=== PATIENT | male | born 1990 | race Caucasian/White ===

== ENCOUNTER 2020-01-17 14:15 | Emergency (ER) | payer SELFPAY ==
[2020-01-17] VITALS (18 sets, daily range): BP systolic 131–162; BP diastolic 94–120; PULSE 102–131; RESP 12–25; TEMP 36.4; O2SAT 93–99
--- NOTE | 2020-01-17 14:28 | ECG_ITS ---
Measurements Intervals [place] Rate: 110 P: 25 NV: 131 QRS: 99 QRSD: 113 T: 40 QT: 320 QTc: 433 Interpretive Statements SINUS TACHYCARDIA RIGHT AXIS DEVIATION INTRAVENTRICULAR CONDUCTION DELAY DELAYED PRECORDIAL R/S TRANSITION ST ELEVATION IN DIFFUSE LEADS- CONSIDER PERICARDITIS OR EARLY REPOLARIZATION ABNORMAL ECG Electronically Signed On 01-17-2020 15:05:35 PULP ROLLER by Elvis Naidu D.O.
[2020-01-17 14:48] LABS: Basophils Percent Auto 0.3 % (0.2-1.2); Eosinophils Absolute Auto 0.1 K/mm3 (0-0.3); Eosinophils Percent Auto 1.7 % (0-4.4); Hematocrit 45.8 % (42.0-52.0); Hemoglobin 15.9 g/dL (14.0-18.0); Immature Granulocyte Absolute 0.03 K/mm3 (0.00-0.031); Immature Granulocyte Percent A 0.4 % (0-0.5); Immature Platelet Fraction Pct 8.8 % (0.9-11.2); Lymphocytes Absolute Auto 0.94 K/mm3 (0.9-3.2); Lymphocytes Percent Auto 13.7 % (18.3-44.2); Mean Corpuscular HGB Conc 34.7 g/dl (32-36); Mean Platelet Volume 10.8 fl (7.4-10.4); Monocytes Absolute Auto 0.7 K/mm3 (0.1-0.6); Monocytes Percent Auto 10.1 % (2.6-8.5); Neutrophils Absolute Auto 5.1 K/mm3 (1.3-6.7); Neutrophils Percent Auto 73.8 % (45.5-73.1); Platelet Count Result 139 k/mm3 (150-375); Red Blood Count 4.82 M/mm3 (4.6-6.20); Red Cell Distribution Width 14.5 % (11.5-14.5); White Blood Count 6.9 K/mm3 (4.5-10.0)
[2020-01-17 14:58] LABS: Alanine Aminotransferase 101 U/L (4-50); Albumin Level 4.9 g/dL (3.5-5.1); Alkaline Phosphatase 88 U/L (38-126); Anion Gap 17 mmol/L (8-16); Aspartate Amino Transferase 129 U/L (17-59); Blood Urea Nitrogen 8 mg/dL (9-20); Calcium 9.7 mg/dL (8.4-10.2); Carbon Dioxide 28 mmol/L (22-30); Chloride 88 mmol/L (98-107); Estimated CRCL calculation 113 ml/min; Estimated Glomerular Filt Rate > 60; Glucose 171 mg/dL (75-110); Potassium 3.2 mmol/L (3.4-5.0); Sodium 133 mmol/L (137-145)
[2020-01-17 14:59] LABS: Ethanol < 10 mg/dL (<10)
--- NOTE | 2020-01-17 16:16 | ED.GENADULT ---
HPI - General Adult General Chief complaint: Alcohol Stated complaint: fast heart rate Time Seen by Provider: 01/17/20 16:02 Source: patient Mode of arrival: ambulatory Limitations: no limitations History of Present Illness HPI narrative: Patient was sent in via EMS from the doctor's office today. He was here to be seen to get blood pressure medicine and was found to be tremorous due to alcohol withdrawal. Patient states that his last drink was on Monday, his drink of choice was vodka approximately 1/5 a day. He had several life events over the last 4 months that prompted his decision to get clean. These include his girlfriend leaving him, the loss of his job and the loss of his home due to bankruptcy. He states that he is cold turkey before and has never had a seizure. He feels that his tremors are worse when he is speaking to me or the another physician. Onset (ago): day(s) Treatments prior to arrival: none Related Data Allergies Allergy/AdvReac Type Severity Reaction Status Date / Time No Known Allergies Allergy Mild Verified 01/17/20 14:29 Review of Systems Review of Systems: All systems reviewed & are unremarkable except as noted in HPI and below Psychiatric: Psychiatric: Reports depression Comments: no suicidal/homicidal ideations [facility] Family History Family History Father Hypertension Family history of coronary artery disease Mother Family history of diabetes mellitus in first degree relative Sibling Family history of diabetes mellitus in first degree relative Social History Social History Smoking packs per day: 0.5 Smoking cigarettes per day: 10.0 Years smoked: 10 Smoking pack-years: 5.00 Smoking status: Former smoker Tobacco type: cigarettes Smoking end date: 10/05/19 Alcohol intake: current Drinks per week: 35 Substance use: never Substance use type: does not use Gender identity (if verbalized by the patient): Male Exam Const: General: no acute distress and alert Orientation/consciousness: patient oriented x3 HENMT: Head: normal to inspection Eyes: Conjunctivae: conjunctivae normal Pupils: Equal, round and reactive pupils present EOM: EOMs intact bilaterally Resp: Effort & Inspection: normal respiratory effort Auscultation: clear to auscultation bilaterally Cardio: Rate: regular rate and tachycardic Rhythm: regular rhythm GI: GI Palp: Yes Soft to palpation Skin: General skin exam: ecchymosis (right flank from fall) Neuro: General: patient oriented x3 and no focal motor deficits Cranial nerves: Yes Nystagmus not present Extrem: General: normal to inspection Psych: Appearance: grossly normal Affect: normal affect Attitude: cooperative Thought content: Yes Normal thought content present Course Course Emergency Course: Discussed treatment plan with patient, will give him a decreasing dose of Librium to run through the weekend. We will refill his blood pressure medications for a week. He is instructed to follow-up with his physician on Monday or Monday. The patient inquired about Antabuse, his brother had taken it when he was going through alcohol rehab and feels that it would help him as well. As We are talking his tremors are much better. Vital Signs Vital signs: Vital Signs Temperature 36.4 C 01/17/20 14:24 Pulse Rate 120 H 01/17/20 14:24 Respiratory Rate 24 H 01/17/20 14:24 Blood Pressure 159/106 H 01/17/20 14:24 Pulse Oximetry 98 01/17/20 14:24 Temperature 36.4 C 01/17/20 14:24 Pulse Rate 118 H 01/17/20 16:08 Respiratory Rate 12 01/17/20 16:08 Blood Pressure 159/106 H 01/17/20 14:24 Pulse Oximetry 97 01/17/20 16:08 Medical Decision Making Vital Signs Vital Signs: Vital Signs Temperature 36.4 C 01/17/20 14:24 Pulse Rate 120 H 01/17/20 14:24 Respiratory Rate 24 H 01/17/20 14:24 Blood Press
[2020-01-17] MEDS: SODIUM CHLORIDE 0.9% IV 1,000 ML 999 ML IV CONT (16:47)
[2020-01-17] MEDS: chlordiazePOXIDE (*CRX) 25 MG CAPSULE PO (17:12)
[2020-01-17] MEDS: METOPROLOL TARTRATE 25 MG TABLET PO (18:05)
--- NOTE | 2020-01-17 19:19 | PC.NURSE ---
REPORT TO FRANSICO AVERY AT THIS TIME, HE HAS ASSUMED PT CARE.
== END 2020-01-17 20:00 | disposition home or self-care (01) ==
PROVIDERS: Emergency Provider Emergency Medicine; PCP Family Medicine
DX: F10.239 Alcohol dependence with withdrawal, unspecified (principal); I10 Essential (primary) hypertension; Z87.891 Personal history of nicotine dependence
CPT/HCPCS: 36415; 80053; 80307; 85025; 85055; 93005; 96360; 99283; A9270; J7030

== ENCOUNTER 2020-01-18 23:01 | Inpatient (IN) | payer MEDICAID, SELFPAY ==
--- NOTE | ~2020-01-18 | CT_ITS ---
EXAMINATION: CT brain wo con INDICATION: Transient alteration of awareness COMPARISON: None TECHNIQUE: Standard unenhanced head CT. The dose-length product (DLP) was 605.33 mGy-cm. The mA was a djusted according to patient size. Iterative reconstruction technique was employed. FINDINGS: There is no intracranial hemorrhage, acute infarction, or abnormal mass lesion. The ventric les are normal. There is no abnormal mass effect or midline shift. The isbell-white matter differentiat ion is normal. The basal cisterns are patent. The orbits are normal. The paranasal sinuses, mastoids and calvarium are normal. IMPRESSION: 1. No acute intracranial abnormality. Reviewed, dictated and finalized at location A. DIE PRESS FEEDER
--- NOTE | ~2020-01-18 | XR_ITS ---
EXAMINATION: XR chest 1V portable INDICATION: Seizure and hypoxia TECHNIQUE: Portable AP chest at 2359 hours COMPARISON: None available FINDINGS: The lungs are free of acute opacities. There is no pleural effusion or pneumothorax. The ca rdiomediastinal silhouette is normal. IMPRESSION: 1. No acute cardiopulmonary abnormality. Reviewed, dictated and finalized at location A. TAMPER
[2020-01-18 23:09] VITALS: BP 143/98; PULSE 90; RESP 20; TEMP 37.4; O2SAT 90
--- NOTE | 2020-01-18 23:21 | ECG_ITS ---
Measurements Intervals [place] Rate: 140 P: -11 NC: 134 QRS: -47 QRSD: 98 T: 45 QT: 293 QTc: 447 Interpretive Statements SINUS OR ECTOPIC ATRIAL TACHYCARDIA INCOMPLETE RIGHT BUNDLE BRANCH BLOCK LEFT ANTERIOR FASCICULAR BLOCK BASELINE ARTIFACT- I, II, III, AVR, AVL, AVF ABNORMAL ECG Electronically Signed On 01-19-2020 8:59:40 [employer]NAGER OF [employer] by Elvis Naidu D.O.
--- NOTE | 2020-01-18 23:25 | ED.SEIZURE ---
HPI - Seizure General Chief Complaint: Seizure Stated Complaint: Seizures/ETOH Time Seen by Provider: 01/18/20 23:12 Source: patient Mode of arrival: EMS History of Present Illness HPI Narrative: This patient is a 29 year old male with history of alcohol abuse who presents via EMS for evaluation of alcohol withdrawal. Patient stopped drinking on Monday, and he was evaluated yesterday for alcohol withdrawal. He was discharge with librium . He has returned today after suffering a seizure. His mother reports that he is hallucinating and he is not acting right. He denies history of seizures in the past. complaint: seizure Related Data Home Medications Medication Instructions Recorded Confirmed chlordiazepoxide HCl 25 mg PO Q6H PRN 01/19/20 01/19/20 Allergies Allergy/AdvReac Type Severity Reaction Status Date / Time No Known Allergies Allergy Mild Verified 01/17/20 14:29 Review of Systems Review of Systems: All systems reviewed & are unremarkable except as noted in HPI and below Constitutional: Constitutional: Denies chills and Denies fever(s) Cardiovascular: Cardiovascular: Denies chest pain Respiratory: Respiratory: Denies cough and Denies dyspnea Gastrointestinal: Gastrointestinal: Denies abdominal pain, Denies nausea and Reports vomiting Neurologic: Denies headache(s) and Denies focal weakness PMFSH Past Medical History Medical History Alcohol abuse Family History Family History Father Hypertension Family history of coronary artery disease Mother Family history of diabetes mellitus in first degree relative Sibling Family history of diabetes mellitus in first degree relative Social History Social History Smoking packs per day: 0.5 Smoking cigarettes per day: 10.0 Years smoked: 4 Smoking pack-years: 2.00 Smoking status: Current every day smoker Tobacco type: cigarettes Smoking end date: 10/05/19 Alcohol intake: current Drinks per week: 35 Substance use: never Substance use type: does not use Gender identity (if verbalized by the patient): Male Exam Const: General: alert Other: patient appears disheveled HENMT: Face and sinus: face symmetric Mouth: Yes other (bloody tongue) Eyes: Pupils: Equal, round and reactive pupils present EOM: EOMs intact bilaterally Chest: Chest palpation & inspection: normal inspection of the chest Resp: Effort & Inspection: normal respiratory effort and no retractions Auscultation: clear to auscultation bilaterally Cardio: Rate: tachycardic Rhythm: regular rhythm Heart sounds: no murmurs GI: GI Palp: Yes Soft to palpation, No Tenderness to palpation present (GI), No Guarding due to palpation present (GI) and No Rigid due to palpation Auscultation: normal bowel sounds Neuro: General: patient oriented x3 and moves all extremities Motor exam (neuro): Tremors during motor activity present Psych: Appearance: disheveled Thought content: Yes Hallucination(s) present Course Course Emergency Course: Patient presented in DT. He was hallucinating , tremululous. He was given multiple doses of ativan with improvement in HR , BP and tremors. He continues to be restless and tremulous. Admitted to ICU Consultations Consultation #1: Dr. Blancas accepts to icu Date: 01/19/20 Time: 01:21 Consultation #2: Dr. Mcdowell accepts patient Date: 01/19/20 Time: 01:20 Vital Signs Vital signs: Vital Signs Temperature 99.4 F 01/18/20 23:09 Pulse Rate 90 01/18/20 23:09 Respiratory Rate 20 01/18/20 23:09 Blood Pressure 143/98 H 01/18/20 23:09 Pulse Oximetry 90 01/18/20 23:09 Temperature 98.8 F 01/20/20 06:33 Pulse Rate 106 H 01/20/20 06:33 Respiratory Rate 18 01/20/20 06:33 Blood Pressure 148/92 H 01/20/20 06:33 Pulse Oximetry 99 01/20/20 06:33 MDM - Seizure Lab Data Attestation: Camilo collado
[2020-01-18] MEDS: LORazepam INJ (*CRX) 2 MG/ML VIAL 4 MG IV PUSH (23:36)
[2020-01-18] MEDS: SODIUM CHLORIDE 0.9% IV 1,000 ML 999 ML IV CONT (23:36)
[2020-01-18] MEDS: THIAMINE HCL 200 MG/2 ML VIAL (23:38)
[2020-01-19] VITALS (22 sets, daily range): BP systolic 79–147; BP diastolic 48–86; PULSE 77–128; RESP 17–25; TEMP 36.4–36.9; O2SAT 93–100; BMI 31.8
[2020-01-19 00:02] LABS: Basophils Absolute Auto 0.1 K/mm3 (0.0-0.1); Basophils Percent Auto 0.8 % (0.2-1.2); Eosinophils Absolute Auto 0.2 K/mm3 (0-0.3); Eosinophils Percent Auto 2.9 % (0-4.4); Hematocrit 40.9 % (42.0-52.0); Hemoglobin 13.7 g/dL (14.0-18.0); Immature Granulocyte Absolute 0.33 K/mm3 (0.00-0.031); Immature Granulocyte Percent A 4.5 % (0-0.5); Immature Platelet Fraction Pct 7.6 % (0.9-11.2); Lymphocytes Absolute Auto 1.28 K/mm3 (0.9-3.2); Lymphocytes Percent Auto 17.5 % (18.3-44.2); Mean Corpuscular HGB Conc 33.5 g/dl (32-36); Mean Corpuscular Hemoglobin 33.2 pg (26-34); Monocytes Percent Auto 13.2 % (2.6-8.5); Neutrophils Absolute Auto 4.5 K/mm3 (1.3-6.7); Neutrophils Percent Auto 61.1 % (45.5-73.1); Platelet Count Result 123 k/mm3 (150-375); Red Blood Count 4.13 M/mm3 (4.6-6.20); Red Cell Distribution Width 14.7 % (11.5-14.5); White Blood Count 7.3 K/mm3 (4.5-10.0)
[2020-01-19] MEDS: LORazepam INJ (*CRX) 2 MG/ML VIAL 4 MG IV PUSH ×2 (00:03→01:16)
[2020-01-19 00:10] LABS: INR 0.9; Prothrombin Time 12.9 Seconds (11.1-14.7)
[2020-01-19 00:12] LABS: Ammonia 155 umol/L (9-30); Ethanol < 10 mg/dL (<10)
[2020-01-19 00:36] LABS: Alanine Aminotransferase 83 U/L (4-50); Albumin Level 4.3 g/dL (3.5-5.1); Alkaline Phosphatase 86 U/L (38-126); Anion Gap 30 mmol/L (8-16); Aspartate Amino Transferase 106 U/L (17-59); Bilirubin,Total 0.6 mg/dL (0.2-1.3); Blood Urea Nitrogen 25 mg/dL (9-20); Calcium 10.1 mg/dL (8.4-10.2); Carbon Dioxide 12 mmol/L (22-30); Chloride 92 mmol/L (98-107); Creatine Kinase 263 U/L (55-170); Estimated CRCL calculation 72 ml/min; Estimated Glomerular Filt Rate 59; Glucose 296 mg/dL (75-110); Magnesium 2.6 mg/dL (1.6-2.3); Potassium 2.8 mmol/L (3.4-5.0); Sodium 134 mmol/L (137-145)
[2020-01-19 00:38] LABS: Lactic Acid Reflex 14.5 mmol/L (0.7-2.1)
[2020-01-19 01:10] LABS: Alveolar/Arterial O2 Gradient 19.8 mmHg; Base Excess ABG -1.1 mEq/l (+/-2.0); Carboxyhemoglobin 0.7 % THb (0-2.0); Device ROOM AIR; Fractional Inspired Oxygen 21 %; HCO3 ABG 21.2 mEq/l (22.0-26.0); Methemoglobin ABG 0.4 %THb (0-1.5); Modified Allen's Test Pass; Oxygen Content ABG 18.5 %vol (16.0-22.0); Oxygen Saturation ABG 97.8 % (95.0-100.0); Oxyhemoglobin 95.5 % THb (90.0-100.0); PCO2 ABG 28.8 mmHg (35.0-45.0); PO2 ABG 95.4 mmHg (80.0-100.0); PO2 FiO2 Ratio Arterial Blood 4.54 %; Reduced Hemoglobin 3.4 %THb (0-5.0); Site Drawn RIGHT RADIAL; Total Hemoglobin 13.7 g/dL (12.0-18.0); pH ABG 7.484 (7.350-7.450)
[2020-01-19] MEDS: dexmedeTOMIDine 400 MCG/100 ML 400 MCG/100 ML BAG IV CONT (02:02)
--- NOTE | 2020-01-19 02:25 | PM.IMHP ---
H&P: HPI History of Present Illness Date/Time: 01/19/20 02:25 Chief complaint: Seizures/ETOH Narrative: This patient is a 29 year old male with history of alcohol abuse who presented to the hospital after suffering a withdrawal seizure. Apparently the patient has not had any alcohol for a few days. While in the ER the patient was hallucinating and exhibited withdrawal symptoms and was treated with multiple doses of IV ativan. On my encounter with the patient is medicated and sleeping. He does not respond to painful stimuli at this time. The patient's mother has already gone home. Routine labs obtained in the ER demonstrated hypokalemia, an elevated lactic acid of 14.5 and a metabolic acidosis w/ elevated anion gap of 30. Of note, the patient's ammonia and CK levels are also elevated. Review of Systems Review of Systems: ROS unobtainable: Yes unobtainable due to medical condition and unobtainable due to mental status PMFSH Past Medical History Medical History Alcohol abuse Family History Family History Father Hypertension Family history of coronary artery disease Mother Family history of diabetes mellitus in first degree relative Sibling Family history of diabetes mellitus in first degree relative Social History Social History Smoking packs per day: 0.5 Smoking cigarettes per day: 10.0 Years smoked: 10 Smoking pack-years: 5.00 Smoking status: Former smoker Tobacco type: cigarettes Smoking end date: 10/05/19 Alcohol intake: current Drinks per week: 35 Substance use: never Substance use type: does not use Gender identity (if verbalized by the patient): Male Comments Past Medical/surgical/family/social history not obtainable due to the patient's medical condition. Meds Home Medications and Allergies Home Medications Medication Instructions Recorded Confirmed Type metoprolol tartrate 25 mg tablet 25 mg PO BID #60 tablet 06/27/19 Rx chlordiazepoxide HCl 25 mg PO Q8H PRN #7 cap 01/17/20 Rx disulfiram [Antabuse] 250 mg PO DAILY #7 tablet 01/17/20 Rx metoprolol tartrate 25 mg PO DAILY #7 tablet 01/17/20 Rx Allergies Allergy/AdvReac Type Severity Reaction Status Date / Time No Known Allergies Allergy Mild Verified 01/17/20 14:29 Vital Signs Vital Signs - 24 hr 01/18/20 23:09 01/19/20 00:06 Temperature 37.4 C Pulse Rate 90 128 H Respiratory Rate 20 24 H Blood Pressure 143/98 H 147/71 H Pulse Oximetry 90 100 Exam Const: General: ill appearing, intoxicated appearing and patient obtunded Nutritional Appearance: obese Orientation/consciousness: patient obtunded and Other orientation findings (comatose+ ) HENMT: Head: normal to inspection General nose exam: Normal external nose present Face and sinus: normal facial exam Mouth: Yes Normal oral and palatal mucosa present and Yes oropharynx normal Eyes: Pupils: Equal, round and reactive pupils present EOM: EOMs intact bilaterally Neck: Neck: supple and no JVD Thyroid: thyroid normal Lymphatic: lymphadenopathy not noted Resp: Effort & Inspection: normal respiratory effort Auscultation: clear to auscultation bilaterally Cardio: Rate: regular rate Rhythm: regular rhythm Heart sounds: no murmurs GI: Inspection: normal to inspection Auscultation: normal bowel sounds Skin: General skin exam: ecchymosis (Right flank++ ) Neuro: General: patient obtunded Cranial nerves: Yes Equal, round and reactive pupils present Extrem: General: edema and other (Bruising and excoriations on both knees) H&P: Results Labs Labs: Short CBC 01/18/20 Range/Units 23:50 WBC 7.3 (4.5-10.0) K/mm3 Hgb 13.7 L (14.0-18.0) g/dL Hct 40.9 L (42.0-52.0) % Plt Count 123 L (150-375) k/mm3 [facility] 01/18/20 23:49 Sodium 134 L Potassium 2.8 L* Chloride 92 L Carbon Dioxide 12 L BUN 25 H D
[2020-01-19 02:33] LABS: Beta-Hydroxybutyrate/Acetoacetate 1.24 mmol/L (0.02-0.27)
[2020-01-19 02:57] LABS: Reflex Lactic Acid Yes or No Add Lactic
[2020-01-19 03:41] LABS: Lactic Acid 0.8 mmol/L (0.7-2.1)
[2020-01-19 04:08] LABS: Add Urine Microscopic? YES; Appearance Urine Clear (Clear); Bilirubin Urine Negative (Negative); Blood Urine Negative (Negative); Color Urine Yellow (Yellow); Glucose Urine UA 2+ mg/dL (Negative); Ketones Urine Negative (Negative); Leukocyte Esterase Ur Negative LEU/UL (Negative); Mucus Urine Rare /lpf; Nitrate Urine Negative (Negative); Protein Urine 1+ mg/dL (Negative); Specific Grav Ur 1.014 (1.001-1.035); Urobilinogen Urine Negative mg/dL (<2.0); WBC Urine 0-3 /hpf
[2020-01-19 04:27] LABS: Amphetamine Screen Urine Negative (Negative); Barbiturate Screen Urine Negative (Negative); Benzodiazepines Screen Urine Positive (Negative); Cannabinoid Screen Urine Negative (Negative); Cocaine Screen Urine Negative (Negative); Methadone Screen Urine Negative (Negative); Opiate Screen Urine Negative (Negative); Phencyclidine Screen Urine Negative (Negative)
--- NOTE | 2020-01-19 06:13 | ADMIMU ---
This patient, Danny Reyna, was admitted to ICU statusat 0525, and placed in Intensive Care Unit-12. Patient oriented to hospital policies and general routines including ID bracelet, bed and alarms, visiting hours, pain management, procedures, bathroom and other care routines, personal items, smoking policy, room service/diet, and visiting hours. Information on how to activate the Rapid Response Team has been discussed. Patient/Family are encouraged to report perceived risks to care and to ask questions if they do not understand what they are told or what they should do.
--- NOTE | 2020-01-19 06:14 | PC.NURSE ---
Pt unable to provide history and admission information. Call place to parents who are listed at his main contact and next of kin; waiting for return call.
[2020-01-19 06:49] LABS: Glucose Point of Care 128 (65-105)
--- NOTE | 2020-01-19 08:15 | PC.NURSE ---
Second attempt to reach Danny's next of kin for admit information; message left with call back number on voicemail.
--- NOTE | 2020-01-19 11:52 | WPDCNINT ---
Assessment and Plan Assessment and plan (1) Elevated TSH: Code(s): R79.89 - Other specified abnormal findings of blood chemistry Status: Acute Assessment and Plan: TSH was elevated but free T4 is still pending. TSH is minimally elevated though. He does not have any symptoms suggestive of any thyroid issues. (2) Withdrawal seizures: Qualifiers: Complication of substance-induced condition: with unspecified complication Qualified Code(s): F19.239 - Other psychoactive substance dependence with withdrawal, unspecified; R56.9 - Unspecified convulsions Code(s): F19.239 - Other psychoactive substance dependence with withdrawal, unspecified; R56.9 - Unspecified convulsions Status: Acute Assessment and Plan: He denied have any prior history of alcohol withdrawal related seizures. Denied have any history of seizure disorder at his baseline. Denied have any recent head trauma. Head CT was negative for any intracranial pathology. Antiepileptics are not indicated. (3) Acute encephalopathy: Code(s): G93.40 - Encephalopathy, unspecified Status: Acute Assessment and Plan: Seems to have improved. He is alert oriented x3 now. Likely related to postictal status. (4) Metabolic acidosis with increased anion gap and accumulation of organic acids: Code(s): E87.2 - Acidosis Status: Acute Assessment and Plan: Significant lactic acidosis and associated high anion gap metabolic acidosis. He was hydrated with IV fluid. Both acidosis and lactic acidosis has resolved now. (5) Alcohol withdrawal: Qualifiers: Complication of substance-induced condition: uncomplicated Qualified Code(s): F10.230 - Alcohol dependence with withdrawal, uncomplicated Code(s): F10.239 - Alcohol dependence with withdrawal, unspecified Status: Acute Assessment and Plan: He is currently on IV Precedex drip. Wean Precedex if tolerated. IV Ativan on p.r.n. basis for increased anxiety and agitation. (6) Alcohol abuse: Code(s): F10.10 - Alcohol abuse, uncomplicated Status: Acute Assessment and Plan: Currently being hydrated with banana bag. Folate and thiamine will be repleted. (7) Acute renal failure: Qualifiers: Acute renal failure type: unspecified Qualified Code(s): N17.9 - Acute kidney failure, unspecified Code(s): N17.9 - Acute kidney failure, unspecified Status: Acute Assessment and Plan: He had a creatinine of 1.4 yesterday which has normalized now with IV hydration. (8) Transaminitis: Code(s): R74.01 - Elevation of levels of liver transaminase levels Status: Acute Assessment and Plan: Likely related to alcohol abuse. Continue to monitor. Additional Plan He was evaluated the morning and was doing well on Precedex drip. He is requiring few doses of Ativan as well. He is very tremulous. Later around 10:00 a.m. he expresses wish to leave the hospital. I went to his bedside and had a dated discussion with him explaining different complication he may have if he leave the hospital against medical advice which includes but not limited to repeat seizures, fall, intracranial hemorrhage, body injury and other complications. He is awake and alert x4. He understands the risk involved in leaving the hospital against medical advice. He verbalized those risks and accepted it. He has called family member/ friend to come and pick him up. He is going to sign AMA form and leave the hospital later today. I en encourage him to see his primary care physician tomorrow. DVT prophylaxis with subcu heparin GI prophylaxis not indicated He is currently NPO but will be started on diet later today if he is stable and wants to stay in the hospital. Critical care time spent more than 35 minutes Event Staff Member Consult Note Consult date: 01/19/20
[2020-01-19 12:57] LABS: Free T4 Free Thyroxine Reflex 1.11 ng/dL (0.78-2.19)
[2020-01-19 13:42] LABS: Glucose Point of Care 123 (65-105)
[2020-01-19 14:22] LABS: Total Triiodothyronine (T3) 2.03 NG/ML (0.97-1.69)
[2020-01-19] MEDS: chlordiazePOXIDE (*CRX) 25 MG CAPSULE PO ×2 (14:26→17:23)
[2020-01-19] MEDS: THIAMINE HCL 200 MG/2 ML VIAL 100 MG IV PUSH (14:26)
--- NOTE | 2020-01-19 16:18 | PM.IMPN ---
Progress Note: A&P Assessment and Plan (1) Acute encephalopathy: Code(s): G93.40 - Encephalopathy, unspecified Status: Acute Assessment and Plan: appears to be secondary to acute withdrawal seizure versus hepatic encephalopathy and alcohol withdrawal. admit to ICU, telemetry, NPO, aspiration precaution, continue treatment for acute alcohol withdrawal. Continue lactulose for hepatic encephalopathy. Booth Cleaner has been consulted. 01/19/20 16:18 Patient is a 29-year-old male with history of alcohol abuse patient had not been drinking for few days and was found to have seizure and brought emergency department bed he was hallucinating, patient was given multiple doses of Ativan and was brought to ICU where he was seen by general distillery worker and place the patient on Precedex, currently patient is feeling better patient is obvious upper lower extremity tremor, patient hypokalemia hypo magnesium, being supplement, also upon arrival patient had a metabolic acidosis and lactic acidosis most likely secondary to seizures, patient was treated with elevated and hydrated and now resolved, patient wanted to leave AMA general distillery worker had a long discussion with the patient and the consequences of leaving AMA without being treated, patient has decided stay in the hospital will continue to monitor patient, be placed on CIWA protocol and being treated with Librium, patient is started on thiamine and folic acid, will continue to monitor the patient patient will benefit going into alcohol withdrawal rehab upon discharge. (2) Withdrawal seizures: Qualifiers: Complication of substance-induced condition: with unspecified complication Qualified Code(s): F19.239 - Other psychoactive substance dependence with withdrawal, unspecified; R56.9 - Unspecified convulsions Code(s): F19.239 - Other psychoactive substance dependence with withdrawal, unspecified; R56.9 - Unspecified convulsions Status: Acute Assessment and Plan: Continue benzodiazepines for any acute seizures. Seizure precautions. Aspiration precautions. (3) Alcohol withdrawal: Qualifiers: Complication of substance-induced condition: uncomplicated Qualified Code(s): F10.230 - Alcohol dependence with withdrawal, uncomplicated Code(s): F10.239 - Alcohol dependence with withdrawal, unspecified Status: Acute Assessment and Plan: CIWA-AR protocol. Thiamine IV daily, Ativan IV prn. Transition to oral Librium when possible. We will consider Precedex IV drip for acute withdrawal symptoms. (4) Hyperammonemia: Code(s): E72.20 - Disorder of urea cycle metabolism, unspecified Status: Acute Assessment and Plan: likely secondary to chronic alcohol abuse. Continue lactulose. (5) Metabolic acidosis with increased anion gap and accumulation of organic acids: Code(s): E87.2 - Acidosis Status: Acute Assessment and Plan: May be secondary to acute renal failure, acute alcoholic ketoacidosis, or DKA. Check serum beta hydroxybutyrate. monitor acid-base status closely. We will administer IV fluids with dextrose. (6) Hypokalemia: Code(s): E87.6 - Hypokalemia Status: Acute Assessment and Plan: may be secondary to acute renal failure. We will replace potassium. Monitor serum potassium. (7) Normocytic anemia: Code(s): D64.9 - Anemia, unspecified Status: Acute Assessment and Plan: May be secondary to alcohol abuse. No signs of acute blood loss at this time. Monitor H&H, transfuse p.r.n. (8) Thrombocytopenia: Code(s): D69.6 - Thrombocytopenia, unspecified Status: Chronic Assessment and Plan: Likely secondary to ongoing alcohol abuse. Monitor serum platelets. (9) Acute dehydration: Code(s): E86.0 - Dehydration Status: Acute Assessment and Plan: continue IV hydration. Monitor urine output and vital signs closely. (10) Acu
[2020-01-19 17:07] LABS: Glucose Point of Care 114 (65-105)
[2020-01-20] VITALS (11 sets, daily range): BP systolic 140–148; BP diastolic 90–98; PULSE 95–123; RESP 16–18; TEMP 36.6–37.1; O2SAT 96–99
[2020-01-20] MEDS: chlordiazePOXIDE (*CRX) 25 MG CAPSULE PO ×3 (00:08→11:49)
[2020-01-20] MEDS: LORazepam INJ (*CRX) 2 MG/ML VIAL 1 MG IV PUSH (00:08)
--- NOTE | 2020-01-20 01:06 | PC.NURSE ---
This patient, Danny Reyna, was received from [ICU ] on 01/20/20 at 0106. Patient oriented to unit policies and routines.
[2020-01-20 06:05] LABS: Basophils Percent Auto 0.4 % (0.2-1.2); Eosinophils Absolute Auto 0.1 K/mm3 (0-0.3); Eosinophils Percent Auto 2.4 % (0-4.4); Hematocrit 36.8 % (42.0-52.0); Hemoglobin 12.3 g/dL (14.0-18.0); Immature Granulocyte Absolute 0.03 K/mm3 (0.00-0.031); Immature Granulocyte Percent A 0.7 % (0-0.5); Immature Platelet Fraction Pct 4.8 % (0.9-11.2); Lymphocytes Absolute Auto 0.82 K/mm3 (0.9-3.2); Lymphocytes Percent Auto 17.9 % (18.3-44.2); Mean Corpuscular HGB Conc 33.4 g/dl (32-36); Mean Corpuscular Hemoglobin 32.5 pg (26-34); Mean Corpuscular Volume 97.1 fl (80-100); Mean Platelet Volume 10.8 fl (7.4-10.4); Monocytes Percent Auto 20.9 % (2.6-8.5); Neutrophils Absolute Auto 2.7 K/mm3 (1.3-6.7); Neutrophils Percent Auto 57.7 % (45.5-73.1); Platelet Count Result 105 k/mm3 (150-375); Red Blood Count 3.79 M/mm3 (4.6-6.20); Red Cell Distribution Width 15.1 % (11.5-14.5); White Blood Count 4.6 K/mm3 (4.5-10.0)
[2020-01-20 06:21] LABS: Alanine Aminotransferase 91 U/L (4-50); Alkaline Phosphatase 66 U/L (38-126); Anion Gap 12 mmol/L (8-16); Aspartate Amino Transferase 85 U/L (17-59); Bilirubin,Total 0.6 mg/dL (0.2-1.3); Blood Urea Nitrogen 7 mg/dL (9-20); Calcium 8.7 mg/dL (8.4-10.2); Carbon Dioxide 25 mmol/L (22-30); Chloride 103 mmol/L (98-107); Estimated CRCL calculation 170 ml/min; Estimated Glomerular Filt Rate > 60; Glucose 105 mg/dL (75-110); Magnesium 1.8 mg/dL (1.6-2.3); Potassium 2.9 mmol/L (3.4-5.0); Sodium 140 mmol/L (137-145)
[2020-01-20] MEDS: POTASSIUM CHLORIDE 20 MEQ TABLET 40 MEQ PO (08:21)
[2020-01-20] MEDS: THIAMINE HCL 200 MG/2 ML VIAL 100 MG IV PUSH (08:21)
[2020-01-20 14:33] LABS: Potassium 3.7 mmol/L (3.4-5.0)
[2020-01-20] MEDS: POTASSIUM CHLORIDE 20 MEQ PACKET (FOR LIQUID) 40 MEQ PO (14:44)
[2020-01-20 14:45] LABS: Anion Gap 6 mmol/L (8-16); Blood Urea Nitrogen 8 mg/dL (9-20); Calcium 8.9 mg/dL (8.4-10.2); Carbon Dioxide 28 mmol/L (22-30); Chloride 103 mmol/L (98-107); Estimated CRCL calculation 150 ml/min; Estimated Glomerular Filt Rate > 60; Glucose 117 mg/dL (75-110); Potassium 3.7 mmol/L (3.4-5.0); Sodium 137 mmol/L (137-145)
--- NOTE | 2020-01-20 15:26 | PM.DS ---
DS: Admitting Diagnosis Admitting Diagnosis Admitting Diagnosis: Seizures/ETOH DS: Discharge Diagnosis Discharge Diagnosis (1) Acute encephalopathy: Code(s): G93.40 - Encephalopathy, unspecified Status: Acute Assessment and Plan: appears to be secondary to acute withdrawal seizure versus hepatic encephalopathy and alcohol withdrawal. admit to ICU, telemetry, NPO, aspiration precaution, continue treatment for acute alcohol withdrawal. Continue lactulose for hepatic encephalopathy. Guide Tour has been consulted. 01/19/20 16:18 Patient is a 29-year-old male with history of alcohol abuse patient had not been drinking for few days and was found to have seizure and brought emergency department bed he was hallucinating, patient was given multiple doses of Ativan and was brought to ICU where he was seen by elevator service mechanic and place the patient on Precedex, currently patient is feeling better patient is obvious upper lower extremity tremor, patient hypokalemia hypo magnesium, being supplement, also upon arrival patient had a metabolic acidosis and lactic acidosis most likely secondary to seizures, patient was treated with elevated and hydrated and now resolved, patient wanted to leave AMA elevator service mechanic had a long discussion with the patient and the consequences of leaving AMA without being treated, patient has decided stay in the hospital will continue to monitor patient, be placed on CIWA protocol and being treated with Librium, patient is started on thiamine and folic acid, will continue to monitor the patient patient will benefit going into alcohol withdrawal rehab upon discharge. (2) Withdrawal seizures: Qualifiers: Complication of substance-induced condition: with unspecified complication Qualified Code(s): F19.239 - Other psychoactive substance dependence with withdrawal, unspecified; R56.9 - Unspecified convulsions Code(s): F19.239 - Other psychoactive substance dependence with withdrawal, unspecified; R56.9 - Unspecified convulsions Status: Acute Assessment and Plan: Continue benzodiazepines for any acute seizures. Seizure precautions. Aspiration precautions. (3) Alcohol withdrawal: Code(s): F10.239 - Alcohol dependence with withdrawal, unspecified Status: Acute Assessment and Plan: CIWA-AR protocol. Thiamine IV daily, Ativan IV prn. Transition to oral Librium when possible. We will consider Precedex IV drip for acute withdrawal symptoms. (4) Hyperammonemia: Code(s): E72.20 - Disorder of urea cycle metabolism, unspecified Status: Acute Assessment and Plan: likely secondary to chronic alcohol abuse. Continue lactulose. (5) Metabolic acidosis with increased anion gap and accumulation of organic acids: Code(s): E87.2 - Acidosis Status: Acute Assessment and Plan: May be secondary to acute renal failure, acute alcoholic ketoacidosis, or DKA. Check serum beta hydroxybutyrate. monitor acid-base status closely. We will administer IV fluids with dextrose. (6) Hypokalemia: Code(s): E87.6 - Hypokalemia Status: Acute Assessment and Plan: may be secondary to acute renal failure. We will replace potassium. Monitor serum potassium. (7) Normocytic anemia: Code(s): D64.9 - Anemia, unspecified Status: Acute Assessment and Plan: May be secondary to alcohol abuse. No signs of acute blood loss at this time. Monitor H&H, transfuse p.r.n. (8) Thrombocytopenia: Code(s): D69.6 - Thrombocytopenia, unspecified Status: Chronic Assessment and Plan: Likely secondary to ongoing alcohol abuse. Monitor serum platelets. (9) Acute dehydration: Code(s): E86.0 - Dehydration Status: Acute Assessment and Plan: continue IV hydration. Monitor urine output and vital signs closely. (10) Acute renal failure: Qualifiers: Acute renal failure type: uns
== END 2020-01-20 16:17 | disposition home or self-care (01) | DRG 775 ==
LOC: ANHED 23:57 → ANHICU 01-19 05:27 → ANH2MED 01-20 07:12 → ANHICU 01-21 16:14
PROVIDERS: Internal Medicine Critical Care Medicine; Admitting Provider Family Medicine; Emergency Provider General Practice; PCP Family Medicine; Visit Provider Family Medicine
DX: F10.139 Alcohol abuse with withdrawal, unspecified (principal); E86.0 Dehydration; E87.6 Hypokalemia; G93.40 Encephalopathy, unspecified; E87.2 Acidosis; D69.6 Thrombocytopenia, unspecified; N17.9 Acute kidney failure, unspecified; R56.9 Unspecified convulsions
CPT/HCPCS: 36415; 36600; 70450; 71045; 80048; 80053; 80307; 81001; 82010; 82140; 82375; 82550; 82805; 82948; 83050; 83605; 83735; 84100; 84132; 84439; 84443; 84480; 85025; 85055; 85610; 85730; 93005; 96365; 96366; 96368; 96375; 96376; 99285; A9270; J2060; J3411; J3475; J3480; J7030

== ENCOUNTER 2020-04-20 12:52 | Inpatient (IN) | payer BC, SELFPAY ==
[2020-04-20] VITALS (16 sets, daily range): BP systolic 122–149; BP diastolic 68–109; PULSE 110–130; RESP 21–29; TEMP 36.7–37.2; O2SAT 94–97; BMI 34.5
--- NOTE | ~2020-04-20 | XR_ITS ---
EXAMINATION: XR shoulder LT min 2V INDICATION: Left shoulder pain TECHNIQUE: Four views of the left shoulder are obtained on five radiographs. COMPARISON: 06/12/2016 FINDINGS: Normal alignment. No fracture. Glenohumeral and acromioclavicular joint spaces are normal. Soft tissues are unremarkable. IMPRESSION: 1. No acute osseous abnormality. Reviewed, dictated and finalized at location A. FIELD CASER
--- NOTE | ~2020-04-20 | XR_ITS ---
EXAMINATION: XR chest 1V INDICATION: Transient alteration of awareness TECHNIQUE: Frontal view of the chest is obtained. COMPARISON: 01/18/2020 FINDINGS: The lungs are free of acute opacities. There is no pleural effusion or pneumothorax. The ca rdiomediastinal silhouette is normal. IMPRESSION: 1. No acute cardiopulmonary abnormality. Reviewed, dictated and finalized at location A. VERY MANAGER
--- NOTE | 2020-04-20 12:59 | ECG_ITS ---
Measurements Intervals [place] Rate: 118 P: 5 HI: 149 QRS: 100 QRSD: 110 T: 1 QT: 310 QTc: 436 Interpretive Statements SINUS TACHYCARDIA RIGHT AXIS DEVIATION INCOMPLETE RIGHT BUNDLE BRANCH BLOCK DELAYED PRECORDIAL R/S TRANSITION CONSIDER INFERIOR INFARCT, AGE INDETERMINATE BASELINE ARTIFACT- I, II, III, AVL, AVF, V1 ABNORMAL ECG Electronically Signed On 04-24-2020 11:54:37 CFA by Elvis Naidu D.O.
[2020-04-20] MEDS: diazePAM INJ (*CRX) 10 MG/2 ML SYRINGE 5 MG IV PUSH ×3 (13:13→14:39)
[2020-04-20] MEDS: SODIUM CHLORIDE 0.9% IV 1,000 ML 999 ML IV CONT ×2 (13:14→14:39)
[2020-04-20 13:30] LABS: Basophils Percent Auto 0.7 % (0.2-1.2); Eosinophils Absolute Auto 0.1 K/mm3 (0-0.3); Hematocrit 43.6 % (42.0-52.0); Hemoglobin 14.6 g/dL (14.0-18.0); Immature Granulocyte Absolute 0.12 K/mm3 (0.00-0.031); Immature Platelet Fraction Pct 9.2 % (0.9-11.2); Lymphocytes Absolute Auto 0.63 K/mm3 (0.9-3.2); Lymphocytes Percent Auto 10.3 % (18.3-44.2); Mean Corpuscular HGB Conc 33.5 g/dl (32-36); Mean Corpuscular Hemoglobin 31.9 pg (26-34); Mean Corpuscular Volume 95.2 fl (80-100); Mean Platelet Volume 10.6 fl (7.4-10.4); Monocytes Absolute Auto 0.5 K/mm3 (0.1-0.6); Monocytes Percent Auto 7.5 % (2.6-8.5); Neutrophils Absolute Auto 4.8 K/mm3 (1.3-6.7); Neutrophils Percent Auto 78.5 % (45.5-73.1); Platelet Count Result 118 k/mm3 (150-375); Red Blood Count 4.58 M/mm3 (4.6-6.20); Red Cell Distribution Width 13.5 % (11.5-14.5); White Blood Count 6.1 K/mm3 (4.5-10.0)
[2020-04-20 13:42] LABS: Albumin Level 4.4 g/dL (3.5-5.1); Alkaline Phosphatase 83 U/L (38-126); Anion Gap 14 mmol/L (8-16); Aspartate Amino Transferase 297 U/L (17-59); Bilirubin,Total 0.6 mg/dL (0.2-1.3); Blood Urea Nitrogen 14 mg/dL (9-20); Carbon Dioxide 26 mmol/L (22-30); Chloride 91 mmol/L (98-107); Estimated CRCL calculation 95 ml/min; Estimated Glomerular Filt Rate > 60; Glucose 210 mg/dL (75-110); Lipase 369 U/L (23-300); Sodium 131 mmol/L (137-145)
[2020-04-20 14:05] LABS: Alanine Aminotransferase 146 U/L (4-50)
--- NOTE | 2020-04-20 14:55 | ED.SEIZURE ---
HPI - Seizure General Chief Complaint: Seizure Stated Complaint: Seizure Time Seen by Provider: 04/20/20 12:58 History of Present Illness HPI Narrative: Patient is a 29-year-old male who presents ER status post having a seizure. Patient was at work when he fell down to the ground. He had witnessed seizure by coworkers. He bit his tongue. Patient has history of alcohol withdrawal seizures and quit drinking 2 days ago due to having a bad hangover. Reports he been feeling off all day prior to this event. He is not on antiepileptic medication. Patient also reports he believes he dislocated his left shoulder as he felt it pop back in place when he woke up and moved his arm. Seizure History: Yes (alcohol abuse) Related Data Allergies Allergy/AdvReac Type Severity Reaction Status Date / Time No Known Allergies Allergy Mild Verified 02/05/20 13:16 Review of Systems Review of Systems: All systems reviewed & are unremarkable except as noted in HPI and below Constitutional: Constitutional: Denies chills, Denies fever(s) and Denies weakness ENT: Comments: Tongue pain Cardiovascular: Cardiovascular: Denies chest pain and Denies radiating jaw, neck or arm pain Respiratory: Respiratory: Denies cough and Denies dyspnea Gastrointestinal: Gastrointestinal: Denies abdominal pain, Denies nausea and Denies vomiting Musculoskeletal: Musculoskeletal: Reports arthralgias (Left shoulder), Denies joint swelling and Denies muscle cramps Neurologic: Denies headache(s), Denies focal weakness and Denies numbness Comments: Seizure PMFSH Past Medical History Medical History (Updated 04/20/20 @ 15:35 by Damon Garcia MD) Alcohol abuse NISA (generalized anxiety disorder) Withdrawal seizures Surgical History Surgical History (Updated 04/20/20 @ 15:31 by Damon Garcia MD) No pertinent past surgical history Family History Family History Father Hypertension Family history of coronary artery disease Mother Family history of diabetes mellitus in first degree relative Sibling Family history of diabetes mellitus in first degree relative Social History Social History Smoking packs per day: 0.5 Smoking cigarettes per day: 10.0 Years smoked: 4 Smoking pack-years: 2.00 Smoking status: Former smoker Tobacco type: cigarettes Smoking end date: 10/05/19 Alcohol intake: former Drinks per week: 35 Substance use: never Substance use type: does not use Gender identity (if verbalized by the patient): Male Exam Narrative: Exam Narrative: GENERAL: ill-appearing, well-nourished, and in no acute distress. HEAD: Normocephalic, atraumatic. ENT: Mucous membranes moist. Laceration right tongue due to bite injury. CHEST: Clear to auscultation. No respiratory distress. HEART: Tachycardic regular. Normal peripheral pulses. ABDOMEN: Soft, nontender, nondistended. EXTREMITIES: Normal range of motion. No edema. SKIN: Warm, dry, no rash. NEURO: Alert and oriented x3. Tremulous. Course Course Emergency Course: Patient will be placed in ICU and admitted to hospitalist service for alcohol withdrawal seizure. Patient was significant tremors and tachycardia despite repeated dosing of Valium. Vital Signs Vital signs: Vital Signs Temperature 98.0 F 04/20/20 12:51 Pulse Rate 122 H 04/20/20 12:51 Respiratory Rate 29 H 04/20/20 12:51 Blood Pressure 149/109 H 04/20/20 12:51 Pulse Oximetry 97 04/20/20 12:51 Temperature 98.0 F 04/20/20 12:51 Pulse Rate 111 H 04/20/20 15:30 Respiratory Rate 23 H 04/20/20 15:30 Blood Pressure 130/77 04/20/20 15:30 Pulse Oximetry 97 04/20/20 15:30 MDM - Seizure Lab Data Result diagrams: 04/20/20 13:22 04/20/20 13:22 Labs: Lab Results 04/20/20 04/20/20 Range/Units 13:22 13:22 WBC 6.1 (4.5-10.0) K/mm3 RBC 4
--- NOTE | 2020-04-20 18:08 | PM.IMHP ---
H&P: HPI History of Present Illness Date/Time: 04/20/20 18:08 Chief Complaint: Alcohol withdrawal seizure Narrative: Danny Reyna is a 29 year old male has a history of alcoholism. Patient's last admission was January 182019 and he was discharged on 01/20/2020. It was attempted to control the patient's withdrawal symptoms with oral medication at that time and he did wind up on a Precedex drip at that time. The patient was sent home on Librium but no longer has the Librium. The patient tells me that he has been drinking about a half a pt of whiskey on the days after he gets off of work otherwise on the weekend he will drink as much as he wants to. The patient is having hand tremors but no loose Nations at this time. He is having some abdominal pain and is nauseated and is having diarrhea. On Monday and he did not drink today. The patient stated that he is been busy at work. He was brought to the emergency room today because he was witnessed to have a seizure. He has a history of having alcohol withdrawals in the past. The patient stated that he quit drinking 2 days ago because he was having a bad hangover. The patient has a red ariane to his left upper thigh from landing on the ground when he had a seizure. The patient felt like he dislocated his left shoulder but then felt a Pop back into place when he woke up moved his arm. Potassium was was 3.0 and sodium 131 chloride 91. Glucose 210. AST 297, ALT 146 and lipase 369. Was started on IV fluids, Valium and morphine. Patient is being admitted to inpatient ICU on the date of service 04/20/2020 Review of Systems Review of Systems: All systems reviewed & are unremarkable except as noted in HPI and below Constitutional: Constitutional: Reports as per HPI and Reports no additional constitutional complaints Eyes: Eyes: Reports as per HPI and Reports no additional eye complaints ENT: Reports system reviewed and no additional complaints, except as documented and Reports Normal hearing present Cardiovascular: Cardiovascular: Reports no additional cardiovascular complaints Respiratory: Respiratory: Reports no additional respiratory complaints and Reports no additional respiratory complaints Gastrointestinal: Gastrointestinal: Reports as per HPI and Reports no additional gastrointestinal complaints Musculoskeletal: Musculoskeletal: Reports no additional musculoskeletal complaints Integumentary/Breasts: Skin/Breast: Reports system reviewed and no additional complaints, except as docu and Reports as per HPI Neurologic: Reports system reviewed and no additional complaints, except as documented, Reports as per HPI and Reports Normal hearing present Psychiatric: Psychiatric: Reports no additional psychiatric complaints and Reports as per HPI Endocrine: Endocrine: Reports no additional endocrine complaints Hematologic/Lymphatic: Hematologic/Lymphatic: Reports no additional hematologic/lymphatic complaints Allergic/Immunologic: Allergic/Immunologic: Reports no additional allergic/immunologic complaints PMFSH Past Medical History Medical History Alcohol abuse NISA (generalized anxiety disorder) Withdrawal seizures Surgical History Surgical History No pertinent past surgical history Family History Family History Father Hypertension Family history of coronary artery disease Mother Family history of diabetes mellitus in first degree relative Sibling Family history of diabetes mellitus in first degree relative Social History Social History (Updated 04/20/20 @ 18:28 by Sherron Knight NP) Social History: The patient stated that he lives home alone. He has 1 son. And his mother is a durable power erisa attorney for healthcare. The patient desires to be a full code. 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 The patient stated
[2020-04-20] MEDS: SODIUM CHLORIDE 0.9% IV 1,000 ML 125 ML IV CONT (19:02)
[2020-04-20] MEDS: GABAPENTIN 100 MG CAPSULE PO (19:02)
[2020-04-20] MEDS: chlordiazePOXIDE (*CRX) 25 MG CAPSULE PO (19:03)
[2020-04-20 19:09] LABS: Ammonia < 9 umol/L (9-30); Magnesium 1.8 mg/dL (1.6-2.3)
--- NOTE | 2020-04-20 19:16 | ADMGEN ---
This patient, Danny Reyna, was admitted to Intensive Care Unit-6. Patient/family oriented to hospital policies and general routines including ID bracelet, bed and alarms, visiting hours, pain management, procedures, bathroom and other care routines, personal items, smoking policy, room service/diet, and visiting hours. Information on how to activate the Rapid Response Team has been discussed. Patient/Family are encouraged to report perceived risks to care and to ask questions if they do not understand what they are told or what they should do.
[2020-04-20] MEDS: LORazepam INJ (*CRX) 2 MG/ML VIAL 1 MG IV PUSH ×2 (19:50→22:47)
[2020-04-20] MEDS: POTASSIUM CHLORIDE 20 MEQ PACKET (FOR LIQUID) 40 MEQ PO (20:03)
[2020-04-21] VITALS (22 sets, daily range): BP systolic 110–157; BP diastolic 68–102; PULSE 11–983; RESP 16–29; TEMP 36.2–37.1; O2SAT 90–100
[2020-04-21] MEDS: dexmedeTOMIDine 400 MCG/100 ML 400 MCG/100 ML BAG IV CONT (00:02)
[2020-04-21] MEDS: SODIUM CHLORIDE 0.9% IV 1,000 ML 125 ML IV CONT (03:20)
[2020-04-21] MEDS: chlordiazePOXIDE (*CRX) 25 MG CAPSULE PO (03:34)
[2020-04-21 03:46] LABS: Basophils Percent Auto 0.4 % (0.2-1.2); Eosinophils Absolute Auto 0.1 K/mm3 (0-0.3); Eosinophils Percent Auto 1.7 % (0-4.4); Hematocrit 38.8 % (42.0-52.0); Hemoglobin 12.7 g/dL (14.0-18.0); Immature Granulocyte Absolute 0.02 K/mm3 (0.00-0.031); Immature Granulocyte Percent A 0.4 % (0-0.5); Immature Platelet Fraction Pct 5.9 % (0.9-11.2); Lymphocytes Percent Auto 17.3 % (18.3-44.2); Mean Corpuscular HGB Conc 32.7 g/dl (32-36); Mean Corpuscular Volume 97.7 fl (80-100); Mean Platelet Volume 10.1 fl (7.4-10.4); Monocytes Absolute Auto 0.8 K/mm3 (0.1-0.6); Neutrophils Absolute Auto 2.9 K/mm3 (1.3-6.7); Neutrophils Percent Auto 62.2 % (45.5-73.1); Platelet Count Result 112 k/mm3 (150-375); Red Blood Count 3.97 M/mm3 (4.6-6.20); Red Cell Distribution Width 13.8 % (11.5-14.5); White Blood Count 4.6 K/mm3 (4.5-10.0)
[2020-04-21 03:49] LABS: Hemoglobin A1C 5.6 % (<5.7)
[2020-04-21 03:56] LABS: Alanine Aminotransferase 125 U/L (4-50); Albumin Level 3.7 g/dL (3.5-5.1); Alkaline Phosphatase 62 U/L (38-126); Anion Gap 5 mmol/L (8-16); Aspartate Amino Transferase 134 U/L (17-59); Bilirubin,Total 0.7 mg/dL (0.2-1.3); Blood Urea Nitrogen 10 mg/dL (9-20); CRP 1.8 mg/dL (<1.0); Calcium 8.2 mg/dL (8.4-10.2); Carbon Dioxide 31 mmol/L (22-30); Chloride 101 mmol/L (98-107); Estimated CRCL calculation 144 ml/min; Estimated Glomerular Filt Rate > 60; Glucose 123 mg/dL (75-110); Lipase 239 U/L (23-300); Potassium 3.3 mmol/L (3.4-5.0); Sodium 137 mmol/L (137-145)
[2020-04-21] MEDS: chlordiazePOXIDE (*CRX) 25 MG CAPSULE 50 MG PO ×3 (08:02→20:32)
[2020-04-21] MEDS: GABAPENTIN 100 MG CAPSULE PO ×3 (08:02→18:18)
[2020-04-21] MEDS: HYDROcodone/acetaminophen (*CRX) 5-325 MG TABLET 1 TAB PO ×4 (08:02→22:17)
[2020-04-21] MEDS: POTASSIUM CHLORIDE 20 MEQ TABLET 40 MEQ PO (08:03)
--- NOTE | 2020-04-21 08:14 | WPDCNINT ---
Assessment and Plan Assessment and plan (1) Withdrawal seizures: Qualifiers: Complication of substance-induced condition: with unspecified complication Qualified Code(s): F19.239 - Other psychoactive substance dependence with withdrawal, unspecified; R56.9 - Unspecified convulsions Code(s): F19.239 - Other psychoactive substance dependence with withdrawal, unspecified; R56.9 - Unspecified convulsions Status: Acute Assessment and Plan: Patient presented the ED seizures, related to withdrawal seizures as he had stop drinking 2 days prior to admission as he had a bad hangover -patient did have a family and his left shoulder, x-ray of the left shoulder did not show any acute osseous abnormality, continue p.r.n. pain meds -patient currently on Librium and Precedex infusion -start patient on thiamine, folic acid and multivitamin -will continue check CIWA score -continue p.r.n. Ativan for seizures -no seizure since admission and overnight (2) NISA (generalized anxiety disorder): Code(s): F41.1 - Generalized anxiety disorder Status: Acute Assessment and Plan: Patient has history of general anxiety disorder -currently on Precedex -patient does not take any medications at home (3) Alcohol abuse: Code(s): F10.10 - Alcohol abuse, uncomplicated Status: Acute Assessment and Plan: History of alcohol abuse, states he drinks a 5th of whiskey daily and binges on the weekend -tried talking to him to quit, he says he is trying (4) Essential hypertension: Code(s): I10 - Essential (primary) hypertension Status: Acute Assessment and Plan: History of essential hypertension, metoprolol at home, currently blood pressures are stable, continue to monitor from a (5) Transaminitis: Code(s): R74.01 - Elevation of levels of liver transaminase levels Status: Acute Assessment and Plan: Elevated LFTs likely related to alcohol abuse, alcohol liver disease, hypovolemia/dehydration -patient with adequately hydrated -remains on maintenance IV fluids -LFTs trending down -continue to monitor Additional Plan Discussed with patient at length and updated with his condition and plan of care. Code status: Full code Critical care time spent: 41 minutes Due to a high probability of clinically significant, life threatening deterioration, the patient required my highest level of preparedness to intervene emergently and I personally spent this critical care time directly and personally managing the patient. This critical care time included obtaining a history; examining the patient; pulse oximetry; ordering and review of studies; arranging urgent treatment with development of a management plan; evaluation of patient's response to treatment; frequent reassessment; and discussions with other providers. It was exclusive of separately billable procedures and treating other patients and teaching time. Please see Assessment and Plan section and the rest of the note for further information on patient assessment and treatment Car Tester Consult Note Consult date: 04/21/20 Time Seen: 07:04 Reason for consult: Seizures, alcohol withdrawal, fall HPI: Danny Reyna is a 29 year old male with past medical history of abuse, general anxiety disorder withdrawal seizures presented to ED on 04/20/2020 complains of seizures. Patient also fell and hit his left shoulder. Patient had a witnessed seizure by coworkers, he also better started. Patient has a history of alcohol withdrawal seizures and quit drinking 2 days ago due to having a bad hangover. Reported that he was feeling off all day prior to this event. He has started any antiseizure medications daily and weekends he does binge drinking. In the ER patient was tremulous. He also complained of mild abdominal pain, nausea and diarrhea. Lipase levels were slightly elevated, patient also had elevation in his LFTs. Transferred to the
[2020-04-21] MEDS: THERAPEUTIC MULTIVITAMINS/MINERALS TAB (*BKC) 1 TABLET PO (09:01)
[2020-04-21] MEDS: THIAMINE HCL 100 MG TABLET PO (09:01)
[2020-04-21] MEDS: FOLIC ACID 1 MG TABLET PO (09:01)
--- NOTE | 2020-04-21 15:03 | PM.IMPN ---
Progress Note: A&P Assessment and Plan (1) Withdrawal seizures: Qualifiers: Complication of substance-induced condition: with unspecified complication Qualified Code(s): F19.239 - Other psychoactive substance dependence with withdrawal, unspecified; R56.9 - Unspecified convulsions Code(s): F19.239 - Other psychoactive substance dependence with withdrawal, unspecified; R56.9 - Unspecified convulsions Status: Acute Assessment and Plan: 04/21/20 15:03 The patient last drink this past Monday and did not feel well on Monday so he did drink on Monday or today Monday. Today the patient was witnessed to have a seizure which was due to alcohol withdrawal. He has had this in the past the last 1 was here in January of last year. I put the patient on Librium high dosage and Ativan. If this does not work then we will need to go with a Precedex drip. He had been on a Precedex drip his last admission. I added gabapentin as well. 04/21 patient was transferred to ICU as he needed Precedex to control and prevent any seizure, patient is now off the Precedex, patient was seen by borematic machine operator increased Librium to 50 mg every 6 hours, currently patient is ambulating in the room, patient's last drink was 5 days ago he is out of risk for DT and does not show any sign or symptoms. Patient will be transferred out of ICU on med tele Will continue to monitor the patient, if remains clinically stable, no seizure no sings or symptoms of DT may discharge the patient home tomorrow (2) NISA (generalized anxiety disorder): Code(s): F41.1 - Generalized anxiety disorder Status: Acute Assessment and Plan: I am waiting to see what his home medications are it looks like he had been on Lexapro. (3) Transaminitis: Code(s): R74.01 - Elevation of levels of liver transaminase levels Status: Acute Assessment and Plan: Most likely due to his alcohol intake. (4) Hypokalemia: Code(s): E87.6 - Hypokalemia Status: Acute Assessment and Plan: Replace as necessary. (5) Alcohol abuse: Code(s): F10.10 - Alcohol abuse, uncomplicated Status: Acute Assessment and Plan: Continue with CIWA scores. Continue with Ativan and Librium. I added gabapentin as well. Check his ammonia level as well. (6) Essential hypertension: Code(s): I10 - Essential (primary) hypertension Status: Acute Assessment and Plan: I am awaiting his home medication list and will resume metoprolol if he is still on it. Subjective Date/time seen: 04/21/20 15:03 The patient last drink this past Monday and did not feel well on Monday so he did drink on Monday or today Monday. Today the patient was witnessed to have a seizure which was due to alcohol withdrawal. He has had this in the past the last 1 was here in January of last year. I put the patient on Librium high dosage and Ativan. If this does not work then we will need to go with a Precedex drip. He had been on a Precedex drip his last admission. I added gabapentin as well. 04/21 patient was transferred to ICU as he needed Precedex to control and prevent any seizure, patient is now off the Precedex, patient was seen by borematic machine operator increased Librium to 50 mg every 6 hours, currently patient is ambulating in the room, patient's last drink was 5 days ago he is out of risk for DT and does not show any sign of symptoms. Patient will be transferred out of ICU on med tele Will continue to monitor the patient, if remains clinically stable, no seizure no sings or symptoms of DT may discharge the patient home tomorrow Review of Systems Review of Systems: All systems reviewed & are unremarkable except as noted in HPI and below Exam Narrative: Exam Narrative: Patient is comfortable, NAD HEENT: eyes are clear and none icteric LUNGS:CTA HEART: RR S1S2 ABD: BS+, Soft and nontender Lower extremities: no edema SKIN: nonjaundiced Neuro: grossl
[2020-04-21] MEDS: METOPROLOL TARTRATE 25 MG TABLET PO (16:14)
[2020-04-21] MEDS: LORazepam INJ (*CRX) 2 MG/ML VIAL 1 MG IV PUSH (20:33)
--- NOTE | 2020-04-21 22:45 | ADMGEN ---
This patient, Danny Reyna, was admitted to [facility] Surg Room 312-01. Patient/family oriented to hospital policies and general routines including ID bracelet, bed and alarms, visiting hours, pain management, procedures, bathroom and other care routines, personal items, smoking policy, room service/diet, and visiting hours. Information on how to activate the Rapid Response Team has been discussed. Patient/Family are encouraged to report perceived risks to care and to ask questions if they do not understand what they are told or what they should do.
--- NOTE | 2020-04-21 22:58 | PC.NURSE ---
transfered to 312 in wheel chair verb no complaints
[2020-04-21] MEDS: IBUPROFEN 600 MG TABLET PO (23:06)
[2020-04-22] VITALS (7 sets, daily range): BP systolic 130–155; BP diastolic 89–90; PULSE 81–125; RESP 16; TEMP 36.8–37.1; O2SAT 99–100
[2020-04-22] MEDS: LORazepam INJ (*CRX) 2 MG/ML VIAL 1 MG IV PUSH ×2 (00:13→04:55)
[2020-04-22] MEDS: chlordiazePOXIDE (*CRX) 25 MG CAPSULE 50 MG PO ×2 (03:03→09:05)
[2020-04-22] MEDS: THERAPEUTIC MULTIVITAMINS/MINERALS TAB (*BKC) 1 TABLET PO (09:04)
[2020-04-22] MEDS: GABAPENTIN 100 MG CAPSULE PO ×2 (09:05→12:59)
[2020-04-22] MEDS: THIAMINE HCL 100 MG TABLET PO (09:05)
[2020-04-22] MEDS: FOLIC ACID 1 MG TABLET PO (09:05)
[2020-04-22] MEDS: METOPROLOL TARTRATE 25 MG TABLET PO (09:05)
[2020-04-22] MEDS: POTASSIUM CHLORIDE 20 MEQ TABLET 40 MEQ PO (09:06)
--- NOTE | 2020-04-22 14:16 | PM.DS ---
DS: Admitting Diagnosis Admitting Diagnosis Admitting Diagnosis: Chief Complaint: Alcohol withdrawal seizure DS: Discharge Diagnosis Discharge Diagnosis (1) Withdrawal seizures: Qualifiers: Complication of substance-induced condition: with unspecified complication Qualified Code(s): F19.239 - Other psychoactive substance dependence with withdrawal, unspecified; R56.9 - Unspecified convulsions Code(s): F19.239 - Other psychoactive substance dependence with withdrawal, unspecified; R56.9 - Unspecified convulsions Status: Acute Assessment and Plan: 04/21/20 15:03 The patient last drink this past Monday and did not feel well on Monday so he did drink on Monday or today Monday. Today the patient was witnessed to have a seizure which was due to alcohol withdrawal. He has had this in the past the last 1 was here in January of last year. I put the patient on Librium high dosage and Ativan. If this does not work then we will need to go with a Precedex drip. He had been on a Precedex drip his last admission. I added gabapentin as well. 04/21 patient was transferred to ICU as he needed Precedex to control and prevent any seizure, patient is now off the Precedex, patient was seen by training systems officer increased Librium to 50 mg every 6 hours, currently patient is ambulating in the room, patient's last drink was 5 days ago he is out of risk for DT and does not show any sign or symptoms. Patient will be transferred out of ICU on med tele Will continue to monitor the patient, if remains clinically stable, no seizure no sings or symptoms of DT may discharge the patient home tomorrow (2) NISA (generalized anxiety disorder): Code(s): F41.1 - Generalized anxiety disorder Status: Acute Assessment and Plan: I am waiting to see what his home medications are it looks like he had been on Lexapro. (3) Transaminitis: Code(s): R74.01 - Elevation of levels of liver transaminase levels Status: Acute Assessment and Plan: Most likely due to his alcohol intake. (4) Hypokalemia: Code(s): E87.6 - Hypokalemia Status: Acute Assessment and Plan: Replace as necessary. (5) Alcohol abuse: Code(s): F10.10 - Alcohol abuse, uncomplicated Status: Acute Assessment and Plan: Continue with CIWA scores. Continue with Ativan and Librium. I added gabapentin as well. Check his ammonia level as well. (6) Essential hypertension: Code(s): I10 - Essential (primary) hypertension Status: Acute Assessment and Plan: I am awaiting his home medication list and will resume metoprolol if he is still on it. DS: Summary Hospital Course Reason for hospitalization: Chief Complaint: Alcohol withdrawal seizure Narrative: Danny Reyna is a 29 year old male has a history of alcoholism. Patient's last admission was January 182019 and he was discharged on 01/20/2020. It was attempted to control the patient's withdrawal symptoms with oral medication at that time and he did wind up on a Precedex drip at that time. The patient was sent home on Librium but no longer has the Librium. The patient tells me that he has been drinking about a half a pt of whiskey on the days after he gets off of work otherwise on the weekend he will drink as much as he wants to. The patient is having hand tremors but no loose Nations at this time. He is having some abdominal pain and is nauseated and is having diarrhea. On Monday and he did not drink today. The patient stated that he is been busy at work. He was brought to the emergency room today because he was witnessed to have a seizure. He has a history of having alcohol withdrawals in the past. The patient stated that he quit drinking 2 days ago because he was having a bad hangover. The patient has a red ariane to his left upper thigh from landing on the ground when he had a seizure. The patient felt like he dislocated his left shoulder but
== END 2020-04-22 15:30 | disposition home or self-care (01) | DRG 775 ==
LOC: ANHED 15:35 → ANHICU 04-21 11:58 → ANH3MEDSUR 04-22 01:16 → ANHICU 04-24 08:29
PROVIDERS: Nurse Practitioner; Admitting Provider Family Medicine; Emergency Provider Emergency Medicine; PCP Family Medicine; Visit Provider Family Medicine
DX: F10.139 Alcohol abuse with withdrawal, unspecified (principal); G40.89 Other seizures; F41.1 Generalized anxiety disorder; R74.01 Elevation of levels of liver transaminase levels; E87.6 Hypokalemia; I10 Essential (primary) hypertension; E86.0 Dehydration; Z87.891 Personal history of nicotine dependence
CPT/HCPCS: 36415; 71045; 73030; 80053; 82140; 83036; 83690; 83735; 84443; 85025; 85055; 86140; 93005; 96361; 96374; 96376; 99285; A9270; J2060; J3360; J7030

== ENCOUNTER 2020-06-03 12:04 | Emergency (ER) | payer BC, SELFPAY ==
[2020-06-03] VITALS (10 sets, daily range): BP systolic 113–162; BP diastolic 75–102; PULSE 100–114; RESP 18–25; O2SAT 95–99
--- NOTE | ~2020-06-03 | CT_ITS ---
EXAMINATION: CT abdomen pelvis w con EXAM DATE: 06/03/2020 13:15 INDICATION: Abdominal pain with elevated lipase. TECHNIQUE: Spiral CT of the abdomen and pelvis was performed following intravenous injection of 100 m L Omnipaque 350. Axial, coronal and sagittal images were reviewed. The dose-length product (DLP) fo r this examination was 771.72 mGy-cm. The exposure was tailored according to patient size (auto mA e xposure control), and iterative reconstruction (ASIR) was used as additional dose reduction technique . There is no prior study for comparison. FINDINGS: There is hepatomegaly and severe hepatic steatosis without suspicious focal lesion identifi ed. Spleen, adrenal glands, pancreas are unremarkable. Gallbladder is unremarkable. No biliary obst ruction. Portal and splenic veins are patent. Kidneys enhance symmetrically. There is no hydroneph rosis. The prostate is unremarkable. The bladder is unremarkable. There is no retroperitoneal or pelvic lymphadenopathy. Small bilateral inguinal fat-containing hernias. There are no findings to suggest appendicitis. The stomach and small bowel are unremarkable. There is expected amount of colonic stool. No free intraperitoneal gas. The heart is normal in size. T here are no pericardial or pleural effusions. The lung bases are unremarkable. There are no osteobl astic or osteolytic lesions identified. IMPRESSION: 1. Hepatomegaly, hepatic steatosis. 2. Small inguinal hernias. Reviewed, dictated and finalized at location A.
[2020-06-03 12:31] LABS: Basophils Percent Auto 0.4 % (0.2-1.2); Eosinophils Percent Auto 0.8 % (0-4.4); Hematocrit 43.3 % (42.0-52.0); Hemoglobin 15.1 g/dL (14.0-18.0); Immature Granulocyte Absolute 0.05 K/mm3 (0.00-0.031); Immature Granulocyte Percent A 1.1 % (0-0.5); Immature Platelet Fraction Pct 9.4 % (0.9-11.2); Lymphocytes Absolute Auto 0.77 K/mm3 (0.9-3.2); Lymphocytes Percent Auto 16.2 % (18.3-44.2); Mean Corpuscular HGB Conc 34.9 g/dl (32-36); Mean Corpuscular Hemoglobin 31.5 pg (26-34); Mean Corpuscular Volume 90.2 fl (80-100); Mean Platelet Volume 11.2 fl (7.4-10.4); Monocytes Absolute Auto 0.5 K/mm3 (0.1-0.6); Monocytes Percent Auto 9.9 % (2.6-8.5); Neutrophils Absolute Auto 3.4 K/mm3 (1.3-6.7); Neutrophils Percent Auto 71.6 % (45.5-73.1); Platelet Count Result 78 k/mm3 (150-375); Red Cell Distribution Width 14.5 % (11.5-14.5); White Blood Count 4.7 K/mm3 (4.5-10.0)
[2020-06-03] MEDS: chlordiazePOXIDE (*CRX) 25 MG CAPSULE PO (12:43)
[2020-06-03] MEDS: ONDANSETRON INJ 4 MG/2 ML VIAL IV PUSH (12:43)
[2020-06-03] MEDS: SODIUM CHLORIDE 0.9% IV 1,000 ML 999 ML IV CONT ×2 (12:43→14:34)
[2020-06-03 12:45] LABS: Alanine Aminotransferase 165 U/L (4-50); Albumin Level 4.5 g/dL (3.5-5.1); Alkaline Phosphatase 114 U/L (38-126); Anion Gap 12 mmol/L (8-16); Aspartate Amino Transferase 302 U/L (17-59); Bilirubin,Total 0.6 mg/dL (0.2-1.3); Blood Urea Nitrogen 4 mg/dL (9-20); Calcium 8.4 mg/dL (8.4-10.2); Carbon Dioxide 36 mmol/L (22-30); Chloride 83 mmol/L (98-107); Estimated CRCL calculation 167 ml/min; Estimated Glomerular Filt Rate > 60; Glucose 157 mg/dL (75-110); Lipase 642 U/L (23-300); Potassium 2.8 mmol/L (3.4-5.0); Sodium 131 mmol/L (137-145)
[2020-06-03 14:10] LABS: Ethanol 58 mg/dL (<10)
[2020-06-03 14:18] LABS: Add Urine Microscopic? YES; Appearance Urine Clear (Clear); Bilirubin Urine Negative (Negative); Blood Urine Negative (Negative); Color Urine Yellow (Yellow); Glucose Urine UA Negative (Negative); Ketones Urine 1+ mg/dL (Negative); Leukocyte Esterase Ur Negative LEU/UL (Negative); Mucus Urine Rare /lpf; Nitrate Urine Negative (Negative); Protein Urine 2+ mg/dL (Negative); RBC Urine 0-2 /hpf (0-2); Squamous Epithelial Cell Urine Rare /hpf (Few); WBC Urine 0-3 /hpf
[2020-06-03 14:23] LABS: Specific Grav Ur > 1.060 (1.001-1.035)
[2020-06-03] MEDS: POTASSIUM CHLORIDE 20 MEQ PACKET (FOR LIQUID) 40 MEQ PO (14:27)
--- NOTE | 2020-06-03 14:27 | PC.NURSE ---
Pt given meds po. States is feeling somewhat better at present.
[2020-06-03 14:33] LABS: Amphetamine Screen Urine Negative (Negative); Barbiturate Screen Urine Negative (Negative); Benzodiazepines Screen Urine Positive (Negative); Cannabinoid Screen Urine Negative (Negative); Cocaine Screen Urine Negative (Negative); Methadone Screen Urine Negative (Negative); Opiate Screen Urine Negative (Negative); Phencyclidine Screen Urine Negative (Negative)
[2020-06-03] MEDS: PHENobarbitaL sodium (*CRX) 130 MG/ML VIAL 65 MG IV PUSH (16:40)
--- NOTE | 2020-06-03 16:47 | ED.GENADULT ---
HPI - General Adult General Chief complaint: Alcohol Stated complaint: detox Time Seen by Provider: 06/03/20 12:09 Source: patient Mode of arrival: ambulatory Limitations: no limitations History of Present Illness HPI narrative: Patient presents with chief complaint of alcohol withdrawals. Patient states that he had 1/5 of vodka in 24 hours ago. Patient was seen by his primary care on 06-01-20 and given Librium that was supposed to get him through alcohol withdrawals at home to go to rehab on by his primary care Dr. Sosa. Patient states that he did not go to rehab as planned because it was his birthday and he instead decided to drink. Patient reports patient's abdominal cramping and diarrhea. Patient also reports shakiness. Patient states that he has been told that he could show up to rehab this evening and check himself in. Patient denies any loss of consciousness or seizure-like activity. Patient denies any injuries or other concerns. Related Data Allergies Allergy/AdvReac Type Severity Reaction Status Date / Time No Known Allergies Allergy Mild Verified 06/03/20 14:28 Review of Systems Review of Systems: Narrative: CONSTITUTIONAL: Reports sweats denies fever, chills EYES: Denies visual changes, redness, or discharge. ENT: Denies rhinorrhea, congestion, sore throat, or otalgia. CARDIOVASCULAR: Denies chest pain, palpitations, or edema. RESPIRATORY: Denies cough or dyspnea. GASTROINTESTINAL: Reports abdominal pain and diarrhea denies vomiting GENITOURINARY: Denies dysuria or hematuria. SKIN: Denies rash or itching. MUSCULOSKELETAL: Denies back pain, joint pain, or myalgia. NEUROLOGIC: Denies headache, numbness, dizziness, or weakness. PSYCHIATRIC: Denies anxiety or depression. [facility] Past Medical History Medical History (Updated 06/03/20 @ 16:55 by Chucky Arguello PA-C) Alcohol abuse Essential hypertension NISA (generalized anxiety disorder) Withdrawal seizures Surgical History Surgical History No pertinent past surgical history Family History Family History Father Hypertension Family history of coronary artery disease Mother Family history of diabetes mellitus in first degree relative Sibling Family history of diabetes mellitus in first degree relative Social History Social History (Updated 06/01/20 @ 15:09 by Dannielle Arriaza) Social History: The patient stated that he lives home alone. He has 1 son. And his mother is a durable power assistant county attorney for healthcare. The patient desires to be a full code. 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 The patient stated he drinks about a half a pt a which do a day after work and he drinks heavily on the weekend. The patient drink last time on this past Monday. He would not drink Monday or today which is Monday. The patient states that he tried CBD but that does not work for him since he has anxiety. He is not able to use marijuana or any drugs due to his work. Patient quit smoking last year. Smoking packs per day: 0.5 Smoking cigarettes per day: 10.0 Years smoked: 4 Smoking pack-years: 2.00 Smoking status: Former smoker Tobacco type: cigarettes Smoking end date: 10/05/19 Alcohol intake: current Drinks per week: 20 Substance use: never Substance use type: does not use Gender identity (if verbalized by the patient): Male Spiritual care concerns: No Exam Narrative: Exam Narrative: GENERAL: Ill-appearing, sweaty, well-nourished. HEAD: Normocephalic, atraumatic. EYES: PERRLA and EOMI. ENT: Nares clear, no rhinorrhea or epistaxis. Mucous membranes moist. Oropharynx without tonsillar hypertrophy exudate or other lesions. Bilateral TMs pearly isbell nonbulging NECK: Supple. No adenopathy or masses. CHEST: Clear to auscultation. No respiratory distress. No wheezes rales or rhonchi HEART: Tachycardic rate and rhythm. No
--- NOTE | 2020-06-03 16:48 | PC.NURSE ---
Order of lorazepam cancelled by MD. Dose not administered.
[2020-06-03] MEDS: LORazepam INJ (*CRX) 2 MG/ML VIAL 1 MG IV PUSH (17:33)
--- NOTE | 2020-06-03 18:10 | PC.NURSE ---
Pt kept after Ativan admin per PA request. PA approval to send pt home with ride at 1809. Pt to be discharged and wheeled out to transportation.
== END 2020-06-03 18:20 | disposition home or self-care (01) ==
PROVIDERS: Physician Assistant; Emergency Provider Emergency Medicine; PCP Family Medicine
DX: F10.230 Alcohol dependence with withdrawal, uncomplicated (principal); I10 Essential (primary) hypertension; F41.9 Anxiety disorder, unspecified
CPT/HCPCS: 36415; 74177; 80053; 80307; 81001; 83690; 85025; 85055; 96361; 96374; 96375; 99284; A9270; J2060; J2405; J2560; J7030; Q9967

== ENCOUNTER 2020-10-05 14:33 | Emergency (ER) | payer BC, SELFPAY ==
[2020-10-05] VITALS (27 sets, daily range): BP systolic 99–122; BP diastolic 58–80; PULSE 75–124; RESP 15–24; TEMP 36.2; O2SAT 90–95
--- NOTE | 2020-10-05 14:45 | ECG_ITS ---
Measurements Intervals [place] Rate: 95 P: 20 ME: 148 QRS: 94 QRSD: 106 T: 19 QT: 343 QTc: 431 Interpretive Statements SINUS RHYTHM WITH SINUS ARRHYTHMIA RIGHT AXIS DEVIATION MINIMAL Q WAVES- INFERIOR LEADS BASELINE ARTIFACT- I, II, AVR BORDERLINE ECG Electronically Signed On 10-05-2020 16:07:34 CDT by Elvis Naidu D.O.
[2020-10-05 14:58] LABS: Basophils Absolute Auto 0.1 K/mm3 (0.0-0.1); Basophils Percent Auto 0.5 % (0.2-1.2); Eosinophils Absolute Auto 0.3 K/mm3 (0-0.3); Eosinophils Percent Auto 3.3 % (0-4.4); Hematocrit 45.9 % (42.0-52.0); Hemoglobin 15.3 g/dL (14.0-18.0); Immature Granulocyte Absolute 0.17 K/mm3 (0.00-0.031); Immature Granulocyte Percent A 1.6 % (0-0.5); Lymphocytes Absolute Auto 3.76 K/mm3 (0.9-3.2); Lymphocytes Percent Auto 36.1 % (18.3-44.2); Mean Corpuscular HGB Conc 33.3 g/dl (32-36); Mean Corpuscular Volume 93.1 fl (80-100); Mean Platelet Volume 9.3 fl (7.4-10.4); Monocytes Absolute Auto 0.9 K/mm3 (0.1-0.6); Neutrophils Absolute Auto 5.2 K/mm3 (1.3-6.7); Neutrophils Percent Auto 49.5 % (45.5-73.1); Platelet Count Result 375 k/mm3 (150-375); Red Blood Count 4.93 M/mm3 (4.6-6.20); White Blood Count 10.4 K/mm3 (4.5-10.0)
[2020-10-05 15:09] LABS: Alanine Aminotransferase 34 U/L (4-50); Albumin Level 4.4 g/dL (3.5-5.1); Alkaline Phosphatase 90 U/L (38-126); Anion Gap 14 mmol/L (8-16); Aspartate Amino Transferase 33 U/L (17-59); Bilirubin,Total 0.1 mg/dL (0.2-1.3); Blood Urea Nitrogen 7 mg/dL (9-20); Calcium 9.1 mg/dL (8.4-10.2); Carbon Dioxide 24 mmol/L (22-30); Chloride 107 mmol/L (98-107); Estimated Glomerular Filt Rate > 60; Glucose 113 mg/dL (65-110); Sodium 145 mmol/L (137-145)
[2020-10-05 15:12] LABS: Acetaminophen < 10 ug/mL (10-30); Salicylate < 1.0 mg/dL (2-20)
[2020-10-05 15:14] LABS: Add Urine Microscopic? NO; Appearance Urine Clear (Clear); Bilirubin Urine Negative (Negative); Blood Urine Negative (Negative); Color Urine Colorless (Yellow); Glucose Urine UA Negative (Negative); Ketones Urine Negative (Negative); Leukocyte Esterase Ur Negative LEU/UL (Negative); Nitrate Urine Negative (Negative); Protein Urine Negative (Negative); Urobilinogen Urine Negative mg/dL (<2.0)
[2020-10-05 15:22] LABS: Ethanol 487 mg/dL (<10)
[2020-10-05 15:41] LABS: Amphetamine Screen Urine Negative (Negative); Barbiturate Screen Urine Negative (Negative); Benzodiazepines Screen Urine Negative (Negative); Cannabinoid Screen Urine Negative (Negative); Cocaine Screen Urine Negative (Negative); Methadone Screen Urine Negative (Negative); Opiate Screen Urine Negative (Negative); Phencyclidine Screen Urine Negative (Negative)
[2020-10-05 15:51] LABS: Specific Grav Ur 1.003 (1.001-1.035)
--- NOTE | 2020-10-05 16:50 | PC.NURSE ---
SPOKE WITH PT'S MOTHER YOEL CALI WHO REPORTS THAT PT WAS INPATIENT AT [facility]. RELEASED September. HE HAD A CAPTAIN FENG HANDLE IN THE HOUSE AND SHE TOLD HIM TO DUMP IT OUT BUT NOT SURE IF HE DID. SHE BELIEVES THAT HE DIDN'T TAKE ANY EXTRA OF HIS MEDICATIONS THAT WAS LEFT FROM HIS REHAB ADMISSION. STATES SHE WILL COME UP TO HOSPITAL TO SPEAK WITH DR NICHO EASTMAN.
--- NOTE | 2020-10-05 17:46 | ED.GENADULT ---
HPI - General Adult General Chief complaint: Alcohol <Damon Garcia MD - Last Filed: 10/05/20 21:08> Stated complaint: trazadone od <Damon Garcia MD - Last Filed: 10/05/20 21:08> Time Seen by Provider: 10/05/20 14:38 <Damon Garcia MD - Last Filed: 10/05/20 21:08> History of Present Illness HPI narrative: Patient is a 30-year-old male who presents ER with concerns for possible overdose. Patient just got out of a month long stay and alcohol rehab. He was at home and his daughter called for help because he was not acting right. Initially concerned that patient may have overdosed on trazodone but appears he is only taking 2 tablets of the medication that was prescribed to him since his discharge on 09/29. Patient is awake alert and oriented to self and place and year but cannot give any additional information and due to what appears to be intoxication. <Damon Garcia MD - Last Filed: 10/05/20 21:08> Related Data Home medications: Home Medications Medication Instructions Recorded Confirmed metoprolol succinate PO 10/05/20 metoprolol tartrate 10/05/20 sertraline mg 10/05/20 trazodone 10/05/20 <Damon Garcia MD - Last Filed: 10/05/20 21:08> Allergies/adverse reactions: Allergies Allergy/AdvReac Type Severity Reaction Status Date / Time No Known Allergies Allergy Mild Verified 10/05/20 16:01 <Damon Garcia MD - Last Filed: 10/05/20 21:08> Review of Systems Review of Systems: ROS unobtainable: Yes unobtainable due to mental status <Damon Garcia MD - Last Filed: 10/05/20 21:08> [facility] Past Medical History Medical History: Medical History (Updated 10/05/20 @ 22:12 by Dylan Johnson MD) Alcohol abuse Essential hypertension NISA (generalized anxiety disorder) Withdrawal seizures <Damon Garcia MD - Last Filed: 10/05/20 21:08> Surgical History Surgical History: Surgical History No pertinent past surgical history <Damon Garcia MD - Last Filed: 10/05/20 21:08> Family History Family History: Family History Father Hypertension Family history of coronary artery disease Mother Family history of diabetes mellitus in first degree relative Sibling Family history of diabetes mellitus in first degree relative <Damon Garcia MD - Last Filed: 10/05/20 21:08> Social History Social History: Social History (Updated 06/08/20 @ 11:38 by Dannielle Arriaza) Social History: The patient stated that he lives home alone. He has 1 son. And his mother is a durable power title attorney for healthcare. The patient desires to be a full code. 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 The patient stated he drinks about a half a pt a which do a day after work and he drinks heavily on the weekend. The patient drink last time on this past Monday. He would not drink Monday or today which is Monday. The patient states that he tried CBD but that does not work for him since he has anxiety. He is not able to use marijuana or any drugs due to his work. Patient quit smoking last year. Smoking packs per day: 0.5 Smoking cigarettes per day: 10.0 Years smoked: 4 Smoking pack-years: 2.00 Smoking status: Former smoker Tobacco type: cigarettes Smoking end date: 10/05/19 Alcohol intake: former Drinks per week: 20 Alcohol use details: Stopped about 4-5 days ago Substance use: never Substance use type: does not use Gender identity (if verbalized by the patient): Male Spiritual care concerns: No <Damon Garcia MD - Last Filed: 10/05/20 21:08> Exam Narrative: GENERAL: Nontoxic-appearing, obese, and in no acute distress. HEAD: Normocephalic, atraumatic. EYES: PERRL and EOMI. ENT: Mucous membranes moist. CHEST: Clear to auscultation. No respiratory distress. HEART: Regular rate and
--- NOTE | 2020-10-05 19:15 | PC.NURSE ---
YOEL [phone] MOTHER STATES SHE WILL PICK HER SON UP WHEN HE IS ABLE TO BE DISCHARGED HOME.
--- NOTE | 2020-10-05 20:15 | PC.NURSE ---
Pt requested this RN call his mother Isabella Reyna at [phone] for ride home. NO ANSWER. will reattempt later.
--- NOTE | 2020-10-05 20:39 | PC.NURSE ---
pt became agitated and demanded to walk to restroom instead of using urinal in room. pt able to get out of bed unassisted and ambulate to restroom, while cursing at staff. ambulated to restroom c steady, even, unassisted gait. at this time, all belongings in room secured by this RN in belongings bag. pt does NOT have cell phone with him. wallet, shirt, jeans, and shoes in locked belongings cabinet.
[2020-10-05 21:33] LABS: Ethanol 347 mg/dL (<10)
--- NOTE | 2020-10-05 22:04 | PC.NURSE ---
Pt's mother agrees to pick pt up. ED MD Johnson notified.
--- NOTE | 2020-10-05 22:21 | PC.NURSE ---
Pt's mother here and agrees to pick up driver pt and be responsible for him. pt and mother verbalize understanding of d/c instructions.
== END 2020-10-05 22:25 | disposition home or self-care (01) ==
PROVIDERS: Emergency Provider Emergency Medicine; PCP Family Medicine
DX: F10.229 Alcohol dependence with intoxication, unspecified (principal); Y90.8 Blood alcohol level of 240 mg/100 ml or more; R94.31 Abnormal electrocardiogram [ECG] [EKG]
CPT/HCPCS: 36415; 51701; 80053; 80307; 81003; 84443; 85025; 93005; 99283

== ENCOUNTER 2021-02-16 19:31 | Emergency (ER) | payer BC, SELFPAY ==
--- NOTE | ~2021-02-16 | XR_ITS ---
EXAMINATION: XR chest 2V 02/16/2021 21:29 INDICATION: Cough and shortness of breath. Covid symptoms. PROCEDURE: 2 view chest COMPARISON: 04/20/2020 FINDINGS: The lungs are clear. The cardiomediastinal silhouette is within normal limits. There are no pleural effusions. There is no pneumothorax suspected. IMPRESSION: 1: NO ACUTE CARDIOPULMONARY DISEASE. Reviewed, dictated and finalized at location A. ENGINE MECHANIC
[2021-02-16 19:33] VITALS: BP 135/95; PULSE 110; RESP 18; TEMP 36.6; O2SAT 97
[2021-02-16] MEDS: ACETAMINOPHEN 500 MG TABLET 1000 MG PO (21:30)
--- NOTE | 2021-02-16 21:46 | ED.URI ---
HPI - URI/Sore Throat General Chief Complaint: Upper Respiratory Infection Stated Complaint: sick for 4 days I think I have covid Time Seen by Provider: 02/16/21 20:58 Source: patient and family History of Present Illness HPI Narrative: Patient presents with cough, congestion, chills for the past 4 days. Her symptoms are not getting better is not attempted any therapies at home to help with his symptoms. He has not had any known sick contacts he is not vaccinated against Covid. Denies any sore throat, chest pain, nausea, vomiting, diarrhea Related Data Home Medications Medication Instructions Recorded Confirmed naltrexone 50 mg tablet 50 mg PO DAILY 10/08/20 Allergies Allergy/AdvReac Type Severity Reaction Status Date / Time No Known Allergies Allergy Mild Verified 02/16/21 20:44 Review of Systems Review of Systems: CONSTITUTIONAL: Denies fever, chills, or sweats. EYES: Denies visual changes, redness, or discharge. ENT: Reports nasal congestion CARDIOVASCULAR: Denies chest pain, palpitations, or edema. RESPIRATORY: Reports cough and shortness of breath GASTROINTESTINAL: Denies abdominal pain, nausea, vomiting, or diarrhea. GENITOURINARY: Denies dysuria or hematuria. SKIN: Denies rash or itching. MUSCULOSKELETAL: Denies back pain, joint pain, or myalgia. NEUROLOGIC: Denies headache, numbness, dizziness, or weakness. PSYCHIATRIC: Denies anxiety or depression. All systems reviewed & are unremarkable except as noted in HPI and below PMFSH Past Medical History Medical History Alcohol abuse Essential hypertension NISA (generalized anxiety disorder) Withdrawal seizures Surgical History Surgical History No pertinent past surgical history Family History Family History Father Hypertension Family history of coronary artery disease Mother Family history of diabetes mellitus in first degree relative Sibling Family history of diabetes mellitus in first degree relative Social History Social History Social History: The patient stated that he lives home alone. He has 1 son. And his mother is a durable power attorney at law for healthcare. The patient desires to be a full code. 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 The patient stated he drinks about a half a pt a which do a day after work and he drinks heavily on the weekend. The patient drink last time on this past Monday. He would not drink Monday or today which is Monday. The patient states that he tried CBD but that does not work for him since he has anxiety. He is not able to use marijuana or any drugs due to his work. Patient quit smoking last year. Smoking packs per day: 0.5 Smoking cigarettes per day: 10.0 Years smoked: 4 Smoking pack-years: 2.00 Smoking status: Current every day smoker Tobacco type: cigarettes Smoking end date: 10/05/19 Alcohol intake: former Drinks per week: 20 Alcohol use details: Stopped about 4-5 days ago Substance use: never Substance use type: does not use Gender identity (if verbalized by the patient): Male Sexual Orientation (if Verbalized by the Patient): Straight or Heterosexual Spiritual care concerns: No Exam Narrative: GENERAL: Well-appearing, well-nourished, and in no acute distress. HEAD: Normocephalic, atraumatic. EYES: PERRLA and EOMI. ENT: Nares clear, no rhinorrhea or epistaxis. Mucous membranes moist. NECK: Supple. No masses. No JVD CHEST: Clear to auscultation. No respiratory distress. No wheezes rales or rhonchi HEART: Regular rate and rhythm. No murmur heard. Normal peripheral pulses. ABDOMEN: Soft, nontender, nondistended, normal active bowel sounds. EXTREMITIES: Normal range of motion. No edema. SKIN: Warm, dry, no rash. NEURO: No focal deficits. Alert and orie
[2021-02-16 21:55] VITALS: BP 150/99; PULSE 105; RESP 18; TEMP 36.8; O2SAT 97
[2021-02-17 14:30] LABS: SARS-CoV-2 RNA PCR Negative
== END 2021-02-16 22:43 | disposition home or self-care (01) ==
PROVIDERS: Emergency Provider Emergency Medicine; PCP Family Medicine
DX: J06.9 Acute upper respiratory infection, unspecified (principal); Z20.822 Contact with and (suspected) exposure to COVID-19; I10 Essential (primary) hypertension; Z87.891 Personal history of nicotine dependence
CPT/HCPCS: 71046; 87804; 99283; A9270; C9803; U0003; U0005

== ENCOUNTER 2021-03-28 12:14 | Inpatient (IN) | payer SELFPAY ==
[2021-03-28] VITALS (14 sets, daily range): BP systolic 129–150; BP diastolic 70–107; PULSE 78–129; RESP 14–20; TEMP 36.7; O2SAT 92–99
--- NOTE | ~2021-03-28 | CT_ITS ---
EXAMINATION: CTA chest PE abdomen pel DATE: 03/28/2021 15:53 INDICATION: Cough, leukocytosis, fever TECHNIQUE: Computed tomography angiography (CTA) of the chest was performed with 100 mL Omnipaque-350 intravenous contrast timed to evaluate the pulmonary arteries. Subsequent postcontrast images of the abdomen and pelvis are obtained. Coronal maximum intensity projection 3D-reconstructions were create d by the technologist. The dose-length product (DLP) was 838.65 mGy-cm. Automated exposure control an d iterative reconstruction technique were employed. COMPARISON: 06/03/2020 FINDINGS: CTA CHEST: The pulmonary arteries are well-opacified. No pulmonary embolism is identified. Evaluation is slightly limited by respiratory motion artifact. There is mild dependent atelectasis. No pleural effusion or pneumothorax is identified. No pathologically enlarged thoracic lymph nodes are identifie d. The heart size is normal. ABDOMEN/PELVIS CT: The liver is diffusely low in attenuation when compared with the spleen, consisten t with hepatic steatosis. The spleen, pancreas, gallbladder, and adrenal glands are normal. The kidne ys are unremarkable. No pathologically enlarged abdominal or pelvic lymph nodes are identified. The a ppendix is normal. There is no free intraperitoneal gas or evidence of bowel obstruction. IMPRESSION: 1. No pulmonary embolus or acute cardiopulmonary abnormality identified. 2. Diffuse hepatic steatosis. Reviewed, dictated and finalized at location F. TRONIC EQUIPMENT REPAIRER
--- NOTE | ~2021-03-28 | XR_ITS ---
XR chest 1V portable DATE: 03/28/2021 14:15 INDICATION: Cough, fever TECHNIQUE: Portable AP views on 03/28/2021 at 1402 hours COMPARISON: 02/16/2021 2 view chest FINDINGS: Normal heart size. No hilar or mediastinal enlargement. No pulmonary infiltrate or consolid ation, pleural effusion or pulmonary vascular congestion or pneumothorax. IMPRESSION: No active cardiopulmonary disease Reviewed, dictated and finalized at location A. NG MACHINE OPERATOR SEMIAUTOMATIC
--- NOTE | ~2021-03-28 | CT_ITS ---
EXAMINATION: CT brain wo con DATE: 03/28/2021 14:25 INDICATION: Head injury. Seizure. TECHNIQUE: Computed tomography (CT) of the head was performed without intravenous contrast. The mA wa s adjusted according to patient size. Iterative reconstruction technique was employed. Exam dose: 60 5.33 mGy-cm total exam DLP. COMPARISON: 01/19/2020 CT brain FINDINGS: No intracranial mass lesion or hemorrhage or cerebrovascular accident, midline shift or mas s effect is detected. Normal ventricular size. There is nonspecific diminished attenuation cerebral white matter; consider correlation with MR exami nation as clinically appropriate. No fracture or bone destruction of the cranial vault. No subdural or epidural hematoma is detected. There is mild focal soft tissue swelling in the ethmoid air cells bilaterally. The remainder of the i ncluded paranasal sinuses and the mastoid air cells are normally developed and aerated. IMPRESSION: Nonspecific diminished attenuation cerebral white matter; consider correlation with MR e xamination as clinically appropriate No acute intracranial finding or skull fracture Reviewed, dictated and finalized at Location A. Reviewed, dictated and finalized at location A. GOODS CLERK IMPRESSION: Nonspecific diminished attenuation cerebral white matter; consider correlation with MR examination as clinically appropriate No acute intracranial finding or skull fracture
--- NOTE | ~2021-03-28 | CT_ITS ---
EXAMINATION: CT facial & cervical spine wo DATE: 03/28/2021 14:26 INDICATION: Fall. Facial and neck trauma TECHNIQUE: Computed tomography (CT) of the facial bones and maxillofacial region an cervical spine wa s performed without intravenous contrast. Automated exposure control and iterative reconstruction balbina hnique were employed. Exam dose: 443.37 mGy-cm total exam DLP. COMPARISON: None. FINDINGS: The nasal bones and anterior maxillary spine are intact. The frontozygomatic sutures, orbit al rims and pierce, zygomatic arches and remainder the facial bones are intact, without fracture. There is a mucous retention cyst or polyp along the anterior roof and minimal mucoperiosteal thickeni ng of the right maxillary sinus and minimal soft tissue thickening in the ethmoid air cells. No fracture or dislocation of the mandible. There is dental remington and periapical abscess involving the posterior-most left mandibular molar. Normal alignment of the cervical spine. C1 and C2 are normally aligned and the odontoid process is in tact. No fracture or dislocation or locked facet or prevertebral soft tissue swelling. Cervical inter spaces are preserved. IMPRESSION: No facial fracture is detected Posterior-most left mandibular molar dental remington and periapical abscess Negative cervical spine Reviewed, dictated and finalized at Location A. Reviewed, dictated and finalized at location A. TS TRAINER
--- NOTE | 2021-03-28 13:49 | ECG_ITS ---
Measurements Intervals [place] Rate: 106 P: 37 DE: 180 QRS: 104 QRSD: 110 T: 26 QT: 323 QTc: 429 Interpretive Statements SINUS TACHYCARDIA RIGHT AXIS DEVIATION MINIMAL Q WAVES- INFERIOR LEADS BORDERLINE ECG Electronically Signed On 03-28-2021 20:19:19 POLL WATCHER by Elvis Naidu D.O.
--- NOTE | 2021-03-28 13:53 | ED.GENADULT ---
HPI - General Adult General Chief complaint: Alcohol Stated complaint: etoh abuse Time Seen by Provider: 03/28/21 12:26 Source: patient Mode of arrival: ambulatory Limitations: no limitations History of Present Illness HPI narrative: Patient presents for evaluation of facial pain. He indicates that yesterday he blacked out , and fell hitting his face against the ground. Patient states that his girlfriend was there at that time and indicated that he had a seizure. He has had seizures in the past with alcohol withdrawal. I was initially informed that patient was released from rehab yesterday, although he tells me he was released 3 weeks ago. He states he has started drinking almost immediately after leaving rehab. He states his last drink was this morning. He has been drinking approximately 1 pint of vodka per day. He uses marijuana daily with last use today. He has a history of drug use but states that he has not used in over a year. Patient indicates that he has a right frontal headache following his fall yesterday. He rates his pain as 8 out of 10 in severity and states that his head is throbbing. He has associated dizziness. He is also concerned about respiratory symptoms that he has experienced for the last week. Symptoms include sore throat, rhinorrhea, nonproductive cough, shortness of breath, fevers, chills, nausea, vomiting. He states he tested positive for COVID about a month ago. He has not received COVID vaccination. Related Data Home Medications Medication Instructions Recorded Confirmed naltrexone 50 mg tablet 50 mg PO DAILY 10/08/20 Allergies Allergy/AdvReac Type Severity Reaction Status Date / Time No Known Allergies Allergy Mild Verified 02/16/21 20:44 Review of Systems Review of Systems: CONSTITUTIONAL: Reports fever and chills. EYES: Denies visual changes, redness, or discharge. ENT: Reports rhinorrhea and sore throat. CARDIOVASCULAR: Reports right-sided chest pain. Denies palpitations, or edema. RESPIRATORY: Reports cough and shortness GASTROINTESTINAL: Reports nausea, vomiting, diarrhea GENITOURINARY: Denies dysuria or hematuria. SKIN: Denies rash or itching. MUSCULOSKELETAL: Denies back pain, joint pain, or myalgia. NEUROLOGIC: Reports dizziness and headache. Reports blacking out yesterday denies weakness PSYCHIATRIC: Reports anxiety PMFSH Past Medical History Medical History Alcohol abuse Essential hypertension NISA (generalized anxiety disorder) Withdrawal seizures Surgical History Surgical History No pertinent past surgical history Family History Family History Father Hypertension Family history of coronary artery disease Mother Family history of diabetes mellitus in first degree relative Sibling Family history of diabetes mellitus in first degree relative Social History Social History Social History: The patient stated that he lives home alone. He has 1 son. And his mother is a durable power state's attorney for healthcare. The patient desires to be a full code. 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 The patient stated he drinks about a half a pt a which do a day after work and he drinks heavily on the weekend. The patient drink last time on this past Monday. He would not drink Monday or today which is Monday. The patient states that he tried CBD but that does not work for him since he has anxiety. He is not able to use marijuana or any drugs due to his work. Patient quit smoking last year. Smoking packs per day: 0.5 Smoking cigarettes per day: 10.0 Years smoked: 4 Smoking pack-years: 2.00 Smoking status: Current every day smoker Tobacco type: cigarettes Smoking end date: 10/05/19 Alcohol intake: former Drinks per week:
[2021-03-28] MEDS: LORazepam INJ (*CRX) 2 MG/ML VIAL 1 MG IV PUSH (14:13)
--- NOTE | 2021-03-28 14:17 | PC.NURSE ---
patient wander about in room, becomes hostile with attempts to redirect. Will not leave leave monitering devices on. continues to request various medications and attempts to manipulate in an attempt to get meds
[2021-03-28 14:21] LABS: Basophils Percent Auto 0.4 % (0.2-1.2); Eosinophils Percent Auto 0.7 % (0-4.4); Hemoglobin 15.5 g/dL (14.0-18.0); Immature Granulocyte Absolute 0.04 K/mm3 (0.00-0.031); Immature Granulocyte Percent A 1.4 % (0-0.5); Immature Platelet Fraction Pct 6.6 % (0.9-11.2); Lymphocytes Absolute Auto 0.98 K/mm3 (0.9-3.2); Lymphocytes Percent Auto 34.4 % (18.3-44.2); Mean Corpuscular HGB Conc 35.2 g/dl (32-36); Mean Corpuscular Hemoglobin 33.3 pg (26-34); Mean Corpuscular Volume 94.4 fl (80-100); Mean Platelet Volume 10.2 fl (7.4-10.4); Monocytes Absolute Auto 0.7 K/mm3 (0.1-0.6); Monocytes Percent Auto 23.2 % (2.6-8.5); Neutrophils Absolute Auto 1.1 K/mm3 (1.3-6.7); Neutrophils Percent Auto 39.9 % (45.5-73.1); Platelet Count Result 47 k/mm3 (150-375); Red Blood Count 4.66 M/mm3 (4.6-6.20); Red Cell Distribution Width 14.4 % (11.5-14.5); White Blood Count 2.9 K/mm3 (4.5-10.0)
[2021-03-28 14:29] LABS: Alanine Aminotransferase 111 U/L (4-50); Albumin Level 4.1 g/dL (3.5-5.1); Alkaline Phosphatase 171 U/L (38-126); Anion Gap 15 mmol/L (8-16); Aspartate Amino Transferase 412 U/L (17-59); Bilirubin,Total 0.5 mg/dL (0.2-1.3); Blood Urea Nitrogen 4 mg/dL (9-20); Calcium 7.8 mg/dL (8.4-10.2); Carbon Dioxide 33 mmol/L (22-30); Chloride 88 mmol/L (98-107); Estimated CRCL calculation 153 ml/min; Estimated Glomerular Filt Rate > 60; Glucose 138 mg/dL (65-110); Magnesium 1.7 mg/dL (1.6-2.3); Potassium 3.2 mmol/L (3.4-5.0); Sodium 136 mmol/L (137-145)
[2021-03-28 14:41] LABS: Troponin I < 0.012 ng/mL (0.000-0.034)
[2021-03-28] MEDS: POTASSIUM CHLORIDE 20 MEQ PACKET (FOR LIQUID) 40 MEQ PO (14:55)
[2021-03-28] MEDS: THIAMINE HCL INJ 100 MG, FOLIC ACID INJ 1 MG, MULTIVITAMINS-12 INJ VIAL 1 5 ML, MULTIVI... IV CONT (14:55)
[2021-03-28] MEDS: ONDANSETRON INJ 4 MG/2 ML VIAL IV PUSH ×3 (14:55→21:49)
[2021-03-28] MEDS: ACETAMINOPHEN/BUTALBITAL/CAFFEINE 325-50-40 MG TABLET (FIORICET) 2 TAB PO (14:55)
[2021-03-28 14:57] LABS: SARS-CoV-2 RNA PCR Negative
[2021-03-28 15:01] LABS: Lactic Acid Reflex 3.2 mmol/L (0.7-2.1)
[2021-03-28 15:09] LABS: INR 0.9; Prothrombin Time 11.8 Seconds (11.1-14.7)
[2021-03-28 15:10] LABS: Partial Thromboplastin Time 25.5 SECONDS (22.3-36.8)
[2021-03-28 15:12] LABS: D Dimer 1.56 ug/mL (<0.48)
[2021-03-28 16:36] LABS: Add Urine Microscopic? NO; Appearance Urine Clear (Clear); Bilirubin Urine Negative (Negative); Blood Urine Negative (Negative); Color Urine Straw (Yellow); Glucose Urine UA Negative (Negative); Ketones Urine Negative (Negative); Leukocyte Esterase Ur Negative LEU/UL (Negative); Nitrate Urine Negative (Negative); Protein Urine Negative (Negative); Specific Grav Ur 1.021 (1.001-1.035); Urobilinogen Urine Negative mg/dL (<2.0)
[2021-03-28 16:51] LABS: Amphetamine Screen Urine Negative (Negative); Barbiturate Screen Urine Positive (Negative); Benzodiazepines Screen Urine Negative (Negative); Cannabinoid Screen Urine Negative (Negative); Cocaine Screen Urine Negative (Negative); Methadone Screen Urine Negative (Negative); Opiate Screen Urine Negative (Negative); Phencyclidine Screen Urine Negative (Negative)
[2021-03-28 17:05] LABS: Troponin I < 0.012 ng/mL (0.000-0.034)
[2021-03-28] MEDS: LORazepam INJ (*CRX) 2 MG/ML VIAL IV PUSH (17:41)
[2021-03-28 17:42] LABS: Reflex Lactic Acid Yes or No Add Lactic
[2021-03-28 18:08] LABS: Lactic Acid Reflex 2.6 mmol/L (0.7-2.1)
[2021-03-28 18:09] LABS: Ethanol 445 mg/dL (<10)
--- NOTE | 2021-03-28 19:00 | PM.IMHP ---
H&P: HPI History of Present Illness Date/Time: 03/28/21 19:00 Chief Complaint: Fall and witnessed seizure. Narrative: This is a 30-year-old male with longstanding history of alcoholism and hypertension who presented to the emergency department today for evaluation after he had a fall and witnessed seizure yesterday. He was in inpatient rehab for his alcoholism for 30 days late last year and he has been home for a bit over a month. He was sober for only short period of time and began drinking heavily again 2 weeks ago. He admits to drinking 1/2 to 1 pt of vodka per day, sometimes more, but a couple of days ago he tried to stop drinking again. It is my understanding that last evening he had a fall associated with seizure activities witnessed by his girlfriend. Aside from a bloody nose and abrasion on his right cheek he sustained no injuries in the fall. He did not seek treatment last night but decided come in today for evaluation as he has also been having respiratory symptoms including sinus congestion, sore throat, nonproductive cough, nausea, abdominal bloating and right upper quadrant discomfort, subjective fever, and chills. He had COVID approximately 1 month ago and was negative for the same today. At this time he complains of body aches ?all over? and of anxiety and he is requesting some pain medication and Ativan. Review of Systems Review of Systems: Twelve systems were reviewed. No chest pain or pleuritic pain. No significant shortness of breath. He denies diarrhea and had a normal bowel movement yesterday. No blood in the stool. No significant belching or indigestion. Denies hallucinations and tremors. No sweats at this time. Except as documented, all other systems were reviewed and are negative. [facility] Past Medical History Medical History (Updated 03/29/21 @ 00:17 by Daphne Sevilla PA-C) Alcohol withdrawal seizure Alcoholism Essential hypertension Generalized anxiety disorder Surgical History Surgical History No pertinent past surgical history Family History Family History Father Hypertension Family history of coronary artery disease Mother Family history of diabetes mellitus in first degree relative Sibling Family history of diabetes mellitus in first degree relative Social History Social History (Updated 03/29/21 @ 00:09 by Daphne Sevilla PA-C) Social History: The patient lives in his own home. He has 1 son. 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 He smoked about half a pack of cigarettes a day for few years and quit in 2019. He estimates that he started drinking alcohol at the age of 11 and he drinks at least a half a pt of vodka a day. Occasional marijuana use. He designates his mother Andie as his surrogate decision maker and he wishes to be a full code. Meds Home Medications and Allergies Home Medications Medication Instructions Recorded Confirmed Type naltrexone 50 mg tablet 50 mg PO DAILY 10/08/20 History sertraline 100 mg tablet 100 mg PO DAILY #90 tablet 10/08/20 10/08/20 Rx trazodone 50 mg tablet 50 mg PO DAILY #90 tablet 10/08/20 10/08/20 Rx gabapentin 300 mg capsule 300 mg PO TID #90 cap 12/21/20 12/21/20 Rx metoprolol tartrate 25 mg tablet 50 mg PO BID #180 tablet 12/21/20 12/21/20 Rx topiramate 50 mg tablet 50 mg PO QHS #90 tablet 12/21/20 12/21/20 Rx Allergies Allergy/AdvReac Type Severity Reaction Status Date / Time No Known Allergies Allergy Mild Verified 02/16/21 20:44 Vital Signs Vital Signs - 24 hr 03/28/21 12:18 03/28/21 12:41 03/28/21 15:11 Temperature 98.1 F Pulse Rate 129 H 100 99 Respiratory Rate 14 20 18 Blood Pressure 141/97 H 140/70 142/78 H Pulse Oximetry 95 98 99 03/28/21 18:03 03/28/21 20:21 Temperature Pulse Rate 78 80 Respiratory Rate 18 18 Blood Pressure 138/76 136/79 Pulse Oximetry 98 99 Exam Narrati
[2021-03-28] MEDS: SODIUM CHLORIDE 0.9% IV 1,000 ML 125 ML IV CONT (21:48)
[2021-03-28] MEDS: diphenhydrAMINE HCl INJ 50 MG/ML VIAL 25 MG IV PUSH (21:49)
[2021-03-28] MEDS: MORPHINE SULFATE (*CRX) 2 MG/ML INJ IV PUSH (21:50)
[2021-03-29] VITALS (50 sets, daily range): BP systolic 124–179; BP diastolic 81–137; PULSE 90–137; RESP 13–31; TEMP 36.6–37.1; O2SAT 97–99; BMI 31.1
[2021-03-29 01:53] LABS: Anion Gap 14 mmol/L (8-16); Blood Urea Nitrogen 3 mg/dL (9-20); Calcium 7.5 mg/dL (8.4-10.2); Carbon Dioxide 28 mmol/L (22-30); Chloride 89 mmol/L (98-107); Estimated CRCL calculation 180 ml/min; Estimated Glomerular Filt Rate > 60; Glucose 115 mg/dL (65-110); Magnesium 1.2 mg/dL (1.6-2.3); Potassium 3.1 mmol/L (3.4-5.0); Sodium 131 mmol/L (137-145)
[2021-03-29] MEDS: chlordiazePOXIDE (*CRX) 5 MG CAPSULE 50 MG PO (01:57)
[2021-03-29 03:28] LABS: HAV RESULT Negative (Negative); Hepatitis B Core IgM Result Negative (Negative); Hepatitis B Surface Antigen Negative (Negative); Hepatitis C Virus Antibody Negative (Negative)
[2021-03-29 03:34] LABS: Ethanol 31 mg/dL (<10)
[2021-03-29] MEDS: chlordiazePOXIDE (*CRX) 25 MG CAPSULE 50 MG PO ×4 (05:53→23:23)
--- NOTE | 2021-03-29 05:53 | PC.NURSE ---
This RN notified by enrollment consultant that pt needed to use restroom. Pt appeared to be unsteady on feet, visible tremors and pt standing at end of the bed with monitoring equipment removed. stated he needed to have a bm. Per RN, pt able to ambulate to restroom unassisted. IV paused and pt to restroom, where he almost fell x 2. Non-skid socks provided, pt back to bed and reconnected to monitoring equipment. RN and ED MD notified.
[2021-03-29 06:17] LABS: Basophils Percent Auto 0.4 % (0.2-1.2); Eosinophils Percent Auto 0.7 % (0-4.4); Hematocrit 37.2 % (42.0-52.0); Hemoglobin 13.2 g/dL (14.0-18.0); Immature Granulocyte Absolute 0.02 K/mm3 (0.00-0.031); Immature Granulocyte Percent A 0.7 % (0-0.5); Immature Platelet Fraction Pct 6.8 % (0.9-11.2); Lymphocytes Absolute Auto 0.42 K/mm3 (0.9-3.2); Lymphocytes Percent Auto 15.3 % (18.3-44.2); Mean Corpuscular HGB Conc 35.5 g/dl (32-36); Mean Corpuscular Hemoglobin 33.4 pg (26-34); Mean Corpuscular Volume 94.2 fl (80-100); Mean Platelet Volume 9.8 fl (7.4-10.4); Monocytes Absolute Auto 0.3 K/mm3 (0.1-0.6); Monocytes Percent Auto 9.5 % (2.6-8.5); Neutrophils Percent Auto 73.4 % (45.5-73.1); Nucleated Red Blood Cells Perc 0.7 % (0.0-0.2); Platelet Count Result 26 k/mm3 (150-375); Red Blood Count 3.95 M/mm3 (4.6-6.20); Red Cell Distribution Width 13.9 % (11.5-14.5); White Blood Count 2.8 K/mm3 (4.5-10.0)
--- NOTE | 2021-03-29 08:15 | PC.NURSE ---
ordered pt breakfast tray.
[2021-03-29] MEDS: SODIUM CHLORIDE 0.9% IV 1,000 ML 85 ML IV CONT (08:17)
[2021-03-29 08:25] LABS: Alanine Aminotransferase 124 U/L (4-50); Albumin Level 3.5 g/dL (3.5-5.1); Alkaline Phosphatase 148 U/L (38-126); Anion Gap 10 mmol/L (8-16); Aspartate Amino Transferase 746 U/L (17-59); Bilirubin,Total 1.1 mg/dL (0.2-1.3); Calcium 7.5 mg/dL (8.4-10.2); Carbon Dioxide 31 mmol/L (22-30); Chloride 88 mmol/L (98-107); Estimated CRCL calculation 180 ml/min; Estimated Glomerular Filt Rate > 60; Glucose 105 mg/dL (65-110); Potassium 2.6 mmol/L (3.4-5.0); Sodium 129 mmol/L (137-145)
[2021-03-29 08:45] LABS: Blood Urea Nitrogen < 2 mg/dL (9-20)
--- NOTE | 2021-03-29 08:52 | PC.NURSE ---
JUDD Stapleton at [phone]; called Alberto at [phone]- she will send a text.
[2021-03-29] MEDS: POTASSIUM CHLORIDE INJ 40 MEQ in SODIUM CHLORIDE 0.9% IV 500 ML 130 MEQ IVPB (09:18)
[2021-03-29] MEDS: MAGNESIUM SULFATE 3GM/D5W100ML 3 GM/100 ML BAG IVPB (09:18)
[2021-03-29] MEDS: THIAMINE HCL 100 MG TABLET PO (09:19)
[2021-03-29] MEDS: AMOXICILLIN/CLAVULANATE K 875-125 MG TAB 1 TABLET PO ×2 (09:19→23:24)
[2021-03-29] MEDS: POTASSIUM CHLORIDE 20 MEQ PACKET (FOR LIQUID) 40 MEQ PO (09:29)
[2021-03-29] MEDS: FOLIC ACID 1 MG TABLET PO (10:13)
--- NOTE | 2021-03-29 15:40 | PC.NURSE ---
called for nurse to nurse report. nurse will call back.
--- NOTE | 2021-03-29 16:25 | ADMGEN ---
This patient, Danny Reyna, was admitted to Medical Room 250-01. Patient/family oriented to hospital policies and general routines including ID bracelet, bed and alarms, visiting hours, pain management, procedures, bathroom and other care routines, personal items, smoking policy, room service/diet, and visiting hours. Information on how to activate the Rapid Response Team has been discussed. Patient/Family are encouraged to report perceived risks to care and to ask questions if they do not understand what they are told or what they should do.
--- NOTE | 2021-03-29 18:01 | PM.IMPN ---
Progress Note: A&P Assessment and Plan (1) Alcohol withdrawal seizure: Code(s): F10.239 - Alcohol dependence with withdrawal, unspecified; R56.9 - Unspecified convulsions Status: Acute Assessment and Plan: 03/29/2021 interval history, patient still appears to be tremulus, patient placed on CIWA protocol and Librium 50 mg q.6, folic acid and thiamine, is feeling better compared to when he arrived, his potassium and magnesium are low most likely secondary to alcohol abuse will monitor and supplement, once clinically stable will have a PT OT evaluate the patient. (2) Alcoholic hepatitis: Code(s): K70.10 - Alcoholic hepatitis without ascites Status: Acute (3) Alcohol intoxication: Code(s): F10.929 - Alcohol use, unspecified with intoxication, unspecified Status: Acute (4) Periapical abscess: Code(s): K04.7 - Periapical abscess without sinus Status: Acute (5) Hypokalemia: Code(s): E87.6 - Hypokalemia Status: Acute (6) Alcoholism: Code(s): F10.20 - Alcohol dependence, uncomplicated Status: Acute (7) Generalized anxiety disorder: Code(s): F41.1 - Generalized anxiety disorder Status: Acute (8) Thrombocytopenia: Code(s): D69.6 - Thrombocytopenia, unspecified Status: Acute Additional Plan Patient has been binge drinking for 2 weeks and tried to quit drinking 2 days ago. He had a witnessed seizure yesterday, most certainly due to alcohol withdrawal. He then began to drink and presents today intoxicated with an alcohol level of over 400. He complains of generalized malaise and abdominal discomfort and was found to have elevated LFTs most consistent with alcoholic hepatitis though will check a hepatitis panel for completeness sake. CT of the abdomen did show hepatic steatosis. He has been started on folic acid and thiamine and he will be hydrated. Potassium will be replaced and monitored. Check magnesium levels as well. Thrombocytopenia is likely a consequence of his chronic alcoholism. Initiate CIWA protocol as he may very well start to have withdrawal symptoms by tomorrow despite having such a high alcohol level. Will initiate fall precautions and seizure precautions as well. Blood pressures were reviewed and they are stable. I will start him on Augmentin for periapical abscess of a mandibular molar noted on CT; this may explain the sinus congestion, subjective fever, and chills that he has been experiencing recently. Subjective Date/time seen: 03/29/21 18:01 Chief Complaint: Fall and witnessed seizure. HPI-Narrative: This is a 30-year-old male with longstanding history of alcoholism and hypertension who presented to the emergency department today for evaluation after he had a fall and witnessed seizure yesterday. He was in inpatient rehab for his alcoholism for 30 days late last year and he has been home for a bit over a month. He was sober for only short period of time and began drinking heavily again 2 weeks ago. He admits to drinking 1/2 to 1 pt of vodka per day, sometimes more, but a couple of days ago he tried to stop drinking again. It is my understanding that last evening he had a fall associated with seizure activities witnessed by his girlfriend. Aside from a bloody nose and abrasion on his right cheek he sustained no injuries in the fall. He did not seek treatment last night but decided come in today for evaluation as he has also been having respiratory symptoms including sinus congestion, sore throat, nonproductive cough, nausea, abdominal bloating and right upper quadrant discomfort, subjective fever, and chills. He had COVID approximately 1 month ago and was negative for the same today. At this time he complains of body aches ?all over? and of anxiety and he is requesting some pain medication and Ativan. 03/29/2021 interval history, patient still appears to be tremulus, patient placed on CIWA protocol and Librium 50 mg q.6, folic acid an
[2021-03-29 18:30] LABS: Anion Gap 5 mmol/L (8-16); Calcium 8.2 mg/dL (8.4-10.2); Carbon Dioxide 30 mmol/L (22-30); Chloride 96 mmol/L (98-107); Estimated CRCL calculation 153 ml/min; Estimated Glomerular Filt Rate > 60; Glucose 107 mg/dL (65-110); Magnesium 1.8 mg/dL (1.6-2.3); Potassium 3.2 mmol/L (3.4-5.0); Sodium 131 mmol/L (137-145)
[2021-03-29 18:59] LABS: Blood Urea Nitrogen < 2 mg/dL (9-20)
[2021-03-29] MEDS: METOPROLOL TARTRATE 25 MG TABLET PO (20:27)
[2021-03-29] MEDS: MIRTAZAPINE 15 MG TABLET PO (20:27)
[2021-03-29] MEDS: GABAPENTIN 300 MG CAPSULE 600 MG PO (23:24)
[2021-03-30] VITALS (15 sets, daily range): BP systolic 130–167; BP diastolic 90–108; PULSE 88–114; RESP 16–20; TEMP 36.6–37; O2SAT 96–98
[2021-03-30] MEDS: SODIUM CHLORIDE 0.9% IV 1,000 ML 85 ML IV CONT (01:33)
[2021-03-30 05:50] LABS: Hematocrit 40.2 % (42.0-52.0); Hemoglobin 13.7 g/dL (14.0-18.0); Mean Corpuscular HGB Conc 34.1 g/dl (32-36); Mean Corpuscular Hemoglobin 34.2 pg (26-34); Mean Corpuscular Volume 100.2 fl (80-100); Mean Platelet Volume 11.9 fl (7.4-10.4); Platelet Count Result 28 k/mm3 (150-375); Red Blood Count 4.01 M/mm3 (4.6-6.20); Red Cell Distribution Width 14.3 % (11.5-14.5); White Blood Count 2.2 K/mm3 (4.5-10.0)
[2021-03-30 05:54] LABS: Alanine Aminotransferase 118 U/L (4-50); Albumin Level 3.6 g/dL (3.5-5.1); Alkaline Phosphatase 154 U/L (38-126); Anion Gap 5 mmol/L (8-16); Aspartate Amino Transferase 450 U/L (17-59); Bilirubin,Total 0.9 mg/dL (0.2-1.3); Calcium 8.2 mg/dL (8.4-10.2); Carbon Dioxide 30 mmol/L (22-30); Chloride 98 mmol/L (98-107); Estimated CRCL calculation 155 ml/min; Estimated Glomerular Filt Rate > 60; Glucose 118 mg/dL (65-110); Magnesium 1.8 mg/dL (1.6-2.3); Potassium 2.9 mmol/L (3.4-5.0); Sodium 133 mmol/L (137-145)
[2021-03-30 05:55] LABS: Blood Urea Nitrogen < 2 mg/dL (9-20)
[2021-03-30] MEDS: chlordiazePOXIDE (*CRX) 25 MG CAPSULE 50 MG PO ×3 (05:55→17:00)
[2021-03-30] MEDS: AMOXICILLIN/CLAVULANATE K 875-125 MG TAB 1 TABLET PO ×2 (08:13→20:22)
[2021-03-30] MEDS: GABAPENTIN 300 MG CAPSULE 600 MG PO ×3 (08:13→16:57)
[2021-03-30] MEDS: THIAMINE HCL 100 MG TABLET PO (08:13)
[2021-03-30] MEDS: FOLIC ACID 1 MG TABLET PO (08:14)
[2021-03-30] MEDS: METOPROLOL TARTRATE 25 MG TABLET PO ×2 (08:14→20:22)
[2021-03-30] MEDS: SERTRALINE HCL 50 MG TABLET 150 MG PO (08:14)
--- NOTE | 2021-03-30 10:17 | PM.IMPN ---
Progress Note: A&P Assessment and Plan (1) Alcohol withdrawal seizure: Code(s): F10.239 - Alcohol dependence with withdrawal, unspecified; R56.9 - Unspecified convulsions Status: Acute Assessment and Plan: Still have tremors patient placed on CIWA protocol and Librium 50 mg q.6, folic acid and thiamine Replace electrolytes (2) Alcoholic hepatitis: Code(s): K70.10 - Alcoholic hepatitis without ascites Status: Acute Assessment and Plan: Monitor CMP avoid alcohol (3) Alcohol intoxication: Code(s): F10.929 - Alcohol use, unspecified with intoxication, unspecified Status: Acute Assessment and Plan: CIWA protocol (4) Periapical abscess: Code(s): K04.7 - Periapical abscess without sinus Status: Acute Assessment and Plan: Continue Augmentin (5) Hypokalemia: Code(s): E87.6 - Hypokalemia Status: Acute Assessment and Plan: Replace potassium and magnesium added 1 dose of Aldactone (6) Alcoholism: Code(s): F10.20 - Alcohol dependence, uncomplicated Status: Acute Assessment and Plan: Counseling (7) Generalized anxiety disorder: Code(s): F41.1 - Generalized anxiety disorder Status: Acute Assessment and Plan: Continue home medication (8) Thrombocytopenia: Code(s): D69.6 - Thrombocytopenia, unspecified Status: Acute Assessment and Plan: Monitor Additional Plan . Subjective Date/time seen: 03/30/21 10:17 Interval history: a 30-year-old male with longstanding history of alcoholism and hypertension who presented to the emergency department today for evaluation after he had a fall and witnessed seizure patient was found to have alcohol intoxication alcoholic hepatitis and hypokalemia admitted for further evaluation and treatment Patient seen and examined Patient feels weak Patient denies fever headache chest pain shortness of breath I am seeing the patient for alcohol intoxication Exam Narrative: Patient is comfortable, NAD HEENT: eyes are clear and none icteric bruising right maxillary LUNGS: normal respiratory effort ABD: distended Lower extremities: no edema SKIN: nonjaundiced Neuro: grossly intact. Objective Data Vital Signs Vital Signs: Vital Signs - 24 hr 03/29/21 11:48 03/29/21 15:32 03/29/21 18:00 Temperature 98.2 F Pulse Rate 104 H 98 Respiratory Rate 20 18 Blood Pressure 150/99 H 147/93 H Pulse Oximetry 98 99 98 03/29/21 18:34 03/29/21 19:23 03/29/21 20:00 Temperature 97.9 F Pulse Rate 106 H 106 H 113 H Respiratory Rate 17 Blood Pressure 130/84 Pulse Oximetry 98 03/29/21 20:27 03/29/21 23:22 03/30/21 00:00 Temperature 98.8 F Pulse Rate 106 H 97 91 Respiratory Rate 16 Blood Pressure 144/95 H Pulse Oximetry 99 03/30/21 03:16 03/30/21 03:22 03/30/21 04:00 Temperature 98.6 F Pulse Rate 114 H 94 Respiratory Rate 20 Blood Pressure 167/90 H 167/90 H Pulse Oximetry 96 03/30/21 08:14 Temperature Pulse Rate 94 Respiratory Rate Blood Pressure Pulse Oximetry Intake/Output Intake/Output: Intake & Output 03/27/21 03/28/21 03/29/21 03/30/21 23:59 23:59 23:59 23:59 Intake Total 1013.2 3020 1101 Balance 1013.2 3020 1101 Meds/Results Medications: Active Medications Generic Name Dose Route Start Last Admin Trade Name Freq PRN Reason Stop Dose Admin Amoxicillin/Clavulanate Potassium 1 tablet 03/29/21 09:00 03/30/21 08:13 Amoxicillin/Clavulanate K 875-125 Mg Tab PO 1 tablet Q12HR CARLITA Administration Chlordiazepoxide HCl 50 mg 03/29/21 06:00 03/30/21 05:55 Chlordiazepoxide (*Crx) 25 Mg Capsule PO 50 mg Q6HR CARLITA Administration Folic Acid 1 mg 03/29/21 09:00 03/30/21 08:14 Folic Acid 1 Mg Tablet PO 1 mg DAILY CARLITA Administration Gabapentin 600 mg 03/30/21 09:00 03/30/21 08:13 Gabapentin 300 Mg Capsule PO 600 mg TID CARLITA Administration
[2021-03-30] MEDS: SPIRONOLACTONE 25 MG TABLET PO (10:43)
[2021-03-30] MEDS: MAGNESIUM SULF 2 GM/WATER 50ML 2 GM/50 ML BAG IVPB (10:43)
[2021-03-30] MEDS: POTASSIUM CHLORIDE 20 MEQ TABLET 40 MEQ PO ×2 (12:49→16:57)
[2021-03-30] MEDS: LORazepam INJ (*CRX) 2 MG/ML VIAL 1 MG IV PUSH ×2 (16:57→23:00)
--- NOTE | 2021-03-30 17:57 | PC.NURSE ---
Patient moved to room 245 to be closer to the nurses station for patient safety.
[2021-03-30] MEDS: MIRTAZAPINE 15 MG TABLET PO (20:22)
[2021-03-30] MEDS: traZODone HCL 50 MG TABLET 100 MG PO (22:36)
[2021-03-31] VITALS (15 sets, daily range): BP systolic 124–162; BP diastolic 78–122; PULSE 82–145; RESP 16–20; TEMP 36.4–37.2; O2SAT 90–99
[2021-03-31] MEDS: chlordiazePOXIDE (*CRX) 25 MG CAPSULE 50 MG PO ×5 (00:38→23:33)
[2021-03-31] MEDS: LORazepam INJ (*CRX) 2 MG/ML VIAL 1 MG IV PUSH ×2 (02:46→03:44)
[2021-03-31 05:57] LABS: Hematocrit 46.6 % (42.0-52.0); Hemoglobin 15.3 g/dL (14.0-18.0); Immature Platelet Fraction Pct 12.6 % (0.9-11.2); Mean Corpuscular HGB Conc 32.8 g/dl (32-36); Mean Corpuscular Hemoglobin 33.5 pg (26-34); Mean Platelet Volume 11.2 fl (7.4-10.4); Platelet Count Result 52 k/mm3 (150-375); Red Blood Count 4.57 M/mm3 (4.6-6.20); Red Cell Distribution Width 14.9 % (11.5-14.5)
[2021-03-31 06:26] LABS: Alanine Aminotransferase 108 U/L (4-50); Albumin Level 4.2 g/dL (3.5-5.1); Alkaline Phosphatase 136 U/L (38-126); Anion Gap 10 mmol/L (8-16); Aspartate Amino Transferase 202 U/L (17-59); Blood Urea Nitrogen 3 mg/dL (9-20); Calcium 8.9 mg/dL (8.4-10.2); Carbon Dioxide 25 mmol/L (22-30); Chloride 101 mmol/L (98-107); Estimated CRCL calculation 181 ml/min; Estimated Glomerular Filt Rate > 60; Glucose 108 mg/dL (65-110); Magnesium 1.9 mg/dL (1.6-2.3); Potassium 4.1 mmol/L (3.4-5.0); Sodium 136 mmol/L (137-145)
[2021-03-31] MEDS: LORazepam INJ (*CRX) 2 MG/ML VIAL IV PUSH ×6 (06:57→18:51)
[2021-03-31] MEDS: FOLIC ACID 1 MG TABLET PO (08:09)
[2021-03-31] MEDS: AMOXICILLIN/CLAVULANATE K 875-125 MG TAB 1 TABLET PO ×2 (08:09→23:05)
[2021-03-31] MEDS: SERTRALINE HCL 50 MG TABLET 150 MG PO (08:10)
[2021-03-31] MEDS: METOPROLOL TARTRATE 25 MG TABLET PO ×2 (08:10→23:05)
[2021-03-31] MEDS: THIAMINE HCL 100 MG TABLET PO (08:10)
[2021-03-31] MEDS: GABAPENTIN 300 MG CAPSULE 600 MG PO ×3 (08:10→17:46)
--- NOTE | 2021-03-31 08:20 | PM.IMPN ---
Progress Note: A&P Assessment and Plan (1) Alcohol withdrawal seizure: Code(s): F10.239 - Alcohol dependence with withdrawal, unspecified; R56.9 - Unspecified convulsions Status: Acute Assessment and Plan: Still have tremors patient placed on CIWA protocol and Librium 50 mg q.6, folic acid and thiamine Replace electrolytes Ativan dose was adjusted (2) Alcoholic hepatitis: Code(s): K70.10 - Alcoholic hepatitis without ascites Status: Acute Assessment and Plan: Monitor CMP avoid alcohol improved (3) Alcohol intoxication: Code(s): F10.929 - Alcohol use, unspecified with intoxication, unspecified Status: Acute Assessment and Plan: CIWA protocol discussed with the nurse (4) Periapical abscess: Code(s): K04.7 - Periapical abscess without sinus Status: Acute Assessment and Plan: Continue Augmentin (5) Hypokalemia: Code(s): E87.6 - Hypokalemia Status: Acute Assessment and Plan: Replaced (6) Alcoholism: Code(s): F10.20 - Alcohol dependence, uncomplicated Status: Acute Assessment and Plan: Counseling (7) Generalized anxiety disorder: Code(s): F41.1 - Generalized anxiety disorder Status: Acute Assessment and Plan: Continue home medication (8) Thrombocytopenia: Code(s): D69.6 - Thrombocytopenia, unspecified Status: Acute Assessment and Plan: Monitor Subjective Date/time seen: 03/31/21 08:20 Interval history: a 30-year-old male with longstanding history of alcoholism and hypertension who presented to the emergency department today for evaluation after he had a fall and witnessed seizure patient was found to have alcohol intoxication alcoholic hepatitis and hypokalemia admitted for further evaluation and treatment Patient still have tachycardia still have and anxiety and tremors Ativan dose was adjusted discussed with the nurse Patient feels weak Patient denies fever headache chest pain shortness of breath I am seeing the patient for alcohol intoxication Exam Narrative: Patient is comfortable, NAD HEENT: eyes are clear and none icteric bruising right maxillary LUNGS: normal respiratory effort ABD: distended Lower extremities: no edema SKIN: nonjaundiced Neuro: grossly intact. Objective Data Vital Signs Vital Signs: Vital Signs - 24 hr 03/30/21 10:36 03/30/21 12:00 03/30/21 14:50 Temperature 98.3 F 97.9 F Pulse Rate 105 H 105 H 94 Respiratory Rate 18 18 Blood Pressure 130/97 H 154/108 H Pulse Oximetry 98 97 03/30/21 16:00 03/30/21 17:55 03/30/21 20:00 Temperature 98.0 F Pulse Rate 96 94 89 Respiratory Rate 18 18 Blood Pressure 146/98 H 146/98 H Pulse Oximetry 97 97 03/30/21 20:22 03/30/21 21:42 03/30/21 22:59 Temperature 97.9 F Pulse Rate 88 97 Respiratory Rate 16 Blood Pressure 144/103 H 144/103 H Pulse Oximetry 96 03/31/21 00:00 03/31/21 02:00 03/31/21 02:45 Temperature 97.6 F Pulse Rate 87 Respiratory Rate 20 Blood Pressure 144/103 H 148/104 H 144/103 H Pulse Oximetry 97 03/31/21 03:34 03/31/21 04:00 03/31/21 04:36 Temperature 97.6 F Pulse Rate 82 85 Respiratory Rate 16 Blood Pressure 144/103 H 144/103 H 162/114 H Pulse Oximetry 99 03/31/21 08:10 Temperature Pulse Rate 130 H Respiratory Rate Blood Pressure Pulse Oximetry Intake/Output Intake/Output: Intake & Output 03/28/21 03/29/21 03/30/21 03/31/21 23:59 23:59 23:59 23:59 Intake Total 1013.2 3020 3322 Balance 1013.2 3020 3322 Meds/Results Medications: Active Medications Generic Name Dose Route Start Last Admin Trade Name Freq PRN Reason Stop Dose Admin Amoxicillin/Clavulanate Potassium 1 tablet 03/29/21 09:00 03/31/21 08:09 Amoxicillin/Clavulanate K 875-125 Mg Tab PO 1 tablet Q12HR CARLITA Administration Chlordiazepoxide HCl 50 mg 03/29/21 06:00 03/31/21 06:03 Chlordiazepoxide (*Crx)
[2021-03-31] MEDS: SODIUM CHLORIDE 0.9% IV 1,000 ML 999 ML IV CONT (09:55)
--- NOTE | 2021-03-31 13:10 | PC.NURSE ---
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 I spoke to Dr. Kelley regarding telemetry order and he states since patient is refusing, we can take him off.
--- NOTE | 2021-03-31 20:40 | PC.NURSE ---
This patient, Danny Reyna, was received from [[id number]] on 03/31/21 at 2040. Patient/family oriented to unit policies and routines
[2021-03-31] MEDS: MIRTAZAPINE 15 MG TABLET PO (23:06)
[2021-03-31] MEDS: dexmedeTOMIDine 400 MCG/100 ML 400 MCG/100 ML BAG IV CONT (23:07)
[2021-04-01] VITALS (19 sets, daily range): BP systolic 116–162; BP diastolic 80–119; PULSE 76–100; RESP 12–20; TEMP 36.4–37.2; O2SAT 92–99
[2021-04-01] MEDS: LORazepam INJ (*CRX) 2 MG/ML VIAL IV PUSH ×4 (01:26→13:37)
[2021-04-01 05:36] LABS: Hemoglobin 14.1 g/dL (14.0-18.0); Immature Platelet Fraction Pct 6.9 % (0.9-11.2); Mean Corpuscular HGB Conc 32.8 g/dl (32-36); Mean Corpuscular Hemoglobin 32.9 pg (26-34); Mean Corpuscular Volume 100.5 fl (80-100); Mean Platelet Volume 10.4 fl (7.4-10.4); Platelet Count Result 93 k/mm3 (150-375); Red Blood Count 4.28 M/mm3 (4.6-6.20); Red Cell Distribution Width 15.5 % (11.5-14.5); White Blood Count 3.5 K/mm3 (4.5-10.0)
[2021-04-01 05:48] LABS: Alanine Aminotransferase 81 U/L (4-50); Albumin Level 3.8 g/dL (3.5-5.1); Alkaline Phosphatase 120 U/L (38-126); Anion Gap 8 mmol/L (8-16); Aspartate Amino Transferase 105 U/L (17-59); Bilirubin,Total 0.6 mg/dL (0.2-1.3); Blood Urea Nitrogen 7 mg/dL (9-20); Calcium 9.1 mg/dL (8.4-10.2); Carbon Dioxide 25 mmol/L (22-30); Chloride 104 mmol/L (98-107); Estimated CRCL calculation 154 ml/min; Estimated Glomerular Filt Rate > 60; Glucose 120 mg/dL (65-110); Magnesium 1.7 mg/dL (1.6-2.3); Potassium 3.8 mmol/L (3.4-5.0); Sodium 137 mmol/L (137-145)
[2021-04-01] MEDS: chlordiazePOXIDE (*CRX) 25 MG CAPSULE 50 MG PO ×2 (07:03→12:14)
[2021-04-01] MEDS: THIAMINE HCL 100 MG TABLET PO (08:33)
[2021-04-01] MEDS: GABAPENTIN 300 MG CAPSULE 600 MG PO ×2 (08:33→12:14)
[2021-04-01] MEDS: AMOXICILLIN/CLAVULANATE K 875-125 MG TAB 1 TABLET PO (08:34)
[2021-04-01] MEDS: SERTRALINE HCL 50 MG TABLET 150 MG PO (08:34)
[2021-04-01] MEDS: FOLIC ACID 1 MG TABLET PO (08:34)
[2021-04-01] MEDS: METOPROLOL TARTRATE 25 MG TABLET PO (08:35)
--- NOTE | 2021-04-01 10:38 | PM.IMPN ---
Progress Note: A&P Assessment and Plan (1) Alcohol withdrawal seizure: Code(s): F10.239 - Alcohol dependence with withdrawal, unspecified; R56.9 - Unspecified convulsions Status: Acute Assessment and Plan: patient placed on CIWA protocol and Librium 50 mg q.6, folic acid and thiamine Replace electrolytes Ativan dose was adjusted Required Precedex drip Pediatrician Managing Partner aware (2) Alcoholic hepatitis: Code(s): K70.10 - Alcoholic hepatitis without ascites Status: Acute Assessment and Plan: Monitor CMP avoid alcohol improved (3) Alcohol intoxication: Code(s): F10.929 - Alcohol use, unspecified with intoxication, unspecified Status: Acute Assessment and Plan: CIWA protocol discussed with the nurse (4) Periapical abscess: Code(s): K04.7 - Periapical abscess without sinus Status: Acute Assessment and Plan: Continue Augmentin (5) Hypokalemia: Code(s): E87.6 - Hypokalemia Status: Acute Assessment and Plan: Replaced (6) Alcoholism: Code(s): F10.20 - Alcohol dependence, uncomplicated Status: Acute Assessment and Plan: Counseling (7) Generalized anxiety disorder: Code(s): F41.1 - Generalized anxiety disorder Status: Acute Assessment and Plan: Continue home medication (8) Thrombocytopenia: Code(s): D69.6 - Thrombocytopenia, unspecified Status: Acute Assessment and Plan: Monitor Subjective Date/time seen: 04/01/21 10:38 Interval history: a 30-year-old male with longstanding history of alcoholism and hypertension who presented to the emergency department today for evaluation after he had a fall and witnessed seizure patient was found to have alcohol intoxication alcoholic hepatitis and hypokalemia admitted for further evaluation and treatment Patient has episode of delirium tremens yesterday required increased dose of Ativan also required Precedex drip Unfortunately bed is not available in ICU patient is currently in IMU Sleepy but responds to verbal stimuli I am seeing the patient for alcohol intoxication Exam Narrative: Patient is comfortable, NAD HEENT: eyes are clear and none icteric bruising right maxillary LUNGS: normal respiratory effort ABD: distended Lower extremities: no edema SKIN: nonjaundiced Neuro: grossly intact. Objective Data Vital Signs Vital Signs: Vital Signs - 24 hr 03/31/21 14:29 03/31/21 17:57 03/31/21 21:00 Temperature 98.3 F 98.9 F 98.1 F Pulse Rate 104 H 145 H 115 H Pulse Rate [Left Radial] 104 H Respiratory Rate 16 18 20 Blood Pressure 124/78 149/122 H 143/97 H Pulse Oximetry 97 96 90 03/31/21 23:05 03/31/21 23:07 03/31/21 23:58 Temperature 98.1 F Pulse Rate 103 H 103 H 100 Pulse Rate [Left Radial] Respiratory Rate 20 20 Blood Pressure 136/99 H Pulse Oximetry 92 04/01/21 00:00 04/01/21 00:10 04/01/21 04:00 Temperature 97.6 F Pulse Rate 97 94 86 Pulse Rate [Left Radial] 94 83 Respiratory Rate 20 20 Blood Pressure 116/80 Pulse Oximetry 99 04/01/21 08:35 04/01/21 10:00 Temperature 98.3 F Pulse Rate 85 83 Pulse Rate [Left Radial] Respiratory Rate 18 Blood Pressure 133/95 H Pulse Oximetry 95 Intake/Output Intake/Output: Intake & Output 03/29/21 03/30/21 03/31/21 04/01/21 23:59 23:59 23:59 23:59 Intake Total 3020 3322 2050 460 Output Total 0 Balance 3020 3322 2050 460 Meds/Results Medications: Active Medications Generic Name Dose Route Start Last Admin Trade Name Parish PRN Reason Stop Dose Admin Amoxicillin/Clavulanate Potassium 1 tablet 03/29/21 09:00 04/01/21 08:34 Amoxicillin/Clavulanate K 875-125 Mg Tab PO 1 tablet Q12HR CARLITA Administration Chlordiazepoxide HCl 50 mg 03/29/21 06:00 04/01/21 07:03 Chlordiazepoxide (*Crx) 25 Mg Capsule PO 50 mg Q6HR CARLITA Administration Folic Acid 1 mg 03/29/21 09:00 04/01/21 08:34 Folic Acid 1 Mg
--- NOTE | 2021-04-01 14:42 | WPDCNINT ---
Assessment and Plan Assessment and plan (1) Alcohol withdrawal: Qualifiers: Complication of substance-induced condition: uncomplicated Qualified Code(s): F10.230 - Alcohol dependence with withdrawal, uncomplicated Code(s): F10.239 - Alcohol dependence with withdrawal, unspecified Status: Acute Assessment and Plan: Patient transferred to the ICU for alcohol withdrawal, tremors, not staying in bed -patient on folic acid, thiamine and p.r.n. Ativan -continue CINH protocol -. Will start Precedex infusion (2) Alcohol withdrawal seizure: Code(s): F10.239 - Alcohol dependence with withdrawal, unspecified; R56.9 - Unspecified convulsions Status: Acute Assessment and Plan: Patient had witnessed seizures at home after he quit drinking for 2 days according the girlfriend. -more seizures witnessed in the hospital -continue p.r.n. added and now on Precedex infusion (3) Thrombocytopenia: Code(s): D69.6 - Thrombocytopenia, unspecified Status: Acute Assessment and Plan: Likely related to alcohol abuse -thrombocytopenia improving -continue to monitor (4) Periapical abscess: Code(s): K04.7 - Periapical abscess without sinus Status: Acute Assessment and Plan: CT scan of facial and cervical spine showed no facial fractures, posterior most left mandibular molar dental remington and periapical abscess -patient is on Augmentin (03/29/2021) (5) Alcoholic hepatitis: Code(s): K70.10 - Alcoholic hepatitis without ascites Status: Acute Assessment and Plan: Elevated LFTs which are trending down -likely related to hepatic steatosis and no alcohol hepatitis (6) Generalized anxiety disorder: Code(s): F41.1 - Generalized anxiety disorder Status: Acute Assessment and Plan: history of general anxiety disorder, currently on p.r.n. Ativan and Precedex infusion -patient is also on Remeron and Zoloft (7) Essential hypertension: Code(s): I10 - Essential (primary) hypertension Status: Acute Assessment and Plan: Continue metoprolol, with holding parameters Additional Plan Stress ulcer prophylaxis: Protonix DVT prophylaxis: SCDs Nutrition: Patient tolerating oral diet Code status: Full code Critical care time spent: 43 minutes This dictation may have been done utilizing a voice recognition system. Attempts have been made to correct errors. However, there may be uncorrected grammatical, spelling, and recognition errors present. Due to a high probability of clinically significant, life threatening deterioration, the patient required my highest level of preparedness to intervene emergently and I personally spent this critical care time directly and personally managing the patient. This critical care time included obtaining a history; examining the patient; pulse oximetry; ordering and review of studies; arranging urgent treatment with development of a management plan; evaluation of patient's response to treatment; frequent reassessment; and discussions with other providers. It was exclusive of separately billable procedures and treating other patients and teaching time. Please see Assessment and Plan section and the rest of the note for further information on patient assessment and treatment Medical Microbiologist Consult Note Consult date: 04/01/21 Time Seen: 14:45 Reason for consult: Alcohol withdrawal, seizures, fall HPI: Danny Reyna is a 30 year old male with past medical history of alcohol withdrawal, alcoholism, essential hypertension general anxiety disorder, presented to the ED on 03/28/2019 after he had a fall and witnessed seizure. He was in inpatient rehab for alcoholism about 30 days last day a. He has been sober for short period of time and began drinking heavily again 2 weeks prior to admission. He admitted to drinking to half a pt or 1 pt of vodka or whatever he gets to drink. He tried to stop drinking a couple of
[2021-04-01] MEDS: LACTATED RINGERS 1,000 ML 75 ML IV CONT (15:01)
--- NOTE | 2021-04-01 15:42 | PC.NURSE ---
This patient, Danny Reyna, was transferred to [ICU 12 ] on 04/01/21 at 1429. Personal belongings sent with patient. Report given to [ ]. Appropriate documentation sent with patient.
[2021-04-01] MEDS: dexmedeTOMIDine 400 MCG/100 ML 400 MCG/100 ML BAG 27.66 MCG IV CONT (18:00)
[2021-04-01 19:26] LABS: Ammonia 31 umol/L (9-30)
[2021-04-01] MEDS: hydrALAZINE HCL 20 MG/ML VIAL 10 MG IV PUSH (19:31)
[2021-04-01] MEDS: dexmedeTOMIDine 400 MCG/100 ML 400 MCG/100 ML BAG 21.28 MCG IV CONT (22:34)
[2021-04-01 23:54] LABS: Glucose Point of Care 147 mg/dl (65-105)
[2021-04-02] VITALS (23 sets, daily range): BP systolic 106–124; BP diastolic 70–89; PULSE 80–104; RESP 16–29; TEMP 36.4–37.1; O2SAT 92–99
[2021-04-02] MEDS: dexmedeTOMIDine 400 MCG/100 ML 400 MCG/100 ML BAG 19.15 MCG IV CONT (03:06)
[2021-04-02] MEDS: LACTATED RINGERS 1,000 ML 75 ML IV CONT (04:30)
[2021-04-02 04:47] LABS: Basophils Absolute Auto 0.1 K/mm3 (0.0-0.1); Eosinophils Absolute Auto 0.1 K/mm3 (0-0.3); Eosinophils Percent Auto 2.9 % (0-4.4); Hematocrit 44.6 % (42.0-52.0); Hemoglobin 14.9 g/dL (14.0-18.0); Immature Granulocyte Absolute 0.08 K/mm3 (0.00-0.031); Immature Granulocyte Percent A 1.7 % (0-0.5); Lymphocytes Absolute Auto 0.95 K/mm3 (0.9-3.2); Lymphocytes Percent Auto 19.7 % (18.3-44.2); Mean Corpuscular HGB Conc 33.4 g/dl (32-36); Mean Corpuscular Hemoglobin 33.9 pg (26-34); Mean Corpuscular Volume 101.6 fl (80-100); Mean Platelet Volume 9.7 fl (7.4-10.4); Monocytes Absolute Auto 0.6 K/mm3 (0.1-0.6); Monocytes Percent Auto 12.6 % (2.6-8.5); Neutrophils Percent Auto 62.1 % (45.5-73.1); Platelet Count Result 97 k/mm3 (150-375); Red Blood Count 4.39 M/mm3 (4.6-6.20); Red Cell Distribution Width 15.2 % (11.5-14.5); White Blood Count 4.8 K/mm3 (4.5-10.0)
[2021-04-02 04:56] LABS: INR 0.9; Prothrombin Time 12.1 Seconds (11.1-14.7)
[2021-04-02 04:57] LABS: Ammonia 23 umol/L (9-30); Partial Thromboplastin Time 22.9 SECONDS (22.3-36.8)
[2021-04-02 05:03] LABS: Alanine Aminotransferase 88 U/L (4-50); Albumin Level 3.8 g/dL (3.5-5.1); Alkaline Phosphatase 109 U/L (38-126); Anion Gap 10 mmol/L (8-16); Aspartate Amino Transferase 104 U/L (17-59); Bilirubin,Total 0.7 mg/dL (0.2-1.3); Blood Urea Nitrogen 6 mg/dL (9-20); Calcium 9.5 mg/dL (8.4-10.2); Carbon Dioxide 26 mmol/L (22-30); Chloride 103 mmol/L (98-107); Estimated CRCL calculation 157 ml/min; Estimated Glomerular Filt Rate > 60; Glucose 139 mg/dL (65-110); Lipase 813 U/L (23-300); Magnesium 1.5 mg/dL (1.6-2.3); Phosphorus 3.8 mg/dL (2.5-4.5); Potassium 3.3 mmol/L (3.4-5.0); Sodium 139 mmol/L (137-145)
[2021-04-02] MEDS: dexmedeTOMIDine 400 MCG/100 ML 400 MCG/100 ML BAG 17.02 MCG IV CONT (08:44)
[2021-04-02] MEDS: PANTOPRAZOLE SODIUM IV 40 MG VIAL IV PUSH (09:15)
[2021-04-02] MEDS: GABAPENTIN 300 MG CAPSULE 600 MG PO ×3 (09:15→17:14)
[2021-04-02] MEDS: AMOXICILLIN/CLAVULANATE K 875-125 MG TAB 1 TABLET PO ×2 (09:16→20:02)
[2021-04-02] MEDS: FOLIC ACID 1 MG TABLET PO (09:16)
[2021-04-02] MEDS: SERTRALINE HCL 50 MG TABLET 150 MG PO (09:16)
[2021-04-02] MEDS: METOPROLOL TARTRATE 25 MG TABLET PO ×2 (09:16→20:02)
[2021-04-02] MEDS: THIAMINE HCL 100 MG TABLET PO (09:17)
[2021-04-02] MEDS: POTASSIUM CHLORIDE 20 MEQ PACKET (FOR LIQUID) 40 MEQ PO (09:20)
[2021-04-02] MEDS: MAGNESIUM SULF 2 GM/WATER 50ML 2 GM/50 ML BAG IVPB (09:20)
[2021-04-02] MEDS: chlordiazePOXIDE (*CRX) 25 MG CAPSULE 50 MG PO ×3 (12:25→23:23)
--- NOTE | 2021-04-02 12:30 | PCFNICU ---
ICU Rounding Note: Pt current nutrition is Regular with Ensure compact BID Last recorded weight is 88.8 kg-stable Bowel Motility:+BM reported 03/31 Labs Reviewed:Lipase 813, Cr 0.6,Glu 139,K 3.3 Meds Noted:Thiamine, Zinc, Protonix, Librium, Folic Acid, LR, Augmentin, Neurontin, Zoloft Skin: WNL Additional Notes: Patient remains on regular diet. Oral intake 0-100% of most meals. Diet supplements of ensure compact BID providing an additional 220 kcals and 9 gms protein. Agree with diet orders. Following in ICU rounds.
--- NOTE | 2021-04-02 14:04 | WPDINTPN ---
Progress Note: A&P Assessment and Plan (1) Alcohol withdrawal: Qualifiers: Complication of substance-induced condition: uncomplicated Qualified Code(s): F10.230 - Alcohol dependence with withdrawal, uncomplicated Code(s): F10.239 - Alcohol dependence with withdrawal, unspecified Status: Acute Assessment and Plan: Patient transferred to the ICU for alcohol withdrawal, tremors, not staying in bed -patient on folic acid, thiamine and p.r.n. Ativan -continue CIWA protocol - Will continue to wean Precedex infusion (2) Alcohol withdrawal seizure: Code(s): F10.239 - Alcohol dependence with withdrawal, unspecified; R56.9 - Unspecified convulsions Status: Acute Assessment and Plan: Patient had witnessed seizures at home after he quit drinking for 2 days according the girlfriend. -more seizures witnessed in the hospital -continue p.r.n. added and now on Precedex infusion (3) Thrombocytopenia: Code(s): D69.6 - Thrombocytopenia, unspecified Status: Acute Assessment and Plan: Likely related to alcohol abuse -thrombocytopenia improving -continue to monitor (4) Periapical abscess: Code(s): K04.7 - Periapical abscess without sinus Status: Acute Assessment and Plan: CT scan of facial and cervical spine showed no facial fractures, posterior most left mandibular molar dental remington and periapical abscess -patient is on Augmentin (03/29/2021) (5) Alcoholic hepatitis: Code(s): K70.10 - Alcoholic hepatitis without ascites Status: Acute Assessment and Plan: Elevated LFTs which are trending down -likely related to hepatic steatosis and no alcohol hepatitis (6) Generalized anxiety disorder: Code(s): F41.1 - Generalized anxiety disorder Status: Acute Assessment and Plan: history of general anxiety disorder, currently on p.r.n. Ativan and Precedex infusion -patient is also on Remeron and Zoloft (7) Essential hypertension: Code(s): I10 - Essential (primary) hypertension Status: Acute Assessment and Plan: Continue metoprolol, with holding parameters Additional Plan Stress ulcer prophylaxis: Protonix DVT prophylaxis: SCDs Nutrition: Patient tolerating oral diet Code status: Full code Critical care time spent: 1 minutes This dictation may have been done utilizing a voice recognition system. Attempts have been made to correct errors. However, there may be uncorrected grammatical, spelling, and recognition errors present. Due to a high probability of clinically significant, life threatening deterioration, the patient required my highest level of preparedness to intervene emergently and I personally spent this critical care time directly and personally managing the patient. This critical care time included obtaining a history; examining the patient; pulse oximetry; ordering and review of studies; arranging urgent treatment with development of a management plan; evaluation of patient's response to treatment; frequent reassessment; and discussions with other providers. It was exclusive of separately billable procedures and treating other patients and teaching time. Please see Assessment and Plan section and the rest of the note for further information on patient assessment and treatment Subjective Date/time seen: 04/02/21 14:04 Interval history: Reason for consult: Alcohol withdrawal, seizures, fall 04/02/2021: Patient remains on Precedex infusion 0.8 mcg/kg/hr. Patient is very somnolent, wakes up with calling out his name, barely able to follow simple commands and answer questions. Have asked the bedside RN to start weaning the Precedex. Urine output has been adequate as patient has a Holloway catheter. Afebrile, hemodynamically stable Review of Systems Review of Systems: All systems reviewed & are unremarkable except as noted in HPI and below Exam Narrative: General: Patient is awake, alert in no dis
[2021-04-02] MEDS: LACTATED RINGERS 1,000 ML 125 ML IV CONT (14:57)
[2021-04-02] MEDS: LORazepam INJ (*CRX) 2 MG/ML VIAL IV PUSH ×4 (16:13→23:24)
[2021-04-02] MEDS: traZODone HCL 50 MG TABLET 100 MG PO (20:03)
[2021-04-02] MEDS: MIRTAZAPINE 15 MG TABLET PO (20:03)
--- NOTE | 2021-04-02 22:07 | PC.NURSE ---
This patient, Danny Reyna, was received from ICU-12 to room 204-01 on 04/02/21 at 1954. Patient/family oriented to unit policies and routines
[2021-04-03] VITALS (16 sets, daily range): BP systolic 109–132; BP diastolic 62–78; PULSE 70–104; RESP 15–20; TEMP 35.8–37.1; O2SAT 94–99
[2021-04-03] MEDS: LORazepam INJ (*CRX) 2 MG/ML VIAL IV PUSH ×7 (01:28→19:41)
[2021-04-03 05:04] LABS: Hematocrit 39.3 % (42.0-52.0); Hemoglobin 12.6 g/dL (14.0-18.0); Immature Platelet Fraction Pct 4.9 % (0.9-11.2); Mean Corpuscular HGB Conc 32.1 g/dl (32-36); Mean Corpuscular Hemoglobin 33.4 pg (26-34); Mean Corpuscular Volume 104.2 fl (80-100); Mean Platelet Volume 9.9 fl (7.4-10.4); Platelet Count Result 135 k/mm3 (150-375); Red Blood Count 3.77 M/mm3 (4.6-6.20); Red Cell Distribution Width 15.1 % (11.5-14.5); White Blood Count 4.3 K/mm3 (4.5-10.0)
[2021-04-03 05:13] LABS: Alanine Aminotransferase 58 U/L (4-50); Albumin Level 3.4 g/dL (3.5-5.1); Alkaline Phosphatase 95 U/L (38-126); Anion Gap 4 mmol/L (8-16); Aspartate Amino Transferase 51 U/L (17-59); Bilirubin,Total 0.5 mg/dL (0.2-1.3); Blood Urea Nitrogen 6 mg/dL (9-20); Calcium 8.8 mg/dL (8.4-10.2); Carbon Dioxide 24 mmol/L (22-30); Chloride 106 mmol/L (98-107); Estimated CRCL calculation 157 ml/min; Estimated Glomerular Filt Rate > 60; Glucose 124 mg/dL (65-110); Magnesium 1.9 mg/dL (1.6-2.3); Potassium 3.3 mmol/L (3.4-5.0); Sodium 134 mmol/L (137-145)
[2021-04-03] MEDS: chlordiazePOXIDE (*CRX) 25 MG CAPSULE 50 MG PO ×4 (05:59→23:14)
[2021-04-03] MEDS: AMOXICILLIN/CLAVULANATE K 875-125 MG TAB 1 TABLET PO ×2 (08:10→19:43)
[2021-04-03] MEDS: POTASSIUM CHLORIDE 20 MEQ TABLET 40 MEQ PO ×2 (08:10→11:58)
[2021-04-03] MEDS: METOPROLOL TARTRATE 25 MG TABLET PO ×2 (08:11→19:43)
[2021-04-03] MEDS: FOLIC ACID 1 MG TABLET PO (08:11)
[2021-04-03] MEDS: GABAPENTIN 300 MG CAPSULE 600 MG PO ×3 (08:11→17:18)
[2021-04-03] MEDS: PANTOPRAZOLE SODIUM IV 40 MG VIAL IV PUSH (08:12)
[2021-04-03] MEDS: THIAMINE HCL 100 MG TABLET PO (08:12)
[2021-04-03] MEDS: SERTRALINE HCL 50 MG TABLET 150 MG PO (08:12)
--- NOTE | 2021-04-03 10:47 | PM.IMPN ---
Progress Note: A&P Assessment and Plan (1) Alcohol withdrawal: Qualifiers: Complication of substance-induced condition: uncomplicated Qualified Code(s): F10.230 - Alcohol dependence with withdrawal, uncomplicated Code(s): F10.239 - Alcohol dependence with withdrawal, unspecified Status: Acute Assessment and Plan: Continue Librium and CIWA protocol Transfer to medical floor April 03 April 03 discussed outpatient rehab and patient said he will consider it (2) Alcohol withdrawal seizure: Qualifiers: Complication of substance-induced condition: uncomplicated Qualified Code(s): F10.230 - Alcohol dependence with withdrawal, uncomplicated; R56.9 - Unspecified convulsions Code(s): F10.239 - Alcohol dependence with withdrawal, unspecified; R56.9 - Unspecified convulsions Status: Acute Assessment and Plan: Resolved (3) Thrombocytopenia: Code(s): D69.6 - Thrombocytopenia, unspecified Status: Acute Assessment and Plan: Likely due to alcohol abuse (4) Periapical abscess: Code(s): K04.7 - Periapical abscess without sinus Status: Acute Assessment and Plan: CT scan of facial and cervical spine showed no facial fractures, posterior most left mandibular molar dental remington and periapical abscess Continue Augmentin (03/29/2021) (5) Alcoholic hepatitis: Qualifiers: Ascites presence: without ascites Qualified Code(s): K70.10 - Alcoholic hepatitis without ascites Code(s): K70.10 - Alcoholic hepatitis without ascites Status: Acute Assessment and Plan: Elevated LFTs which are trending down (6) Generalized anxiety disorder: Code(s): F41.1 - Generalized anxiety disorder Status: Acute Assessment and Plan: Continue Librium with p.r.n. lorazepam as well as sertraline and mirtazapine (7) Essential hypertension: Code(s): I10 - Essential (primary) hypertension Status: Acute Assessment and Plan: Continue metoprolol Blood pressure reviewed 04/03 with adequate control Subjective Date/time seen: 04/03/21 10:47 Interval history: 04/03 visit. A little shaky but fully oriented and up and about walking in room and into home weight. No GI or complaints. No chest pain or shortness of breath. No dizziness. States he does feel a little unsteady. Appetite good. No seizures since transfer out of intensive care. Review of Systems Review of Systems: All systems reviewed & are unremarkable except as noted in HPI and below Exam Narrative: HEENT: PERRL, sclerae nonicteric, pharyngeal mucosa pink and intact NECK: No JVD CHEST: Clear to auscultation. Normal effort. HEART: NL S1/S2, regular, no murmur ABDOMEN: BS+, soft, nontender, no mass, no bruits EXTREMITIES: No cyanosis, edema, or clubbing NEUROLOGIC: CN intact and symmetric to inspection. Mild tremor of outstretched hands. MUSCULOSKELETAL: Tone and strength symmetric. PSYCH: Alert. Oriented to person, place, and time. Objective Data Vital Signs Vital Signs: Vital Signs - 24 hr 04/02/21 11:53 04/02/21 12:00 04/02/21 13:49 Temperature Pulse Rate 84 82 Pulse Rate [Left Radial] 84 Respiratory Rate 18 Blood Pressure 124/79 Pulse Oximetry 92 04/02/21 14:00 04/02/21 16:00 04/02/21 17:56 Temperature 98.4 F Pulse Rate 83 104 H 99 Pulse Rate [Left Radial] 84 Respiratory Rate 16 18 Blood Pressure 106/77 119/86 Pulse Oximetry 94 96 04/02/21 19:56 04/02/21 20:00 04/02/21 20:02 Temperature 97.6 F Pulse Rate 104 H 103 H Pulse Rate [Left Radial] 103 H Respiratory Rate 20 Blood Pressure 122/85 Pulse Oximetry 96 99 04/02/21 22:00 04/02/21 23:14 04/02/21 23:38 Temperature 98.5 F Pulse Rate 101 H 97 Pulse Rate [Left Radial] 97 Respiratory Rate 20 Blood Pressure 109/70 109/70 Pulse Oximetry 94 04/02/21 23:41 04/03/21 00:00 04/03/21 01:53 Temperature Pulse
--- NOTE | 2021-04-03 13:44 | PC.NURSE ---
This patient, Danny Reyna, was transferred to [ [facility] [place]] on 04/03/21 at 1325. Personal belongings sent with patient. Report given to [Essei ]. Appropriate documentation sent with patient.
--- NOTE | 2021-04-03 16:14 | PC.NURSE ---
This patient, Danny Reyna, was received from [ IMU] on 04/03/21 at 1615. Patient/family oriented to unit policies and routines Patient up in chair with mild anxiety. Patient has no complaints at this time. Will continue to monitor.
[2021-04-03] MEDS: traZODone HCL 50 MG TABLET 100 MG PO (19:42)
[2021-04-03] MEDS: MIRTAZAPINE 15 MG TABLET PO (19:43)
--- NOTE | 2021-04-03 20:38 | PC.NURSE ---
PT up and walking around room despite being asked to stay in bed he insists he just got up and is not oriented to time.
[2021-04-04] VITALS (9 sets, daily range): BP systolic 117–141; BP diastolic 77–94; PULSE 69–93; RESP 16–18; TEMP 36.3–37; O2SAT 95–99
[2021-04-04] MEDS: chlordiazePOXIDE (*CRX) 25 MG CAPSULE 50 MG PO (04:43)
[2021-04-04] MEDS: LORazepam INJ (*CRX) 2 MG/ML VIAL IV PUSH ×5 (04:43→20:45)
[2021-04-04 06:04] LABS: Hematocrit 39.5 % (42.0-52.0); Hemoglobin 12.6 g/dL (14.0-18.0); Mean Corpuscular HGB Conc 31.9 g/dl (32-36); Mean Corpuscular Hemoglobin 33.7 pg (26-34); Mean Corpuscular Volume 105.6 fl (80-100); Platelet Count Result 169 k/mm3 (150-375); Red Blood Count 3.74 M/mm3 (4.6-6.20); Red Cell Distribution Width 15.4 % (11.5-14.5); White Blood Count 3.5 K/mm3 (4.5-10.0)
[2021-04-04 06:17] LABS: Alanine Aminotransferase 58 U/L (4-50); Albumin Level 3.6 g/dL (3.5-5.1); Alkaline Phosphatase 78 U/L (38-126); Anion Gap 5 mmol/L (8-16); Aspartate Amino Transferase 47 U/L (17-59); Bilirubin,Total 0.5 mg/dL (0.2-1.3); Blood Urea Nitrogen 7 mg/dL (9-20); Calcium 8.8 mg/dL (8.4-10.2); Carbon Dioxide 27 mmol/L (22-30); Chloride 107 mmol/L (98-107); Estimated CRCL calculation 136 ml/min; Estimated Glomerular Filt Rate > 60; Glucose 112 mg/dL (65-110); Potassium 3.7 mmol/L (3.4-5.0); Sodium 139 mmol/L (137-145)
[2021-04-04 06:32] LABS: Magnesium 1.9 mg/dL (1.6-2.3)
--- NOTE | 2021-04-04 09:57 | PM.IMPN ---
Progress Note: A&P Assessment and Plan (1) Alcohol withdrawal: Qualifiers: Complication of substance-induced condition: uncomplicated Qualified Code(s): F10.230 - Alcohol dependence with withdrawal, uncomplicated Code(s): F10.239 - Alcohol dependence with withdrawal, unspecified Status: Acute Assessment and Plan: Continue Librium and CIWA protocol Transfer to medical floor April 03 April 03 discussed outpatient rehab and patient agreed to consider April 04 taper chlordiazepoxide from 50 mg to 25 mg every 6 hours (2) Alcohol withdrawal seizure: Qualifiers: Complication of substance-induced condition: uncomplicated Qualified Code(s): F10.230 - Alcohol dependence with withdrawal, uncomplicated; R56.9 - Unspecified convulsions Code(s): F10.239 - Alcohol dependence with withdrawal, unspecified; R56.9 - Unspecified convulsions Status: Acute Assessment and Plan: Resolved (3) Thrombocytopenia: Code(s): D69.6 - Thrombocytopenia, unspecified Status: Acute Assessment and Plan: Likely due to alcohol abuse Resolved (4) Periapical abscess: Code(s): K04.7 - Periapical abscess without sinus Status: Acute Assessment and Plan: CT scan of facial and cervical spine showed no facial fractures, posterior most left mandibular molar dental remington and periapical abscess Continue Augmentin (03/29/2021) (5) Alcoholic hepatitis: Qualifiers: Ascites presence: without ascites Qualified Code(s): K70.10 - Alcoholic hepatitis without ascites Code(s): K70.10 - Alcoholic hepatitis without ascites Status: Acute Assessment and Plan: Hepatitis panel negative Elevated LFTs which are trending down (6) Generalized anxiety disorder: Code(s): F41.1 - Generalized anxiety disorder Status: Acute Assessment and Plan: Continue Librium with p.r.n. lorazepam as well as sertraline and mirtazapine (7) Essential hypertension: Code(s): I10 - Essential (primary) hypertension Status: Acute Assessment and Plan: Continue metoprolol Blood pressure reviewed 04/04 with adequate control Subjective Date/time seen: 04/04/21 09:57 Interval history: 04/04 visit. Tolerated diet. Slept well. Still very drowsy this morning on Librium 50 mg every 6 hours. No shakes. No seizures per since transfer out of ICU. Review of Systems Review of Systems: All systems reviewed & are unremarkable except as noted in HPI and below Exam Narrative: HEENT: PERRL, sclerae nonicteric, pharyngeal mucosa pink and intact NECK: No JVD CHEST: Clear to auscultation. Normal effort. HEART: NL S1/S2, regular, no murmur ABDOMEN: BS+, soft, nontender, no mass, no bruits EXTREMITIES: No cyanosis, edema, or clubbing NEUROLOGIC: CN intact and symmetric to inspection. MUSCULOSKELETAL: Tone and strength symmetric. PSYCH: Alert. Oriented to person, place, and time. Objective Data Vital Signs Vital Signs: Vital Signs - 24 hr 04/03/21 10:00 04/03/21 12:00 04/03/21 14:00 Temperature 98.0 F Pulse Rate 85 89 Pulse Rate [Left Radial] 70 Respiratory Rate 15 Blood Pressure 128/78 Pulse Oximetry 96 04/03/21 19:27 04/03/21 19:43 04/03/21 19:51 Temperature 98.8 F Pulse Rate 99 80 Pulse Rate [Left Radial] 88 Respiratory Rate 17 Blood Pressure 132/62 Pulse Oximetry 99 04/03/21 23:39 04/04/21 00:00 04/04/21 00:28 Temperature 96.4 F L Pulse Rate 83 Pulse Rate [Left Radial] 83 Respiratory Rate 18 Blood Pressure 128/78 Pulse Oximetry 94 95 04/04/21 03:08 Temperature 97.8 F Pulse Rate 69 Pulse Rate [Left Radial] Respiratory Rate 16 Blood Pressure 124/83 Pulse Oximetry 98 Intake/Output Intake/Output: Intake & Output 04/01/21 04/02/21 04/03/21 04/04/21 23:59 23:59 23:59 23:59 Intake Total 1450 3187 2045 100 Output Total 0 1895 240 Balance 1450 1292 1805 100
[2021-04-04] MEDS: GABAPENTIN 300 MG CAPSULE 600 MG PO ×3 (10:22→17:17)
[2021-04-04] MEDS: FOLIC ACID 1 MG TABLET PO (10:23)
[2021-04-04] MEDS: AMOXICILLIN/CLAVULANATE K 875-125 MG TAB 1 TABLET PO ×2 (10:23→20:43)
[2021-04-04] MEDS: THIAMINE HCL 100 MG TABLET PO (10:23)
[2021-04-04] MEDS: SERTRALINE HCL 50 MG TABLET 150 MG PO (10:24)
[2021-04-04] MEDS: METOPROLOL TARTRATE 25 MG TABLET PO ×2 (10:24→20:43)
[2021-04-04] MEDS: PANTOPRAZOLE 40 MG TABLET PO (10:24)
[2021-04-04] MEDS: chlordiazePOXIDE (*CRX) 25 MG CAPSULE PO ×2 (12:11→17:17)
[2021-04-04] MEDS: NAPROXEN 250 MG TABLET PO (15:53)
[2021-04-04] MEDS: traZODone HCL 50 MG TABLET 100 MG PO (20:42)
[2021-04-04] MEDS: MIRTAZAPINE 15 MG TABLET PO (20:43)
[2021-04-05] VITALS: PULSE 80
[2021-04-05 03:10] VITALS: BP 116/62; PULSE 65; RESP 17; TEMP 36.2; O2SAT 94
[2021-04-05] MEDS: LORazepam INJ (*CRX) 2 MG/ML VIAL IV PUSH (05:24)
[2021-04-05] MEDS: chlordiazePOXIDE (*CRX) 25 MG CAPSULE PO ×2 (05:25→11:52)
[2021-04-05 06:52] LABS: Hematocrit 38.9 % (42.0-52.0); Hemoglobin 12.6 g/dL (14.0-18.0); Mean Corpuscular HGB Conc 32.4 g/dl (32-36); Mean Corpuscular Hemoglobin 33.9 pg (26-34); Mean Corpuscular Volume 104.6 fl (80-100); Mean Platelet Volume 10.1 fl (7.4-10.4); Platelet Count Result 207 k/mm3 (150-375); Red Blood Count 3.72 M/mm3 (4.6-6.20); Red Cell Distribution Width 15.3 % (11.5-14.5); White Blood Count 3.9 K/mm3 (4.5-10.0)
[2021-04-05 07:00] LABS: Alanine Aminotransferase 62 U/L (4-50); Albumin Level 3.4 g/dL (3.5-5.1); Alkaline Phosphatase 87 U/L (38-126); Anion Gap 6 mmol/L (8-16); Aspartate Amino Transferase 50 U/L (17-59); Bilirubin,Total 0.4 mg/dL (0.2-1.3); Blood Urea Nitrogen 9 mg/dL (9-20); Calcium 8.5 mg/dL (8.4-10.2); Carbon Dioxide 25 mmol/L (22-30); Chloride 105 mmol/L (98-107); Estimated CRCL calculation 136 ml/min; Estimated Glomerular Filt Rate > 60; Glucose 119 mg/dL (65-110); Magnesium 1.8 mg/dL (1.6-2.3); Potassium 3.4 mmol/L (3.4-5.0); Sodium 136 mmol/L (137-145)
[2021-04-05 08:00] VITALS: PULSE 65
[2021-04-05] MEDS: SERTRALINE HCL 50 MG TABLET 150 MG PO (08:00)
[2021-04-05] MEDS: GABAPENTIN 300 MG CAPSULE 600 MG PO (08:00)
[2021-04-05] MEDS: FOLIC ACID 1 MG TABLET PO (08:00)
[2021-04-05] MEDS: METOPROLOL TARTRATE 25 MG TABLET PO (08:00)
[2021-04-05] MEDS: PANTOPRAZOLE 40 MG TABLET PO (08:00)
[2021-04-05] MEDS: THIAMINE HCL 100 MG TABLET PO (08:00)
[2021-04-05] MEDS: AMOXICILLIN/CLAVULANATE K 875-125 MG TAB 1 TABLET PO (08:00)
--- NOTE | 2021-04-05 08:47 | PM.DS ---
DS: Admitting Diagnosis Discharge Date 04/05/21 Admitting Diagnosis (1) Alcohol withdrawal seizure: Code(s): F10.239 - Alcohol dependence with withdrawal, unspecified; R56.9 - Unspecified convulsions Status: Acute (2) Alcoholic hepatitis: Code(s): K70.10 - Alcoholic hepatitis without ascites Status: Acute (3) Alcohol intoxication: Code(s): F10.929 - Alcohol use, unspecified with intoxication, unspecified Status: Acute (4) Periapical abscess: Code(s): K04.7 - Periapical abscess without sinus Status: Acute (5) Hypokalemia: Code(s): E87.6 - Hypokalemia Status: Acute (6) Alcoholism: Code(s): F10.20 - Alcohol dependence, uncomplicated Status: Acute (7) Generalized anxiety disorder: Code(s): F41.1 - Generalized anxiety disorder Status: Acute (8) Thrombocytopenia: Code(s): D69.6 - Thrombocytopenia, unspecified Status: Acute DS: Discharge Diagnosis Discharge Diagnosis (1) Alcohol withdrawal: Qualifiers: Complication of substance-induced condition: uncomplicated Qualified Code(s): F10.230 - Alcohol dependence with withdrawal, uncomplicated Code(s): F10.239 - Alcohol dependence with withdrawal, unspecified Status: Acute Assessment and Plan: Continue Librium and CIWA protocol Transfer to medical floor April 03 April 03 discussed outpatient rehab and patient agreed to consider April 04 taper chlordiazepoxide from 50 mg to 25 mg every 6 hours (2) Alcohol withdrawal seizure: Qualifiers: Complication of substance-induced condition: uncomplicated Qualified Code(s): F10.230 - Alcohol dependence with withdrawal, uncomplicated; R56.9 - Unspecified convulsions Code(s): F10.239 - Alcohol dependence with withdrawal, unspecified; R56.9 - Unspecified convulsions Status: Acute Assessment and Plan: Resolved (3) Thrombocytopenia: Code(s): D69.6 - Thrombocytopenia, unspecified Status: Acute Assessment and Plan: Likely due to alcohol abuse Resolved (4) Periapical abscess: Code(s): K04.7 - Periapical abscess without sinus Status: Acute Assessment and Plan: CT scan of facial and cervical spine showed no facial fractures, posterior most left mandibular molar dental remington and periapical abscess Continue Augmentin (03/29/2021) (5) Alcoholic hepatitis: Qualifiers: Ascites presence: without ascites Qualified Code(s): K70.10 - Alcoholic hepatitis without ascites Code(s): K70.10 - Alcoholic hepatitis without ascites Status: Acute Assessment and Plan: Hepatitis panel negative Elevated LFTs which are trending down (6) Generalized anxiety disorder: Code(s): F41.1 - Generalized anxiety disorder Status: Acute Assessment and Plan: Continue Librium with p.r.n. lorazepam as well as sertraline and mirtazapine (7) Essential hypertension: Code(s): I10 - Essential (primary) hypertension Status: Acute Assessment and Plan: Continue metoprolol Blood pressure reviewed 04/04 with adequate control (8) Hypokalemia: Code(s): E87.6 - Hypokalemia Status: Acute (9) Alcoholism: Code(s): F10.20 - Alcohol dependence, uncomplicated Status: Acute (10) Acute alcoholic hepatitis: Code(s): K70.10 - Alcoholic hepatitis without ascites Status: Acute (11) Thrombocytopenia: Code(s): D69.6 - Thrombocytopenia, unspecified Status: Chronic (12) Myelosuppression: Code(s): D75.89 - Other specified diseases of blood and blood-forming organs Status: Acute (13) Nutritional deficiency: Code(s): E63.9 - Nutritional deficiency, unspecified Status: Acute DS: Summary Hospital Course Reason for hospitalization: Fall and witnessed seizure. Hospital Course: 30yo with known alcoholism presents to the emergency room with fall sec
--- NOTE | 2021-04-05 10:49 | PCOTNOTE ---
Pt up in room, completely dressed and awaiting discharge. Per nursing, OT evaluation not needed.
[2021-04-05] MEDS: POTASSIUM CHLORIDE 20 MEQ PACKET (FOR LIQUID) 40 MEQ PO (11:52)
== END 2021-04-05 14:41 | disposition home or self-care (01) | DRG 897 ==
LOC: ANHED 18:49 → ANH3MEDSUR 21:34 → ANH2MED 03-29 15:04 → ANHICU 04-06 09:35 → ANHIMU 04-06 09:35
PROVIDERS: Family Medicine; Internal Medicine; Physician Assistant; Admitting Provider Internal Medicine; Emergency Provider Nurse Practitioner; PCP Family Medicine; Visit Provider Hospitalist
DX: F10.230 Alcohol dependence with withdrawal, uncomplicated (principal); R56.9 Unspecified convulsions; F10.220 Alcohol dependence with intoxication, uncomplicated; K70.10 Alcoholic hepatitis without ascites; Y90.8 Blood alcohol level of 240 mg/100 ml or more; D69.6 Thrombocytopenia, unspecified; Z20.822 Contact with and (suspected) exposure to COVID-19; K04.7 Periapical abscess without sinus; E87.6 Hypokalemia; F41.1 Generalized anxiety disorder; I10 Essential (primary) hypertension; D75.89 Other specified diseases of blood and blood-forming organs; E63.9 Nutritional deficiency, unspecified; Z87.891 Personal history of nicotine dependence; Z79.899 Other long term (current) drug therapy
CPT/HCPCS: 36415; 70450; 70486; 71045; 71275; 72125; 74177; 80048; 80053; 80074; 80307; 81003; 82140; 82948; 83605; 83690; 83735; 84100; 84484; 85025; 85027; 85055; 85380; 85610; 85730; 87081; 87086; 87804; 87880; 93005; 96361; 96365; 96366; 96367; 96368; 96375; 96376; 97161; 99285; A9270; C9113; C9803; G0378; J0360; J1200; J2060; J2270; J2405; J3411; J3475; J3480; J7030; J7040; J7120; Q9967; U0003; U0005

== ENCOUNTER 2021-05-13 21:14 | Inpatient (IN) | payer BC, SELFPAY ==
--- NOTE | ~2021-05-13 | CT_ITS ---
EXAMINATION: CT abdomen pelvis w con DATE: 05/13/2021 23:28 INDICATION: Abdominal pain TECHNIQUE: Computed tomography (CT) of the abdomen and pelvis was performed with 100 mL Omnipaque-350 intravenous contrast. Automated exposure control and iterative reconstruction technique were employe d. The dose-length product was 685.07 mGy-cm. COMPARISON: 03/28/2021 FINDINGS: Lung bases are clear. Heart size is normal. No pericardial or pleural effusion. Prominent wall thicke gabriel of the distal esophagus suspicious for esophagitis. Diffuse hepatic steatosis. Gallbladder, sple en, pancreas, bilateral adrenal glands and kidneys are normal. Bowels including the appendix are norm al. Bladder is normal. Small bilateral fat-containing inguinal hernias. No free intraperitoneal gas o r fluid. No pathologically enlarged abdominal or pelvic lymphadenopathy. Prominent Schmorl's node harley ng the superior endplate of T12. IMPRESSION: 1. Prominent wall thickening of the distal esophagus suspicious for esophagitis. 2. Diffuse hepatic steatosis. Reviewed, dictated and finalized at location A. RENTAL AGENCY MANAGER IMPRESSION: 1. Prominent wall thickening of the distal esophagus suspicious for esophagitis . 2. Diffuse hepatic steatosis.
[2021-05-13 21:19] VITALS: BP 158/100; PULSE 130; RESP 14; TEMP 36.6; O2SAT 98
--- NOTE | 2021-05-13 21:42 | ED.ALCOHOL ---
HPI - Alcohol General Chief Complaint: Alcohol Stated Complaint: alcohol withdrawals Time Seen by Provider: 05/13/21 21:31 Source: patient Mode of arrival: ambulatory Limitations: no limitations History of Present Illness HPI narrative: 30 year old male presents today with complaints of being in alcohol withdrawl. Patient states he is an alcoholic and has been for a long time. He has a history of seizures from alcohol withdraw. Patient drank 1/5 of whiskey today last drink at 5pm. Per patient his dad brought him here today. [facility] for Alcohol Withdrawal from [employer] on 05/13/2021 All calculations should be rechecked by clinician prior to use RESULT SUMMARY: 15 points Patients with scores >9 may require medication for withdrawal. INPUTS: Nausea/vomiting ?> 1 = Mild nausea and no vomiting Tremor ?> 3 = (More severe symptoms) Paroxysmal sweats ?> 0 = No sweat visible Anxiety ?> 3 = (More severe symptoms) Agitation ?> 1 = Somewhat more activity than normal activty Tactile disturbances ?> 0 = None Auditory disturbances ?> 0 = Not present Visual disturbances ?> 2 = Mild sensitivity Headache/fullness in head ?> 5 = Severe Orientation/clouding of sensorium ?> 0 = Oriented, can do serial additions Related Data Home Medications Medication Instructions Recorded Confirmed metoprolol tartrate 25 mg PO BID 03/29/21 03/29/21 mirtazapine 15 mg PO HS 03/29/21 03/29/21 sertraline 100 mg PO DAILY 03/29/21 03/29/21 trazodone 100 mg PO PRN PRN 03/29/21 03/29/21 Allergies Allergy/AdvReac Type Severity Reaction Status Date / Time No Known Allergies Allergy Mild Verified 05/13/21 22:58 Review of Systems Review of Systems: CONSTITUTIONAL: Anxious. Denies fever, chills, or sweats. EYES: Denies visual changes, redness, or discharge. ENT: Denies rhinorrhea, congestion, sore throat, or otalgia. CARDIOVASCULAR: Denies chest pain, palpitations, or edema. RESPIRATORY: Denies cough or dyspnea. GASTROINTESTINAL: Nausea and vomiting. Denies abdominal pain or diarrhea. GENITOURINARY: Denies dysuria or hematuria. SKIN: Denies rash or itching. MUSCULOSKELETAL: Denies back pain, joint pain, or myalgia. NEUROLOGIC: Headache. Denies numbness, dizziness, or weakness. PSYCHIATRIC: Anxious. denies depression. [facility] Past Medical History Medical History (Updated 05/14/21 @ 02:55 by Maryse Black APRN) Alcohol withdrawal seizure Alcoholism Essential hypertension Generalized anxiety disorder Surgical History Surgical History No pertinent past surgical history Family History Family History Father Hypertension Family history of coronary artery disease Mother Family history of diabetes mellitus in first degree relative Sibling Family history of diabetes mellitus in first degree relative Social History Social History Social History: The patient lives in his own home. He has 1 son. 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 He smoked about half a pack of cigarettes a day for few years and quit in 2019. He estimates that he started drinking alcohol at the age of 11 and he drinks at least a half a pt of vodka a day. Occasional marijuana use. He designates his mother Andie as his surrogate decision maker and he wishes to be a full code. Smoking status: Never smoker Alcohol intake: current Drinks per week: 5 Substance use: never Substance use type: does not use Other substance usage details: 5th of liquor a day Spiritual care concerns: No Exam Narrative: GENERAL: Well-appearing, well-nourished, and in no acute distress. HEAD: Normocephalic, atraumatic. EYES: PERRLA and EOMI. ENT: Nares clear, no rhinorrhea or epistaxis. Mucous membranes moist. Oropharynx without tonsillar hypertrophy exudate or other lesions. Bilateral TMs pearly
[2021-05-13] MEDS: LACTATED RINGERS 1,000 ML 999 ML IV CONT (21:57)
[2021-05-13] MEDS: ONDANSETRON INJ 4 MG/2 ML VIAL IV PUSH (21:57)
[2021-05-13] MEDS: LORazepam INJ (*CRX) 2 MG/ML VIAL 1 MG IV PUSH (22:01)
--- NOTE | 2021-05-13 22:03 | ECG_ITS ---
Measurements Intervals [place] Rate: 108 P: 24 HI: 144 QRS: 113 QRSD: 97 T: 44 QT: 304 QTc: 408 Interpretive Statements SINUS TACHYCARDIA POSSIBLE RIGHT VENTRICULAR HYPERTROPHY [SOME/ALL OF: PROMINENT R IN V1, LATE TRANSITION, RAD, STEFANO, SSS] COMPARED TO ECG 03/28/2021 14:37:52 NO SIGNIFICANT CHANGES Electronically Signed On 05-14-2021 7:13:08 LITHOGRAPH PRINTER by Ric Espitia M.D.
[2021-05-13 22:10] LABS: Basophils Percent Auto 0.2 % (0.2-1.2); Hematocrit 47.1 % (42.0-52.0); Hemoglobin 16.9 g/dL (14.0-18.0); Immature Granulocyte Absolute 0.05 K/mm3 (0.00-0.031); Immature Granulocyte Percent A 0.4 % (0-0.5); Lymphocytes Absolute Auto 1.84 K/mm3 (0.9-3.2); Lymphocytes Percent Auto 13.8 % (18.3-44.2); Mean Corpuscular HGB Conc 35.9 g/dl (32-36); Mean Corpuscular Hemoglobin 35.3 pg (26-34); Mean Corpuscular Volume 98.3 fl (80-100); Mean Platelet Volume 8.7 fl (7.4-10.4); Monocytes Absolute Auto 0.6 K/mm3 (0.1-0.6); Monocytes Percent Auto 4.4 % (2.6-8.5); Neutrophils Absolute Auto 10.8 K/mm3 (1.3-6.7); Neutrophils Percent Auto 81.2 % (45.5-73.1); Platelet Count Result 386 k/mm3 (150-375); Red Blood Count 4.79 M/mm3 (4.6-6.20); Red Cell Distribution Width 15.1 % (11.5-14.5); White Blood Count 13.3 K/mm3 (4.5-10.0)
[2021-05-13 22:20] LABS: Alanine Aminotransferase 338 U/L (4-50); Albumin Level 4.5 g/dL (3.5-5.1); Alkaline Phosphatase 178 U/L (38-126); Anion Gap 19 mmol/L (8-16); Aspartate Amino Transferase 604 U/L (17-59); Bilirubin,Total 1.2 mg/dL (0.2-1.3); Blood Urea Nitrogen 13 mg/dL (9-20); Calcium 7.4 mg/dL (8.4-10.2); Carbon Dioxide 19 mmol/L (22-30); Chloride 92 mmol/L (98-107); Estimated CRCL calculation 141 ml/min; Estimated Glomerular Filt Rate > 60; Glucose 135 mg/dL (65-110); Sodium 130 mmol/L (137-145)
[2021-05-13 22:24] LABS: Add Urine Microscopic? YES; Appearance Urine Cloudy (Clear); Bilirubin Urine Negative (Negative); Blood Urine 1+ (Negative); Color Urine Amber (Yellow); Glucose Urine UA Negative (Negative); Ketones Urine Trace mg/dL (Negative); Leukocyte Esterase Ur Negative LEU/UL (Negative); Mucus Urine Few /lpf; Nitrate Urine Negative (Negative); Protein Urine 3+ mg/dL (Negative); RBC Urine 0-2 /hpf (0-2); Specific Grav Ur 1.029 (1.001-1.035); Squamous Epithelial Cell Urine Rare /hpf (Few); Urobilinogen Urine Negative mg/dL (<2.0); WBC Urine 0-3 /hpf
[2021-05-13 22:36] LABS: Amphetamine Screen Urine Negative (Negative); Barbiturate Screen Urine Negative (Negative); Benzodiazepines Screen Urine Positive (Negative); Cannabinoid Screen Urine Negative (Negative); Cocaine Screen Urine Negative (Negative); Methadone Screen Urine Negative (Negative); Opiate Screen Urine Negative (Negative); Phencyclidine Screen Urine Negative (Negative)
[2021-05-13 22:40] LABS: Ethanol 400 mg/dL (<10)
[2021-05-13 22:45] LABS: Lipase 263 U/L (23-300); Magnesium 1.6 mg/dL (1.6-2.3)
[2021-05-13 22:46] LABS: INR 1.1; Prothrombin Time 13.3 Seconds (11.1-14.7)
[2021-05-13 22:59] VITALS: BP 117/93; PULSE 108; RESP 14; O2SAT 100
[2021-05-13] MEDS: PROCHLORPERAZINE EDISYLATE 10 MG/2 ML VIAL IV PUSH (22:59)
[2021-05-13 23:22] LABS: Occult Blood Gastric Fluid Negative; pH Gastric Fluid 3 (1-8)
[2021-05-13 23:23] LABS: Gastric Negative Control Negative; Gastric Positive Control Positive
[2021-05-13] MEDS: SODIUM CHLORIDE 0.9% IV 1,000 ML 999 ML IV CONT (23:28)
[2021-05-13] MEDS: THIAMINE HCL INJ 100 MG, FOLIC ACID INJ 1 MG, MULTIVITAMINS-12 INJ VIAL 1 5 ML, MULTIVI... IV CONT (23:28)
[2021-05-14] VITALS (13 sets, daily range): BP systolic 132–150; BP diastolic 68–102; PULSE 89–120; RESP 18–22; TEMP 36.4–37; O2SAT 98–100; BMI 35.2
[2021-05-14] MEDS: SODIUM CHLORIDE 0.9% IV 1,000 ML 999 ML IV CONT ×2 (00:53)
[2021-05-14] MEDS: FAMOTIDINE 20 MG/2 ML VIAL IV PUSH (00:53)
[2021-05-14] MEDS: METOPROLOL TARTRATE INJ 5 MG/5 ML VIAL IV PUSH (04:54)
[2021-05-14 06:16] LABS: Hematocrit 35.2 % (42.0-52.0); Hemoglobin 12.7 g/dL (14.0-18.0); Mean Corpuscular HGB Conc 36.1 g/dl (32-36); Mean Platelet Volume 8.6 fl (7.4-10.4); Platelet Count Result 231 k/mm3 (150-375); Red Blood Count 3.63 M/mm3 (4.6-6.20); Red Cell Distribution Width 14.9 % (11.5-14.5); White Blood Count 11.6 K/mm3 (4.5-10.0)
[2021-05-14 06:25] LABS: Lactic Acid Reflex 2.9 mmol/L (0.7-2.1)
[2021-05-14 06:27] LABS: Alanine Aminotransferase 225 U/L (4-50); Albumin Level 3.3 g/dL (3.5-5.1); Alkaline Phosphatase 108 U/L (38-126); Anion Gap 10 mmol/L (8-16); Aspartate Amino Transferase 300 U/L (17-59); Bilirubin,Total 1.6 mg/dL (0.2-1.3); Blood Urea Nitrogen 6 mg/dL (9-20); Calcium 6.4 mg/dL (8.4-10.2); Carbon Dioxide 25 mmol/L (22-30); Chloride 95 mmol/L (98-107); Estimated CRCL calculation 165 ml/min; Estimated Glomerular Filt Rate > 60; Glucose 116 mg/dL (65-110); Magnesium 1.2 mg/dL (1.6-2.3); Phosphorus 2.6 mg/dL (2.5-4.5); Potassium 3.7 mmol/L (3.4-5.0); Sodium 130 mmol/L (137-145)
[2021-05-14 09:02] LABS: Reflex Lactic Acid Yes or No Add Lactic
[2021-05-14] MEDS: THIAMINE HCL 200 MG/2 ML VIAL 100 MG IV PUSH (09:12)
[2021-05-14] MEDS: LORazepam INJ (*CRX) 2 MG/ML VIAL IV PUSH ×2 (09:13→19:57)
[2021-05-14] MEDS: PANTOPRAZOLE SODIUM IV 40 MG VIAL IV PUSH ×2 (09:13→20:00)
[2021-05-14] MEDS: METOPROLOL TARTRATE 25 MG TABLET PO ×2 (09:14→20:00)
[2021-05-14 09:19] LABS: Lactic Acid Reflex 2.8 mmol/L (0.7-2.1)
[2021-05-14] MEDS: chlordiazePOXIDE (*CRX) 25 MG CAPSULE 50 MG PO ×2 (11:14→17:03)
[2021-05-14] MEDS: ONDANSETRON INJ 4 MG/2 ML VIAL IV PUSH (13:13)
[2021-05-14] MEDS: LORazepam INJ (*CRX) 2 MG/ML VIAL 1 MG IV PUSH (13:13)
--- NOTE | 2021-05-14 15:42 | PM.IMHP ---
H&P: HPI History of Present Illness Date/Time: 05/14/21 15:42 Chief Complaint: Alcohol withdrawal Narrative: 30 year old male presents to the ER yesterday with complaint of symptoms of alcohol withdrawal. He is an alcoholic and has been for a long time. History of for alcohol withdrawal seizure in the past. He was recently admitted for the same and was released in March. He continued during after that. Last drink was yesterday in the evening when he drank 1/5 of whiskey. He was brought in by his dad. He continued to feel shaky and restless. He also had nausea and vomiting which has improved now. No fever chills no bowel or urinary symptoms. He was admitted for further evaluation and management. Review of Systems Review of Systems: - CONSTITUTIONAL: Denies weight loss, fever and chills. - HEENT: Denies changes in vision and hearing - RESPIRATORY: Denies SOB and cough. - CV: Denies palpitations and CP. - GI: Denies abdominal pain, reports nausea, vomiting and denies diarrhea. - : Denies dysuria and urinary frequency. - MSK: Denies myalgia and joint pain. - SKIN: Denies rash and pruritus. - NEUROLOGICAL: Denies headache and syncope. - PSYCHIATRIC: Denies recent changes in mood. Denies anxiety and depression. All systems reviewed & are unremarkable except as noted in HPI and below Endocrine: Endocrine: Reports fatigue PMFSH Past Medical History Medical History (Updated 05/14/21 @ 15:49 by Feliciano Richardson MD) Alcohol withdrawal seizure Alcoholism Essential hypertension Generalized anxiety disorder Surgical History Surgical History No pertinent past surgical history Family History Family History Father Hypertension Family history of coronary artery disease Mother Family history of diabetes mellitus in first degree relative Sibling Family history of diabetes mellitus in first degree relative Social History Social History Social History: The patient lives in his own home. He has 1 son. 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 He smoked about half a pack of cigarettes a day for few years and quit in 2019. He estimates that he started drinking alcohol at the age of 11 and he drinks at least a half a pt of vodka a day. Occasional marijuana use. He designates his mother Andie as his surrogate decision maker and he wishes to be a full code. Smoking status: Never smoker Second hand tobacco smoke exposure: No Alcohol intake: current Drinks per week: 5 Substance use: never Substance use type: does not use Other substance usage details: 5th of liquor a day Spiritual care concerns: No Meds Home Medications and Allergies Home Medications Medication Instructions Recorded Confirmed Type mirtazapine 15 mg PO HS 03/29/21 03/29/21 History sertraline 100 mg PO DAILY 03/29/21 05/14/21 History trazodone 100 mg PO PRN PRN 03/29/21 03/29/21 History amoxicillin-pot clavulanate 1 tablet PO Q12H #20 tablet 04/05/21 Rx chlordiazepoxide HCl See Rx Instructions .ROUTE 04/05/21 Rx .COMPLEX #30 cap folic acid 1 mg PO DAILY 30 Days #30 tablet 04/05/21 Rx gabapentin [Neurontin] 600 mg PO TID 30 Days #180 cap 04/05/21 05/14/21 Rx pantoprazole 40 mg PO QAM 30 Days #30 tablet 04/05/21 Rx sertraline [Zoloft] 150 mg PO QAM 30 Days #90 tablet 04/05/21 Rx thiamine HCl (vitamin B1) 100 mg PO QAM 30 Days #30 tablet 04/05/21 Rx metoprolol tartrate 25 mg tablet See Rx Instructions .ROUTE 05/14/21 Rx .COMPLEX #60 tablet Allergies Allergy/AdvReac Type Severity Reaction Status Date / Time No Known Allergies Allergy Mild Verified 05/13/21 22:58 Vital Signs Vital Signs - 24 hr 05/13/21 21:19 05/13/21 22:59 05/14/21 01:04 Temperature 97.9 F Pulse Rate 130 H 108 H 115 H Respiratory Rate 14 14 18
[2021-05-14] MEDS: MAGNESIUM SULF 2 GM/WATER 50ML 2 GM/50 ML BAG IVPB (16:00)
[2021-05-14] MEDS: SODIUM CHLORIDE 0.9% IV 1,000 ML 150 ML IV CONT (16:00)
[2021-05-15] VITALS (14 sets, daily range): BP systolic 126–140; BP diastolic 72–90; PULSE 73–121; RESP 14–20; TEMP 36.1–36.8; O2SAT 100
[2021-05-15] MEDS: SODIUM CHLORIDE 0.9% IV 1,000 ML 150 ML IV CONT ×2 (00:07→08:45)
[2021-05-15] MEDS: LORazepam INJ (*CRX) 2 MG/ML VIAL IV PUSH ×6 (00:08→23:16)
[2021-05-15] MEDS: chlordiazePOXIDE (*CRX) 25 MG CAPSULE 50 MG PO ×4 (00:31→17:50)
[2021-05-15 06:29] LABS: Basophils Percent Auto 0.2 % (0.2-1.2); Eosinophils Percent Auto 0.8 % (0-4.4); Hematocrit 32.4 % (42.0-52.0); Hemoglobin 11.4 g/dL (14.0-18.0); Immature Granulocyte Absolute 0.03 K/mm3 (0.00-0.031); Immature Granulocyte Percent A 0.6 % (0-0.5); Lymphocytes Absolute Auto 0.74 K/mm3 (0.9-3.2); Lymphocytes Percent Auto 15.1 % (18.3-44.2); Mean Corpuscular HGB Conc 35.2 g/dl (32-36); Mean Corpuscular Hemoglobin 35.5 pg (26-34); Mean Corpuscular Volume 100.9 fl (80-100); Mean Platelet Volume 9.3 fl (7.4-10.4); Monocytes Absolute Auto 0.6 K/mm3 (0.1-0.6); Monocytes Percent Auto 11.2 % (2.6-8.5); Neutrophils Absolute Auto 3.5 K/mm3 (1.3-6.7); Neutrophils Percent Auto 72.1 % (45.5-73.1); Platelet Count Result 130 k/mm3 (150-375); Red Blood Count 3.21 M/mm3 (4.6-6.20); Red Cell Distribution Width 15.7 % (11.5-14.5); White Blood Count 4.9 K/mm3 (4.5-10.0)
[2021-05-15 06:41] LABS: Alanine Aminotransferase 142 U/L (4-50); Albumin Level 3.3 g/dL (3.5-5.1); Alkaline Phosphatase 99 U/L (38-126); Anion Gap 0 mmol/L (8-16); Aspartate Amino Transferase 132 U/L (17-59); Bilirubin,Total 1.6 mg/dL (0.2-1.3); Blood Urea Nitrogen 6 mg/dL (9-20); Calcium 7.5 mg/dL (8.4-10.2); Carbon Dioxide 30 mmol/L (22-30); Chloride 100 mmol/L (98-107); Estimated CRCL calculation 144 ml/min; Estimated Glomerular Filt Rate > 60; Glucose 111 mg/dL (65-110); Magnesium 2.2 mg/dL (1.6-2.3); Potassium 3.5 mmol/L (3.4-5.0); Sodium 130 mmol/L (137-145)
[2021-05-15] MEDS: METOPROLOL TARTRATE 25 MG TABLET PO ×2 (08:55→20:20)
[2021-05-15] MEDS: PANTOPRAZOLE SODIUM IV 40 MG VIAL IV PUSH ×2 (09:05→20:20)
[2021-05-15] MEDS: ONDANSETRON INJ 4 MG/2 ML VIAL IV PUSH (09:05)
[2021-05-15] MEDS: THIAMINE HCL 200 MG/2 ML VIAL 100 MG IV PUSH (09:05)
--- NOTE | 2021-05-15 12:57 | PC.NURSE ---
Report received by FRANSICO Tuttle at 1247. All questions answered and plan of care reviewed. Patient to go to room 207.
--- NOTE | 2021-05-15 13:26 | PM.IMPN ---
Progress Note: A&P Assessment and Plan (1) AH (alcoholic hepatitis): Qualifiers: Ascites presence: without ascites Qualified Code(s): K70.10 - Alcoholic hepatitis without ascites Code(s): K70.10 - Alcoholic hepatitis without ascites Status: Acute (2) Tachycardia: Code(s): R00.0 - Tachycardia, unspecified Status: Acute (3) Esophagitis: Code(s): K20.90 - Esophagitis, unspecified without bleeding Status: Acute (4) Acute alcoholic intoxication: Qualifiers: Complication of substance-induced condition: with unspecified complication Qualified Code(s): F10.929 - Alcohol use, unspecified with intoxication, unspecified Code(s): F10.929 - Alcohol use, unspecified with intoxication, unspecified Status: Acute (5) Generalized anxiety disorder: Code(s): F41.1 - Generalized anxiety disorder Status: Acute (6) Alcoholism: Code(s): F10.20 - Alcohol dependence, uncomplicated Status: Acute (7) Alcohol withdrawal: Qualifiers: Complication of substance-induced condition: uncomplicated Qualified Code(s): F10.230 - Alcohol dependence with withdrawal, uncomplicated Code(s): F10.239 - Alcohol dependence with withdrawal, unspecified Status: Acute (8) Hypertension: Qualifiers: Hypertension type: essential hypertension Qualified Code(s): I10 - Essential (primary) hypertension Code(s): I10 - Essential (primary) hypertension Status: Acute (9) Hyponatremia: Code(s): E87.1 - Hypo-osmolality and hyponatremia Status: Acute Additional Plan # acute alcohol intoxication and withdrawal add CIWA protocol. Add Librium and lorazepam as needed. IV fluids antiemetics as ordered IV thiamine and folic acid increase Librium to every 6 hours. Moved to IMU and closely monitor his CIWA score. Is having intermittent hallucinations related to his alcohol withdrawal. # alcohol dependence with recurrent admission with alcohol withdrawal. Last admission required Precedex infusion and ICU transfer # history of alcohol withdrawal seizure # elevated liver enzymes improving today likely alcohol hepatitis. AST more than ALT suggestive of alcoholic liver disease. INR is normal albumin level 3.3 CT abdomen with diffuse hepatic steatosis # alcoholic hepatitis recent hepatitis panel was negative # esophagitis CT finding. Continue PPI # hypo natremia continue to monitor IV normal saline # generalized anxiety disorder home medications sertraline and mirtazapine # hypertension continue metoprolol # DVT prophylaxis Lovenox # code status full code Moved to IMU increased confusion and hallucination may need Precedex drip and moved to the ICU Subjective Date/time seen: 05/15/21 13:26 Interval history: Patient Reports he was hallucinations. He thought somebody into the room. He pulled his IV out and has bled some. Review of Systems Review of Systems: All systems reviewed & are unremarkable except as noted in HPI and below Exam Narrative: GENERAL: Ill nourished, and in no acute distress. Tremulous and confused looking HEAD: Normocephalic, atraumatic. EYES: PERRLA and EOMI. ENT: Nares clear, no rhinorrhea or epistaxis. Mucous membranes moist. NECK: Supple. No adenopathy or masses. No carotid bruits or JVD CHEST: Clear to auscultation. No respiratory distress. No wheezes rales or rhonchi HEART: Sinus tachycardia. No murmur heard. Normal peripheral pulses. ABDOMEN: Soft, nontender, nondistended, normal active bowel sounds. EXTREMITIES: Normal range of motion. No edema. SKIN: Warm, dry, no rash. NEURO: No focal deficits. Alert and conversant PSYCH: Appears anxious. and having some intermittent hallucinations Objective Data Vital Signs Vital Signs: Vital Signs - 24 hr 05/14/21 13:57 05/14/21 16:00 05/14/21 20:00 Temperature 97.5 F L Pulse Rate 94 105 H 120 H Respiratory Rate 18 Blood
--- NOTE | 2021-05-15 14:08 | PC.NURSE ---
Patient arrived to IMU department at 1300. Patient oriented to room, policies and procedures. Call light in place and critical long term care pharmacist at bedside sitting with patient. Patient in room 207.
[2021-05-15] MEDS: SODIUM CHLORIDE 0.9% IV 1,000 ML 80 ML IV CONT (15:31)
[2021-05-16] VITALS (14 sets, daily range): BP systolic 130–148; BP diastolic 82–93; PULSE 71–100; RESP 12–18; TEMP 36.1–36.5; O2SAT 99–100
[2021-05-16] MEDS: chlordiazePOXIDE (*CRX) 25 MG CAPSULE 50 MG PO ×5 (00:23→23:30)
--- NOTE | 2021-05-16 03:06 | PC.NURSE ---
Daylight Savings Time For Daylight Savings Time Ending in the Fall - Clocks are moved back. For Daylight Savings Time Beginning in the Spring - Clocks are moved ahead. For [facility], the time of change occurs at 0200 hrs. Time is taken from the banquet food server. This entry on the patient's chart recognizes the change in time reflected during documentation. Example: 2 entries for vital signs may be charted for 0200 hrs.
[2021-05-16] MEDS: LORazepam INJ (*CRX) 2 MG/ML VIAL IV PUSH ×5 (03:39→21:56)
[2021-05-16] MEDS: SODIUM CHLORIDE 0.9% IV 1,000 ML 80 ML IV CONT (04:22)
[2021-05-16 04:33] LABS: Basophils Percent Auto 0.2 % (0.2-1.2); Eosinophils Absolute Auto 0.1 K/mm3 (0-0.3); Eosinophils Percent Auto 2.9 % (0-4.4); Hematocrit 33.8 % (42.0-52.0); Hemoglobin 11.4 g/dL (14.0-18.0); Immature Granulocyte Absolute 0.02 K/mm3 (0.00-0.031); Immature Granulocyte Percent A 0.4 % (0-0.5); Lymphocytes Absolute Auto 1.13 K/mm3 (0.9-3.2); Lymphocytes Percent Auto 24.9 % (18.3-44.2); Mean Corpuscular HGB Conc 33.7 g/dl (32-36); Mean Corpuscular Hemoglobin 36.1 pg (26-34); Mean Platelet Volume 9.4 fl (7.4-10.4); Monocytes Absolute Auto 0.5 K/mm3 (0.1-0.6); Monocytes Percent Auto 11.9 % (2.6-8.5); Neutrophils Absolute Auto 2.7 K/mm3 (1.3-6.7); Neutrophils Percent Auto 59.7 % (45.5-73.1); Platelet Count Result 108 k/mm3 (150-375); Red Blood Count 3.16 M/mm3 (4.6-6.20); Red Cell Distribution Width 15.9 % (11.5-14.5); White Blood Count 4.5 K/mm3 (4.5-10.0)
[2021-05-16 04:48] LABS: Alanine Aminotransferase 114 U/L (4-50); Albumin Level 3.5 g/dL (3.5-5.1); Alkaline Phosphatase 98 U/L (38-126); Anion Gap 3 mmol/L (8-16); Aspartate Amino Transferase 80 U/L (17-59); Blood Urea Nitrogen 10 mg/dL (9-20); Calcium 7.9 mg/dL (8.4-10.2); Carbon Dioxide 27 mmol/L (22-30); Chloride 106 mmol/L (98-107); Estimated CRCL calculation 165 ml/min; Estimated Glomerular Filt Rate > 60; Glucose 101 mg/dL (65-110); Potassium 3.9 mmol/L (3.4-5.0); Sodium 136 mmol/L (137-145)
[2021-05-16] MEDS: PANTOPRAZOLE SODIUM IV 40 MG VIAL IV PUSH ×2 (08:44→20:34)
[2021-05-16] MEDS: THIAMINE HCL 200 MG/2 ML VIAL 100 MG IV PUSH (08:44)
[2021-05-16] MEDS: METOPROLOL TARTRATE 25 MG TABLET PO ×2 (08:45→20:34)
--- NOTE | 2021-05-16 11:40 | PM.IMPN ---
Progress Note: A&P Assessment and Plan (1) Alcohol withdrawal: Qualifiers: Complication of substance-induced condition: uncomplicated Qualified Code(s): F10.230 - Alcohol dependence with withdrawal, uncomplicated Code(s): F10.239 - Alcohol dependence with withdrawal, unspecified Status: Acute Assessment and Plan: Symptoms controlled on Librium 50 mg p.o. q.6 hours and p.r.n. Ativan Consider tapering Librium soon (2) AH (alcoholic hepatitis): Qualifiers: Ascites presence: without ascites Qualified Code(s): K70.10 - Alcoholic hepatitis without ascites Code(s): K70.10 - Alcoholic hepatitis without ascites Status: Acute Assessment and Plan: Continues to improve (3) Alcoholism: Code(s): F10.20 - Alcohol dependence, uncomplicated Status: Acute Assessment and Plan: Willing to participate in inpatient program however is creating barriers to his success (4) Hypertension: Qualifiers: Hypertension type: essential hypertension Qualified Code(s): I10 - Essential (primary) hypertension Code(s): I10 - Essential (primary) hypertension Status: Acute Assessment and Plan: Blood pressures reviewed and adequately controlled on May 16 (5) Hyponatremia: Code(s): E87.1 - Hypo-osmolality and hyponatremia Status: Acute Assessment and Plan: Improved with abstinence from alcohol and hydration Discontinue IV fluids Subjective Date/time seen: 05/16/21 11:40 Interval history: Admitted May 14 with alcohol withdrawal. Last drink was reportedly May 13. Personal history is positive for depression and anxiety in and insomnia. Brother has bipolar disorder and opioid use disorder. 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 Recent DUI caused him to lose his job, his income, his insurance, and is home. May 16 visit. Mildly tremulous. Anxious. Tolerating diet. Chest shortness of breath. Denies GI or issues. Denied abnormal bleeding. Review of Systems Review of Systems: All systems reviewed & are unremarkable except as noted in HPI and below Exam Narrative: HEENT:PERRL, sclerae nonicteric, pharyngeal mucosa pink and intact NECK: No JVD CHEST: Clear to auscultation. Normal effort. HEART: NL S1/S2, regular, no murmur ABDOMEN: BS+, soft, nontender, no mass, no bruits EXTREMITIES: No cyanosis, edema, or clubbing NEUROLOGIC: CN intact and symmetric to inspection, MILD TREMOR OF OUTSTRETCHED HANDS. MUSCULOSKELETAL: Tone and strength symmetric. PSYCH: Alert. Oriented to person, place, and time. Objective Data Vital Signs Vital Signs: Vital Signs - 24 hr 05/15/21 12:00 05/15/21 13:57 05/15/21 14:00 Temperature Pulse Rate 121 H 91 Pulse Rate [Monitor] 93 Respiratory Rate Blood Pressure Pulse Oximetry 05/15/21 16:00 05/15/21 18:00 05/15/21 20:00 Temperature 98.3 F 97.4 F L Pulse Rate 84 102 H 92 Pulse Rate [Monitor] 86 102 H Respiratory Rate 14 18 Blood Pressure 126/72 137/84 Pulse Oximetry 100 100 05/15/21 20:20 05/15/21 22:00 05/15/21 23:40 Temperature 97 F L Pulse Rate 104 H 100 73 Pulse Rate [Monitor] Respiratory Rate 18 Blood Pressure 138/86 Pulse Oximetry 100 05/16/21 00:00 05/16/21 03:00 05/16/21 04:00 Temperature 97.2 F L Pulse Rate 94 76 89 Pulse Rate [Monitor] Respiratory Rate 18 Blood Pressure 141/84 H Pulse Oximetry 100 05/16/21 06:00 05/16/21 08:00 05/16/21 08:45 Temperature 97.7 F Pulse Rate 72 71 84 Pulse Rate [Monitor] 82 Respiratory Rate 14 Blood Pressure 135/87 Pulse Oximetry 100 05/16/21 10:00 Temperature Pulse Rate 95 Pulse Rate [Monitor] Respiratory Rate Blood Pressure Pulse Oximetry Intake/Output Intake/Output: Intake & Output 05/13/21 05/14/21 05/15/21 05/17/21 23:59 23:59 23:59 00:59 Intake Total 1000 5650 3070 184
--- NOTE | 2021-05-16 15:27 | PC.NURSE ---
This patient, Danny Reyna, was transferred to [Jo] on 05/16/21 at 1505. Personal belongings sent with patient. Report given to [naseem ]. Appropriate documentation sent with patient.
[2021-05-17] VITALS (13 sets, daily range): BP systolic 125–134; BP diastolic 82–89; PULSE 64–116; RESP 15–20; TEMP 36.3–36.5; O2SAT 98–100
[2021-05-17] MEDS: LORazepam INJ (*CRX) 2 MG/ML VIAL IV PUSH ×3 (01:49→21:53)
[2021-05-17] MEDS: chlordiazePOXIDE (*CRX) 25 MG CAPSULE 50 MG PO ×3 (06:00→21:52)
[2021-05-17] MEDS: METOPROLOL TARTRATE 25 MG TABLET PO ×2 (07:51→21:53)
[2021-05-17] MEDS: PANTOPRAZOLE SODIUM IV 40 MG VIAL IV PUSH ×2 (07:52→21:53)
[2021-05-17] MEDS: THIAMINE HCL 200 MG/2 ML VIAL 100 MG IV PUSH (07:52)
--- NOTE | 2021-05-17 08:43 | PM.IMPN ---
Progress Note: A&P Assessment and Plan (1) AH (alcoholic hepatitis): Qualifiers: Ascites presence: without ascites Qualified Code(s): K70.10 - Alcoholic hepatitis without ascites Code(s): K70.10 - Alcoholic hepatitis without ascites Status: Acute (2) Esophagitis: Code(s): K20.90 - Esophagitis, unspecified without bleeding Status: Acute (3) Nutritional deficiency: Code(s): E63.9 - Nutritional deficiency, unspecified Status: Acute (4) Myelosuppression: Code(s): D75.89 - Other specified diseases of blood and blood-forming organs Status: Acute (5) Thrombocytopenia: Code(s): D69.6 - Thrombocytopenia, unspecified Status: Acute (6) Hyponatremia: Code(s): E87.1 - Hypo-osmolality and hyponatremia Status: Acute (7) Hypertension: Qualifiers: Hypertension type: essential hypertension Qualified Code(s): I10 - Essential (primary) hypertension Code(s): I10 - Essential (primary) hypertension Status: Acute (8) Alcoholism: Code(s): F10.20 - Alcohol dependence, uncomplicated Status: Acute Assessment and Plan: 05/15/21 # acute alcohol intoxication and withdrawal add CIWA protocol. Add Librium and lorazepam as needed. IV fluids antiemetics as ordered IV thiamine and folic acid increase Librium to every 6 hours. Moved to IMU and closely monitor his CIWA score. Is having intermittent hallucinations related to his alcohol withdrawal. # alcohol dependence with recurrent admission with alcohol withdrawal. Last admission required Precedex infusion and ICU transfer # history of alcohol withdrawal seizure # elevated liver enzymes improving today likely alcohol hepatitis. AST more than ALT suggestive of alcoholic liver disease. INR is normal albumin level 3.3 CT abdomen with diffuse hepatic steatosis # alcoholic hepatitis recent hepatitis panel was negative # esophagitis CT finding. Continue PPI # hypo natremia continue to monitor IV normal saline # generalized anxiety disorder home medications sertraline and mirtazapine # hypertension continue metoprolol # DVT prophylaxis Lovenox # code status full code 05/16/21 Symptoms controlled on Librium 50 mg p.o. q.6 hours and p.r.n. Ativan Consider tapering Librium soon Continues to improve Willing to participate in inpatient program however is creating barriers to his success Blood pressures reviewed and adequately controlled on May 16 Improved with abstinence from alcohol and hydration Discontinue IV fluids 05/17/21 librium 50mg PO Q8h and prn Ativan plan of care reviewed w RN cont home meds cont supportive care anticipate dc in a couple of days c/s CC to assist w EtOH rehab information Subjective Date/time seen: 05/17/21 08:43 pt up walking around the room today does not appear to have any signs of withdrawal. tells me he has called multiple EtOH rehabs and they are unavailable or to expensive. He has no insurance we discuss him applying for medicaid maybe they cover substance abuse treatment? 1-800- number provided to pt advised it can take months to get approved. Exam Narrative: HEENT: NCAT EOMI sclerae nonicteric NECK: No JVD CHEST: NAD distress no use of accessory muscles Normal effort. HEART: NL S1/S2, regular, no murmur ABDOMEN: BS+, soft, nontender, no mass, no bruits EXTREMITIES: No cyanosis, edema, or clubbing NEUROLOGIC: CN intact and symmetric to inspection, ambulating w steady gait MUSCULOSKELETAL: Tone and strength symmetric. PSYCH: Alert. Oriented to person, place, and time. Objective Data Vital Signs Vital Signs: Vital Signs - 24 hr 05/16/21 08:45 05/16/21 10:00 05/16/21 12:00 Temperature 97.3 F L Pulse Rate 84 95 90 Pulse Rate [Brachial] Pulse Rate [Monitor] 95 94 Respiratory Rate 12 Blood Pressure 148/93 H Pulse Oximetry 100 05/16/21 14:00 05/16/21 16:00 05/16/21 20:00 Temperature 96.9 F L Pulse Rate 8
--- NOTE | 2021-05-17 12:11 | PC.NURSE ---
Pt inquired about discharging to staff, no discharge orders, spoke with MD Alba, pt not scheduled for discharge today. Called back pt mother.
--- NOTE | 2021-05-17 16:52 | PC.NURSE ---
pt required sleeping pill, stated hasn't slept in x3 days. Reported to Md Alba NNO.
[2021-05-17] MEDS: NICOTINE (*PBKC) 21 MG PATCH 1 PATCH TRANSDERM (17:45)
--- NOTE | 2021-05-17 18:37 | PC.NURSE ---
Pt requiring home medication remeron and gabapentin be restarted, MD Alba informed. NNO.
[2021-05-17] MEDS: MIRTAZAPINE 15 MG TABLET PO (21:53)
[2021-05-18] VITALS (12 sets, daily range): BP systolic 122–145; BP diastolic 73–88; PULSE 70–102; RESP 20; TEMP 36.1–36.2; O2SAT 98–100
[2021-05-18] MEDS: LORazepam INJ (*CRX) 2 MG/ML VIAL IV PUSH ×4 (04:05→22:30)
[2021-05-18 06:27] LABS: Basophils Percent Auto 0.4 % (0.2-1.2); Eosinophils Absolute Auto 0.1 K/mm3 (0-0.3); Eosinophils Percent Auto 2.6 % (0-4.4); Hematocrit 36.2 % (42.0-52.0); Hemoglobin 12.5 g/dL (14.0-18.0); Immature Granulocyte Absolute 0.07 K/mm3 (0.00-0.031); Immature Granulocyte Percent A 1.4 % (0-0.5); Lymphocytes Absolute Auto 1.44 K/mm3 (0.9-3.2); Mean Corpuscular HGB Conc 34.5 g/dl (32-36); Mean Corpuscular Hemoglobin 36.8 pg (26-34); Mean Corpuscular Volume 106.5 fl (80-100); Mean Platelet Volume 10.2 fl (7.4-10.4); Monocytes Absolute Auto 0.6 K/mm3 (0.1-0.6); Monocytes Percent Auto 11.5 % (2.6-8.5); Neutrophils Absolute Auto 2.7 K/mm3 (1.3-6.7); Neutrophils Percent Auto 55.1 % (45.5-73.1); Platelet Count Result 118 k/mm3 (150-375); Red Cell Distribution Width 15.9 % (11.5-14.5)
[2021-05-18 06:38] LABS: Alanine Aminotransferase 80 U/L (4-50); Albumin Level 3.6 g/dL (3.5-5.1); Alkaline Phosphatase 104 U/L (38-126); Anion Gap 1 mmol/L (8-16); Aspartate Amino Transferase 40 U/L (17-59); Bilirubin,Total 0.4 mg/dL (0.2-1.3); Blood Urea Nitrogen 10 mg/dL (9-20); Calcium 8.3 mg/dL (8.4-10.2); Carbon Dioxide 30 mmol/L (22-30); Chloride 104 mmol/L (98-107); Estimated CRCL calculation 165 ml/min; Estimated Glomerular Filt Rate > 60; Glucose 100 mg/dL (65-110); Magnesium 1.9 mg/dL (1.6-2.3); Potassium 4.1 mmol/L (3.4-5.0); Sodium 135 mmol/L (137-145)
[2021-05-18 07:16] LABS: Platelet Estimate Decreased (Adequate)
[2021-05-18 07:17] LABS: Atypical Lymphocytes Present; Stomatocytes 1+ (NORMAL)
[2021-05-18] MEDS: PANTOPRAZOLE SODIUM IV 40 MG VIAL IV PUSH ×2 (08:18→22:04)
[2021-05-18] MEDS: THIAMINE HCL 200 MG/2 ML VIAL 100 MG IV PUSH (08:18)
[2021-05-18] MEDS: GABAPENTIN 300 MG CAPSULE 600 MG PO ×3 (08:18→16:26)
[2021-05-18] MEDS: METOPROLOL TARTRATE 25 MG TABLET PO (08:18)
[2021-05-18] MEDS: chlordiazePOXIDE (*CRX) 25 MG CAPSULE 50 MG PO (09:50)
[2021-05-18] MEDS: NICOTINE (*PBKC) 21 MG PATCH 1 PATCH TRANSDERM ×2 (10:50→22:00)
--- NOTE | 2021-05-18 15:03 | PM.IMPN ---
Progress Note: A&P Assessment and Plan (1) AH (alcoholic hepatitis): Qualifiers: Ascites presence: without ascites Qualified Code(s): K70.10 - Alcoholic hepatitis without ascites Code(s): K70.10 - Alcoholic hepatitis without ascites Status: Acute (2) Esophagitis: Code(s): K20.90 - Esophagitis, unspecified without bleeding Status: Acute (3) Nutritional deficiency: Code(s): E63.9 - Nutritional deficiency, unspecified Status: Acute (4) Myelosuppression: Code(s): D75.89 - Other specified diseases of blood and blood-forming organs Status: Acute (5) Thrombocytopenia: Code(s): D69.6 - Thrombocytopenia, unspecified Status: Acute (6) Hyponatremia: Code(s): E87.1 - Hypo-osmolality and hyponatremia Status: Acute (7) Hypertension: Qualifiers: Hypertension type: essential hypertension Qualified Code(s): I10 - Essential (primary) hypertension Code(s): I10 - Essential (primary) hypertension Status: Acute (8) Alcoholism: Code(s): F10.20 - Alcohol dependence, uncomplicated Status: Acute Assessment and Plan: 05/15/21 # acute alcohol intoxication and withdrawal add CIWA protocol. Add Librium and lorazepam as needed. IV fluids antiemetics as ordered IV thiamine and folic acid increase Librium to every 6 hours. Moved to IMU and closely monitor his CIWA score. Is having intermittent hallucinations related to his alcohol withdrawal. # alcohol dependence with recurrent admission with alcohol withdrawal. Last admission required Precedex infusion and ICU transfer # history of alcohol withdrawal seizure # elevated liver enzymes improving today likely alcohol hepatitis. AST more than ALT suggestive of alcoholic liver disease. INR is normal albumin level 3.3 CT abdomen with diffuse hepatic steatosis # alcoholic hepatitis recent hepatitis panel was negative # esophagitis CT finding. Continue PPI # hypo natremia continue to monitor IV normal saline # generalized anxiety disorder home medications sertraline and mirtazapine # hypertension continue metoprolol # DVT prophylaxis Lovenox # code status full code 05/16/21 Symptoms controlled on Librium 50 mg p.o. q.6 hours and p.r.n. Ativan Consider tapering Librium soon Continues to improve Willing to participate in inpatient program however is creating barriers to his success Blood pressures reviewed and adequately controlled on May 16 Improved with abstinence from alcohol and hydration Discontinue IV fluids 05/17/21 librium 50mg PO Q8h and prn Ativan plan of care reviewed w RN cont home meds cont supportive care anticipate dc in a couple of days c/s CC to assist w EtOH rehab information 05/18/2021 interval history: patient with alcohol history and history of binge drinking his last drink was May 13July presented to emergency depart on May 14, patient has been followed with CIWA protocol and on Librium, initially patient was started on Librium 50 mg every 6 hours and taper it down to 50 mg b.i.d., today patient states feeling much is not as tremulus will taper Librium 25 mg every 6 hours p.r.n. will follow CIWA protocol, if remains clinically stable not requiring much Librium may discharge the patient home tomorrow Additional Plan # acute alcohol intoxication and withdrawal add CIWA protocol. Add Librium and lorazepam as needed. IV fluids antiemetics as ordered IV thiamine and folic acid increase Librium to every 6 hours. Moved to IMU and closely monitor his CIWA score. Is having intermittent hallucinations related to his alcohol withdrawal. # alcohol dependence with recurrent admission with alcohol withdrawal. Last admission required Precedex infusion and ICU transfer # history of alcohol withdrawal seizure # elevated liver enzymes improving today likely alcohol hepatitis. AST more than ALT suggestive of alcoholic liver disease. INR is normal albumin level
[2021-05-18] MEDS: chlordiazePOXIDE (*CRX) 25 MG CAPSULE PO (15:28)
[2021-05-18] MEDS: MIRTAZAPINE 15 MG TABLET PO (22:03)
[2021-05-19 05:51] VITALS: BP 127/78; PULSE 84; RESP 18; TEMP 36; O2SAT 100
[2021-05-19 06:39] LABS: Hematocrit 37.9 % (42.0-52.0); Hemoglobin 12.5 g/dL (14.0-18.0); Mean Corpuscular Hemoglobin 36.5 pg (26-34); Mean Corpuscular Volume 110.8 fl (80-100); Mean Platelet Volume 10.2 fl (7.4-10.4); Platelet Count Result 123 k/mm3 (150-375); Red Blood Count 3.42 M/mm3 (4.6-6.20); Red Cell Distribution Width 15.9 % (11.5-14.5); White Blood Count 4.7 K/mm3 (4.5-10.0)
[2021-05-19 07:08] LABS: Anion Gap 8 mmol/L (8-16); Blood Urea Nitrogen 9 mg/dL (9-20); Calcium 7.9 mg/dL (8.4-10.2); Carbon Dioxide 28 mmol/L (22-30); Chloride 101 mmol/L (98-107); Estimated CRCL calculation 165 ml/min; Estimated Glomerular Filt Rate > 60; Glucose 118 mg/dL (65-110); Magnesium 1.9 mg/dL (1.6-2.3); Potassium 4.2 mmol/L (3.4-5.0); Sodium 137 mmol/L (137-145)
[2021-05-19 08:00] VITALS: BP 127/78; PULSE 70; PULSE 84; RESP 18; O2SAT 100
[2021-05-19] MEDS: PANTOPRAZOLE SODIUM IV 40 MG VIAL IV PUSH (08:25)
[2021-05-19] MEDS: THIAMINE HCL 200 MG/2 ML VIAL 100 MG IV PUSH (08:25)
[2021-05-19] MEDS: GABAPENTIN 300 MG CAPSULE 600 MG PO (08:26)
[2021-05-19] MEDS: METOPROLOL TARTRATE 25 MG TABLET PO (08:26)
--- NOTE | 2021-05-19 11:57 | PM.DS ---
DS: Admitting Diagnosis Discharge Date 05/19/2021 Admitting Diagnosis alcohol withdrawal DS: Discharge Diagnosis Discharge Diagnosis (1) AH (alcoholic hepatitis): Qualifiers: Ascites presence: without ascites Qualified Code(s): K70.10 - Alcoholic hepatitis without ascites Code(s): K70.10 - Alcoholic hepatitis without ascites Status: Acute (2) Esophagitis: Code(s): K20.90 - Esophagitis, unspecified without bleeding Status: Acute (3) Nutritional deficiency: Code(s): E63.9 - Nutritional deficiency, unspecified Status: Acute (4) Myelosuppression: Code(s): D75.89 - Other specified diseases of blood and blood-forming organs Status: Acute (5) Thrombocytopenia: Code(s): D69.6 - Thrombocytopenia, unspecified Status: Acute (6) Hyponatremia: Code(s): E87.1 - Hypo-osmolality and hyponatremia Status: Acute (7) Hypertension: Qualifiers: Hypertension type: essential hypertension Qualified Code(s): I10 - Essential (primary) hypertension Code(s): I10 - Essential (primary) hypertension Status: Acute (8) Alcoholism: Code(s): F10.20 - Alcohol dependence, uncomplicated Status: Acute Assessment and Plan: 05/15/21 # acute alcohol intoxication and withdrawal add CIWA protocol. Add Librium and lorazepam as needed. IV fluids antiemetics as ordered IV thiamine and folic acid increase Librium to every 6 hours. Moved to IMU and closely monitor his CIWA score. Is having intermittent hallucinations related to his alcohol withdrawal. # alcohol dependence with recurrent admission with alcohol withdrawal. Last admission required Precedex infusion and ICU transfer # history of alcohol withdrawal seizure # elevated liver enzymes improving today likely alcohol hepatitis. AST more than ALT suggestive of alcoholic liver disease. INR is normal albumin level 3.3 CT abdomen with diffuse hepatic steatosis # alcoholic hepatitis recent hepatitis panel was negative # esophagitis CT finding. Continue PPI # hypo natremia continue to monitor IV normal saline # generalized anxiety disorder home medications sertraline and mirtazapine # hypertension continue metoprolol # DVT prophylaxis Lovenox # code status full code 05/16/21 Symptoms controlled on Librium 50 mg p.o. q.6 hours and p.r.n. Ativan Consider tapering Librium soon Continues to improve Willing to participate in inpatient program however is creating barriers to his success Blood pressures reviewed and adequately controlled on May 16 Improved with abstinence from alcohol and hydration Discontinue IV fluids 05/17/21 librium 50mg PO Q8h and prn Ativan plan of care reviewed w RN cont home meds cont supportive care anticipate dc in a couple of days c/s CC to assist w EtOH rehab information 05/18/2021 interval history: patient with alcohol history and history of binge drinking his last drink was May 13July presented to emergency depart on May 14, patient has been followed with CIWA protocol and on Librium, initially patient was started on Librium 50 mg every 6 hours and taper it down to 50 mg b.i.d., today patient states feeling much is not as tremulus will taper Librium 25 mg every 6 hours p.r.n. will follow CIWA protocol, if remains clinically stable not requiring much Librium may discharge the patient home tomorrow DS: Summary Hospital Course Reason for hospitalization: Chief Complaint: Alcohol withdrawal Narrative: 30 year old male presents to the ER yesterday with complaint of symptoms of alcohol withdrawal. He is an alcoholic and has been for a long time. History of for alcohol withdrawal seizure in the past. He was recently admitted for the same and was released in March. He continued during after that. Last drink was yesterday in the evening when he drank 1/5 of whiskey. He was brought in by his dad. He continued to feel shaky and restless. He also
[2021-05-19 12:00] VITALS: BP 127/78; PULSE 70
== END 2021-05-19 13:25 | disposition home or self-care (01) | DRG 897 ==
LOC: ANHED 05-14 02:55 → ANH3MEDSUR 05-14 03:35 → ANHIMU 05-15 13:06 → ANH3MEDSUR 05-16 15:17
PROVIDERS: Emergency Medicine; Hospitalist; Internal Medicine; Admitting Provider Internal Medicine; Emergency Provider Nurse Practitioner Family; PCP Family Medicine; Visit Provider Family Medicine
DX: F10.239 Alcohol dependence with withdrawal, unspecified (principal); E87.1 Hypo-osmolality and hyponatremia; K70.10 Alcoholic hepatitis without ascites; R00.0 Tachycardia, unspecified; K20.90 Esophagitis, unspecified without bleeding; F41.1 Generalized anxiety disorder; F10.229 Alcohol dependence with intoxication, unspecified; I10 Essential (primary) hypertension; Z82.49 Family history of ischemic heart disease and other diseases of the circulatory system; Z83.3 Family history of diabetes mellitus; Z59.89 Other problems related to housing and economic circumstances; E63.9 Nutritional deficiency, unspecified; D69.6 Thrombocytopenia, unspecified; Z79.899 Other long term (current) drug therapy
CPT/HCPCS: 36415; 36569; 74177; 80048; 80053; 80307; 81001; 82271; 83605; 83690; 83735; 83986; 84100; 84443; 85025; 85027; 85610; 85730; 93005; 96361; 96365; 96366; 96367; 96374; 96375; 96376; 99285; A9270; C1751; C9113; G0378; G0379; J0780; J2060; J2405; J3411; J3475; J7030; J7120; J7121; Q9967

== ENCOUNTER 2021-08-18 12:34 | Inpatient (IN) | payer OTHER, BC, SELFPAY ==
[2021-08-18] VITALS (12 sets, daily range): BP systolic 123–156; BP diastolic 85–99; PULSE 104–153; RESP 18–34; TEMP 36.1–37.6; O2SAT 87–98; BMI 33.8
--- NOTE | ~2021-08-18 | CT_ITS ---
EXAMINATION: CT abdomen pelvis wo con DATE: 08/18/2021 13:44 INDICATION: Abnormal liver function tests. Nausea and vomiting. TECHNIQUE: Computed tomography (CT) of the abdomen and pelvis was performed without intravenous contr ast. Automated exposure control and iterative reconstruction technique were employed. The dose-length product was 1219.54 mGy-cm. COMPARISON: CT abdomen and pelvis 05/13/2021 FINDINGS: The visualized portions of the lung bases are clear without pneumonia or pleural effusion. The heart size is normal. No pericardial effusion. There is diffuse hepatic steatosis. The gallbladde r, spleen, pancreas, adrenal glands, and kidneys are normal. There is no urolithiasis. There is promi nent fat in the inguinal canals that may be hernias. There are no dilated loops of bowel. The appendi x is normal. There are no pathologically enlarged lymph nodes. There is no free intraperitoneal fluid . There is mild thoracolumbar spondylosis. IMPRESSION: 1. Diffuse hepatic steatosis. Reviewed, dictated and finalized at location B.
[2021-08-18] MEDS: LORazepam INJ (*CRX) 2 MG/ML VIAL IV PUSH ×3 (13:04→20:39)
[2021-08-18] MEDS: ONDANSETRON INJ 4 MG/2 ML VIAL IV PUSH (13:04)
--- NOTE | 2021-08-18 13:14 | ED.ALCOHOL ---
HPI - Alcohol General Chief Complaint: Alcohol Stated Complaint: Alcohol Withdraw Time Seen by Provider: 08/18/21 12:42 Source: patient History of Present Illness HPI narrative: Patient presents with concern for alcohol withdrawal. Patient reports he drinks a fifth of liquor every day today has only had 1 beer and now he feels very tremulous and diaphoretic. Patient reports he has had seizures previously from alcohol withdrawal and feels like he is can have a seizure again. He last went through detox approximately 2 months ago. Reports feeling nauseous but denies any abdominal pain or diarrhea. Related Data Home Medications Medication Instructions Recorded Confirmed mirtazapine 15 mg tablet 15 mg PO HS 03/29/21 05/15/21 Allergies Allergy/AdvReac Type Severity Reaction Status Date / Time No Known Allergies Allergy Mild Verified 05/13/21 22:58 Review of Systems Review of Systems: CONSTITUTIONAL: Denies fever, chills, or sweats. EYES: Denies visual changes, redness, or discharge. ENT: Denies rhinorrhea, congestion, sore throat, or otalgia. CARDIOVASCULAR: Denies chest pain, palpitations, or edema. RESPIRATORY: Denies cough or dyspnea. GASTROINTESTINAL: Denies abdominal pain, diarrhea. GENITOURINARY: Denies dysuria or hematuria. SKIN: Denies rash or itching. MUSCULOSKELETAL: Denies back pain, joint pain, or myalgia. NEUROLOGIC: Denies headache, numbness, dizziness, or weakness. All systems reviewed & are unremarkable except as noted in HPI and below PMFSH Past Medical History Medical History Alcohol withdrawal seizure Alcoholism Essential hypertension Generalized anxiety disorder Surgical History Surgical History No pertinent past surgical history Family History Family History Father Hypertension Family history of coronary artery disease Mother Family history of diabetes mellitus in first degree relative Sibling Family history of diabetes mellitus in first degree relative Social History Social History Social History: The patient lives in his own home. He has 1 son. 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 He smoked about half a pack of cigarettes a day for few years and quit in 2019. He estimates that he started drinking alcohol at the age of 11 and he drinks at least a half a pt of vodka a day. Occasional marijuana use. He designates his mother Andie as his surrogate decision maker and he wishes to be a full code. Smoking status: Never smoker Second hand tobacco smoke exposure: No Alcohol intake: current Drinks per week: 5 Substance use: never Substance use type: does not use Other substance usage details: 5th of liquor a day Spiritual care concerns: No Exam Narrative: GENERAL: Well-appearing, well-nourished HEAD: Normocephalic, atraumatic. EYES: PERRLA and EOMI. ENT: Nares clear, no rhinorrhea or epistaxis. Mucous membranes moist. NECK: Supple. No masses. No JVD CHEST: Clear to auscultation. No respiratory distress. No wheezes rales or rhonchi HEART: Regular rate and rhythm. No murmur heard. Normal peripheral pulses. ABDOMEN: Soft, nontender, nondistended, normal active bowel sounds. EXTREMITIES: Normal range of motion. No edema. SKIN: Warm, dry, no rash. Patient is diaphoretic NEURO: Patient is tremulous, no focal deficits. Alert and oriented x3. PSYCH: Normal mood and affect. Course Reevaluation(s) Reevaluation #1: Patient is feeling improved after the Ativan Far reviewed with patient. Given his initial diaphoresis and tremors patient would benefit from inpatient management of his withdrawal. Patient is comfortable with inpatient plan. Date: 08/18/21 Time: 14:22 Vital Signs Vital signs: Vital Signs Temperature 36.9 C 08/18/21 1
[2021-08-18 13:15] LABS: Basophils Percent Auto 0.2 % (0.2-1.2); Eosinophils Percent Auto 0.5 % (0-4.4); Hematocrit 41.3 % (42.0-52.0); Immature Granulocyte Absolute 0.02 K/mm3 (0.00-0.031); Immature Granulocyte Percent A 0.5 % (0-0.5); Immature Platelet Fraction Pct 10.2 % (0.9-11.2); Lymphocytes Absolute Auto 1.77 K/mm3 (0.9-3.2); Lymphocytes Percent Auto 41.8 % (18.3-44.2); Mean Corpuscular HGB Conc 36.3 g/dl (32-36); Mean Corpuscular Hemoglobin 35.1 pg (26-34); Mean Corpuscular Volume 96.7 fl (80-100); Mean Platelet Volume 11.8 fl (7.4-10.4); Monocytes Absolute Auto 0.4 K/mm3 (0.1-0.6); Monocytes Percent Auto 8.7 % (2.6-8.5); Neutrophils Percent Auto 48.3 % (45.5-73.1); Platelet Count Result 60 k/mm3 (150-375); Red Blood Count 4.27 M/mm3 (4.6-6.20); Red Cell Distribution Width 15.5 % (11.5-14.5); White Blood Count 4.2 K/mm3 (4.5-10.0)
[2021-08-18 13:31] LABS: Alanine Aminotransferase 155 U/L (6-50); Albumin Level 3.2 g/dL (3.5-5.1); Alkaline Phosphatase 372 U/L (38-126); Anion Gap 19 mmol/L (8-16); Aspartate Amino Transferase 451 U/L (17-59); Bilirubin,Total 4.6 mg/dL (0.2-1.3); Blood Urea Nitrogen 12 mg/dL (9-20); Carbon Dioxide 14 mmol/L (22-30); Chloride 96 mmol/L (98-107); Estimated CRCL calculation 137 ml/min; Estimated Glomerular Filt Rate > 60; Glucose 87 mg/dL (65-110); Lipase 955 U/L (23-300); Potassium 4.3 mmol/L (3.4-5.0); Sodium 129 mmol/L (137-145)
[2021-08-18 13:39] LABS: Beta-Hydroxybutyrate/Acetoacetate 0.23 mmol/L (0.02-0.27)
[2021-08-18 13:46] LABS: Band Neutrophils Percent 2 % (0-6); Lymphocytes Absolute Manual 2.52 K/mm3 (1.1-4.5); Metamyelocytes Percent 4 %; Monocytes Absolute Manual 0.08 K/mm3 (0.1-0.90); Monocytes Percent Manual 2 % (3-9); Neutrophils Absolute Manual 1.42 K/mm3 (1.3-6.7); Neutrophils Percent Manual 32 % (46-73); Total Cells Counted 100
[2021-08-18 13:48] LABS: Hyperchromasia 1+ (NORMAL); Platelet Estimate Adequate (Adequate)
[2021-08-18 13:49] LABS: Macrocytosis 1+ (NORMAL)
[2021-08-18] MEDS: THIAMINE HCL INJ 100 MG, FOLIC ACID INJ 1 MG, MULTIVITAMINS-12 INJ VIAL 1 5 ML, MULTIVI... 125 MG IV CONT (14:06)
[2021-08-18] MEDS: SODIUM CHLORIDE 0.9% IV 1,000 ML 999 ML IV CONT (14:27)
--- NOTE | 2021-08-18 14:32 | PC.NURSE ---
PT STILL UNABLE TO URINATE. DECLINES STRAIGHT CATH FOR SPECIMEN
--- NOTE | 2021-08-18 15:05 | PC.NURSE ---
pt unable to provide urine sample at this time.
--- NOTE | 2021-08-18 16:44 | ADMGEN ---
This patient, Danny Reyna, was admitted to IMU Room 203-01 08/18/21 at 1615. Patient/family oriented to hospital policies and general routines including ID bracelet, bed and alarms, visiting hours, pain management, procedures, bathroom and other care routines, personal items, smoking policy, room service/diet, and visiting hours. Information on how to activate the Rapid Response Team has been discussed. Patient/Family are encouraged to report perceived risks to care and to ask questions if they do not understand what they are told or what they should do.
[2021-08-18] MEDS: chlordiazePOXIDE (*CRX) 25 MG CAPSULE PO ×2 (16:49→23:07)
[2021-08-18 16:53] LABS: Partial Thromboplastin Time 27.7 SECONDS (22.3-36.8); Prothrombin Time 12.6 Seconds (11.1-14.7)
[2021-08-18 17:30] LABS: Appearance Urine Clear (Clear); Bilirubin Urine 1+ (Negative); Blood Urine Negative (Negative); Color Urine Amber (Yellow); Glucose Urine UA Negative (Negative); Ketones Urine 1+ mg/dL (Negative); Leukocyte Esterase Ur Negative LEU/UL (Negative); Mucus Urine Rare /lpf; Nitrate Urine Negative (Negative); Protein Urine 1+ mg/dL (Negative); RBC Urine 0-2 /hpf (0-2); WBC Urine 0-3 /hpf
[2021-08-18 17:33] LABS: Add Urine Microscopic? YES
--- NOTE | 2021-08-18 18:38 | PM.IMHP ---
H&P: HPI History of Present Illness Date/Time: Patient was placed observation status for expected length of stay less than 23 hours for management, will plan to re-evaluate tomorrow for improvement. 08/18/21 18:38 Chief Complaint: Alcohol withdrawal Narrative: Mr. Reyna is a 31-year-old gentleman who presented emergency room with complaints of alcohol withdrawal. Patient states that he typically drinks a 5th of whiskey daily and at times he does drink more than this. Patient states today he has only had 1 beer and he was feeling very shaky and diaphoretic and became very nauseous. Patient states he has gone through withdrawals multiple times and he does have a history of seizures with his withdrawals. Patient states that he did go through a detoxification program proximally 2 months ago. Patient states he has a significant family history of alcoholism. Patient denies any abdominal pain, constipation, or diarrhea. Patient denies any lightheadedness, dizziness, syncopal, or near syncopal episodes. Patient states over the last few days he has had ataxia and he has been hallucinating and for these reasons he decided to come the emergency room today. Patient states he has a history of alcohol abuse, hypertension, and anxiety disorder. Patient states he has been placed on Librium multiple times in the past to wean himself off of alcohol. Review of Systems Review of Systems: A 12 point review of systems was completed patient all pertinent positive and negative per HPI the remainder are unremarkable. [facility] Past Medical History Medical History Alcohol withdrawal seizure Alcoholism Essential hypertension Generalized anxiety disorder Surgical History Surgical History No pertinent past surgical history Family History Family History Father Hypertension Family history of coronary artery disease Mother Family history of diabetes mellitus in first degree relative Sibling Family history of diabetes mellitus in first degree relative Social History Social History Social History: The patient lives in his own home. He has 1 son. 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 He smoked about half a pack of cigarettes a day for few years and quit in 2019. He estimates that he started drinking alcohol at the age of 11 and he drinks at least a half a pt of vodka a day. Occasional marijuana use. He designates his mother Andie as his surrogate decision maker and he wishes to be a full code. Smoking packs per day: 0.5 Smoking cigarettes per day: 10.0 Years smoked: 15 Smoking pack-years: 7.50 Smoking status: Current every day smoker Tobacco type: cigarettes Second hand tobacco smoke exposure: No Alcohol intake: current Drinks per week: 50 Substance use: current Substance use type: marijuana Other substance usage details: 5th of liquor a day Spiritual care concerns: No Meds Home Medications and Allergies Home Medications Medication Instructions Recorded Confirmed Type mirtazapine 15 mg tablet 15 mg PO HS 03/29/21 05/15/21 History gabapentin 300 mg capsule 600 mg PO TID 30 days #180 caps 04/05/21 05/14/21 Rx (Neurontin) pantoprazole 40 mg tablet,delayed 40 mg PO QAM #30 tabs 05/19/21 Rx release (Protonix) Allergies Allergy/AdvReac Type Severity Reaction Status Date / Time No Known Allergies Allergy Mild Verified 05/13/21 22:58 Vital Signs Vital Signs - 24 hr 08/18/21 12:35 08/18/21 12:42 08/18/21 13:01 Temperature 36.9 C Pulse Rate 136 H 126 H 118 H Respiratory Rate 24 H 19 25 H Blood Pressure 156/99 H 156/99 H 155/99 H Pulse Oximetry 96 87 L 95 Oxygen Delivery Room Air 08/18/21 13:17 08/18/21 13:31 08/18/21 14:32 Temperature Pulse Rate 135 H 11
--- NOTE | 2021-08-18 18:48 | PCCCNOTE ---
Late entry: Referral received from ER at 1259; spoke with ED physician Dr. Goetz who states that it was auto-generated when he placed orders, he states that the patient will be admitted, CIWA score 29. Patient moved to floor before being seen, met with patient briefly in , introduced self and role. Ask patient about discharge planning and alcohol use/ withdrawal and if he is wanting seek treatment for alcohol use. He states that he plans to do outpatient with [facility] in [place], [place] he has worked with them before and knows how to contact. Advised that there would be major case detective following him throughout his admission for any dc needs.
[2021-08-18] MEDS: SODIUM CHLORIDE 0.9% IV 1,000 ML 125 ML IV CONT (18:49)
[2021-08-18] MEDS: MAGNESIUM SULF 4 GM/WATER100ML 4 GM/100 ML BAG IVPB (18:49)
[2021-08-18 20:34] LABS: Ammonia < 9 umol/L (9-30)
[2021-08-18 22:49] LABS: Fractional Inspired Oxygen 21 %; HCO3 ABG 24.4 mEq/l (22.0-26.0); Oxygen Content ABG 17.9 %vol (16.0-22.0); Oxygen Saturation ABG 95.5 % (95.0-100.0); Oxyhemoglobin 93.6 % THb (90.0-100.0); PCO2 ABG 31.4 mmHg (35.0-45.0); PO2 ABG 69.1 mmHg (80.0-100.0); PO2 FiO2 Ratio Arterial Blood 3.29 %; Total Hemoglobin 13.6 g/dL (12.0-18.0)
[2021-08-18 22:53] LABS: Device ROOM AIR; Modified Allen's Test Pass; Site Drawn RIGHT RADIAL; pH ABG 7.508 (7.350-7.450)
[2021-08-18] MEDS: LORazepam INJ (*CRX) 2 MG/ML VIAL 1 MG IV PUSH (23:07)
[2021-08-19] VITALS (15 sets, daily range): BP systolic 133–198; BP diastolic 93–101; PULSE 92–159; RESP 16–18; TEMP 36–37.3; O2SAT 95–98
[2021-08-19 00:34] LABS: Glucose Point of Care 110 mg/dl (65-105)
[2021-08-19] MEDS: THIAMINE HCL INJ 100 MG, FOLIC ACID INJ 1 MG, MULTIVITAMINS-12 INJ VIAL 1 5 ML, MULTIVI... 125 MG IV CONT (00:38)
[2021-08-19 00:45] LABS: Blood Urea Nitrogen 8 mg/dL (9-20); Chloride 98 mmol/L (98-107); Estimated CRCL calculation 140 ml/min; Estimated Glomerular Filt Rate > 60; Glucose 101 mg/dL (65-110); Potassium 3.6 mmol/L (3.4-5.0); Sodium 128 mmol/L (137-145)
[2021-08-19 00:50] LABS: Anion Gap 9 mmol/L (8-16); Carbon Dioxide 21 mmol/L (22-30)
[2021-08-19] MEDS: LORazepam INJ (*CRX) 2 MG/ML VIAL IV PUSH ×3 (04:42→22:11)
[2021-08-19] MEDS: chlordiazePOXIDE (*CRX) 25 MG CAPSULE PO ×3 (05:18→18:34)
[2021-08-19 06:04] LABS: Basophils Percent Auto 0.4 % (0.2-1.2); Eosinophils Percent Auto 0.8 % (0-4.4); Hematocrit 39.2 % (42.0-52.0); Hemoglobin 13.5 g/dL (14.0-18.0); Immature Granulocyte Absolute 0.02 K/mm3 (0.00-0.031); Immature Granulocyte Percent A 0.8 % (0-0.5); Immature Platelet Fraction Pct 12.6 % (0.9-11.2); Lymphocytes Absolute Auto 0.98 K/mm3 (0.9-3.2); Mean Corpuscular HGB Conc 34.4 g/dl (32-36); Mean Corpuscular Hemoglobin 34.6 pg (26-34); Mean Corpuscular Volume 100.5 fl (80-100); Mean Platelet Volume 11.4 fl (7.4-10.4); Monocytes Absolute Auto 0.2 K/mm3 (0.1-0.6); Monocytes Percent Auto 7.5 % (2.6-8.5); Neutrophils Absolute Auto 1.4 K/mm3 (1.3-6.7); Neutrophils Percent Auto 53.5 % (45.5-73.1); Nucleated Red Blood Cells Perc 0.8 % (0.0-0.2); Platelet Count Result 49 k/mm3 (150-375); Red Cell Distribution Width 14.6 % (11.5-14.5); White Blood Count 2.7 K/mm3 (4.5-10.0)
[2021-08-19 07:08] LABS: Alanine Aminotransferase 136 U/L (6-50); Alkaline Phosphatase 332 U/L (38-126); Anion Gap 4 mmol/L (8-16); Aspartate Amino Transferase 417 U/L (17-59); Bilirubin,Total 4.4 mg/dL (0.2-1.3); Blood Urea Nitrogen 6 mg/dL (9-20); Calcium 6.8 mg/dL (8.4-10.2); Carbon Dioxide 24 mmol/L (22-30); Chloride 99 mmol/L (98-107); Estimated CRCL calculation 117 ml/min; Estimated Glomerular Filt Rate > 60; Glucose 102 mg/dL (65-110); Lipase 1249 U/L (23-300); Magnesium 1.9 mg/dL (1.6-2.3); Potassium 3.3 mmol/L (3.4-5.0); Sodium 127 mmol/L (137-145)
[2021-08-19] MEDS: LORazepam INJ (*CRX) 2 MG/ML VIAL 1 MG IV PUSH ×3 (08:55→17:33)
--- NOTE | 2021-08-19 11:01 | PM.IMPN ---
Progress Note: A&P Assessment and Plan (1) Alcohol withdrawal: Qualifiers: Complication of substance-induced condition: with perceptual disturbance Qualified Code(s): F10.232 - Alcohol dependence with withdrawal with perceptual disturbance Code(s): F10.239 - Alcohol dependence with withdrawal, unspecified Status: Acute Assessment and Plan: He reports his last drink was 3 days ago. Patient is very tremulous. Placed on CIWA protocol with Ativan p.r.n.. Schedule Librium ordered as well. Continue to monitor for worsening symptoms. He did recently completed alcohol rehabilitation at [facility] (2) Elevated liver enzymes: Code(s): R74.8 - Abnormal levels of other serum enzymes Status: Acute Assessment and Plan: Patient's liver enzymes and bilirubin are elevated suggestive of acute alcoholic hepatitis. Continue to monitor LFTs. CT abdomen pelvis with hepatic steatosis. Discussed alcohol cessation. (3) Hyponatremia: Code(s): E87.1 - Hypo-osmolality and hyponatremia Status: Acute Assessment and Plan: Most likely secondary to alcohol intake. Will hydrate patient and continue monitor sodium levels. Continue IV fluids (4) Hypomagnesemia: Code(s): E83.42 - Hypomagnesemia Status: Acute Assessment and Plan: A magnesium rider has been ordered for patient will recheck magnesium levels in the a.m.. (5) Acute pancreatitis: Code(s): K85.90 - Acute pancreatitis without necrosis or infection, unspecified Status: Acute Assessment and Plan: Alcohol related. Continue IV fluids and monitor lipase Plan Replaced continue to monitor Subjective Date/time seen: 08/19/21 11:01 Interval history: HPI:Mr. Reyna is a 31-year-old gentleman who presented emergency room with complaints of alcohol withdrawal.? Patient states that he typically drinks a 5th of whiskey daily and at times he does drink more than this.? Patient states today he has only had 1 beer and he was feeling very shaky and diaphoretic and became very nauseous.? Patient states he has gone through withdrawals multiple times and he does have a history of seizures with his withdrawals.? Patient states that he did go through a detoxification program proximally 2 months ago.? Patient states he has a significant family history of alcoholism.? Patient denies any abdominal pain, constipation, or diarrhea.? Patient denies any lightheadedness, dizziness, syncopal, or near syncopal episodes.? Patient states over the last few days he has had ataxia and he has been hallucinating and for these reasons he decided to come the emergency room today. Patient states he has a history of alcohol abuse, hypertension, and anxiety disorder. Patient states he has been placed on Librium multiple times in the past to wean himself off of alcohol. 08/19/2021 feels less shaky today. Denies any abdominal pain nausea vomiting. No fever chills shortness of breath. Interested in going for alcohol rehab Review of Systems Review of Systems: All systems reviewed & are unremarkable except as noted in HPI and below (HPI) Exam Narrative: Constitutional: Patient is well-nourished in no acute distress. Patient is alert and oriented x3. Tremulous HEENT: Moist mucous membranes. No lymphadenopathy. Scleral icterus noted Neck: Supple nontender Lungs: Lung sounds are clear to auscultation bilaterally. No accessory muscle use. No rhonchi, rales, or wheezes noted. Cardiovascular: Apical pulse is regular rhythm and mildly tachycardic S1-S2 noted, no S3 or S4 noted. No gallops, murmurs, or rubs noted. Abdomen: Soft, round, and nontender. No palpable masses. Extremities: No edema. Nontender. Skin: No rashes or lesions. Warm and dry. Skin is intact. Neurological: No focal neurological deficits. Cranial nerves II-XII grossly intact. Psychiatric: Cooperative, appropriate mood, and affect Objective Data Vital Sig
[2021-08-19 12:10] LABS: Glucose Point of Care 147 mg/dl (65-105)
--- NOTE | 2021-08-19 12:25 | PCDIET ---
Dietitian was consult for an alcohol withdraw. Pt is eating 100% of meals, has good appetite, and reported no wt loss. No further nutritional intervention needed.
--- NOTE | 2021-08-19 13:01 | PCCCNOTE ---
On 08/19/21, the student, [Justina Olivier], provided care and completed [facility] documentation on this patient. I have reviewed the student's documentation and agree with the findings.
--- NOTE | 2021-08-19 13:19 | PCNSR ---
On 08/19/21, the student,Jeanette Pang, provided care and completed [facility] documentation on this patient. I have reviewed the student's documentation and agree with the findings.
[2021-08-19] MEDS: THIAMINE HCL INJ 100 MG, FOLIC ACID INJ 1 MG, MULTIVITAMINS-12 INJ VIAL 1 5 ML, MULTIVI... IV CONT (13:33)
[2021-08-19 16:53] LABS: Glucose Point of Care 156 mg/dl (65-105)
[2021-08-19 21:56] LABS: Glucose Point of Care 192 mg/dl (65-105)
[2021-08-19] MEDS: diazePAM INJ (*CRX) 10 MG/2 ML SYRINGE 5 MG IV PUSH (23:00)
--- NOTE | 2021-08-19 23:02 | PC.NURSE ---
patient is extremely agitated, angry, yelling, cursing. patient is hallucinating. visual, seeing people that aren't there. it is making him angrier. patient is stating that the ativan that was given for his withdrawl symptoms is making him hallucinate and blaming everything but himself for his withdrawl. patient is confused, diaphoretic, strong tremors. suspicious, he keeps his head straight and moves his eyes to watch anyone in the room. he avoids looking at me. he almost pulled out his iv, had unhooked from the j-denys and blood was getting everywhere. patient has been up and down multiple time. twin alvarez is aware and has given orders for his symptoms. kelsy barksdale charge nurse aware and helping with the agitated patient. patient seems to get increasing more agitated and valium was given to help calm patient down. the valium seems to be helping. patient moved closer to the desk and sitter at bedside. will continue to monitor. dr new has been updated on patients condition.
[2021-08-19] MEDS: chlordiazePOXIDE (*CRX) 25 MG CAPSULE 50 MG PO (23:41)
--- NOTE | 2021-08-19 23:46 | PC.NURSE ---
patient is still refusing iv fluids. patient is angry that his room was moved and that he has a sitter. he said he doesn't mind if the sitter was in one room for 10 min and another room for 10 min, and kept repeating 10 min here and 10 min there over and over getting more agitated while saying it.
[2021-08-20] VITALS (20 sets, daily range): BP systolic 114–181; BP diastolic 76–137; PULSE 62–132; RESP 12–24; TEMP 36.4–37.1; O2SAT 91–97
[2021-08-20] MEDS: THIAMINE HCL INJ 100 MG, FOLIC ACID INJ 1 MG, MULTIVITAMINS-12 INJ VIAL 1 5 ML, MULTIVI... IV CONT
[2021-08-20] MEDS: diazePAM INJ (*CRX) 10 MG/2 ML SYRINGE 5 MG IV PUSH (00:07)
--- NOTE | 2021-08-20 00:27 | PC.NURSE ---
patient is so agitated that he got dressed and tried to leave. it took a couple of us to talk him down. he was trying to go into other patients rooms. he is getting harder to orient. dr new and twin hoffmann pa aware and decided to put patient in the unit for possible gtt.
[2021-08-20] MEDS: dexmedeTOMIDine 400 MCG/100 ML 400 MCG/100 ML BAG 26.63 MCG IV CONT ×2 (00:40→03:02)
--- NOTE | 2021-08-20 00:52 | PC.NURSE ---
This patient, Danny Reyna, was received from [IMU ] on 08/20/21 at 0035. Patient/family oriented to unit policies and routines
[2021-08-20] MEDS: cloNIDine 0.1 MG/24 HR PATCH 1 PATCH TRANSDERM (02:09)
[2021-08-20 05:11] LABS: Basophils Percent Auto 0.4 % (0.2-1.2); Eosinophils Percent Auto 1.5 % (0-4.4); Hematocrit 42.3 % (42.0-52.0); Hemoglobin 13.2 g/dL (14.0-18.0); Immature Granulocyte Absolute 0.02 K/mm3 (0.00-0.031); Immature Granulocyte Percent A 0.7 % (0-0.5); Immature Platelet Fraction Pct 15.9 % (0.9-11.2); Lymphocytes Absolute Auto 0.83 K/mm3 (0.9-3.2); Mean Corpuscular HGB Conc 31.2 g/dl (32-36); Mean Corpuscular Hemoglobin 31.7 pg (26-34); Mean Corpuscular Volume 101.7 fl (80-100); Monocytes Absolute Auto 0.2 K/mm3 (0.1-0.6); Neutrophils Absolute Auto 1.6 K/mm3 (1.3-6.7); Neutrophils Percent Auto 60.4 % (45.5-73.1); Nucleated Red Blood Cells Perc 1.1 % (0.0-0.2); Platelet Count Result 49 k/mm3 (150-375); Red Blood Count 4.16 M/mm3 (4.6-6.20); Red Cell Distribution Width 14.4 % (11.5-14.5); White Blood Count 2.7 K/mm3 (4.5-10.0)
[2021-08-20 05:22] LABS: Prothrombin Time 12.3 Seconds (11.1-14.7)
[2021-08-20 05:27] LABS: Alanine Aminotransferase 185 U/L (6-50); Albumin Level 3.7 g/dL (3.5-5.1); Alkaline Phosphatase 347 U/L (38-126); Anion Gap 7 mmol/L (8-16); Aspartate Amino Transferase 459 U/L (17-59); Bilirubin,Total 4.3 mg/dL (0.2-1.3); Blood Urea Nitrogen 3 mg/dL (9-20); Calcium 8.1 mg/dL (8.4-10.2); Carbon Dioxide 26 mmol/L (22-30); Chloride 103 mmol/L (98-107); Estimated CRCL calculation 134 ml/min; Estimated Glomerular Filt Rate > 60; Glucose 212 mg/dL (65-110); Lipase 811 U/L (23-300); Magnesium 2.1 mg/dL (1.6-2.3); Potassium 3.7 mmol/L (3.4-5.0); Sodium 136 mmol/L (137-145)
[2021-08-20] MEDS: dexmedeTOMIDine 400 MCG/100 ML 400 MCG/100 ML BAG 21.3 MCG IV CONT ×2 (06:44→16:04)
[2021-08-20] MEDS: LACTATED RINGERS 1,000 ML 999 ML IV CONT (08:28)
[2021-08-20] MEDS: PANTOPRAZOLE SODIUM IV 40 MG VIAL IV PUSH (09:53)
[2021-08-20] MEDS: THIAMINE HCL 200 MG/2 ML VIAL 100 MG IV PUSH (09:53)
[2021-08-20] MEDS: FOLIC ACID 1 MG/0.2 ML INJ IV PUSH (09:53)
[2021-08-20] MEDS: LACTATED RINGERS 1,000 ML 100 ML IV CONT ×2 (09:55→20:07)
[2021-08-20] MEDS: dexmedeTOMIDine 400 MCG/100 ML 400 MCG/100 ML BAG 19.53 MCG IV CONT (11:20)
[2021-08-20] MEDS: chlordiazePOXIDE (*CRX) 25 MG CAPSULE 50 MG PO ×3 (11:21→23:20)
--- NOTE | 2021-08-20 11:23 | PCFNICU ---
ICU Rounding Note: Pt current nutrition is NPO. Nutrition recommendation: Advance as tolerated per MD orders. Last recorded weight is 92.3 kg Bowel Motility:No BM reported. Labs Reviewed:Hgb 13.2,Na 136, Cr 0.6,Glu 212, BUN 3, Lipase 811 Meds Noted: Thiamine, Folic Acid, Librium, Precedex,Ativan Skin: WNL Additional Notes: Patient currently NPO. Sleeping at this time. Patient had been on a regular diet, eating 100% of meals. Agree with diet orders. Following daily in ICU rounds.
--- NOTE | 2021-08-20 12:02 | WPDCNINT ---
Assessment and Plan Assessment and plan (1) Alcohol withdrawal: Qualifiers: Complication of substance-induced condition: with perceptual disturbance Qualified Code(s): F10.232 - Alcohol dependence with withdrawal with perceptual disturbance Code(s): F10.239 - Alcohol dependence with withdrawal, unspecified Status: Acute Assessment and Plan: Patient presented with alcohol withdrawal, tremors, diaphoresis. Patient has history of alcoholism and prior alcohol withdrawal seizures -he was on the medical floor/IMU and was found to have elevated CIWA scores, tremors and had increasing Ativan requirement so was transferred to the ICU for further management -patient currently on Precedex infusion -will give additional IV fluid bolus and continue maintenance IV fluids -keep NPO given his lipase and LFTs are elevated (2) Elevated liver enzymes: Code(s): R74.8 - Abnormal levels of other serum enzymes Status: Acute Assessment and Plan: CT scan of the abdomen and pelvis showed diffuse hepatic steatosis could likely explain the elevated liver enzymes -patient also has history of alcoholic hepatitis which could explain the elevation in his bilirubin and LFTs -continue to monitor (3) Acute pancreatitis: Code(s): K85.90 - Acute pancreatitis without necrosis or infection, unspecified Status: Acute Assessment and Plan: Elevated lipase on admission, trending down, continue maintenance IV fluids will give additional IV fluid bolus -continue to monitor lipase -patient does not have any abdominal pain or tenderness (4) Hypomagnesemia: Code(s): E83.42 - Hypomagnesemia Status: Acute Assessment and Plan: Resolved (5) Hyponatremia: Code(s): E87.1 - Hypo-osmolality and hyponatremia Status: Acute Assessment and Plan: Resolved (6) Thrombocytopenia: Code(s): D69.6 - Thrombocytopenia, unspecified Status: Acute Assessment and Plan: Likely due to alcoholism and bone marrow suppression (7) Leukopenia: Code(s): D72.819 - Decreased white blood cell count, unspecified Status: Acute Assessment and Plan: Could be related to bone marrow suppression, will continue to monitor if does not improve will have Hematology evaluate the patient Plan Continue Precedex infusion SCDs NPO except sips and ice chips PPI Additional Plan Code status: Full code Critical care time spent: 43 minute This dictation may have been done utilizing a voice recognition system. Attempts have been made to correct errors. However, there may be uncorrected grammatical, spelling, and recognition errors present. Due to a high probability of clinically significant, life threatening deterioration, the patient required my highest level of preparedness to intervene emergently and I personally spent this critical care time directly and personally managing the patient. This critical care time included obtaining a history; examining the patient; pulse oximetry; ordering and review of studies; arranging urgent treatment with development of a management plan; evaluation of patient's response to treatment; frequent reassessment; and discussions with other providers. It was exclusive of separately billable procedures and treating other patients and teaching time. Please see Assessment and Plan section and the rest of the note for further information on patient assessment and treatment Briquette Machine Operator Consult Note Consult date: 08/20/21 HPI: Danny Reyna is a 31 year old male with past medical history of alcohol withdrawal, alcohol abuse/alcoholism, essential hypertension, anxiety disorder presented the ED on 08/18/2021 with complains of tremors and diaphoresis and felt that he was going to have seizures from the alcohol withdrawal like he has had it before. He drinks a 5th of whiskey daily and sometimes drinks more than this. On the day of admission yet only 1 be a
[2021-08-20 13:09] LABS: Glucose Point of Care 148 mg/dl (65-105)
--- NOTE | 2021-08-20 16:31 | PM.IMPN ---
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 Patient is very tremulous. Placed on CIWA protocol with Ativan p.r.n.. Schedule Librium ordered as well. Continue to monitor for worsening symptoms. He did recently completed alcohol rehabilitation at [facility] Worsened symptoms 08/19/2021 and was started on Precedex. Carton Packaging Machine Operator following appreciate his help and recommendations (2) Elevated liver enzymes: Code(s): R74.8 - Abnormal levels of other serum enzymes Status: Acute Assessment and Plan: Patient's liver enzymes and bilirubin are elevated suggestive of acute alcoholic hepatitis. Continue to monitor LFTs. CT abdomen pelvis with hepatic steatosis. Discussed alcohol cessation. (3) Hyponatremia: Code(s): E87.1 - Hypo-osmolality and hyponatremia Status: Acute Assessment and Plan: Most likely secondary to alcohol intake. Will hydrate patient and continue monitor sodium levels. Continue IV fluids (4) Hypomagnesemia: Code(s): E83.42 - Hypomagnesemia Status: Acute Assessment and Plan: A magnesium rider has been ordered for patient recheck and monitor (5) Acute pancreatitis: Code(s): K85.90 - Acute pancreatitis without necrosis or infection, unspecified Status: Acute Assessment and Plan: Alcohol related. Continue IV fluids and monitor lipase Plan Replaced continue to monitor Subjective Date/time seen: 08/20/21 16:31 Interval history: HPI:Mr. Reyna is a 31-year-old gentleman who presented emergency room with complaints of alcohol withdrawal.? Patient states that he typically drinks a 5th of whiskey daily and at times he does drink more than this.? Patient states today he has only had 1 beer and he was feeling very shaky and diaphoretic and became very nauseous.? Patient states he has gone through withdrawals multiple times and he does have a history of seizures with his withdrawals.? Patient states that he did go through a detoxification program proximally 2 months ago.? Patient states he has a significant family history of alcoholism.? Patient denies any abdominal pain, constipation, or diarrhea.? Patient denies any lightheadedness, dizziness, syncopal, or near syncopal episodes.? Patient states over the last few days he has had ataxia and he has been hallucinating and for these reasons he decided to come the emergency room today. Patient states he has a history of alcohol abuse, hypertension, and anxiety disorder. Patient states he has been placed on Librium multiple times in the past to wean himself off of alcohol. 08/19/2021 feels less shaky today. Denies any abdominal pain nausea vomiting. No fever chills shortness of breath. Interested in going for alcohol rehab 08/20/2021 was transferred to the ICU last night for alcohol withdrawal. Been placed on Precedex. Has been calmer and sleeping. Per nursing staff wakes up intermittently Review of Systems Review of Systems: ROS unobtainable: Yes unobtainable due to mental status Exam Narrative: General: Well-built gentleman in no acute distress HEENT: Sclera is icteric, pupils are reactive and equal Neck: Supple, no lymphadenopathy Respiratory: Clear to auscultation bilaterally, no wheezing, adequate urine output Cardiac: S1-S2 normal lungs regular rate and rhythm Abdomen: Soft, nontender, nondistended, normoactive bowel sounds Extremities: No edema, palpable pedal pulses Neuro: Patient is on Precedex, somnolent, Skin: Intact, warm and dry Psych: Confused Objective Data Vital Signs Vital Signs: Vital Signs - 24 hr
[2021-08-20 19:06] LABS: Glucose Point of Care 157 mg/dl (65-105)
[2021-08-20] MEDS: dexmedeTOMIDine 400 MCG/100 ML 400 MCG/100 ML BAG 23.08 MCG IV CONT (20:05)
[2021-08-20] MEDS: hydrALAZINE HCL 20 MG/ML VIAL 10 MG IV PUSH (20:05)
[2021-08-20 23:25] LABS: Glucose Point of Care 151 mg/dl (65-105)
[2021-08-21] VITALS (24 sets, daily range): BP systolic 97–143; BP diastolic 70–97; PULSE 74–125; RESP 13–25; TEMP 36.6–36.9; O2SAT 92–98
[2021-08-21] MEDS: dexmedeTOMIDine 400 MCG/100 ML 400 MCG/100 ML BAG 23.08 MCG IV CONT ×2 (00:29→04:42)
[2021-08-21 03:56] LABS: Ionized Calcium 4.1 mg/dL (4.8-5.6)
[2021-08-21 04:29] LABS: Basophils Percent Auto 0.7 % (0.2-1.2); Eosinophils Absolute Auto 0.1 K/mm3 (0-0.3); Eosinophils Percent Auto 1.3 % (0-4.4); Hematocrit 45.6 % (42.0-52.0); Hemoglobin 14.2 g/dL (14.0-18.0); Immature Granulocyte Absolute 0.03 K/mm3 (0.00-0.031); Immature Granulocyte Percent A 0.5 % (0-0.5); Immature Platelet Fraction Pct 14.4 % (0.9-11.2); Lymphocytes Absolute Auto 1.02 K/mm3 (0.9-3.2); Lymphocytes Percent Auto 16.6 % (18.3-44.2); Mean Corpuscular HGB Conc 31.1 g/dl (32-36); Mean Corpuscular Volume 102.7 fl (80-100); Monocytes Absolute Auto 0.3 K/mm3 (0.1-0.6); Monocytes Percent Auto 4.9 % (2.6-8.5); Neutrophils Absolute Auto 4.7 K/mm3 (1.3-6.7); Nucleated Red Blood Cells Absolute Auto 0.1 K/mm3 (0.0-0.012); Nucleated Red Blood Cells Perc 0.8 % (0.0-0.2); Platelet Count Result 59 k/mm3 (150-375); Red Blood Count 4.44 M/mm3 (4.6-6.20); Red Cell Distribution Width 14.5 % (11.5-14.5); White Blood Count 6.1 K/mm3 (4.5-10.0)
[2021-08-21 04:37] LABS: Alanine Aminotransferase 212 U/L (6-50); Albumin Level 3.6 g/dL (3.5-5.1); Alkaline Phosphatase 280 U/L (38-126); Anion Gap 9 mmol/L (8-16); Aspartate Amino Transferase 302 U/L (17-59); Bilirubin,Total 4.9 mg/dL (0.2-1.3); Blood Urea Nitrogen 4 mg/dL (9-20); Calcium 8.6 mg/dL (8.4-10.2); Carbon Dioxide 23 mmol/L (22-30); Chloride 103 mmol/L (98-107); Estimated CRCL calculation 186 ml/min; Estimated Glomerular Filt Rate > 60; Glucose 140 mg/dL (65-110); Lipase 913 U/L (23-300); Magnesium 1.6 mg/dL (1.6-2.3); Phosphorus 3.7 mg/dL (2.5-4.5); Potassium 3.5 mmol/L (3.4-5.0); Sodium 135 mmol/L (137-145)
--- NOTE | 2021-08-21 05:12 | PCDIET ---
Addendum entered by Caty Ferris RN 08/21/21 05:17: Also, confirmed with patient that his usual weight is approximately 210lbs. Accurate weight was not obtainable earlier in this shift due to bed malfunction. Original Note: Admission weight was used for weight based dosing of precedex and was found by this RN to be 24kg less than current weight. Confirmed calculation with pharmacist to adjust dose to accurate rate on IV pump. Previous charting showed dose as 1.3 mcg/kg/hr. Actual dose is approximately 1.0 mcg/kg/hr and is reflected in updated charting and on IV pump.
[2021-08-21] MEDS: LACTATED RINGERS 1,000 ML 100 ML IV CONT ×2 (06:19→19:12)
[2021-08-21] MEDS: chlordiazePOXIDE (*CRX) 25 MG CAPSULE 50 MG PO ×3 (07:50→20:08)
[2021-08-21] MEDS: LORazepam INJ (*CRX) 2 MG/ML VIAL 1 MG IV PUSH ×4 (08:02→22:12)
--- NOTE | 2021-08-21 08:30 | WPDINTPN ---
Progress Note: A&P Assessment and Plan (1) Alcohol withdrawal: Qualifiers: Complication of substance-induced condition: with perceptual disturbance Qualified Code(s): F10.232 - Alcohol dependence with withdrawal with perceptual disturbance Code(s): F10.239 - Alcohol dependence with withdrawal, unspecified Status: Acute Assessment and Plan: Patient presented with alcohol withdrawal, tremors, diaphoresis. Patient has history of alcoholism and prior alcohol withdrawal seizures -he was on the medical floor/IMU and was found to have elevated CIWA scores, tremors and had increasing Ativan requirement so was transferred to the ICU for further management -patient currently on Precedex infusion, mentation is improved significantly, is alert, oriented x3 -continue maintenance IV fluids -LFTs trending down, lipase has increased, patient does not have any abdominal pain or tenderness -will start clear liquid diet (2) Elevated liver enzymes: Code(s): R74.8 - Abnormal levels of other serum enzymes Status: Acute Assessment and Plan: CT scan of the abdomen and pelvis showed diffuse hepatic steatosis could likely explain the elevated liver enzymes -patient also has history of alcoholic hepatitis which could explain the elevation in his bilirubin and LFTs -continue to monitor (3) Acute pancreatitis: Code(s): K85.90 - Acute pancreatitis without necrosis or infection, unspecified Status: Acute Assessment and Plan: Elevated lipase, continue maintenance IV fluids will give additional IV fluid bolus -continue to monitor lipase -patient does not have any abdominal pain or tenderness (4) Hypomagnesemia: Code(s): E83.42 - Hypomagnesemia Status: Acute Assessment and Plan: Will replace magnesium and potassium (5) Hyponatremia: Code(s): E87.1 - Hypo-osmolality and hyponatremia Status: Acute Assessment and Plan: Resolved (6) Thrombocytopenia: Code(s): D69.6 - Thrombocytopenia, unspecified Status: Acute Assessment and Plan: Likely due to alcoholism and bone marrow suppression -gradually improving (7) Leukopenia: Code(s): D72.819 - Decreased white blood cell count, unspecified Status: Acute Assessment and Plan: Could be related to bone marrow suppression, will continue to monitor if does not improve will have Hematology evaluate the patient. -patient also on mirtazapine which can cause neutropenia, agranulocytosis -WBC count has normalized Plan Wean Precedex infusion to off Continue CIWA scores P.r.n. Ativan Discontinue Holloway catheter Additional Plan DVT prophylaxis: SCDs. No chemoprophylaxis secondary to thrombocytopenia Stress ulcer prophylaxis: Protonix Nutrition: Will start clear liquid diet Code status: Full code Critical care time spent: 32 minute This dictation may have been done utilizing a voice recognition system. Attempts have been made to correct errors. However, there may be uncorrected grammatical, spelling, and recognition errors present. Due to a high probability of clinically significant, life threatening deterioration, the patient required my highest level of preparedness to intervene emergently and I personally spent this critical care time directly and personally managing the patient. This critical care time included obtaining a history; examining the patient; pulse oximetry; ordering and review of studies; arranging urgent treatment with development of a management plan; evaluation of patient's response to treatment; frequent reassessment; and discussions with other providers. It was exclusive of separately billable procedures and treating other patients and teaching time. Please see Assessment and Plan section and the rest of the note for further information on patient assessment and treatment Subjective Date/time seen: 08/21/21 08:30 Interval history: Reason for consult: Alcoh
--- NOTE | 2021-08-21 08:30 | PC.NURSE ---
Pt alert and oriented x4. CIWA score of 1. Verbal order from Dr. Arevalo to titrated precedex gtt from 0.8 to 0.4mcg/mg/min. Pt verbalized feeling anxious and requested Ativan. Verbal order from Dr. Arevalo to give 1mg IV Ativan now.
[2021-08-21] MEDS: MAGNESIUM SULF 2 GM/WATER 50ML 2 GM/50 ML BAG IVPB (09:17)
[2021-08-21] MEDS: PANTOPRAZOLE SODIUM IV 40 MG VIAL IV PUSH (09:22)
[2021-08-21] MEDS: THIAMINE HCL 200 MG/2 ML VIAL 100 MG IV PUSH (09:22)
[2021-08-21] MEDS: FOLIC ACID 1 MG/0.2 ML INJ IV PUSH (09:29)
[2021-08-21] MEDS: POTASSIUM CHLORIDE 20 MEQ TABLET 40 MEQ PO (09:29)
[2021-08-21] MEDS: OXYMETAZOLINE HCL 0.05% NAS 15 ML BTL (*BKC) 1 SPRAY NASAL (09:37)
--- NOTE | 2021-08-21 11:15 | PM.IMPN ---
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 Patient is very tremulous. Placed on CIWA protocol with Ativan p.r.n.. Schedule Librium ordered as well. Continue to monitor for worsening symptoms. He did recently completed alcohol rehabilitation at [facility] Worsened symptoms 08/19/2021 and was started on Precedex. Head Banquet Waiter/Waitress following appreciate his help and recommendations Off Precedex drip 08/21/2021 on Librium oral now continue to monitor in ICU (2) Elevated liver enzymes: Code(s): R74.8 - Abnormal levels of other serum enzymes Status: Acute Assessment and Plan: Patient's liver enzymes and bilirubin are elevated suggestive of acute alcoholic hepatitis. Continue to monitor LFTs. CT abdomen pelvis with hepatic steatosis. Discussed alcohol cessation. (3) Hyponatremia: Code(s): E87.1 - Hypo-osmolality and hyponatremia Status: Acute Assessment and Plan: Most likely secondary to alcohol intake. Will hydrate patient and continue monitor sodium levels. Continue IV fluids (4) Hypomagnesemia: Code(s): E83.42 - Hypomagnesemia Status: Acute Assessment and Plan: A magnesium rider has been ordered for patient recheck and monitor (5) Acute pancreatitis: Code(s): K85.90 - Acute pancreatitis without necrosis or infection, unspecified Status: Acute Assessment and Plan: Alcohol related. Continue IV fluids and monitor lipase Plan Replaced continue to monitor Subjective Date/time seen: 08/21/21 11:15 Interval history: HPI:Mr. Reyna is a 31-year-old gentleman who presented emergency room with complaints of alcohol withdrawal.? Patient states that he typically drinks a 5th of whiskey daily and at times he does drink more than this.? Patient states today he has only had 1 beer and he was feeling very shaky and diaphoretic and became very nauseous.? Patient states he has gone through withdrawals multiple times and he does have a history of seizures with his withdrawals.? Patient states that he did go through a detoxification program proximally 2 months ago.? Patient states he has a significant family history of alcoholism.? Patient denies any abdominal pain, constipation, or diarrhea.? Patient denies any lightheadedness, dizziness, syncopal, or near syncopal episodes.? Patient states over the last few days he has had ataxia and he has been hallucinating and for these reasons he decided to come the emergency room today. Patient states he has a history of alcohol abuse, hypertension, and anxiety disorder. Patient states he has been placed on Librium multiple times in the past to wean himself off of alcohol. 08/19/2021 feels less shaky today. Denies any abdominal pain nausea vomiting. No fever chills shortness of breath. Interested in going for alcohol rehab 08/20/2021 was transferred to the ICU last night for alcohol withdrawal. Been placed on Precedex. Has been calmer and sleeping. Per nursing staff wakes up intermittently 08/21/2021 off Precedex since this morning. Librium started. Vitals reviewed. Discussed with the nursing staff more awake and alert. Patient is worried about drinking and long-term affects. Discussed a.m. meetings in the from medication that we use for alcohol dependence Review of Systems Review of Systems: All systems reviewed & are unremarkable except as noted in HPI and below Exam Narrative: General: Well-built gentleman in no acute distress HEENT: Sclera is icteric, pupils are reactive and equal Neck: Supple, no lymphadenopathy Respiratory: Clear to auscultatio
[2021-08-21 14:50] LABS: Glucose Point of Care 130 mg/dl (65-105)
[2021-08-21 18:17] LABS: Glucose Point of Care 127 mg/dl (65-105)
[2021-08-22] VITALS (23 sets, daily range): BP systolic 114–155; BP diastolic 80–112; PULSE 99–150; RESP 16–24; TEMP 36.4–36.9; O2SAT 94–100
[2021-08-22] MEDS: chlordiazePOXIDE (*CRX) 25 MG CAPSULE 50 MG PO ×4 (01:14→20:23)
[2021-08-22 01:24] LABS: Glucose Point of Care 105 mg/dl (65-105)
[2021-08-22] MEDS: LORazepam INJ (*CRX) 2 MG/ML VIAL 1 MG IV PUSH ×2 (02:06→08:31)
[2021-08-22 04:25] LABS: Basophils Percent Auto 0.6 % (0.2-1.2); Eosinophils Percent Auto 0.4 % (0-4.4); Hematocrit 45.1 % (42.0-52.0); Hemoglobin 14.1 g/dL (14.0-18.0); Immature Granulocyte Absolute 0.09 K/mm3 (0.00-0.031); Immature Granulocyte Percent A 1.9 % (0-0.5); Immature Platelet Fraction Pct 9.7 % (0.9-11.2); Lymphocytes Absolute Auto 0.99 K/mm3 (0.9-3.2); Lymphocytes Percent Auto 20.5 % (18.3-44.2); Mean Corpuscular HGB Conc 31.3 g/dl (32-36); Mean Corpuscular Hemoglobin 31.8 pg (26-34); Mean Corpuscular Volume 101.6 fl (80-100); Mean Platelet Volume 11.1 fl (7.4-10.4); Monocytes Absolute Auto 0.5 K/mm3 (0.1-0.6); Monocytes Percent Auto 10.7 % (2.6-8.5); Neutrophils Absolute Auto 3.2 K/mm3 (1.3-6.7); Neutrophils Percent Auto 65.9 % (45.5-73.1); Nucleated Red Blood Cells Perc 0.8 % (0.0-0.2); Platelet Count Result 113 k/mm3 (150-375); Red Blood Count 4.44 M/mm3 (4.6-6.20); Red Cell Distribution Width 15.6 % (11.5-14.5); White Blood Count 4.8 K/mm3 (4.5-10.0)
[2021-08-22 04:38] LABS: INR 0.9; Prothrombin Time 11.9 Seconds (11.1-14.7)
[2021-08-22 05:03] LABS: Alanine Aminotransferase 234 U/L (6-50); Alkaline Phosphatase 256 U/L (38-126); Anion Gap 6 mmol/L (8-16); Aspartate Amino Transferase 253 U/L (17-59); Bilirubin,Total 3.2 mg/dL (0.2-1.3); Blood Urea Nitrogen 4 mg/dL (9-20); Calcium 8.6 mg/dL (8.4-10.2); Carbon Dioxide 24 mmol/L (22-30); Chloride 106 mmol/L (98-107); Estimated CRCL calculation 189 ml/min; Estimated Glomerular Filt Rate > 60; Glucose 114 mg/dL (65-110); Lipase 514 U/L (23-300); Magnesium 1.9 mg/dL (1.6-2.3); Potassium 3.8 mmol/L (3.4-5.0); Sodium 136 mmol/L (137-145)
[2021-08-22] MEDS: METOPROLOL TARTRATE 50 MG TAB PO ×3 (06:18→20:23)
[2021-08-22] MEDS: ALPRAZolam (*CRX) 0.5 MG TABLET PO ×3 (06:18→18:40)
[2021-08-22] MEDS: PANTOPRAZOLE SODIUM IV 40 MG VIAL IV PUSH (08:14)
[2021-08-22] MEDS: THIAMINE HCL 200 MG/2 ML VIAL 100 MG IV PUSH (08:14)
[2021-08-22] MEDS: FOLIC ACID 1 MG/0.2 ML INJ IV PUSH (08:21)
--- NOTE | 2021-08-22 09:58 | WPDINTPN ---
Progress Note: A&P Assessment and Plan (1) Alcohol withdrawal: Qualifiers: Complication of substance-induced condition: with perceptual disturbance Qualified Code(s): F10.232 - Alcohol dependence with withdrawal with perceptual disturbance Code(s): F10.239 - Alcohol dependence with withdrawal, unspecified Status: Acute Assessment and Plan: Patient presented with alcohol withdrawal, tremors, diaphoresis. Patient has history of alcoholism and prior alcohol withdrawal seizures -he was on the medical floor/IMU and was found to have elevated CIWA scores, tremors and had increasing Ativan requirement so was transferred to the ICU for further management -OFF Precedex infusion, -mentation is improved significantly, is alert, oriented x3 -patient frustrated this morning as he was to go home -continue maintenance IV fluids -LFTs and lipase trending down, -continue clear liquid diet -continue Librium, Xanax PO prn (2) Elevated liver enzymes: Code(s): R74.8 - Abnormal levels of other serum enzymes Status: Acute Assessment and Plan: CT scan of the abdomen and pelvis showed diffuse hepatic steatosis could likely explain the elevated liver enzymes -patient also has history of alcoholic hepatitis which could explain the elevation in his bilirubin and LFTs -bilirubin and LFTs improving -continue to monitor (3) Acute pancreatitis: Code(s): K85.90 - Acute pancreatitis without necrosis or infection, unspecified Status: Acute Assessment and Plan: Elevated lipase, continue maintenance IV fluids will give additional IV fluid bolus -continue to monitor lipase -patient does not have any abdominal pain or tenderness (4) Hypomagnesemia: Code(s): E83.42 - Hypomagnesemia Status: Acute Assessment and Plan: Magnesium and potassium within normal limits (5) Hyponatremia: Code(s): E87.1 - Hypo-osmolality and hyponatremia Status: Acute Assessment and Plan: Resolved (6) Thrombocytopenia: Code(s): D69.6 - Thrombocytopenia, unspecified Status: Acute Assessment and Plan: Likely due to alcoholism and bone marrow suppression -much improved (7) Leukopenia: Code(s): D72.819 - Decreased white blood cell count, unspecified Status: Acute Assessment and Plan: Could be related to bone marrow suppression, will continue to monitor if does not improve will have Hematology evaluate the patient. -patient also on mirtazapine which can cause neutropenia, agranulocytosis -WBC count has normalized Plan Will add Xanax PO prn Continue CIWA scores P.r.n. Ativan Additional Plan DVT prophylaxis: SCDs. No chemoprophylaxis secondary to thrombocytopenia Stress ulcer prophylaxis: Protonix Nutrition: Continue clear liquid diet Transferred to medical floor with telemetry Code status: Full code Critical care time spent: 31 minute This dictation may have been done utilizing a voice recognition system. Attempts have been made to correct errors. However, there may be uncorrected grammatical, spelling, and recognition errors present. Due to a high probability of clinically significant, life threatening deterioration, the patient required my highest level of preparedness to intervene emergently and I personally spent this critical care time directly and personally managing the patient. This critical care time included obtaining a history; examining the patient; pulse oximetry; ordering and review of studies; arranging urgent treatment with development of a management plan; evaluation of patient's response to treatment; frequent reassessment; and discussions with other providers. It was exclusive of separately billable procedures and treating other patients and teaching time. Please see Assessment and Plan section and the rest of the note for further information on patient assessment and treatment Subjective Date/time seen: 08/22/21 09:58
--- NOTE | 2021-08-22 11:59 | PC.NURSE ---
Report given to FRANSICO Landa. All questions answered. Pt transferred to room 330 via wheelchair, accompanied by RN.
--- NOTE | 2021-08-22 12:08 | PC.NURSE ---
This patient, Danny Reyna, was received from [icu/9 ] on 08/22/21 at 1200. Patient/family oriented to unit policies and routines
--- NOTE | 2021-08-22 13:37 | PM.IMPN ---
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 Patient is very tremulous. Placed on CIWA protocol with Ativan p.r.n.. Schedule Librium ordered as well. Continue to monitor for worsening symptoms. He did recently completed alcohol rehabilitation at [place] Worsened symptoms 08/19/2021 and was started on Precedex. Building Construction Inspector following appreciate his help and recommendations Off Precedex drip 08/21/2021 on Librium oral Continues to improve move out of the ICU today (2) Elevated liver enzymes: Code(s): R74.8 - Abnormal levels of other serum enzymes Status: Acute Assessment and Plan: Patient's liver enzymes and bilirubin are elevated suggestive of acute alcoholic hepatitis. Continue to monitor LFTs. CT abdomen pelvis with hepatic steatosis. Discussed alcohol cessation. (3) Hyponatremia: Code(s): E87.1 - Hypo-osmolality and hyponatremia Status: Acute Assessment and Plan: Most likely secondary to alcohol intake. Will hydrate patient and continue monitor sodium levels. (4) Hypomagnesemia: Code(s): E83.42 - Hypomagnesemia Status: Acute Assessment and Plan: Replaced and recheck and monitor (5) Acute pancreatitis: Code(s): K85.90 - Acute pancreatitis without necrosis or infection, unspecified Status: Acute Assessment and Plan: Alcohol related. Continue IV fluids and monitor lipase which has been trending down (6) Leukopenia: Code(s): D72.819 - Decreased white blood cell count, unspecified Status: Acute (7) Thrombocytopenia: Code(s): D69.6 - Thrombocytopenia, unspecified Status: Acute Assessment and Plan: Now improving (8) AH (alcoholic hepatitis): Qualifiers: Ascites presence: without ascites Qualified Code(s): K70.10 - Alcoholic hepatitis without ascites Code(s): K70.10 - Alcoholic hepatitis without ascites Status: Acute Plan Replaced continue to monitor Subjective Date/time seen: 08/22/21 13:37 Interval history: HPI:Mr. Reyna is a 31-year-old gentleman who presented emergency room with complaints of alcohol withdrawal.? Patient states that he typically drinks a 5th of whiskey daily and at times he does drink more than this.? Patient states today he has only had 1 beer and he was feeling very shaky and diaphoretic and became very nauseous.? Patient states he has gone through withdrawals multiple times and he does have a history of seizures with his withdrawals.? Patient states that he did go through a detoxification program proximally 2 months ago.? Patient states he has a significant family history of alcoholism.? Patient denies any abdominal pain, constipation, or diarrhea.? Patient denies any lightheadedness, dizziness, syncopal, or near syncopal episodes.? Patient states over the last few days he has had ataxia and he has been hallucinating and for these reasons he decided to come the emergency room today. Patient states he has a history of alcohol abuse, hypertension, and anxiety disorder. Patient states he has been placed on Librium multiple times in the past to wean himself off of alcohol. 08/19/2021 feels less shaky today. Denies any abdominal pain nausea vomiting. No fever chills shortness of breath. Interested in going for alcohol rehab 08/20/2021 was transferred to the ICU last night for alcohol withdrawal. Been placed on Precedex. Has been calmer and sleeping. Per nursing staff wakes up intermittently 08/21/2021 off Precedex since this morning. Librium started. Vitals reviewed. Discussed with the nursing s
[2021-08-23] VITALS: PULSE 81
[2021-08-23] MEDS: ALPRAZolam (*CRX) 0.5 MG TABLET PO ×2 (00:16→06:02)
[2021-08-23] MEDS: chlordiazePOXIDE (*CRX) 25 MG CAPSULE 50 MG PO ×2 (02:01→08:16)
[2021-08-23 04:00] VITALS: PULSE 82
[2021-08-23 06:23] VITALS: BP 130/81; PULSE 95; RESP 16; TEMP 36.4; O2SAT 100
[2021-08-23 07:57] VITALS: BP 126/77; PULSE 107; RESP 18; TEMP 36.7; O2SAT 100
[2021-08-23 08:00] VITALS: PULSE 107
[2021-08-23 08:15] VITALS: PULSE 104
[2021-08-23] MEDS: METOPROLOL TARTRATE 50 MG TAB PO (08:15)
[2021-08-23] MEDS: PANTOPRAZOLE SODIUM IV 40 MG VIAL IV PUSH (08:16)
[2021-08-23] MEDS: THIAMINE HCL 200 MG/2 ML VIAL 100 MG IV PUSH (08:16)
[2021-08-23 09:07] LABS: Basophils Absolute Auto 0.1 K/mm3 (0.0-0.1); Basophils Percent Auto 1.1 % (0.2-1.2); Eosinophils Absolute Auto 0.1 K/mm3 (0-0.3); Eosinophils Percent Auto 1.1 % (0-4.4); Hematocrit 43.2 % (42.0-52.0); Hemoglobin 13.2 g/dL (14.0-18.0); Immature Granulocyte Absolute 0.31 K/mm3 (0.00-0.031); Lymphocytes Absolute Auto 1.66 K/mm3 (0.9-3.2); Mean Corpuscular HGB Conc 30.6 g/dl (32-36); Mean Corpuscular Hemoglobin 31.6 pg (26-34); Mean Corpuscular Volume 103.3 fl (80-100); Mean Platelet Volume 10.6 fl (7.4-10.4); Monocytes Percent Auto 15.5 % (2.6-8.5); Neutrophils Absolute Auto 3.1 K/mm3 (1.3-6.7); Neutrophils Percent Auto 50.3 % (45.5-73.1); Platelet Count Result 153 k/mm3 (150-375); Red Blood Count 4.18 M/mm3 (4.6-6.20); Red Cell Distribution Width 16.2 % (11.5-14.5); White Blood Count 6.1 K/mm3 (4.5-10.0)
[2021-08-23 09:15] LABS: Alanine Aminotransferase 238 U/L (6-50); Albumin Level 4.4 g/dL (3.5-5.1); Alkaline Phosphatase 220 U/L (38-126); Anion Gap 9 mmol/L (8-16); Aspartate Amino Transferase 199 U/L (17-59); Bilirubin,Total 2.5 mg/dL (0.2-1.3); Blood Urea Nitrogen 4 mg/dL (9-20); Calcium 8.4 mg/dL (8.4-10.2); Carbon Dioxide 22 mmol/L (22-30); Chloride 101 mmol/L (98-107); Estimated CRCL calculation 161 ml/min; Estimated Glomerular Filt Rate > 60; Glucose 134 mg/dL (65-110); Potassium 3.3 mmol/L (3.4-5.0); Sodium 132 mmol/L (137-145)
[2021-08-23] MEDS: FOLIC ACID 1 MG/0.2 ML INJ IV PUSH (09:23)
[2021-08-23] MEDS: POTASSIUM CHLORIDE 20 MEQ TABLET 40 MEQ PO (10:06)
--- NOTE | 2021-08-23 11:27 | PM.DS ---
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 Patient is very tremulous on admission. he was Placed on CIWA protocol with Ativan p.r.n.. Schedule Librium ordered as well. Continue to monitor for worsening symptoms. He did recently completed alcohol rehabilitation at [place] Worsened symptoms 08/19/2021 and was started on Precedex and was moved to the ICU. Post Doc Fellowship following appreciate his help and recommendations Off Precedex drip 08/21/2021 on Librium oral Continues to improve. He was moved out of the ICU Will continue Librium taper as an outpatient and follow-up with his PCP for treatment of his anxiety disorder (2) Elevated liver enzymes: Code(s): R74.8 - Abnormal levels of other serum enzymes Status: Acute Assessment and Plan: Patient's liver enzymes and bilirubin are elevated suggestive of acute alcoholic hepatitis. Continue to monitor LFTs. CT abdomen pelvis with hepatic steatosis. Discussed alcohol cessation. He is looking into going for outpatient alcohol rehabilitation at [facility] (3) Hyponatremia: Code(s): E87.1 - Hypo-osmolality and hyponatremia Status: Acute Assessment and Plan: Most likely secondary to alcohol intake. patient was hydrated and his sodium level was monitored with improvement (4) Hypomagnesemia: Code(s): E83.42 - Hypomagnesemia Status: Acute Assessment and Plan: Replaced and recheck and monitor (5) Acute pancreatitis: Code(s): K85.90 - Acute pancreatitis without necrosis or infection, unspecified Status: Acute Assessment and Plan: Alcohol related. Continue IV fluids and monitor lipase which has been trending down Clinically improved with no pain in abdomen and tolerating diet (6) Leukopenia: Code(s): D72.819 - Decreased white blood cell count, unspecified Status: Acute Assessment and Plan: this is also likely due to acute alcohol toxicity Recovered during the hospital stay (7) Thrombocytopenia: Code(s): D69.6 - Thrombocytopenia, unspecified Status: Acute Assessment and Plan: his platelet counts were down to 40,000 but did improve back to normal by the time of discharge (8) AH (alcoholic hepatitis): Qualifiers: Ascites presence: without ascites Qualified Code(s): K70.10 - Alcoholic hepatitis without ascites Code(s): K70.10 - Alcoholic hepatitis without ascites Status: Acute Assessment and Plan: counseled on alcohol cessation Plan Replaced continue to monitor DS: Summary Hospital Course Hospital Course: see above Time Spent with Patient Time attestation: Total time spent providing and/or coordinating discharge services: 50 minutes Exam Narrative: General: Well-built gentleman in no acute distress HEENT: Sclera is icteric, pupils are reactive and equal Neck: Supple, no lymphadenopathy Respiratory: Clear to auscultation bilaterally, no wheezing, adequate urine output Cardiac: S1-S2 normal lungs mildly tachycardic sinus rhythm on telemetry Abdomen: Soft, nontender, nondistended, normoactive bowel sounds Extremities: No edema, palpable pedal pulses Neuro: Patient is awake and alert oriented x3 Skin no rash no lesions Psych: less tremulous good insight DS: Data Data Completed and Pending Labs on day of discharge: Labs from last 24 hours 08/23/21 08/23/21 08:48 08:48 WBC 6.1 RBC 4.18 L Hgb 13.2 L Hct 43.2 MCV 10
== END 2021-08-23 12:22 | disposition home or self-care (01) | DRG 896 ==
LOC: ANHED 14:26 → ANHIMU 15:01 → ANHICU 08-20 00:31 → ANH3MEDSUR 08-22 12:02
PROVIDERS: Internal Medicine; Nurse Practitioner Adult Health; Admitting Provider Student in an Organized Health Care Education/Training Program; Emergency Provider Emergency Medicine; PCP Family Medicine; Visit Provider Internal Medicine
DX: F10.239 Alcohol dependence with withdrawal, unspecified (principal); K85.20 Alcohol induced acute pancreatitis without necrosis or infection; E87.1 Hypo-osmolality and hyponatremia; K70.10 Alcoholic hepatitis without ascites; G25.2 Other specified forms of tremor; R61 Generalized hyperhidrosis; E83.42 Hypomagnesemia; R74.8 Abnormal levels of other serum enzymes; D69.59 Other secondary thrombocytopenia; D72.818 Other decreased white blood cell count; F41.1 Generalized anxiety disorder; I10 Essential (primary) hypertension; Z87.891 Personal history of nicotine dependence
CPT/HCPCS: 36415; 36600; 74176; 80048; 80053; 81001; 82010; 82140; 82330; 82805; 82948; 83690; 83735; 84100; 85025; 85055; 85610; 85730; 96361; 96365; 96366; 96368; 96374; 96375; 96376; 99285; A9270; C9113; G0378; J0360; J2060; J2405; J3360; J3411; J3475; J7030; J7120; J7121

== ENCOUNTER 2021-08-26 11:11 | Outpatient (CLI) | payer OTHER, BC, SELFPAY ==
[2021-08-26 11:48] LABS: Hematocrit 37.8 % (42.0-52.0); Hemoglobin 12.2 g/dL (14.0-18.0); Mean Corpuscular HGB Conc 32.3 g/dl (32-36); Mean Corpuscular Hemoglobin 32.8 pg (26-34); Mean Corpuscular Volume 101.6 fl (80-100); Mean Platelet Volume 10.3 fl (7.4-10.4); Platelet Count Result 305 k/mm3 (150-375); Red Blood Count 3.72 M/mm3 (4.6-6.20); Red Cell Distribution Width 17.4 % (11.5-14.5); White Blood Count 7.4 K/mm3 (4.5-10.0)
[2021-08-26 12:04] LABS: Alanine Aminotransferase 272 U/L (6-50); Alkaline Phosphatase 151 U/L (38-126); Anion Gap 6 mmol/L (8-16); Aspartate Amino Transferase 143 U/L (17-59); Bilirubin,Total 1.5 mg/dL (0.2-1.3); Blood Urea Nitrogen 9 mg/dL (9-20); Calcium 8.8 mg/dL (8.4-10.2); Carbon Dioxide 30 mmol/L (22-30); Chloride 103 mmol/L (98-107); Estimated Glomerular Filt Rate > 60; Glucose 99 mg/dL (65-110); Potassium 3.8 mmol/L (3.4-5.0); Sodium 139 mmol/L (137-145)
[2021-08-26 12:30] LABS: Band Neutrophils Percent 1 % (0-6); Basophils Absolute Manual 0.29 K/mm3 (0.0-0.1); Basophils Percent Manual 4 % (0-1); Eosinophils Absolute Manual 0.07 K/mm3 (0.02-0.5); Eosinophils Percent Manual 1 % (0-4); Lymphocytes Absolute Manual 1.99 K/mm3 (1.1-4.5); Metamyelocytes Percent 4 %; Monocytes Absolute Manual 0.88 K/mm3 (0.1-0.90); Monocytes Percent Manual 12 % (3-9); Myelocytes Percent 1 %; Neutrophils Absolute Manual 3.77 K/mm3 (1.3-6.7); Neutrophils Percent Manual 50 % (46-73); Nucleated Red Blood Cells 2 %; Platelet Estimate Adequate (Adequate); Total Cells Counted 100
[2021-08-26 12:31] LABS: Atypical Lymphocytes Present
[2021-08-26 12:35] LABS: Anisocytosis 1+ (NORMAL)
== END 2021-08-26 11:12 | disposition home or self-care (01) ==
PROVIDERS: Internal Medicine; PCP Emergency Medicine; Visit Provider Emergency Medicine
DX: D72.819 Decreased white blood cell count, unspecified (principal); D69.6 Thrombocytopenia, unspecified; R74.8 Abnormal levels of other serum enzymes
CPT/HCPCS: 36415; 80053; 85025

== ENCOUNTER 2021-09-02 12:04 | Outpatient (CLI) | payer BC, SELFPAY ==
--- NOTE | ~2021-09-02 | XR_ITS ---
XR chest 2V DATE: 09/02/2021 12:38 INDICATION: Tobacco use TECHNIQUE: PA and lateral views COMPARISON: 03/28/2019 CT pulmonary scan 03/28/2021 portable AP chest FINDINGS: Heart size appears within normal range. No hilar or mediastinal enlargement. No pleural eff usion or pulmonary vascular congestion or pneumothorax. No pulmonary infiltrate or consolidation. Mild dextro scoliosis of the thoracolumbar spine. IMPRESSION: No active cardiopulmonary disease Reviewed, dictated and finalized at location B.
--- NOTE | ~2021-09-02 | US_ITS ---
US abdomen complete EXAMINATION: US Abdomen Complete INDICATION: Alcohol associated seizures. PROCEDURE: Realtime High Resolution abdomen ultrasound. COMPARISON: No prior studies for comparison FINDINGS: Mild gallbladder wall thickening measuring 3 mm. No gallstones identified. Common bile daina t measures 3 mm. Liver echotexture is increased, consistent with fatty infiltration.. Pancreas within normal limits. Pancreatic tail is obscured by bowel gas. Spleen is unremarkeable. Renal echotexture is within norm al limits bilaterally without hydronephrosis, contour deforming mass or renal stone. Right kidney france sures 11.3 cm. Left kidney measures 11.8 cm. Visualized aspects of the aorta and IVC are within normal limits. Portal vein is patent. No sonograph ic Marte's sign indicated by the technologist. IMPRESSION: 1: Mild gallbladder wall thickening. This could indicate interstitial edema, chronic liver disease or chronic cholecystitis. 2: Hepatic steatosis. Reviewed, dictated and finalized at location A. IMPRESSION: 1: Mild gallbladder wall thickening. This could indicate interstitial edema, ch ronic liver disease or chronic cholecystitis. 2: Hepatic steatosis.
== END 2021-09-02 12:05 | disposition home or self-care (01) ==
PROVIDERS: PCP Emergency Medicine; Visit Provider Emergency Medicine
DX: F17.290 Nicotine dependence, other tobacco product, uncomplicated (principal); F10.188 Alcohol abuse with other alcohol-induced disorder; G40.89 Other seizures; K76.0 Fatty (change of) liver, not elsewhere classified
CPT/HCPCS: 71046; 76700

== ENCOUNTER 2021-09-28 23:34 | Inpatient (IN) | payer OTHER, BC, SELFPAY ==
--- NOTE | ~2021-09-28 | XR_ITS ---
EXAMINATION: XR chest 1V portable DATE: 09/30/2021 05:29 INDICATION: Aspiration pneumonia TECHNIQUE: frontal view of the chest was obtained. COMPARISON: Chest radiograph dated 09/29/2021 FINDINGS: The lungs are now clear with no focal airspace opacities, pulmonary edema, pleural effusion or pneumo thorax. The cardiomediastinal silhouette is normal. Visualized bones and soft tissues are unremarkabl e. IMPRESSION: 1. No acute cardiopulmonary disease. Reviewed, dictated and finalized at location A.
--- NOTE | ~2021-09-28 | XR_ITS ---
EXAMINATION: XR chest 1V portable DATE: 09/29/2021 00:51 INDICATION: Vomiting. Alcoholism. TECHNIQUE: frontal view of the chest was obtained. COMPARISON: Chest radiograph dated 09/02/2021 FINDINGS: Subtle patchy airspace opacities throughout the right mid to lower lung zone. Left lung remains clear . No pleural effusion or pneumothorax. The cardiomediastinal silhouette is normal. Visualized bones a nd soft tissues are unremarkable. IMPRESSION: 1. New subtle airspace opacity in the right mid to lower lung zone concerning for aspiration or pneum onia. Reviewed, dictated and finalized at location A. IMPRESSION: 1. New subtle airspace opacity in the right mid to lower lung zone concerning f or aspiration or pneumonia.
[2021-09-28 23:40] VITALS: BP 157/95; PULSE 130; RESP 24; O2SAT 90
[2021-09-28 23:45] VITALS: PULSE 130; RESP 20; O2SAT 87
[2021-09-28 23:46] VITALS: BP 157/95; PULSE 131; RESP 20; O2SAT 90
[2021-09-28 23:47] VITALS: PULSE 129; RESP 19; O2SAT 86
[2021-09-29] VITALS (26 sets, daily range): BP systolic 114–144; BP diastolic 69–92; PULSE 72–141; RESP 13–33; TEMP 36.6–37.8; O2SAT 89–100; BMI 33.7
--- NOTE | 2021-09-29 00:06 | ED.ALCOHOL ---
HPI - Alcohol General Chief Complaint: Alcohol <Tamia Lal PA-C - Last Filed: 09/29/21 01:45> Stated Complaint: ETOH <Tamia Lal PA-C - Last Filed: 09/29/21 01:45> Time Seen by Provider: 09/28/21 23:47 <Tamia Lal PA-C - Last Filed: 09/29/21 01:45> Source: patient <Tamia Lal PA-C - Last Filed: 09/29/21 01:45> Mode of arrival: EMS <Tamia Lal PA-C - Last Filed: 09/29/21 01:45> Limitations: intoxication <Tamia Lal PA-C - Last Filed: 09/29/21 01:45> History of Present Illness HPI narrative: This is a 31 year old male that presents to the ER via EMS for evaluation of alcohol intoxication. Patient has history of alcoholism. Drank 4 pints of whiskey today. Patient reports nausea, vomiting and chest discomfort. Reportedly patient had episode of coffee ground emesis at home. Has history of aspiration pneumonia. Denies fever, cough, shortness of breath or abdominal pain. <Tamia Lal PA-C - Last Filed: 09/29/21 01:45> Related Data Allergies/Adverse Reactions: Allergies Allergy/AdvReac Type Severity Reaction Status Date / Time No Known Allergies Allergy Verified 09/29/21 01:09 <Tamia Lal PA-C - Last Filed: 09/29/21 01:45> Review of Systems Review of Systems: CONSTITUTIONAL: Denies fever CARDIOVASCULAR: Reports chest pain RESPIRATORY: Denies cough or dyspnea. GASTROINTESTINAL: Reports nausea and vomiting. Denies abdominal pain <Tamia Lal PA-C - Last Filed: 09/29/21 01:45> All systems reviewed & are unremarkable except as noted in HPI and below <Tamia Lal PA-C - Last Filed: 09/29/21 01:45> [facility] Past Medical History Medical History: Medical History (Updated 09/29/21 @ 01:39 by Tamia Lal PA-C) History of alcohol abuse <Tamia Lal PA-C - Last Filed: 09/29/21 01:45> Social History Social History: Social History (Updated 09/29/21 @ 00:28 by Tamia Lal PA-C) Alcohol intake: current <Tamia Lal PA-C - Last Filed: 09/29/21 01:45> Exam Narrative: GENERAL: Ill-appearing, well-nourished, and in no acute distress. HEAD: Normocephalic, atraumatic. EYES: PERRLA and EOMI. ENT: Mucous membranes dry. Oropharynx without tonsillar hypertrophy exudate or other lesions. CHEST: Clear to auscultation. No respiratory distress. No wheezes rales or rhonchi HEART: Tachycardic, normal rhythm. No murmur heard. Normal peripheral pulses. ABDOMEN: Soft, nontender, nondistended, normal active bowel sounds. EXTREMITIES: Normal range of motion. No edema. SKIN: Warm, dry, no rash. NEURO: No focal deficits. Alert and oriented x3. PSYCH: Normal mood and affect <Tamia Lal PA-C - Last Filed: 09/29/21 01:45> Course GENETICS PHYSICIAN/PA Physician Supervision For this patient encounter, I reviewed the GENETICS PHYSICIAN or PA documentation, treatment plan, and medical decision making; and I had [id number] time with this patient. This patient is an alcoholic. He presents to ER intoxicated with nausea, vomiting and an episode of coffee ground emesis. He is sitting in bed in no acute distress. He denies nasuea, vomiting or abdominal pain. I discussed he will be admitted and he has pneumonia. <Eliz Jorgensen MD - Last Filed: 09/29/21 02:37> Consultations Consultation #1: Spoke with hospitalist about patient and work-up who accepts admission. <Tamia Lal PA-C - Last Filed: 09/29/21 01:45> Date: 09/29/21 <Tamia Lal PA-C - Last Filed: 09/29/21 01:45> Consultation #2: Spoke with Dr. Arevalo who will consult. Patient will need close monitoring for signs of withdrawal <Tamia Lal PA-C - Last Filed: 09/29/21 01:45> Date: 09/29/21 <Tamia Lal PA-C - Last Filed: 09/29/21 01:45> Vital Signs Vital signs: Vital Signs Pulse Rate 130 H 09/28/21 23:40 Respiratory Rate 24 H 09/28/21 23:40 Blood Pressure 157/95 H 09/28/21 23:40 Pulse Oximetry 90 09/28/21 23:40
--- NOTE | 2021-09-29 00:07 | ECG_ITS ---
Measurements Intervals [place] Rate: 134 P: 31 CT: 143 QRS: 130 QRSD: 96 T: 46 QT: 281 QTc: 420 Interpretive Statements SINUS TACHYCARDIA RIGHT AXIS DEVIATION POOR R WAVE PROGRESSION, ANTERIOR LEADS ABNORMAL ECG Electronically Signed On 09-29-2021 6:47:05 CDT by Elvis Naidu D.O.
[2021-09-29] MEDS: ONDANSETRON INJ 4 MG/2 ML VIAL IV PUSH ×4 (00:22→21:50)
[2021-09-29] MEDS: PANTOPRAZOLE SODIUM IV 40 MG VIAL IV PUSH ×3 (00:23→16:04)
[2021-09-29] MEDS: SODIUM CHLORIDE 0.9% IV 1,000 ML 999 ML IV CONT ×4 (00:29→08:29)
[2021-09-29 00:32] LABS: Alveolar/Arterial O2 Gradient 134.2 mmHg; Base Excess ABG -3.8 mEq/l (+/-2.0); Fractional Inspired Oxygen 36 %; HCO3 ABG 20.5 mEq/l (22.0-26.0); Methemoglobin ABG 0.4 %THb (0-1.5); Oxygen Saturation ABG 95.9 % (95.0-100.0); Oxyhemoglobin 92.1 % THb (90.0-100.0); PCO2 ABG 35.6 mmHg (35.0-45.0); PO2 ABG 81.2 mmHg (80.0-100.0); PO2 FiO2 Ratio Arterial Blood 2.26 %; Reduced Hemoglobin 6.5 %THb (0-5.0); pH ABG 7.379 (7.350-7.450)
[2021-09-29 00:34] LABS: Basophils Absolute Auto 0.1 K/mm3 (0.0-0.1); Basophils Percent Auto 0.3 % (0.2-1.2); Hematocrit 48.6 % (42.0-52.0); Hemoglobin 16.2 g/dL (14.0-18.0); Immature Granulocyte Percent A 0.5 % (0-0.5); Lymphocytes Absolute Auto 1.63 K/mm3 (0.9-3.2); Lymphocytes Percent Auto 7.5 % (18.3-44.2); Mean Corpuscular HGB Conc 33.3 g/dl (32-36); Mean Corpuscular Volume 101.9 fl (80-100); Monocytes Absolute Auto 1.3 K/mm3 (0.1-0.6); Monocytes Percent Auto 5.8 % (2.6-8.5); Neutrophils Absolute Auto 18.6 K/mm3 (1.3-6.7); Neutrophils Percent Auto 85.9 % (45.5-73.1); Platelet Count Result 375 k/mm3 (150-375); Red Blood Count 4.77 M/mm3 (4.6-6.20); Red Cell Distribution Width 13.1 % (11.5-14.5); White Blood Count 21.7 K/mm3 (4.5-10.0)
[2021-09-29 00:41] LABS: Alanine Aminotransferase 43 U/L (6-50); Albumin Level 4.7 g/dL (3.5-5.1); Alkaline Phosphatase 110 U/L (38-126); Anion Gap 25 mmol/L (8-16); Aspartate Amino Transferase 45 U/L (17-59); Bilirubin,Total 0.5 mg/dL (0.2-1.3); Blood Urea Nitrogen 10 mg/dL (9-20); Calcium 8.2 mg/dL (8.4-10.2); Carbon Dioxide 23 mmol/L (22-30); Chloride 94 mmol/L (98-107); Estimated CRCL calculation 125 ml/min; Estimated Glomerular Filt Rate > 60; Glucose 149 mg/dL (65-110); Lipase 110 U/L (23-300); Potassium 3.9 mmol/L (3.4-5.0); Sodium 142 mmol/L (137-145)
[2021-09-29 00:53] LABS: Prothrombin Time 13.1 Seconds (11.1-14.7)
[2021-09-29 00:54] LABS: Device NASAL CANNULA; Modified Allen's Test Unable to perform; Site Drawn RIGHT RADIAL
[2021-09-29 00:56] LABS: Troponin I < 0.012 ng/mL (0.000-0.034)
[2021-09-29 00:57] LABS: Ethanol 531 mg/dL (<10)
[2021-09-29 01:06] LABS: Appearance Urine Clear (Clear); Bilirubin Urine Negative (Negative); Blood Urine 2+ (Negative); Color Urine Yellow (Yellow); Glucose Urine UA Negative (Negative); Ketones Urine 1+ mg/dL (Negative); Leukocyte Esterase Ur Negative LEU/UL (Negative); Nitrate Urine Negative (Negative); Protein Urine 3+ mg/dL (Negative); Specific Grav Ur >= 1.030 (1.001-1.035); Urobilinogen Urine 0.2 mg/dL (<2.0); pH Urine 5.5 (5.0-9.0)
[2021-09-29] MEDS: PIPERACILLIN/TAZOBACTAM SOD 4.5 GM in SODIUM CHLORIDE 0.9% IV 100 ML 200 ML IVPB ×4 (01:13→21:26)
[2021-09-29 01:16] LABS: Bacteria Urine Trace /hpf; Hyaline Casts Urine 20-29 /lpf; Mucus Urine Rare /lpf; RBC Urine 0-2 /hpf (0-2); Squamous Epithelial Cell Urine Rare /hpf (Few); WBC Urine 0-3 /hpf
[2021-09-29 01:18] LABS: Add Urine Microscopic? YES
[2021-09-29 01:23] LABS: Barbiturate Screen Urine Negative (Negative); Benzodiazepines Screen Urine Negative (Negative)
[2021-09-29 01:24] LABS: Amphetamine Screen Urine Negative (Negative); Cannabinoid Screen Urine Positive (Negative); Methadone Screen Urine Negative (Negative); Opiate Screen Urine Negative (Negative); Phencyclidine Screen Urine Negative (Negative)
[2021-09-29 01:47] LABS: SARS-CoV-2 RNA PCR Negative
[2021-09-29 03:06] LABS: Cocaine Screen Urine Negative (Negative)
[2021-09-29 03:29] LABS: Reflex Lactic Acid Yes or No Add Lactic
--- NOTE | 2021-09-29 04:35 | ADMGEN ---
This patient, Danny Reyna, was admitted to Intensive Care Unit-9. Patient/family oriented to hospital policies and general routines including ID bracelet, bed and alarms, visiting hours, pain management, procedures, bathroom and other care routines, personal items, smoking policy, room service/diet, and visiting hours. Information on how to activate the Rapid Response Team has been discussed. Patient/Family are encouraged to report perceived risks to care and to ask questions if they do not understand what they are told or what they should do.
[2021-09-29 04:39] LABS: Hematocrit 42.2 % (42.0-52.0); Hemoglobin 14.4 g/dL (14.0-18.0); Mean Corpuscular HGB Conc 34.1 g/dl (32-36); Mean Corpuscular Hemoglobin 34.8 pg (26-34); Mean Corpuscular Volume 101.9 fl (80-100); Platelet Count Result 236 k/mm3 (150-375); Red Blood Count 4.14 M/mm3 (4.6-6.20); Red Cell Distribution Width 12.9 % (11.5-14.5); White Blood Count 17.7 K/mm3 (4.5-10.0)
[2021-09-29 04:49] LABS: Anion Gap 19 mmol/L (8-16); Blood Urea Nitrogen 9 mg/dL (9-20); Carbon Dioxide 19 mmol/L (22-30); Chloride 101 mmol/L (98-107); Estimated CRCL calculation 182 ml/min; Estimated Glomerular Filt Rate > 60; Glucose 128 mg/dL (65-110); Lactic Acid 4.8 mmol/L (0.7-2.0); Magnesium 1.3 mg/dL (1.6-2.3); Phosphorus 3.4 mg/dL (2.5-4.5); Potassium 4.1 mmol/L (3.4-5.0); Sodium 139 mmol/L (137-145)
[2021-09-29] MEDS: LORazepam INJ (*CRX) 2 MG/ML VIAL 1 MG IV PUSH (05:00)
[2021-09-29] MEDS: chlordiazePOXIDE (*CRX) 25 MG CAPSULE 50 MG PO ×3 (05:41→17:26)
--- NOTE | 2021-09-29 08:13 | PM.IMHP ---
H&P: HPI History of Present Illness Date/Time: 09/29/21 08:13 Chief Complaint: Alcohol intoxication Narrative: 31M with a past medical history of alcohol dependence, hypertension, general anxiety disorder who was brought to the emergency department by his mother intoxicated. Patient reports he had gone about a month without drinking any alcohol. He recently had some friends and his girlfriend broke up with him, so he drank again. After drinking he stopped, but developed nausea and vomiting for two days, so he drank about a pint of whiskey yesterday. Denies having had bloody or coffee ground emesis. He says the nausea and vomiting always stop after he drinks. He is unsure of what transpired after he became intoxicated but believes his mother brought him to the emergency department. Patient denies fever, chills, cough, rhinorrhea, chest pain, shortness of breath, abdominal pain, diarrhea, melena, hematochezia, dysuria, stranguria, hesitancy. In the emergency department, lactiic acid 7.8, leukocytosis 22, CXR with RML opacity. Zosyn given. 3L NS given. Review of Systems Constitutional: Constitutional: Denies chills ENT: Denies nasal congestion and Denies nasal discharge Cardiovascular: Cardiovascular: Denies chest pain Respiratory: Respiratory: Denies dyspnea Gastrointestinal: Gastrointestinal: Denies abdominal pain, Denies melena, Denies hematochezia, Reports nausea, Reports vomiting and Denies hematemesis Genitourinary: Genitourinary: Denies dysuria, Denies urinary frequency, Denies urinary hesitancy and Denies urinary urgency Musculoskeletal: Musculoskeletal: Denies myalgias Neurologic: Denies confusion Psychiatric: Psychiatric: Reports anxiety and Denies confusion Hematologic/Lymphatic: Hematologic/Lymphatic: Denies easy bleeding and Denies easy bruising PMFSH Past Medical History Medical History Alcohol withdrawal seizure Alcoholism Essential hypertension Generalized anxiety disorder History of alcohol abuse Leukocytosis Surgical History Surgical History No pertinent past surgical history Family History Family History Father Hypertension Family history of coronary artery disease Alcohol abuse Mother Family history of diabetes mellitus in first degree relative Alcohol abuse Sibling Family history of diabetes mellitus in first degree relative Alcohol abuse Other Heart disease Social History Social History (Updated 09/29/21 @ 22:09 by Lashawn Liz MD) Social History: The patient lives in his own home. He has 1 son. 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 He smoked about half a pack of cigarettes a day for few years and quit in 2019. He estimates that he started drinking alcohol at the age of 11 and he drinks at least a half a pt of vodka a day. Occasional marijuana use. He designates his mother Andie as his surrogate decision maker and he wishes to be a full code. 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
[2021-09-29] MEDS: MAGNESIUM SULF 2 GM/WATER 50ML 2 GM/50 ML BAG IVPB (08:29)
[2021-09-29] MEDS: LORazepam INJ (*CRX) 2 MG/ML VIAL IV PUSH ×4 (08:44→21:50)
--- NOTE | 2021-09-29 09:13 | WPDCNINT ---
Assessment and Plan Assessment and plan (1) Alcoholic intoxication: Qualifiers: Complication of substance-induced condition: with unspecified complication Qualified Code(s): F10.929 - Alcohol use, unspecified with intoxication, unspecified Code(s): F10.929 - Alcohol use, unspecified with intoxication, unspecified Status: Acute Assessment and Plan: Patient presented with presented with alcohol intoxication with alcohol level of 531 -will continue CIWA protocol -p.r.n. Ativan -will watch closely for alcohol withdrawal -give additional IV fluid bolus a tachycardia -folic acid and thiamine -continue Librium (2) Aspiration pneumonia: Qualifiers: Aspiration pneumonia type: unspecified Laterality: right Lung location: middle lobe of lung Qualified Code(s): J69.0 - Pneumonitis due to inhalation of food and vomit Code(s): J69.0 - Pneumonitis due to inhalation of food and vomit Status: Acute Assessment and Plan: Aspiration pneumonia seen on chest x-ray likely related to nausea and vomiting -supplementary oxygen -patient on Zosyn (09/29), will continue (3) Coffee ground emesis: Code(s): K92.0 - Hematemesis Status: Acute Assessment and Plan: Patient had episode of coffee-ground emesis at home -likely related to alcoholism -could be related to variceal bleeding or peptic ulcer disease -consulted GI (4) Essential hypertension: Code(s): I10 - Essential (primary) hypertension Status: Acute Assessment and Plan: Restart metoprolol (5) Generalized anxiety disorder: Code(s): F41.1 - Generalized anxiety disorder Status: Acute Assessment and Plan: Continue Ativan p.r.n. -restarted it is a PE, paroxetine, trazodone Plan GI consult Continue p.r.n. Ativan Restart home antianxiety medication Clear liquid diet Watch for alcohol withdrawal Additional Plan Discussed with patient updated with his condition and plan of care Code status: Full code Critical care time spent: 43 minutes This dictation may have been done utilizing a voice recognition system. Attempts have been made to correct errors. However, there may be uncorrected grammatical, spelling, and recognition errors present. Due to a high probability of clinically significant, life threatening deterioration, the patient required my highest level of preparedness to intervene emergently and I personally spent this critical care time directly and personally managing the patient. This critical care time included obtaining a history; examining the patient; pulse oximetry; ordering and review of studies; arranging urgent treatment with development of a management plan; evaluation of patient's response to treatment; frequent reassessment; and discussions with other providers. It was exclusive of separately billable procedures and treating other patients and teaching time. Please see Assessment and Plan section and the rest of the note for further information on patient assessment and treatment Salesperson [employer] Consult Note Consult date: 09/29/21 Reason for consult: Alcohol intoxication, tachycardia, nausea, vomiting with coffee-ground emesis at home, alcohol abuse HPI: Danny Reyna is a 31 year old male with past medical history of alcohol abuse, alcohol withdrawal, depression, anxiety presented the ED early this morning on 09/29/2021via EMS for evaluation of nausea, vomiting coffee-ground emesis, chest discomfort alcohol intoxication. Patient was found to be tachycardic, and tremulous. WBC count was 21.7, hemoglobin of 16.2, MCV of 101.9, platelets of 375. INR 1.0. Initial lactic was 7.0 and repeat lactic is 4.8 after 2 L of IV fluids patient had an anion gap of 25, creatinine 0.9, magnesium of 0.3. UA had positive ketones, 3+ protein and 2+ blood with hyaline casts. Urine drug screen was positive for cannabinoids, alcohol level was 531. SARS-CoV-2 PCR was negative. Chest x-ra
[2021-09-29] MEDS: dexmedeTOMIDine 400 MCG/100 ML 400 MCG/100 ML BAG IV CONT (10:44)
[2021-09-29] MEDS: PROCHLORPERAZINE EDISYLATE 10 MG/2 ML VIAL IV PUSH (10:44)
[2021-09-29] MEDS: METOPROLOL TARTRATE 50 MG TAB PO ×2 (10:48→22:14)
[2021-09-29] MEDS: PARoxetine 10 MG TABLET PO (10:48)
[2021-09-29] MEDS: SODIUM CHLORIDE 0.9% IV 1,000 ML 100 ML IV CONT ×2 (10:56→18:01)
[2021-09-29] MEDS: dexmedeTOMIDine 400 MCG/100 ML 400 MCG/100 ML BAG 14.24 MCG IV CONT (16:00)
--- NOTE | 2021-09-29 17:11 | WPDGICN ---
Assessment and Plan Assessment and plan (1) Coffee ground emesis: Code(s): K92.0 - Hematemesis Status: Acute Assessment and Plan: hemodynamically stable on iv protonix probably esophagitis/gastritis from etoh abuse will do egd tomorrow, more recommendations after scope (2) Alcohol withdrawal: Qualifiers: Complication of substance-induced condition: uncomplicated Qualified Code(s): F10.230 - Alcohol dependence with withdrawal, uncomplicated Code(s): F10.239 - Alcohol dependence with withdrawal, unspecified Status: Acute Assessment and Plan: [facility] protocol admitted to icu banana bag (3) Aspiration pneumonia: Qualifiers: Aspiration pneumonia type: unspecified Laterality: right Lung location: middle lobe of lung Qualified Code(s): J69.0 - Pneumonitis due to inhalation of food and vomit Code(s): J69.0 - Pneumonitis due to inhalation of food and vomit Status: Acute Assessment and Plan: on antibiotic (4) Leukocytosis: Code(s): D72.829 - Elevated white blood cell count, unspecified Status: Acute (5) Metabolic acidosis with increased anion gap and accumulation of organic acids: Code(s): E87.2 - Acidosis Status: Acute GI Consult Note Consult date/time: 09/29/21 17:11 Reason for consult: coffee ground emesis, alcoholic HPI: Danny Reyna is a 31 year old male with past medical history of alcohol abuse, alcohol withdrawal, depression on meds who was admitted after he came to the ED with new onset of nausea, vomiting coffee-ground emesis, chest discomfort and alcohol intoxication.?He was abstinent for only a month then started drinking heavily again 4 days prior to admission. He was tachycardic, tremulous.? WBC count was 21.7, hemoglobin of 16.2, platelets of 375.? INR 1.0.? Initial lactic was 7.0 and repeat lactic is 4.8 after hydration and medical treatment, creatinine 0.9, magnesium of 0.3.?Urine drug screen was positive for cannabinoids, alcohol level was 531.? SARS-CoV-2 PCR was negative.? Chest x-ray reviewed and showed new subtle airspace opacity in the right mid to lower lung zone concerning for aspiration or pneumonia.?Admitted to ICU, on Ativan, banana bag, protonix.? Also started on Zosyn. He is comfortable now. Review of Systems Constitutional: Constitutional: Denies chills Eyes: Eyes: Reports no additional eye complaints ENT: Reports Normal hearing present Cardiovascular: Cardiovascular: Reports chest pain Respiratory: Respiratory: Reports cough Gastrointestinal: Gastrointestinal: Reports nausea and Reports vomiting Musculoskeletal: Musculoskeletal: Denies back pain Integumentary/Breasts: Skin/Breast: Denies rash Neurologic: Denies confusion Psychiatric: Psychiatric: Reports anxiety [facility] Past Medical History Medical History (Updated 09/29/21 @ 17:15 by Abisai Okeefe MD) Alcohol withdrawal seizure Alcoholism Essential hypertension Generalized anxiety disorder History of alcohol abuse Leukocytosis Surgical History Surgical History (Updated 09/29/21 @ 08:19 by Colt Keane) No pertinent past surgical history Family History Family History (System 09/29/21 @ 08:19 by Colt Keane) Father Hypertension Family history of coronary artery disease Mother Family history of diabetes mellitus in first degree relative Sibling Family history of diabetes mellitus in first degree relative Social History Social History (System 09/29/21 @ 08:19 by Colt Keane) Social History: The patient lives in his own home. He has 1 son. 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 He smoked about half a pack of cigarettes a day for few years and quit in 2019. He estimates that he started drinking alcohol at the age of 11 and he drinks at least a half a pt of vodka a day. Occasional marijuana use. He designates his mother Andie as his surrogate decision maker and he wishes to be a
[2021-09-29] MEDS: traZODone HCL 50 MG TABLET 100 MG PO (22:13)
[2021-09-29] MEDS: MIRTAZAPINE 15 MG TABLET PO (22:14)
[2021-09-29] MEDS: dexmedeTOMIDine 400 MCG/100 ML 400 MCG/100 ML BAG 18.98 MCG IV CONT (22:15)
[2021-09-30] VITALS (24 sets, daily range): BP systolic 121–171; BP diastolic 82–128; PULSE 42–110; RESP 15–25; TEMP 36.3–37.4; O2SAT 92–100
[2021-09-30] MEDS: PIPERACILLIN/TAZOBACTAM SOD 4.5 GM in SODIUM CHLORIDE 0.9% IV 100 ML 200 ML IVPB ×4 (02:46→20:28)
[2021-09-30] MEDS: dexmedeTOMIDine 400 MCG/100 ML 400 MCG/100 ML BAG 18.98 MCG IV CONT ×2 (03:22→08:42)
[2021-09-30 04:46] LABS: Basophils Percent Auto 0.3 % (0.2-1.2); Eosinophils Absolute Auto 0.2 K/mm3 (0-0.3); Hematocrit 38.3 % (42.0-52.0); Hemoglobin 12.7 g/dL (14.0-18.0); Immature Granulocyte Absolute 0.01 K/mm3 (0.00-0.031); Immature Granulocyte Percent A 0.2 % (0-0.5); Lymphocytes Absolute Auto 1.38 K/mm3 (0.9-3.2); Lymphocytes Percent Auto 22.8 % (18.3-44.2); Mean Corpuscular HGB Conc 33.2 g/dl (32-36); Mean Corpuscular Hemoglobin 33.8 pg (26-34); Mean Corpuscular Volume 101.9 fl (80-100); Mean Platelet Volume 9.6 fl (7.4-10.4); Monocytes Absolute Auto 0.4 K/mm3 (0.1-0.6); Neutrophils Percent Auto 65.7 % (45.5-73.1); Platelet Count Result 170 k/mm3 (150-375); Red Blood Count 3.76 M/mm3 (4.6-6.20); Red Cell Distribution Width 12.1 % (11.5-14.5)
[2021-09-30 04:58] LABS: Alanine Aminotransferase 30 U/L (6-50); Albumin Level 3.7 g/dL (3.5-5.1); Alkaline Phosphatase 80 U/L (38-126); Anion Gap 6 mmol/L (8-16); Aspartate Amino Transferase 36 U/L (17-59); Blood Urea Nitrogen 5 mg/dL (9-20); Calcium 7.9 mg/dL (8.4-10.2); Carbon Dioxide 31 mmol/L (22-30); Chloride 100 mmol/L (98-107); Estimated CRCL calculation 139 ml/min; Estimated Glomerular Filt Rate > 60; Glucose 115 mg/dL (65-110); Lipase 164 U/L (23-300); Magnesium 2.2 mg/dL (1.6-2.3); Phosphorus 2.9 mg/dL (2.5-4.5); Potassium 3.8 mmol/L (3.4-5.0); Sodium 137 mmol/L (137-145)
[2021-09-30] MEDS: SODIUM CHLORIDE 0.9% IV 1,000 ML 100 ML IV CONT ×2 (05:05→17:21)
[2021-09-30] MEDS: chlordiazePOXIDE (*CRX) 25 MG CAPSULE 50 MG PO ×4 (05:20→23:29)
--- NOTE | 2021-09-30 07:51 | PM.IMPN ---
Progress Note: A&P Assessment and Plan (1) Alcoholic intoxication: Qualifiers: Complication of substance-induced condition: with unspecified complication Qualified Code(s): F10.929 - Alcohol use, unspecified with intoxication, unspecified Code(s): F10.929 - Alcohol use, unspecified with intoxication, unspecified Status: Acute Assessment and Plan: CIWA 4-27 in the last 24 hours. 8 mg of lorazepam given. Confused today. -Continue CIWA -Chlordiazepoxide scheduled -PRN lorazepam (2) Aspiration pneumonia: Qualifiers: Aspiration pneumonia type: unspecified Laterality: right Lung location: middle lobe of lung Qualified Code(s): J69.0 - Pneumonitis due to inhalation of food and vomit Code(s): J69.0 - Pneumonitis due to inhalation of food and vomit Status: Acute Assessment and Plan: Continue Zosyn #2 (3) Coffee ground emesis: Code(s): K92.0 - Hematemesis Status: Acute Assessment and Plan: H/H stable. Planned for EGD today. -Continue PPI BID -Appreciate recommendations from Gastroenterology (4) Metabolic acidosis with increased anion gap and accumulation of organic acids: Code(s): E87.2 - Acidosis Status: Acute Assessment and Plan: Resolved. (5) Essential hypertension: Code(s): I10 - Essential (primary) hypertension Status: Acute Assessment and Plan: Bradycardia this morning. Patient may not be taking the metoprolol as prescribed at home. May benefit from decrease in dose. (6) Generalized anxiety disorder: Code(s): F41.1 - Generalized anxiety disorder Status: Acute Assessment and Plan: Continue mirtazapine, paroxetine, trazodone. (7) Macrocytosis: Code(s): D75.89 - Other specified diseases of blood and blood-forming organs Status: Acute Assessment and Plan: Stable. Subjective Date/time seen: 09/30/21 07:51 Patient says his core temperature is usually 120-130. Denies palpitations, visual hallucinations, tactile hallucinations and auditory hallucinations. Says he takes his metoprolol at home when he has it. When asked what that means patient does not elaborate as he is confused. Review of Systems Psychiatric: Comments: Denies hallucinations. Exam Narrative: GENERAL: NAD, cooperative HEENT: Normocephalic, atraumatic, anicteric, nares clear, oropharynx moist and clear, dentition normal NECK:Supple CV: Normal S1, S2, bradycardic, regular rhythm, No MRG RESP: CTAB, Normal work of breathing. EXTREMITIES: Warm and well perfused, no clubbing, cyanosis, or edema. SKIN: warm, dry and intact. NEURO:Confused. CN 2-12 grossly intact. Objective Data Vital Signs Vital Signs: Vital Signs - 24 hr 09/29/21 08:00 09/29/21 08:00 09/29/21 08:00 Temperature 97.9 F Pulse Rate 112 H 109 H 109 H Pulse Rate [Monitor] Respiratory Rate 19 19 Blood Pressure 131/76 Pulse Oximetry 98 98 Oxygen Delivery Nasal Cannula Oxygen Flow Rate 2 09/29/21 10:00 09/29/21 10:00 09/29/21 10:44 Temperature Pulse Rate 120 H 120 H 121 H Pulse Rate [Monitor] Respiratory Rate 17 17 Blood Pressure 121/82 Pulse Oximetry 96 Oxygen Delivery Oxygen Flow Rate 09/29/21 10:48 09/29/21 12:02 09/29/21 12:00 Temperature Pulse Rate 119 H 100 Pulse Rate [Monitor] Respiratory Rate 23 H Blood Pressure Pulse Oximetry 94 100 Oxygen Delivery Room Air Room Air Oxygen Flow Rate 09/29/21 12:00 09/29/21 12:00 09/29/21 14:00 Temperature 98.9 F Pulse Rate 100 88 113 H Pulse Rate [Monitor] Respiratory Rate 23 H Blood Pressure 114/69 Pulse Oximetry 100 Oxygen Delivery Oxygen Flow Rate 09/29/21 14:00 09/29/21 16:00 09/29/21 16:00 Temperature Pulse Rate 113 H 94 Pulse Rate [Monitor] 108 H Respiratory Rate 18 21 H Blood Pressure 123/87 126/83 Pulse Ox
[2021-09-30] MEDS: PANTOPRAZOLE SODIUM IV 40 MG VIAL IV PUSH ×2 (08:24→17:21)
[2021-09-30] MEDS: PARoxetine 10 MG TABLET PO (08:24)
[2021-09-30] MEDS: THIAMINE HCL 200 MG/2 ML VIAL 100 MG IV PUSH (08:24)
[2021-09-30] MEDS: FOLIC ACID 1 MG/0.2 ML INJ IV PUSH (08:27)
[2021-09-30] MEDS: MINERAL OIL/WHITE PETROLATUM OINTMENT 1 APPLIC EACH EYE (08:27)
--- NOTE | 2021-09-30 11:22 | WPDANESEPPF ---
Anes - Initial Pre Proc Eval Procedure: Operation Date: 09/30/21 13:15 Proposed Procedures p Esophagogastroduodenoscopy - Abisai Okeefe MD Date/Time: 09/30/21 11:22 Surgeon: iVnicio Nair MD Pre Op Diagnosis: Alcohol abuse,aspiration pneumonia,sepsis Patient Data Age: 31 Gender: M Height: 1.68 m Weight: 98.3 kg Last Vital Signs Temp 36.4 C 09/30/21 08:00 Pulse 65 09/30/21 08:42 Resp 16 09/30/21 08:42 BP 171/128 H 09/30/21 08:00 Pulse Ox 96 09/30/21 08:00 O2 Del Method Room Air 09/30/21 04:00 O2 Flow Rate 2 09/29/21 08:00 Allergies Allergy/AdvReac Type Severity Reaction Status Date / Time No Known Allergies Allergy Verified 09/29/21 08:19 Home Medications Medication Instructions Recorded Confirmed Type mirtazapine 15 mg tablet 15 mg PO HS 03/29/21 08/19/21 History gabapentin 300 mg capsule 600 mg PO TID 30 days #180 caps 04/05/21 08/19/21 Rx (Neurontin) pantoprazole 40 mg tablet,delayed 40 mg PO QAM #30 tabs 05/19/21 08/19/21 Rx release (Protonix) chlordiazepoxide HCl 25 mg capsule See Rx Instructions .Route 08/23/21 Rx .COMPLEX PRN alcohol withdrawal #24 caps metoprolol tartrate 50 mg tablet 50 mg PO Q12HR #60 tabs 08/23/21 Rx One-A-Day 50 Plus 1 tablet PO DAILY 09/29/21 09/29/21 History folic acid 1 mg tablet 1 mg PO DAILY 09/29/21 09/29/21 History metoprolol tartrate 50 mg tablet 50 mg PO Q12H 09/29/21 09/29/21 History mirtazapine 15 mg tablet 15 mg PO HS 09/29/21 09/29/21 History pantoprazole 40 mg tablet,delayed 40 mg PO DAILY 09/29/21 09/29/21 History release paroxetine HCl 10 mg tablet 10 mg PO QAM 09/29/21 09/29/21 History trazodone 100 mg tablet 100 mg PO HS 09/29/21 09/29/21 History trazodone 150 mg tablet 150 mg PO HS 09/29/21 09/29/21 History Laboratory Tests 09/30/21 09/30/21 09/30/21 04:25 04:25 04:25 WBC 6.0 K/mm3 K/mm3 (4.5-10.0) RBC 3.76 M/mm3 L M/mm3 (4.6-6.20) Hgb 12.7 g/dL L g/dL (14.0-18.0) Hct 38.3 % L % (42.0-52.0) MCV 101.9 fl H fl (80-100) MCH 33.8 pg pg (26-34) MCHC 33.2 g/dl g/dl (32-36) RDW 12.1 % % (11.5-14.5) Plt Count 170 k/mm3 k/mm3 (150-375) MPV 9.6 fl fl (7.4-10.4) Immature Gran % (Auto) 0.2 % % (0-0.5) Neut % (Auto) 65.7 % % (45.5-73.1) Lymph % (Auto) 22.8 % % (18.3-44.2) [place] % (Auto) 7.0 % % (2.6-8.5) Eos % (Auto) 4.0 % % (0-4.4) Baso % (Auto) 0.3 % % (0.2-1.2) Lymph # (Auto) 1.38 K/mm3 K/mm3 (0.9-3.2) [place] # (Auto) 0.4 K/mm3 K/mm3 (0.1-0.6) Eos # (Auto) 0.2 K/mm3 K/mm3 (0-0.3) Baso # (Auto) 0.0 K/mm3 K/mm3 (0.0-0.1) Abs Immat Gran (auto) 0.01 K/mm3 K/mm3 (0.00-0.031) Absolute Neuts (auto) 4.0 K/mm3 K/mm3 (1.3-6.7) Absolute Nucleated RBC 0.0 K/mm3 K/mm3 (0.0-0.012) Nucleated RBC % 0.0 % % (0.0-0.2) % Immature Plt Fraction 3.0 % % (0.9-11.2) Sodium 137 mmol/L mmol/L (137-145) Potassium 3.8 mmol/L mmol/L (3.4-5.0) Chloride 100 mmol/L mmol/L (98-107) Carbon Dioxide 31 mmol/L H mmol/L (22-30) Anion Gap 6 mmol/L L mmol/L (8-16) BUN 5 mg/dL L mg/dL (9-20) Creatinine 0.70 mg/dL mg/dL (0.7-1.3) Estim Creat Clear Calc 139 ml/min ml/min Estimated GFR > 60 (59 - ) Glucose 115 mg/dL H mg/dL (65-110) Lactic Acid 1.0 mmol/L mmol/L (0.7-2.0) Calcium 7.9 mg/dL L mg/dL (8.4-10.2) Phosphorus 2.9 mg/dL mg/dL (2.5-4.5) Magnesium 2.2 mg/dL mg/dL (1.6-2.3) Total Bilirubin 1.0 mg/dL mg/dL (0.2-1.3) AST 36 U/L U/L (17-59) ALT 30 U/L U/L (6-50) Alkaline Phosphatase 80 U/L U/L (38-126) Total Protein 7.0 g/dL g/
[2021-09-30] MEDS: LACTATED RINGERS 1,000 ML 150 ML IV CONT (11:33)
--- NOTE | 2021-09-30 11:36 | SUR.PREOP ---
Patient transported to pre op with VENEER MARKER at bedside. Precedex infusing at 0.6 mcg/mg/min.
--- NOTE | 2021-09-30 11:46 | WPDINTPN ---
Progress Note: A&P Assessment and Plan (1) Alcoholic intoxication: Qualifiers: Complication of substance-induced condition: with unspecified complication Qualified Code(s): F10.929 - Alcohol use, unspecified with intoxication, unspecified Code(s): F10.929 - Alcohol use, unspecified with intoxication, unspecified Status: Acute Assessment and Plan: Patient presented with presented with alcohol intoxication with alcohol level of 531 -will continue CIWA protocol -p.r.n. Ativan -will watch closely for alcohol withdrawal -will discontinue fluids once patient starts taking oral diet -continue [place] acid and thiamine -continue Librium (2) Aspiration pneumonia: Qualifiers: Aspiration pneumonia type: unspecified Laterality: right Lung location: middle lobe of lung Qualified Code(s): J69.0 - Pneumonitis due to inhalation of food and vomit Code(s): J69.0 - Pneumonitis due to inhalation of food and vomit Status: Acute Assessment and Plan: Aspiration pneumonia seen on chest x-ray likely related to nausea and vomiting -supplementary oxygen -patient on Zosyn (09/29), will continue (3) Coffee ground emesis: Code(s): K92.0 - Hematemesis Status: Acute Assessment and Plan: Patient had episode of coffee-ground emesis at home -likely related to alcoholism -appreciate GI evaluation and recommendations -EGD done on 09/30/2021: Showed reflux esophagitis, no esophageal varices gastritis, hiatal hernia, no erosions or ulcers a gastric varices. -okay to advance diet as tolerated -continue PPI IV b.i.d. (4) Essential hypertension: Code(s): I10 - Essential (primary) hypertension Status: Acute Assessment and Plan: Continue metoprolol, hold for heart rate less than 50 beats per minute (5) Generalized anxiety disorder: Code(s): F41.1 - Generalized anxiety disorder Status: Acute Assessment and Plan: Continue Ativan p.r.n. -continue mirtazapine, paroxetine, trazodone Plan Start oral diet Continue p.r.n. Ativan Watch for alcohol withdrawal Additional Plan Discussed with patient updated with his condition and plan of care Code status: Full code Critical care time spent: 33 minutes This dictation may have been done utilizing a voice recognition system. Attempts have been made to correct errors. However, there may be uncorrected grammatical, spelling, and recognition errors present. Due to a high probability of clinically significant, life threatening deterioration, the patient required my highest level of preparedness to intervene emergently and I personally spent this critical care time directly and personally managing the patient. This critical care time included obtaining a history; examining the patient; pulse oximetry; ordering and review of studies; arranging urgent treatment with development of a management plan; evaluation of patient's response to treatment; frequent reassessment; and discussions with other providers. It was exclusive of separately billable procedures and treating other patients and teaching time. Please see Assessment and Plan section and the rest of the note for further information on patient assessment and treatment Subjective Date/time seen: 09/30/21 11:46 Interval history: Reason for consult: Alcohol intoxication, tachycardia, nausea, vomiting with coffee-ground emesis at home, alcohol abuse 09/30/2021: Examined the ICU, is awake, alert, oriented x3. Remains on Precedex infusion 0.8 mcg/kg/hr. Patient is hallucinating tremulous and anxious. Output has been adequate, patient is afebrile, hemodynamically stable, bradycardic. Hemoglobin is stable, creatinine is normal. Lactic acid has normalized to 1.0, LFTs are within normal limits. Review of Systems Review of Systems: All systems reviewed & are unremarkable except as noted in HPI and below Exam Narrative: General: Patient in bed, in no acut
[2021-09-30] MEDS: BENZOCAINE (*SP) 60 ML SPRAY CAN (HURRICAINE) 1 SPRAY MUCOUS MEM (12:11)
[2021-09-30] MEDS: LORazepam INJ (*CRX) 2 MG/ML VIAL IV PUSH (14:35)
[2021-09-30] MEDS: SUCRALFATE SUSP 100 MG/ML 10 ML UDC 1000 MG PO ×2 (17:21→21:14)
[2021-09-30] MEDS: MIRTAZAPINE 15 MG TABLET PO (21:14)
[2021-09-30] MEDS: METOPROLOL TARTRATE 50 MG TAB PO (21:14)
[2021-09-30] MEDS: traZODone HCL 50 MG TABLET PO (21:15)
[2021-09-30] MEDS: LORazepam INJ (*CRX) 2 MG/ML VIAL 1 MG IV PUSH (21:22)
[2021-10-01] VITALS (7 sets, daily range): BP systolic 116–147; BP diastolic 66–116; PULSE 0–156; RESP 16–22; TEMP 36.3–37.1; O2SAT 94–96
[2021-10-01] MEDS: PIPERACILLIN/TAZOBACTAM SOD 4.5 GM in SODIUM CHLORIDE 0.9% IV 100 ML 200 ML IVPB (01:31)
[2021-10-01] MEDS: chlordiazePOXIDE (*CRX) 25 MG CAPSULE 50 MG PO ×2 (05:34→11:29)
[2021-10-01] MEDS: SUCRALFATE SUSP 100 MG/ML 10 ML UDC 1000 MG PO ×2 (05:34→11:27)
--- NOTE | 2021-10-01 06:04 | PC.NURSE ---
Patients mother called expressing concern that I have not been giving her son the correct medication and he is agitated. I assured her that he has gotten every medication prescribed to him by the physician at the correct times. I let her know that we have a process for distributing medications to a patient, I read over the medications to the patient to confirm they are correct, scan them then distribute to patient. He has not scored high enough for his ativan but he has been getting his librium as scheduled. She stated that we need to give him more medications so he can calm down. I talked to her about how its inappropriate to continuously give him medications just because . I told her of my concerns that hw is not taking his medications correctly and he needs to have a regular doctor see him and help him regulate his medications. This is the proper way to find the right medications that work for him. I told her that I will tel the doctor of her concerns. I was in the patients room when she called and there was no sign of agitation. He expressed that he is hungry and i told him trays come at approx [phone]. He had a ham sandwich earlier in the morning and at this time he was getting his carafate so he would have to refrain from eating for a short time post medication. After the phone call I asked the patient if he was ok and he said he wanted more of his sleeping medication. He stated that he had been taking 250mg of trazadone in rehab and we should give him that here. I assured him that I had spoken to the pharmacy on 09/29/21 and the maximum dose they would give him here is 150mg and that is rare (according to pharmacy). He got 100mg the night before but his heart rate decreased to 35-45 and the doctor decreased the dosage because of this so he got 50mg last night as prescribed. He then got angry because he wants more because he can't sleep. He has been up walking in the room, on his phone, tv on very loud and getting out of bed all night. I suggested he shut off the tv and put his phone down and try to sleep and he said no. He became very argumentative about his medication dosages and he wants what he was taking at home and I told him that it was inappropriate dose and we would not prescribe that to him. I told him the doctor can talk to him when he gets here. He stated that he told his mom to come get him. I asked if he would like AMA papers and he said after he sees the doctor. He then began to argue with me again about trazadone and I said Stop, I will not argue with you, I am done discussing this. I have explained this to you already .
--- NOTE | 2021-10-01 08:27 | PM.DS ---
DS: Admitting Diagnosis Discharge Date 10/01/21 Admitting Diagnosis Alcohol Intoxication DS: Discharge Diagnosis Discharge Diagnosis (1) Alcoholic intoxication: Qualifiers: Complication of substance-induced condition: with unspecified complication Qualified Code(s): F10.929 - Alcohol use, unspecified with intoxication, unspecified Code(s): F10.929 - Alcohol use, unspecified with intoxication, unspecified Status: Acute Assessment and Plan: CIWA 4-27 in the last 24 hours. 8 mg of lorazepam given. Last CIWA score 2. (2) Aspiration pneumonia: Qualifiers: Aspiration pneumonia type: unspecified Laterality: right Lung location: middle lobe of lung Qualified Code(s): J69.0 - Pneumonitis due to inhalation of food and vomit Code(s): J69.0 - Pneumonitis due to inhalation of food and vomit Status: Acute Assessment and Plan: Augmentin for discharge for a total of 7 days treatment. (3) Coffee ground emesis: Code(s): K92.0 - Hematemesis Status: Acute Assessment and Plan: EGD showed reflux esophagitis, small hiatal hernia, mild gastritis and no esophageal varices or bleeding. H/H stable. (4) Metabolic acidosis with increased anion gap and accumulation of organic acids: Code(s): E87.2 - Acidosis Status: Acute Assessment and Plan: Resolved. (5) Essential hypertension: Code(s): I10 - Essential (primary) hypertension Status: Acute Assessment and Plan: Stable. Continue home medications. (6) Generalized anxiety disorder: Code(s): F41.1 - Generalized anxiety disorder Status: Acute Assessment and Plan: Continue mirtazapine, paroxetine, trazodone. (7) Macrocytosis: Code(s): D75.89 - Other specified diseases of blood and blood-forming organs Status: Acute Assessment and Plan: Stable. DS: Summary Hospital Course Reason for hospitalization: Concern for GIB, alcohol intoxication Hospital Course: 31M with a past medical history of alcohol dependence, hypertension, general anxiety disorder who was brought to the emergency department by his mother intoxicated. It was reported the patient had an episode of coffee ground emesis. Gastroenterology was consulted and performed an EGD. Patient xray with RML infiltrate and patient had been having emesis. Also had significant leukocytosis of 21, so piperacillin-tazobactum was started. EGD did not show any bleeding or esophageal varices but it did show esophagitis and mild gastritis. Patient recommended to get pantoprazole BID plus sucralfate with meals and then follow up EGD in three months. Patient last CIWA score was 2. Patient discharged to home with amoxicillin-clavulanic acid for a total of 7 days treatment. Time Spent with Patient Time attestation: Total time spent providing and/or coordinating discharge services: Exam Narrative: GENERAL: NAD, cooperative HEENT: Normocephalic, atraumatic, anicteric, nares clear, oropharynx moist and clear, dentition normal NECK:Supple CV: Normal S1, S2, tachycardia, regular rhythm, No MRG RESP: CTAB, Normal work of breathing. EXTREMITIES: Warm and well perfused, no clubbing, cyanosis, or edema. SKIN: warm, dry and intact. NEURO:Confused. CN 2-12 grossly intact. DS: Data Data Completed and Pending Pending studies at discharge: Pending at discharge 09/30/21 12:17 Surgical [PTH] Routine Labs on day of discharge: Preliminary micro results at discharge 09/29/21 00:22 Blood Culture - Preliminary Blood 09/29/21 00:22 Blood Culture - Preliminary Blood Laboratory Tests 09/29/21 09/29/21 09/29/21 00:22 00:22 00:22 WBC 21.7 H RBC 4.77 Hgb 16.2 Hct 48.6 MCV 101.9 H MCH 34.0 MCHC 33.3 RDW 13.1 Plt Count 375 MPV 9.0 Immature Gran % (Auto) 0.5 Neut % (Auto) 85.9 H Lymph % (Auto
[2021-10-01] MEDS: METOPROLOL TARTRATE 50 MG TAB PO (08:38)
[2021-10-01] MEDS: PARoxetine 10 MG TABLET PO (08:39)
--- NOTE | 2021-10-01 09:08 | WPDINTPN ---
Progress Note: A&P Assessment and Plan (1) Alcoholic intoxication: Qualifiers: Complication of substance-induced condition: with unspecified complication Qualified Code(s): F10.929 - Alcohol use, unspecified with intoxication, unspecified Code(s): F10.929 - Alcohol use, unspecified with intoxication, unspecified Status: Acute Assessment and Plan: Patient presented with presented with alcohol intoxication with alcohol level of 531 He was treated with IV fluids and p.r.n. benzodiazepines. Patient also started on p.o. Librium which will be continued Patient clinically improved and nausea asymptomatic Tolerating p.o. diet hence IV fluids have been discontinued Change Librium Holloway acid and thiamine to p.o. (2) Aspiration pneumonia: Qualifiers: Aspiration pneumonia type: unspecified Laterality: right Lung location: middle lobe of lung Qualified Code(s): J69.0 - Pneumonitis due to inhalation of food and vomit Code(s): J69.0 - Pneumonitis due to inhalation of food and vomit Status: Acute Assessment and Plan: Aspiration pneumonia seen on chest x-ray likely related to nausea and vomiting -supplementary oxygen -patient on Zosyn (09/29) and will switch to p.o. Augmentin (3) Coffee ground emesis: Code(s): K92.0 - Hematemesis Status: Acute Assessment and Plan: Patient had episode of coffee-ground emesis at home -likely related to alcoholism -EGD done on 09/30/2021: Showed reflux esophagitis, no esophageal varices gastritis, hiatal hernia, no erosions or ulcers a gastric varices. -tolerating regular diet -continue PPI b.i.d. and changed to p.o. and also continue car fate (4) Essential hypertension: Code(s): I10 - Essential (primary) hypertension Status: Acute Assessment and Plan: Continue metoprolol, hold for heart rate less than 50 beats per minute (5) Generalized anxiety disorder: Code(s): F41.1 - Generalized anxiety disorder Status: Acute Assessment and Plan: Continue Ativan p.r.n. -continue home doses of mirtazapine, paroxetine, trazodone Additional Plan Discussed with patient updated with his condition and plan of care. Transfer out ICU the patient can be discharged and will discuss with Internal Medicine physician regarding potential discharge today Code status: Full code Subjective Date/time seen: 10/01/21 09:08 Overnight events reviewed. Afebrile Patient states he feels much better today and would like to go home. He denies any complaints except that he did not sleep well at night. Patient states that his trouble with sleep is chronic and he takes medications at home to stay asleep through the night. He states that he is not having any tremors. No hallucinations All other systems were reviewed and were negative Urine output is good and vital signs are stable except blood pressure is slightly elevated than the normal range. Interval history: Reason for consult: Alcohol intoxication, tachycardia, nausea, vomiting with coffee-ground emesis at home, alcohol abuse Review of Systems Review of Systems: All systems reviewed & are unremarkable except as noted in HPI and below Exam Narrative: General: Pt is alert awake and in NAD Lungs/Chest: Trachea central Clear BS B/L, No crackles or wheezing. Cardiac: RRR. Normal S1 S2. No murmurs Circulation: Pedal pulses are intact and symmetrical. Abdomen: Normal bowel sounds.. Soft. NT. ND. Extremities: No clubbing, cyanosis or edema. Warm : Holloway in place Neurologic: Follows commands. Moves all 4 extremities PERRL AO x3 no tremors Skin: No Rash Psych: No hallucination no delusion normal speech normal affect patient come Objective Data Vital Signs Vital Signs: Vital Signs - 24 hr 09/30/21 11:35 09/30/21 12:24 09/30/21 12:34 Temperature 36.3 C L Pulse Rate 43 L 48 L 42 L Pulse Rate [Monitor] Respiratory Rate 25 H 18 18 Blood Pressu
--- NOTE | 2021-10-01 09:41 | PC.NURSE ---
0930- Patient refusing to wear telementry monitor , stated hes done and will be leaving [facility] soon . I stated the doctor will be around to discharge him as soon as she can and to keep the monitor on until so. Patient being very argumentative and manipulative.
--- NOTE | 2021-10-01 11:00 | WPDGIPROGNO ---
Progress Note: A&P Assessment and Plan (1) Erosive esophagitis: Code(s): K22.10 - Ulcer of esophagus without bleeding Status: Acute Assessment and Plan: he is going home with ppi bid patient was told to stop drinking tolerating diet and no more episodes egd in 3 months to assess healing (2) Alcoholic intoxication: Qualifiers: Complication of substance-induced condition: with unspecified complication Qualified Code(s): F10.929 - Alcohol use, unspecified with intoxication, unspecified Code(s): F10.929 - Alcohol use, unspecified with intoxication, unspecified Status: Acute (3) Aspiration pneumonia: Qualifiers: Aspiration pneumonia type: unspecified Laterality: right Lung location: middle lobe of lung Qualified Code(s): J69.0 - Pneumonitis due to inhalation of food and vomit Code(s): J69.0 - Pneumonitis due to inhalation of food and vomit Status: Acute Assessment and Plan: treated (4) Alcohol withdrawal: Qualifiers: Complication of substance-induced condition: uncomplicated Qualified Code(s): F10.230 - Alcohol dependence with withdrawal, uncomplicated Code(s): F10.239 - Alcohol dependence with withdrawal, unspecified Status: Acute (5) Coffee ground emesis: Code(s): K92.0 - Hematemesis Status: Acute Subjective Date/time seen: 10/01/21 15:41 Interval history: doing well, tolerating diet Review of Systems Review of Systems: All systems reviewed & are unremarkable except as noted in HPI and below Exam Const: General: comfortable and no acute distress HENMT: General nose exam: Normal nares present Eyes: General: appearance normal, both eyes and all related structures Neck: Neck: no JVD Resp: Auscultation: clear to auscultation bilaterally Cardio: Rate: regular rate Rhythm: regular rhythm GI: Inspection: non-distended GI Palp: Yes Soft to palpation Skin: General skin exam: normal color Neuro: General: gait normal Speech: normal speech Extrem: General: normal to inspection Psych: Mental Status: mental status grossly normal Objective Data Vital Signs Vital Signs: Vital Signs - 24 hr 09/30/21 16:00 09/30/21 16:00 09/30/21 16:00 Temperature 99.3 F Pulse Rate 57 L 71 Pulse Rate [Monitor] 71 Respiratory Rate 16 Blood Pressure 133/90 Pulse Oximetry 96 Oxygen Delivery 09/30/21 18:00 09/30/21 18:00 09/30/21 19:17 Temperature Pulse Rate 106 H 101 H 110 H Pulse Rate [Monitor] Respiratory Rate 16 Blood Pressure Pulse Oximetry Oxygen Delivery 09/30/21 21:14 09/30/21 20:00 09/30/21 20:00 Temperature Pulse Rate 105 H 110 H 110 H Pulse Rate [Monitor] Respiratory Rate 16 Blood Pressure Pulse Oximetry 95 Oxygen Delivery Room Air 09/30/21 20:00 09/30/21 22:00 09/30/21 22:00 Temperature 98.2 F Pulse Rate 110 H 85 86 Pulse Rate [Monitor] Respiratory Rate 16 16 Blood Pressure 149/105 H 130/87 Pulse Oximetry 95 94 Oxygen Delivery 10/01/21 00:00 10/01/21 00:00 10/01/21 00:00 Temperature Pulse Rate 96 96 Pulse Rate [Monitor] 96 Respiratory Rate 18 Blood Pressure 145/98 H Pulse Oximetry 95 Oxygen Delivery Room Air 10/01/21 00:00 10/01/21 02:00 10/01/21 02:00 Temperature 98.5 F Pulse Rate 96 105 H 105 H Pulse Rate [Monitor] Respiratory Rate 18 18 Blood Pressure 145/98 H 116/66 Pulse Oximetry 95 94 Oxygen Delivery 10/01/21 04:00 10/01/21 04:00 10/01/21 04:00 Temperature Pulse Rate 88 88 Pulse Rate [Monitor] 88 Respiratory Rate 16 Blood Pressure 138/88 Pulse Oximetry 96 Oxygen Delivery Room Air 10/01/21 04:00 10/01/21 06:00 10/01/21 06:00 Temperature 98.8 F Pulse Rate 88 93 93 Pulse Rate [Monitor] Respiratory Rate 16 22 H Blood Pressure 138/88 147/116 H Pulse Oximetry 96 94 Oxygen Delivery 09/30/21 22:53 10/01/21 08:00 09/04
[2021-10-01] MEDS: PANTOPRAZOLE 40 MG TABLET PO (11:26)
[2021-10-01] MEDS: THIAMINE HCL 100 MG TABLET PO (11:26)
[2021-10-01] MEDS: FOLIC ACID 1 MG TABLET PO (11:26)
== END 2021-10-01 14:03 | disposition home or self-care (01) | DRG 368 ==
LOC: ANHED 09-29 01:39 → ANHICU 09-29 02:34
PROVIDERS: Internal Medicine; Internal Medicine Gastroenterology; Physician Assistant; Admitting Provider Internal Medicine; Emergency Provider General Practice; Visit Provider Family Medicine
PROC: 0DJ08ZZ Inspection of Upper Intestinal Tract, Via Natural or Artificial Opening Endoscopic (ICD-10-PCS; CPT 43235; principal; 2021-09-30 13:15)
DX: K21.01 Gastro-esophageal reflux disease with esophagitis, with bleeding; J69.0 Pneumonitis due to inhalation of food and vomit; K29.71 Gastritis, unspecified, with bleeding; J96.01 Acute respiratory failure with hypoxia; E87.2 Acidosis; F10.239 Alcohol dependence with withdrawal, unspecified; F10.251 Alcohol dependence with alcohol-induced psychotic disorder with hallucinations; F10.229 Alcohol dependence with intoxication, unspecified; Z20.822 Contact with and (suspected) exposure to COVID-19; Y90.8 Blood alcohol level of 240 mg/100 ml or more; F12.90 Cannabis use, unspecified, uncomplicated; F17.210 Nicotine dependence, cigarettes, uncomplicated; F41.1 Generalized anxiety disorder; F32.9 Major depressive disorder, single episode, unspecified; D72.829 Elevated white blood cell count, unspecified; I10 Essential (primary) hypertension; K44.9 Diaphragmatic hernia without obstruction or gangrene; R00.0 Tachycardia, unspecified
CPT/HCPCS: 36415; 36600; 71045; 80048; 80053; 80307; 81001; 82375; 82805; 83050; 83605; 83690; 83735; 84100; 84484; 85025; 85027; 85055; 85610; 85730; 87040; 88305; 93005; 96361; 96365; 96366; 96367; 96368; 96375; 96376; 99285; A9270; C9113; C9803; G0378; J0131; J0780; J2060; J2405; J2543; J2704; J3411; J3475; J7030; J7120; U0003; U0005

== ENCOUNTER 2021-10-23 02:17 | Inpatient (IN) | payer BC, SELFPAY ==
[2021-10-23] VITALS (29 sets, daily range): BP systolic 131–168; BP diastolic 85–113; PULSE 81–114; RESP 13–22; TEMP 36.3–37.4; O2SAT 87–99
--- NOTE | ~2021-10-23 | XR_ITS ---
EXAMINATION: XR chest 1V portable DATE: 10/23/2021 03:30 INDICATION: Cough. TECHNIQUE: A single frontal view of the chest was obtained. COMPARISON: Chest single view 09/30/2021, CT abdomen and pelvis 08/18/2021 FINDINGS: There is no pneumonia, pleural effusion, or pneumothorax. The heart size is normal. IMPRESSION: 1. No acute cardiopulmonary disease. Reviewed, dictated and finalized at location A.
--- NOTE | 2021-10-23 02:31 | ECG_ITS ---
Measurements Intervals [place] Rate: 87 P: 24 [place]: 193 QRS: 79 QRSD: 109 T: 25 QT: 327 QTc: 394 Interpretive Statements SINUS RHYTHM EARLY REPOLARIZATION [ST ELEVATION WITH NORMALLY INFLECTED T WAVE] COMPARED TO ECG 09/29/2021 00:24:47 THE PATIENT IS NO LONGER TACHYCARDIC Electronically Signed On 10-23-2021 13:38:38 CDT by Carlota Parker M.D.
[2021-10-23] MEDS: THIAMINE HCL 200 MG/2 ML VIAL 100 MG IV PUSH (02:40)
[2021-10-23] MEDS: SODIUM CHLORIDE 0.9% IV 1,000 ML 999 ML IV CONT (02:40)
[2021-10-23] MEDS: PANTOPRAZOLE SODIUM IV 40 MG VIAL IV PUSH (02:42)
--- NOTE | 2021-10-23 02:50 | ED.GENADULT ---
HPI - General Adult General Chief complaint: Alcohol Stated complaint: ETOH withdrawal Time Seen by Provider: 10/23/21 02:23 Source: RN notes reviewed History of Present Illness HPI narrative: Patient presents emergency department from home for alcohol withdrawal. Patient states he has a history of alcohol abuse drinks approximately fifth of whiskey a day. States that he has been to rehab before in the past and at this time has decided that he needs to become sober he states he has 2 children and needs to stop drinking for them he states he has been to [place] for rehab before in the past and states that this is where he will likely need to go back to states that he lacerated his drink 8 hours ago and states he began to feel shaky this evening and came managing as he has a history of seizures with his withdrawals and wishes to become sober denies any fevers or chills chest pain shortness of breath abdominal pain does note some mild nausea at this time Related Data Home Medications Medication Instructions Recorded Confirmed mirtazapine 15 mg tablet 15 mg PO HS 03/29/21 08/19/21 One-A-Day 50 Plus 1 tablet PO DAILY 09/29/21 09/29/21 folic acid 1 mg tablet 1 mg PO DAILY 09/29/21 09/29/21 paroxetine HCl 10 mg tablet 10 mg PO QA 09/29/21 09/29/21 trazodone 150 mg tablet 150 mg PO HS 09/29/21 09/29/21 Allergies Allergy/AdvReac Type Severity Reaction Status Date / Time No Known Allergies Allergy Verified 10/23/21 02:27 Review of Systems Review of Systems: Gen.: Denies fevers or chills ENT: Denies congestion Respiratory: Denies shortness of breath or cough CV: Denies chest pain or palpitations GI: Denies abdominal pain nausea, emesis or diarrhea Musculoskeletal: Denies back pain or muscle pain Neuro: Denies numbness, tingling, reports tremors Skin: Denies rash Except as documented, all other systems reviewed and negative PMF Past Medical History Medical History Alcohol withdrawal seizure Alcoholism Erosive esophagitis Essential hypertension Generalized anxiety disorder History of alcohol abuse Leukocytosis Surgical History Surgical History No pertinent past surgical history Family History Family History Father Hypertension Family history of coronary artery disease Alcohol abuse Mother Family history of diabetes mellitus in first degree relative Alcohol abuse Sibling Family history of diabetes mellitus in first degree relative Alcohol abuse Other Heart disease Social History Social History Social History: The patient lives in his own home. He has 1 son. 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 He smoked about half a pack of cigarettes a day for few years and quit in 2019. He estimates that he started drinking alcohol at the age of 11 and he drinks at least a half a pt of vodka a day. Occasional marijuana use. He designates his mother Andie as his surrogate decision maker and he wishes to be a full code. 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
[2021-10-23 02:52] LABS: Basophils Percent Auto 0.9 % (0.2-1.2); Eosinophils Absolute Auto 0.1 K/mm3 (0-0.3); Eosinophils Percent Auto 2.4 % (0-4.4); Hematocrit 44.5 % (42.0-52.0); Hemoglobin 14.8 g/dL (14.0-18.0); Immature Granulocyte Absolute 0.01 K/mm3 (0.00-0.031); Immature Granulocyte Percent A 0.2 % (0-0.5); Lymphocytes Absolute Auto 2.08 K/mm3 (0.9-3.2); Lymphocytes Percent Auto 45.9 % (18.3-44.2); Mean Corpuscular HGB Conc 33.3 g/dl (32-36); Mean Corpuscular Hemoglobin 33.3 pg (26-34); Mean Corpuscular Volume 100.2 fl (80-100); Mean Platelet Volume 9.4 fl (7.4-10.4); Monocytes Absolute Auto 0.5 K/mm3 (0.1-0.6); Neutrophils Absolute Auto 1.8 K/mm3 (1.3-6.7); Neutrophils Percent Auto 39.6 % (45.5-73.1); Platelet Count Result 153 k/mm3 (150-375); Red Blood Count 4.44 M/mm3 (4.6-6.20); Red Cell Distribution Width 11.9 % (11.5-14.5); White Blood Count 4.5 K/mm3 (4.5-10.0)
--- NOTE | 2021-10-23 02:54 | PC.NURSE ---
pt reports unable to provide urine sample at this time.
[2021-10-23 03:06] LABS: Alanine Aminotransferase 53 U/L (6-50); Albumin Level 4.6 g/dL (3.5-5.1); Alkaline Phosphatase 118 U/L (38-126); Anion Gap 15 mmol/L (8-16); Aspartate Amino Transferase 77 U/L (17-59); Bilirubin,Total 0.2 mg/dL (0.2-1.3); Blood Urea Nitrogen 7 mg/dL (9-20); Calcium 8.2 mg/dL (8.4-10.2); Carbon Dioxide 29 mmol/L (22-30); Chloride 102 mmol/L (98-107); Estimated CRCL calculation 141 ml/min; Estimated Glomerular Filt Rate > 60; Glucose 126 mg/dL (65-110); Magnesium 1.7 mg/dL (1.6-2.3); Potassium 3.7 mmol/L (3.4-5.0); Sodium 146 mmol/L (137-145)
[2021-10-23 03:10] LABS: Appearance Urine Clear (Clear); Bilirubin Urine Negative (Negative); Blood Urine Negative (Negative); Color Urine Yellow (Yellow); Glucose Urine UA Negative (Negative); Ketones Urine Negative (Negative); Leukocyte Esterase Ur Negative LEU/UL (Negative); Nitrate Urine Negative (Negative); Protein Urine 1+ mg/dL (Negative); Specific Grav Ur 1.015 (1.001-1.035); Urobilinogen Urine 0.2 mg/dL (<2.0); pH Urine 8.5 (5.0-9.0)
[2021-10-23 03:15] LABS: INR 0.9; Partial Thromboplastin Time 26.7 SECONDS (22.3-36.8); Prothrombin Time 12.1 Seconds (11.1-14.7)
[2021-10-23 03:19] LABS: Mucus Urine Rare /lpf; RBC Urine 0-2 /hpf (0-2); WBC Urine 0-3 /hpf
[2021-10-23 03:20] LABS: Ethanol 397 mg/dL (<10)
[2021-10-23 03:38] LABS: Add Urine Microscopic? YES
[2021-10-23] MEDS: chlordiazePOXIDE (*CRX) 25 MG CAPSULE 50 MG PO ×4 (04:36→23:09)
--- NOTE | 2021-10-23 05:31 | ADMGEN ---
This patient, Danny Reyna, was admitted to IMU Room 231-01 on 10/23/21 at 0528. Patient/family oriented to hospital policies and general routines including ID bracelet, bed and alarms, visiting hours, pain management, procedures, bathroom and other care routines, personal items, smoking policy, room service/diet, and visiting hours. Information on how to activate the Rapid Response Team has been discussed. Patient/Family are encouraged to report perceived risks to care and to ask questions if they do not understand what they are told or what they should do.
[2021-10-23] MEDS: ONDANSETRON INJ 4 MG/2 ML VIAL IV PUSH ×4 (09:07→21:11)
[2021-10-23] MEDS: LORazepam INJ (*CRX) 2 MG/ML VIAL IV PUSH (09:07)
[2021-10-23] MEDS: POTASSIUM CHLORIDE 20 MEQ TABLET 40 MEQ PO (10:34)
[2021-10-23] MEDS: TOPIRAMATE 25 MG TABLET 50 MG PO (10:39)
[2021-10-23] MEDS: SUCRALFATE SUSP 100 MG/ML 10 ML UDC 1000 MG BY MOUTH ×3 (10:42→21:10)
[2021-10-23] MEDS: GABAPENTIN 300 MG CAPSULE 600 MG PO ×2 (12:54→17:11)
[2021-10-23] MEDS: diazePAM INJ (*CRX) 10 MG/2 ML SYRINGE 5 MG IV PUSH ×3 (12:54→21:11)
--- NOTE | 2021-10-23 14:31 | PM.IMHP ---
H&P: HPI History of Present Illness Date/Time: 10/23/21 14:31 Chief Complaint: Alcohol withdrawal Narrative: ED-HPI narrative: Patient presents emergency department from home for alcohol withdrawal.? Patient states he has a history of alcohol abuse drinks approximately fifth of whiskey a day.? States that he has been to rehab before in the past and at this time has decided that he needs to become sober he states he has 2 children and needs to stop drinking for them he states he has been to [place] for rehab before in the past and states that this is where he will likely need to go back to states that he lacerated his drink 8 hours ago and states he began to feel shaky this evening and came managing as he has a history of seizures with his withdrawals and wishes to become sober denies any fevers or chills chest pain shortness of breath abdominal pain does note some mild nausea at this time patient with history alcohol abuse realizing its time to stop drinking presented to ER for help, patient is placed of Librium and diazepam and monitor with CIWA protocol, also folic acid and thiamine patient has visible tremors, but clinically stable, patient had been to [facility] in the past and had treatment completed the program however he relapsed, he would like to go back to the facility, will talk to social service and possible transferred the patient to the facility on Monday. will continue to monitor. patient admitted as observation status Review of Systems Review of Systems: Gen.: Denies fevers or chills ENT: Denies congestion Respiratory: Denies shortness of breath or cough CV: Denies chest pain or palpitations GI: Denies abdominal pain nausea, emesis or diarrhea Musculoskeletal: Denies back pain or muscle pain Neuro: Denies numbness, tingling, reports tremors Skin: Denies rash Except as documented, all other systems reviewed and negative [facility] Past Medical History Medical History Alcohol withdrawal seizure Alcoholism Erosive esophagitis Essential hypertension Generalized anxiety disorder History of alcohol abuse Leukocytosis Surgical History Surgical History No pertinent past surgical history Family History Family History Father Alcohol abuse Family history of coronary artery disease Hypertension Heart disease Mother Alcohol abuse Family history of diabetes mellitus in first degree relative Hypertension Sibling Alcohol abuse Family history of diabetes mellitus in first degree relative Social History Social History Social History: The patient lives in his own home. He has 1 son. 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 He smoked about half a pack of cigarettes a day for few years and quit in 2019. He estimates that he started drinking alcohol at the age of 11 and he drinks at least a half a pt of vodka a day. Occasional marijuana use. He designates his mother Andie as his surrogate decision maker and he wishes to be a full code. Smoking packs per day: 0.3 Smoking cigarettes per day: 6.0 Years smoked: 19 Smoking pack-years: 5.70 Smoking status: Current every day smoker Tobacco type: cigarettes Second hand tobacco smoke exposure: No Additional smoking assessment comments: Pt states that he smokes about 1 pack per week. 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
[2021-10-23] MEDS: PANTOPRAZOLE 40 MG TABLET PO (17:13)
[2021-10-23] MEDS: traZODone HCL 50 MG TABLET 250 MG PO (21:10)
[2021-10-23] MEDS: METOPROLOL TARTRATE 50 MG TAB PO (21:10)
[2021-10-23] MEDS: MIRTAZAPINE 15 MG TABLET PO (21:10)
[2021-10-24] VITALS (17 sets, daily range): BP systolic 133–152; BP diastolic 91–106; PULSE 75–140; RESP 16–20; TEMP 36–37.3; O2SAT 97–100
[2021-10-24] MEDS: diazePAM INJ (*CRX) 10 MG/2 ML SYRINGE 5 MG IV PUSH ×5 (01:23→21:10)
[2021-10-24] MEDS: ONDANSETRON INJ 4 MG/2 ML VIAL IV PUSH ×5 (01:23→21:11)
[2021-10-24 05:15] LABS: Basophils Percent Auto 0.4 % (0.2-1.2); Eosinophils Absolute Auto 0.1 K/mm3 (0-0.3); Hematocrit 45.9 % (42.0-52.0); Hemoglobin 15.1 g/dL (14.0-18.0); Immature Granulocyte Absolute 0.02 K/mm3 (0.00-0.031); Immature Granulocyte Percent A 0.4 % (0-0.5); Immature Platelet Fraction Pct 4.2 % (0.9-11.2); Lymphocytes Absolute Auto 0.95 K/mm3 (0.9-3.2); Lymphocytes Percent Auto 19.5 % (18.3-44.2); Mean Corpuscular HGB Conc 32.9 g/dl (32-36); Mean Corpuscular Hemoglobin 33.1 pg (26-34); Mean Corpuscular Volume 100.7 fl (80-100); Mean Platelet Volume 10.7 fl (7.4-10.4); Monocytes Absolute Auto 0.4 K/mm3 (0.1-0.6); Monocytes Percent Auto 7.4 % (2.6-8.5); Neutrophils Absolute Auto 3.4 K/mm3 (1.3-6.7); Neutrophils Percent Auto 70.3 % (45.5-73.1); Platelet Count Result 88 k/mm3 (150-375); Red Blood Count 4.56 M/mm3 (4.6-6.20); Red Cell Distribution Width 11.8 % (11.5-14.5); White Blood Count 4.9 K/mm3 (4.5-10.0)
[2021-10-24] MEDS: chlordiazePOXIDE (*CRX) 25 MG CAPSULE 50 MG PO (05:24)
[2021-10-24 05:34] LABS: Alanine Aminotransferase 42 U/L (6-50); Albumin Level 4.7 g/dL (3.5-5.1); Alkaline Phosphatase 111 U/L (38-126); Anion Gap 14 mmol/L (8-16); Aspartate Amino Transferase 52 U/L (17-59); Bilirubin,Total 0.7 mg/dL (0.2-1.3); Blood Urea Nitrogen 6 mg/dL (9-20); Calcium 8.6 mg/dL (8.4-10.2); Carbon Dioxide 24 mmol/L (22-30); Chloride 98 mmol/L (98-107); Estimated CRCL calculation 125 ml/min; Estimated Glomerular Filt Rate > 60; Glucose 93 mg/dL (65-110); Magnesium 1.1 mg/dL (1.6-2.3); Potassium 3.2 mmol/L (3.4-5.0); Sodium 136 mmol/L (137-145)
[2021-10-24] MEDS: SUCRALFATE SUSP 100 MG/ML 10 ML UDC 1000 MG BY MOUTH ×4 (06:20→21:08)
[2021-10-24] MEDS: TOPIRAMATE 25 MG TABLET 50 MG PO (09:55)
[2021-10-24] MEDS: PANTOPRAZOLE 40 MG TABLET PO ×2 (09:55→18:21)
[2021-10-24] MEDS: GABAPENTIN 300 MG CAPSULE 600 MG PO ×3 (09:55→18:20)
[2021-10-24] MEDS: MULTIVITAMINS /C LUTEIN (CENTRUM SILVER) TABLET *BKC 1 TAB PO (09:56)
[2021-10-24] MEDS: MAGNESIUM OXIDE 400 MG TABLET PO (09:56)
[2021-10-24] MEDS: FOLIC ACID 1 MG TABLET PO (09:56)
[2021-10-24] MEDS: THIAMINE HCL 100 MG TABLET PO (09:56)
[2021-10-24] MEDS: METOPROLOL TARTRATE 50 MG TAB PO ×2 (09:56→21:08)
[2021-10-24] MEDS: MAGNESIUM SULF 4 GM/WATER100ML 4 GM/100 ML BAG IVPB (09:57)
[2021-10-24] MEDS: POTASSIUM CHLORIDE 20 MEQ TABLET 40 MEQ PO (09:57)
[2021-10-24] MEDS: METOPROLOL TARTRATE INJ 5 MG/5 ML VIAL IV PUSH (10:14)
[2021-10-24] MEDS: chlordiazePOXIDE (*CRX) 25 MG CAPSULE 100 MG PO (10:30)
--- NOTE | 2021-10-24 13:56 | PM.IMPN ---
Progress Note: A&P Assessment and Plan (1) Alcohol withdrawal: Code(s): F10.939 - Alcohol use, unspecified with withdrawal, unspecified Status: Acute Assessment and Plan: ED-HPI narrative: Patient presents emergency department from home for alcohol withdrawal.? Patient states he has a history of alcohol abuse drinks approximately fifth of whiskey a day.? States that he has been to rehab before in the past and at this time has decided that he needs to become sober he states he has 2 children and needs to stop drinking for them he states he has been to [place] for rehab before in the past and states that this is where he will likely need to go back to states that he lacerated his drink 8 hours ago and states he began to feel shaky this evening and came managing as he has a history of seizures with his withdrawals and wishes to become sober denies any fevers or chills chest pain shortness of breath abdominal pain does note some mild nausea at this time patient with history alcohol abuse realizing its time to stop drinking presented to ER for help, patient is placed of Librium and diazepam and monitor with CIWA protocol, also folic acid and thiamine patient has visible tremors, but clinically stable, patient had been to [facility] in the past and had treatment completed the program however he relapsed, he would like to go back to the facility, will talk to social service and possible transferred the patient to the facility on Monday. will continue to monitor. 10/24/2021 interval history: patient with history alcohol abuse realizing its time to stop drinking presented to ER for help, patient was placed of Librium 50mg q6 and diazepam 5mg IV q4 PRN, and monitor with CIWA protocol, today patient is tachycardy concern patient may be in early stage of DT, will increase librium to 75mg q6 and monitot, also given folic acid and thiamine patient has visible tremors, but clinically stable, patient [facility] in the past and had treatment completed the program however he relapsed, he would like to go back to the facility, will talk to social service and possible transferred the patient to the facility on Monday. will continue to monitor. (2) Essential hypertension: Code(s): I10 - Essential (primary) hypertension Status: Acute Assessment and Plan: will continue home regimen and monitor (3) Withdrawal seizures: Qualifiers: Complication of substance-induced condition: with unspecified complication Qualified Code(s): F19.239 - Other psychoactive substance dependence with withdrawal, unspecified; R56.9 - Unspecified convulsions Code(s): F19.239 - Other psychoactive substance dependence with withdrawal, unspecified; R56.9 - Unspecified convulsions Status: Acute Assessment and Plan: patient remains clinically stable no sign of seizures will continue to monitor Subjective Date/time seen: 10/24/21 13:56 ED-HPI narrative: Patient presents emergency department from home for alcohol withdrawal.? Patient states he has a history of alcohol abuse drinks approximately fifth of whiskey a day.? States that he has been to rehab before in the past and at this time has decided that he needs to become sober he states he has 2 children and needs to stop drinking for them he states he has been to [place] for rehab before in the past and states that this is where he will likely need to go back to states that he lacerated his drink 8 hours ago and states he began to feel shaky this evening and came managing as he has a history of seizures with his withdrawals and wishes to become sober denies any fevers or chills chest pain shortness of breath abdominal pain does note some mild nausea at this time 10/24/2021 interval history: patient with history alcohol abuse realizing its time to stop drinking presented to ER for help, patient was placed of Librium 50mg q6
[2021-10-24] MEDS: chlordiazePOXIDE (*CRX) 25 MG CAPSULE 75 MG PO ×2 (18:18→23:53)
[2021-10-24] MEDS: MIRTAZAPINE 15 MG TABLET PO (21:08)
[2021-10-24] MEDS: traZODone HCL 50 MG TABLET 250 MG PO (21:09)
[2021-10-25] VITALS (17 sets, daily range): BP systolic 105–147; BP diastolic 84–101; PULSE 82–132; RESP 16–35; TEMP 36.3–36.7; O2SAT 95–99
[2021-10-25] MEDS: diazePAM INJ (*CRX) 10 MG/2 ML SYRINGE 5 MG IV PUSH ×5 (01:10→19:57)
[2021-10-25] MEDS: ONDANSETRON INJ 4 MG/2 ML VIAL IV PUSH ×4 (01:10→14:25)
[2021-10-25 05:37] LABS: Hematocrit 48.4 % (42.0-52.0); Hemoglobin 15.8 g/dL (14.0-18.0); Immature Platelet Fraction Pct 7.9 % (0.9-11.2); Mean Corpuscular HGB Conc 32.6 g/dl (32-36); Mean Corpuscular Hemoglobin 33.5 pg (26-34); Mean Corpuscular Volume 102.5 fl (80-100); Mean Platelet Volume 11.8 fl (7.4-10.4); Platelet Count Result 109 k/mm3 (150-375); Red Blood Count 4.72 M/mm3 (4.6-6.20); Red Cell Distribution Width 11.7 % (11.5-14.5); White Blood Count 4.6 K/mm3 (4.5-10.0)
[2021-10-25 05:46] LABS: Alanine Aminotransferase 40 U/L (6-50); Albumin Level 4.8 g/dL (3.5-5.1); Alkaline Phosphatase 122 U/L (38-126); Anion Gap 14 mmol/L (8-16); Aspartate Amino Transferase 48 U/L (17-59); Bilirubin,Total 0.5 mg/dL (0.2-1.3); Blood Urea Nitrogen 7 mg/dL (9-20); Calcium 9.2 mg/dL (8.4-10.2); Carbon Dioxide 24 mmol/L (22-30); Chloride 98 mmol/L (98-107); Estimated CRCL calculation 114 ml/min; Estimated Glomerular Filt Rate > 60; Glucose 126 mg/dL (65-110); Magnesium 2.2 mg/dL (1.6-2.3); Potassium 3.7 mmol/L (3.4-5.0); Sodium 136 mmol/L (137-145)
[2021-10-25] MEDS: chlordiazePOXIDE (*CRX) 25 MG CAPSULE 75 MG PO ×3 (06:05→17:01)
[2021-10-25] MEDS: SUCRALFATE SUSP 100 MG/ML 10 ML UDC 1000 MG BY MOUTH ×4 (06:05→20:01)
[2021-10-25] MEDS: TOPIRAMATE 25 MG TABLET 50 MG PO (09:47)
[2021-10-25] MEDS: MAGNESIUM OXIDE 400 MG TABLET PO (09:48)
[2021-10-25] MEDS: FOLIC ACID 1 MG TABLET PO (09:48)
[2021-10-25] MEDS: METOPROLOL TARTRATE 50 MG TAB PO ×2 (09:48→20:00)
[2021-10-25] MEDS: PANTOPRAZOLE 40 MG TABLET PO ×2 (09:48→16:17)
[2021-10-25] MEDS: MULTIVITAMINS /C LUTEIN (CENTRUM SILVER) TABLET *BKC 1 TAB PO (09:48)
[2021-10-25] MEDS: THIAMINE HCL 100 MG TABLET PO (09:49)
[2021-10-25] MEDS: GABAPENTIN 300 MG CAPSULE 600 MG PO ×3 (09:49→16:17)
[2021-10-25] MEDS: chlordiazePOXIDE (*CRX) 25 MG CAPSULE 50 MG PO (16:17)
--- NOTE | 2021-10-25 17:22 | PC.NURSE ---
Patient CIWA scale drastically increased from 5 in the AM to 27. Patient is experiencing visual and Auditory hallucinations. Dr. Stapleton notified. Gave 2 MG Ativan. 75 Librium.
--- NOTE | 2021-10-25 18:12 | PM.IMPN ---
Progress Note: A&P Assessment and Plan (1) Alcohol withdrawal: Code(s): F10.939 - Alcohol use, unspecified with withdrawal, unspecified Status: Acute Assessment and Plan: ED-HPI narrative: Patient presents emergency department from home for alcohol withdrawal.? Patient states he has a history of alcohol abuse drinks approximately fifth of whiskey a day.? States that he has been to rehab before in the past and at this time has decided that he needs to become sober he states he has 2 children and needs to stop drinking for them he states he has been to [place] for rehab before in the past and states that this is where he will likely need to go back to states that he lacerated his drink 8 hours ago and states he began to feel shaky this evening and came managing as he has a history of seizures with his withdrawals and wishes to become sober denies any fevers or chills chest pain shortness of breath abdominal pain does note some mild nausea at this time patient with history alcohol abuse realizing its time to stop drinking presented to ER for help, patient is placed of Librium and diazepam and monitor with CIWA protocol, also folic acid and thiamine patient has visible tremors, but clinically stable, patient had been to [facility] in the past and had treatment completed the program however he relapsed, he would like to go back to the facility, will talk to social service and possible transferred the patient to the facility on Monday. will continue to monitor. 10/24/2021 interval history: patient with history alcohol abuse realizing its time to stop drinking presented to ER for help, patient was placed of Librium 50mg q6 and diazepam 5mg IV q4 PRN, and monitor with CIWA protocol, today patient is tachycardy concern patient may be in early stage of DT, will increase librium to 75mg q6 and monitot, also given folic acid and thiamine patient has visible tremors, but clinically stable, [facility] and had treatment completed the program however he relapsed, he would like to go back to the facility, will talk to social service and possible transferred the patient to the facility on Monday. will continue to monitor. 10/25/2021 interval history: patient with history alcohol abuse realizing its time to stop drinking presented to ER for help, patient was placed of Librium 50mg q6 and diazepam 5mg IV q4 PRN, and monitor with CIWA protocol, on 10/24 patient was tachycardy concern patient may be in early stage of DT, will increase librium to 75mg q6 and monitored also given folic acid and thiamine, Today patient has visible tremors, currently he is hallucinating, think kids are palying in the room and someone is under bed and wants to pull matteress, patient is given 75mg of libium, 5mg of diazepam, and 2mg of Ativan IV, he now sleeping, but clinically stable, [facility] and had treatment completed the program however he relapsed, he would like to go back to the facility, will talk to social service and possible transferred the patient to the facility. will continue to monitor. (2) Essential hypertension: Code(s): I10 - Essential (primary) hypertension Status: Acute Assessment and Plan: will continue home regimen and monitor (3) Withdrawal seizures: Qualifiers: Complication of substance-induced condition: with unspecified complication Qualified Code(s): F19.239 - Other psychoactive substance dependence with withdrawal, unspecified; R56.9 - Unspecified convulsions Code(s): F19.239 - Other psychoactive substance dependence with withdrawal, unspecified; R56.9 - Unspecified convulsions Status: Acute Assessment and Plan: patient remains clinically stable no sign of seizures will continue to monitor Subjective Date/time seen: 10/25/21 18:12 10/24/2021 interval history:
[2021-10-25] MEDS: LORazepam INJ (*CRX) 2 MG/ML VIAL IV PUSH (19:03)
[2021-10-25] MEDS: traZODone HCL 50 MG TABLET 250 MG PO (20:00)
[2021-10-25] MEDS: MIRTAZAPINE 15 MG TABLET PO (20:01)
[2021-10-25] MEDS: LORazepam (*CRX) 1 MG TABLET PO (21:13)
--- NOTE | 2021-10-25 21:40 | PC.NURSE ---
pt transfered from IMU for precedex drip pt agitated but directable some visual hallucinations. Precedex drip started
--- NOTE | 2021-10-25 21:43 | PC.NURSE ---
This patient, Danny Reyna, was transferred to [ ICU 12] on 10/25/21 at 2143. Personal belongings sent with patient. Report given to [Anjel chavarria ]. Appropriate documentation sent with patient.
[2021-10-25] MEDS: dexmedeTOMIDine 400 MCG/100 ML 400 MCG/100 ML BAG 38.89 MCG IV CONT ×2 (21:53→23:25)
[2021-10-26] VITALS (24 sets, daily range): BP systolic 103–136; BP diastolic 57–101; PULSE 69–105; RESP 12–23; TEMP 36.7–37; O2SAT 95–98
[2021-10-26] MEDS: dexmedeTOMIDine 400 MCG/100 ML 400 MCG/100 ML BAG 38.89 MCG IV CONT (02:23)
[2021-10-26 05:13] LABS: Hematocrit 45.3 % (42.0-52.0); Hemoglobin 14.8 g/dL (14.0-18.0); Immature Platelet Fraction Pct 8.6 % (0.9-11.2); Mean Corpuscular HGB Conc 32.7 g/dl (32-36); Mean Corpuscular Volume 101.1 fl (80-100); Mean Platelet Volume 11.5 fl (7.4-10.4); Platelet Count Result 89 k/mm3 (150-375); Red Blood Count 4.48 M/mm3 (4.6-6.20); Red Cell Distribution Width 11.6 % (11.5-14.5); White Blood Count 2.9 K/mm3 (4.5-10.0)
[2021-10-26 05:22] LABS: Alanine Aminotransferase 39 U/L (6-50); Albumin Level 4.7 g/dL (3.5-5.1); Alkaline Phosphatase 95 U/L (38-126); Anion Gap 13 mmol/L (8-16); Aspartate Amino Transferase 40 U/L (17-59); Bilirubin,Total 0.4 mg/dL (0.2-1.3); Blood Urea Nitrogen 8 mg/dL (9-20); Carbon Dioxide 24 mmol/L (22-30); Chloride 100 mmol/L (98-107); Estimated CRCL calculation 127 ml/min; Estimated Glomerular Filt Rate > 60; Glucose 152 mg/dL (65-110); Potassium 3.4 mmol/L (3.4-5.0); Sodium 137 mmol/L (137-145)
[2021-10-26] MEDS: dexmedeTOMIDine 400 MCG/100 ML 400 MCG/100 ML BAG 18.15 MCG IV CONT (05:42)
[2021-10-26] MEDS: SODIUM CHLORIDE 0.9% IV 1,000 ML 100 ML IV CONT (07:46)
[2021-10-26] MEDS: KCL 20 MEQ/0.45% NS 1,000 ML 100 ML IV CONT ×2 (09:45→20:11)
[2021-10-26] MEDS: FOLIC ACID 1 MG TABLET PO (09:48)
[2021-10-26] MEDS: TOPIRAMATE 25 MG TABLET 50 MG PO (09:48)
[2021-10-26] MEDS: THIAMINE HCL 100 MG TABLET PO (09:48)
[2021-10-26] MEDS: MAGNESIUM OXIDE 400 MG TABLET PO (09:49)
[2021-10-26] MEDS: METOPROLOL TARTRATE 50 MG TAB PO ×2 (09:49→20:06)
[2021-10-26] MEDS: MULTIVITAMINS /C LUTEIN (CENTRUM SILVER) TABLET *BKC 1 TAB PO (09:49)
[2021-10-26] MEDS: SUCRALFATE SUSP 100 MG/ML 10 ML UDC 1000 MG BY MOUTH ×3 (09:50→17:17)
[2021-10-26] MEDS: dexmedeTOMIDine 400 MCG/100 ML 400 MCG/100 ML BAG 10.37 MCG IV CONT (09:55)
[2021-10-26] MEDS: PANTOPRAZOLE 40 MG TABLET PO ×2 (12:00→20:05)
--- NOTE | 2021-10-26 14:08 | PM.IMPN ---
Progress Note: A&P Assessment and Plan (1) Alcohol withdrawal: Code(s): F10.939 - Alcohol use, unspecified with withdrawal, unspecified Status: Acute Assessment and Plan: ED-HPI narrative: Patient presents emergency department from home for alcohol withdrawal.? Patient states he has a history of alcohol abuse drinks approximately fifth of whiskey a day.? States that he has been to rehab before in the past and at this time has decided that he needs to become sober he states he has 2 children and needs to stop drinking for them he states he has been to [place] for rehab before in the past and states that this is where he will likely need to go back to states that he lacerated his drink 8 hours ago and states he began to feel shaky this evening and came managing as he has a history of seizures with his withdrawals and wishes to become sober denies any fevers or chills chest pain shortness of breath abdominal pain does note some mild nausea at this time patient with history alcohol abuse realizing its time to stop drinking presented to ER for help, patient is placed of Librium and diazepam and monitor with CIWA protocol, also folic acid and thiamine patient has visible tremors, but clinically stable, patient had been to [facility] in the past and had treatment completed the program however he relapsed, he would like to go back to the facility, will talk to social service and possible transferred the patient to the facility on Monday. will continue to monitor. 10/24/2021 interval history: patient with history alcohol abuse realizing its time to stop drinking presented to ER for help, patient was placed of Librium 50mg q6 and diazepam 5mg IV q4 PRN, and monitor with CIWA protocol, today patient is tachycardy concern patient may be in early stage of DT, will increase librium to 75mg q6 and monitot, also given folic acid and thiamine patient has visible tremors, but clinically stable, patient had been [facility] in the past and had treatment completed the program however he relapsed, he would like to go back to the facility, will talk to social service and possible transferred the patient to the facility on Monday. will continue to monitor. 10/25/2021 interval history: patient with history alcohol abuse realizing its time to stop drinking presented to ER for help, patient was placed of Librium 50mg q6 and diazepam 5mg IV q4 PRN, and monitor with CIWA protocol, on 10/24 patient was tachycardy concern patient may be in early stage of DT, will increase librium to 75mg q6 and monitored also given folic acid and thiamine, Today patient has visible tremors, currently he is hallucinating, think kids are palying in the room and someone is under bed and wants to pull matteress, patient is given 75mg of libium, 5mg of diazepam, and 2mg of Ativan IV, he now sleeping, but clinically stable, patient had been to [facility] the past and had treatment completed the program however he relapsed, he would like to go back to the facility, will talk to social service and possible transferred the patient to the facility. will continue to monitor. 10/26/2021 interval history: patient with history alcohol abuse realizing its time to stop drinking presented to ER for help, patient was placed of Librium 50mg q6 and diazepam 5mg IV q4 PRN, and monitor with CIWA protocol, on 10/24 patient was tachycardy concern patient may be in early stage of DT, will increase librium to 75mg q6 and monitored also given folic acid and thiamine, Today patient has visible tremors, currently he is hallucinating, think kids are palying in the room and someone is under bed and wants to pull matteress, patient is given 75mg of libium, 5mg of diazepam, and 2mg of Ativan IV, he now sleeping, but clinically stable, however late night on 10/25 patient symptoms worsen and he was in DT, patient was placed on Precedex and transfe
--- NOTE | 2021-10-26 14:46 | WPDCNINT ---
Assessment and Plan Assessment and plan (1) DTs (delirium tremens): Code(s): F10.931 - Alcohol use, unspecified with withdrawal delirium Status: Acute Assessment and Plan: Continue Precedex infusion and slowly wean it down Once Precedex off I will start him on p.r.n. Ativan I will hold p.o. Librium at this time Continue folic acid and thiamine Continue metoprolol Topamax trazodone Will consult professional healthcare representative once medical issues are resolved for placement (2) Alcohol withdrawal: Code(s): F10.939 - Alcohol use, unspecified with withdrawal, unspecified Status: Acute Assessment and Plan: See above (3) Gastritis: Code(s): K29.70 - Gastritis, unspecified, without bleeding Status: Acute Assessment and Plan: Continue PPI b.i.d. (4) Erosive esophagitis: Code(s): K22.10 - Ulcer of esophagus without bleeding Status: Acute Assessment and Plan: Continue PPI b.i.d. 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 He states that he drinks 5th of whiskey every day and has been in to alcohol rehab in the past.? The ED he told physician that he wanted to quit and wants to go to rehab center.? He was feeling shaky and got scared and presented to ER.? In the ER he was found to having alcohol level of 397.? Patient was initially admitted on the floor and was on IV fluids and CIWA protocol with Librium and p.r.n. Valium/ Ativan.? Symptoms worsen and he was transferred to ICU last night due to auditory and visual hallucinations and was initiated on Precedex infusion.? When I saw the patient this morning he was fairly drowsy.? He was arousable on stimulation and was appropriate in answering questions but he would easily fall asleep.? He was AO x3 and denied any complaint except requesting more water to drink.? He followed commands. Limited review of system was obtained due to his mental status.? Patient denied fever, chest pain, shortness of breath, cough, nausea, vomiting, abdominal pain, diarrhea, headache or constipation. [facility] Past Medical History Medical History Alcohol withdrawal seizure Alcoholism Erosive esophagitis Essential hypertension Generalized anxiety disorder History of alcohol abuse Leukocytosis Surgical History Surgical History No pertinent past surgical history Family History Family History Father Alcohol abuse Family history of coronary artery disease Hypertension Heart disease Mother Alcohol abuse Family history of diabetes mellitus in first degree relative Hypertension Sibling Alcohol abuse Family history of diabetes mellitus in first degree relative Social History Social History Social History: The patient lives in his own home. He has 1 son. 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
[2021-10-26] MEDS: traZODone HCL 50 MG TABLET 250 MG PO (20:06)
[2021-10-26] MEDS: LORazepam (*CRX) 1 MG TABLET PO (20:12)
[2021-10-26] MEDS: LORazepam INJ (*CRX) 2 MG/ML VIAL IV PUSH (22:23)
[2021-10-27] VITALS (9 sets, daily range): BP systolic 108–157; BP diastolic 51–88; PULSE 76–100; RESP 17–22; TEMP 36.6–36.7; O2SAT 95–98
[2021-10-27] MEDS: LORazepam INJ (*CRX) 2 MG/ML VIAL IV PUSH ×2 (01:29→05:11)
[2021-10-27 04:52] LABS: Hematocrit 42.6 % (42.0-52.0); Hemoglobin 14.1 g/dL (14.0-18.0); Immature Platelet Fraction Pct 6.7 % (0.9-11.2); Mean Corpuscular HGB Conc 33.1 g/dl (32-36); Mean Corpuscular Hemoglobin 32.9 pg (26-34); Mean Corpuscular Volume 99.5 fl (80-100); Mean Platelet Volume 10.6 fl (7.4-10.4); Platelet Count Result 98 k/mm3 (150-375); Red Blood Count 4.28 M/mm3 (4.6-6.20); Red Cell Distribution Width 11.5 % (11.5-14.5); White Blood Count 2.8 K/mm3 (4.5-10.0)
[2021-10-27 05:05] LABS: Alanine Aminotransferase 43 U/L (6-50); Albumin Level 4.2 g/dL (3.5-5.1); Alkaline Phosphatase 82 U/L (38-126); Anion Gap 13 mmol/L (8-16); Aspartate Amino Transferase 38 U/L (17-59); Bilirubin,Total 0.3 mg/dL (0.2-1.3); Blood Urea Nitrogen 8 mg/dL (9-20); Calcium 8.5 mg/dL (8.4-10.2); Carbon Dioxide 21 mmol/L (22-30); Chloride 103 mmol/L (98-107); Estimated CRCL calculation 127 ml/min; Estimated Glomerular Filt Rate > 60; Glucose 112 mg/dL (65-110); Magnesium 1.7 mg/dL (1.6-2.3); Potassium 3.3 mmol/L (3.4-5.0); Sodium 137 mmol/L (137-145)
[2021-10-27] MEDS: SUCRALFATE SUSP 100 MG/ML 10 ML UDC 1000 MG BY MOUTH (06:50)
[2021-10-27] MEDS: KCL 20 MEQ/0.45% NS 1,000 ML 100 ML IV CONT (06:53)
[2021-10-27] MEDS: MAGNESIUM SULF 2 GM/WATER 50ML 2 GM/50 ML BAG IVPB (07:52)
[2021-10-27] MEDS: POTASSIUM CHLORIDE 20 MEQ TABLET 40 MEQ PO (07:52)
[2021-10-27] MEDS: TOPIRAMATE 25 MG TABLET 50 MG PO (08:03)
[2021-10-27] MEDS: METOPROLOL TARTRATE 50 MG TAB PO (08:04)
[2021-10-27] MEDS: MAGNESIUM OXIDE 400 MG TABLET PO (08:04)
[2021-10-27] MEDS: MULTIVITAMINS /C LUTEIN (CENTRUM SILVER) TABLET *BKC 1 TAB PO (08:04)
[2021-10-27] MEDS: PANTOPRAZOLE 40 MG TABLET PO (08:04)
[2021-10-27] MEDS: FOLIC ACID 1 MG TABLET PO (08:04)
[2021-10-27] MEDS: THIAMINE HCL 100 MG TABLET PO (08:04)
--- NOTE | 2021-10-27 09:10 | WPDINTPN ---
Progress Note: A&P Assessment and Plan (1) DTs (delirium tremens): Code(s): F10.931 - Alcohol use, unspecified with withdrawal delirium Status: Acute Assessment and Plan: Precedex infusion weaned off Continue p.r.n. Ativan I will hold p.o. Librium at this time Continue folic acid and thiamine Continue metoprolol Topamax trazodone (2) Alcohol withdrawal: Code(s): F10.939 - Alcohol use, unspecified with withdrawal, unspecified Status: Acute Assessment and Plan: See above (3) Gastritis: Code(s): K29.70 - Gastritis, unspecified, without bleeding Status: Acute Assessment and Plan: Continue PPI b.i.d. (4) Erosive esophagitis: Code(s): K22.10 - Ulcer of esophagus without bleeding Status: Acute Assessment and Plan: Continue PPI b.i.d. (5) Essential hypertension: Code(s): I10 - Essential (primary) hypertension Status: Acute Assessment and Plan: Continue metoprolol (6) Thrombocytopenia: Code(s): D69.6 - Thrombocytopenia, unspecified Status: Chronic Assessment and Plan: Recurrent likely from alcohol abuse Improving Monitor (7) Leukopenia: Code(s): D72.819 - Decreased white blood cell count, unspecified Status: Acute Assessment and Plan: Recurrent - likely from alcohol abuse Improving Monitor Plan DVT prophylaxis -SCDs due to thrombocytopenia Stress ulcer prophylaxis -patient already on PPI Nutrition -regular diet Code Status - Full Code Transfer out of ICU today Subjective Date/time seen: 10/27/21 09:10 He states he feels fine today and denies any complaints. Denies any hallucinations or tremors at this time. Slept adequately. Patient denies fever, chest pain, shortness of breath, cough, nausea vomiting, abdominal pain,, diarrhea, headache or constipation. All other systems were reviewed and were negative Afebrile, Urine output adequate and vital signs stable Remained off of Precedex infusion since yesterday He states he is ready to go to rehab Review of Systems Review of Systems: All systems reviewed & are unremarkable except as noted in HPI and below (HPI) Exam Narrative: General: Pt is alert awake and in NAD Lungs/Chest: Trachea central Clear BS B/L, No crackles or wheezing. Cardiac: RRR. Normal S1 S2. No murmurs Circulation: Pedal pulses are intact and symmetrical. Abdomen: Normal bowel sounds.. Soft. NT. ND. Extremities: No clubbing, cyanosis or edema. Warm : Holloway in place Neurologic: Alert awake Follows commands. Moves all 4 extremities PERRL AO x3 no tremors Skin: No Rash Objective Data Vital Signs Vital Signs: Vital Signs - 24 hr 10/26/21 09:49 10/26/21 09:52 10/26/21 09:55 Temperature Pulse Rate 79 82 81 Pulse Rate [Monitor] Respiratory Rate 14 18 Blood Pressure Pulse Oximetry Oxygen Delivery 10/26/21 10:00 10/26/21 12:00 10/26/21 12:00 Temperature Pulse Rate 82 69 Pulse Rate [Monitor] Respiratory Rate 18 Blood Pressure Pulse Oximetry 97 Oxygen Delivery Room Air 10/26/21 14:00 10/26/21 12:00 10/26/21 14:00 Temperature 36.9 C Pulse Rate 72 69 73 Pulse Rate [Monitor] Respiratory Rate 15 18 21 H Blood Pressure 136/101 H 103/76 Pulse Oximetry 97 98 Oxygen Delivery 10/26/21 12:00 10/26/21 14:00 10/26/21 15:03 Temperature Pulse Rate 71 73 82 Pulse Rate [Monitor] Respiratory Rate 23 H Blood Pressure Pulse Oximetry Oxygen Delivery 10/26/21 16:00 10/26/21 16:00 10/26/21 16:00 Temperature 37.0 C Pulse Rate 76 Pulse Rate [Monitor] 76 Respiratory Rate 12 Blood Pressure 119/86 119/86 Pulse Oximetry 97 97 Oxygen Delivery Room Air 10/26/21 16:00 10/26/21 20:06 10/26/21 20:00 Temperature Pulse Rate 76 90 Pulse Rate [Monitor] Respiratory Rate Blood Pressure Pulse Oximetry Oxygen Delivery Room Air 10/27/21 00:00 10/05
--- NOTE | 2021-10-27 11:11 | PC.NURSE ---
Dr. Stapleton to bedside. to place orders to discharge. Patient removing telemetry and getting dressed at this time.
--- NOTE | 2021-10-27 11:24 | PM.DS ---
DS: Admitting Diagnosis Discharge Date 10/27/2021 Admitting Diagnosis alcohol withdrawal DS: Discharge Diagnosis Discharge Diagnosis (1) DTs (delirium tremens): Code(s): F10.931 - Alcohol use, unspecified with withdrawal delirium Status: Acute Assessment and Plan: Precedex infusion weaned off Continue p.r.n. Ativan I will hold p.o. Librium at this time Continue folic acid and thiamine Continue metoprolol Topamax trazodone (2) Alcohol withdrawal: Code(s): F10.939 - Alcohol use, unspecified with withdrawal, unspecified Status: Acute Assessment and Plan: See above (3) Gastritis: Code(s): K29.70 - Gastritis, unspecified, without bleeding Status: Acute Assessment and Plan: Continue PPI b.i.d. (4) Erosive esophagitis: Code(s): K22.10 - Ulcer of esophagus without bleeding Status: Acute Assessment and Plan: Continue PPI b.i.d. (5) Essential hypertension: Code(s): I10 - Essential (primary) hypertension Status: Acute Assessment and Plan: Continue metoprolol (6) Thrombocytopenia: Code(s): D69.6 - Thrombocytopenia, unspecified Status: Chronic Assessment and Plan: Recurrent likely from alcohol abuse Improving Monitor (7) Leukopenia: Code(s): D72.819 - Decreased white blood cell count, unspecified Status: Acute Assessment and Plan: Recurrent - likely from alcohol abuse Improving Monitor Plan DVT prophylaxis -SCDs due to thrombocytopenia Stress ulcer prophylaxis -patient already on PPI Nutrition -regular diet Code Status - Full Code Transfer out of ICU today DS: Summary Hospital Course Reason for hospitalization: ED-HPI narrative: Patient presents emergency department from home for alcohol withdrawal.? Patient states he has a history of alcohol abuse drinks approximately fifth of whiskey a day.? States that he has been to rehab before in the past and at this time has decided that he needs to become sober he states he has 2 children and needs to stop drinking for them he states he has been to [place] for rehab before in the past and states that this is where he will likely need to go back to states that he lacerated his drink 8 hours ago and states he began to feel shaky this evening and came managing as he has a history of seizures with his withdrawals and wishes to become sober denies any fevers or chills chest pain shortness of breath abdominal pain does note some mild nausea at this time patient with history alcohol abuse realizing its time to stop drinking presented to ER for help, patient is placed of Librium and diazepam and monitor with CIWA protocol, also folic acid and thiamine? patient has visible tremors, but clinically stable, [facility] and had treatment completed the program however he relapsed, he would like to go back to the facility, will? talk to social service and possible transferred the patient to the facility on Monday. will continue to monitor. ? Hospital Course: patient with history alcohol abuse realizing its time to stop drinking presented to ER for help, patient was placed of Librium 50mg q6 and diazepam 5mg IV q4 PRN,? and monitor with CIWA protocol, on 10/24 patient was tachycardy concern patient may be in early stage of DT, will increase librium to 75mg q6 and monitored? also given? folic acid and thiamine,? Today? patient has visible tremors, currently he is hallucinating, think kids are palying in the room and someone is under bed and wants to pull matteress, patient is given 75mg of libium, 5mg of diazepam, and 2mg of Ativan IV, he now sleeping,? but clinically stable, however late night on 10/25 patient symptoms worsen and he was in DT, patient was placed on Precedex and transferred to ICU, currently sleeping, unable to provide any ROS, will monitor and wean patient off Precedex as tolerated. today patient is f
== END 2021-10-27 11:44 | disposition home or self-care (01) | DRG 775 ==
LOC: ANHED 05:04 → ANHIMU 05:05 → ANHICU 10-25 21:41
PROVIDERS: Admitting Provider Internal Medicine; Emergency Provider Emergency Medicine; Visit Provider Family Medicine
DX: F10.131 Alcohol abuse with withdrawal delirium (principal); G40.89 Other seizures; F41.1 Generalized anxiety disorder; I10 Essential (primary) hypertension; D69.59 Other secondary thrombocytopenia; D72.818 Other decreased white blood cell count; E66.9 Obesity, unspecified; Z68.35 Body mass index [BMI] 35.0-35.9, adult; Z87.891 Personal history of nicotine dependence
CPT/HCPCS: 36415; 71045; 80053; 80307; 81001; 83735; 85025; 85027; 85055; 85610; 85730; 93005; 96361; 96365; 96366; 96367; 96375; 96376; 99285; A9270; C9113; G0378; J0131; J2060; J2405; J3360; J3411; J3475; J7030

== ENCOUNTER 2021-11-11 14:41 | Observation (INO) | payer BC, SELFPAY ==
[2021-11-11] VITALS (17 sets, daily range): BP systolic 105–159; BP diastolic 58–110; PULSE 83–99; RESP 13–34; TEMP 36.3–37.2; O2SAT 93–98; BMI 36.3; BMI 36.7
--- NOTE | 2021-11-11 15:15 | PC.NURSE ---
1516 SEIZURE PADS APPLIED TO BED PRECAUTIONS
[2021-11-11 15:44] LABS: Basophils Percent Auto 0.5 % (0.2-1.2); Eosinophils Absolute Auto 0.1 K/mm3 (0-0.3); Eosinophils Percent Auto 0.8 % (0-4.4); Hematocrit 44.9 % (42.0-52.0); Hemoglobin 14.9 g/dL (14.0-18.0); Immature Granulocyte Absolute 0.02 K/mm3 (0.00-0.031); Immature Granulocyte Percent A 0.3 % (0-0.5); Lymphocytes Absolute Auto 1.09 K/mm3 (0.9-3.2); Lymphocytes Percent Auto 14.7 % (18.3-44.2); Mean Corpuscular HGB Conc 33.2 g/dl (32-36); Mean Corpuscular Volume 96.6 fl (80-100); Mean Platelet Volume 9.7 fl (7.4-10.4); Monocytes Absolute Auto 0.4 K/mm3 (0.1-0.6); Monocytes Percent Auto 5.9 % (2.6-8.5); Neutrophils Absolute Auto 5.8 K/mm3 (1.3-6.7); Neutrophils Percent Auto 77.8 % (45.5-73.1); Platelet Count Result 273 k/mm3 (150-375); Red Blood Count 4.65 M/mm3 (4.6-6.20); Red Cell Distribution Width 12.2 % (11.5-14.5); White Blood Count 7.4 K/mm3 (4.5-10.0)
[2021-11-11 15:57] LABS: Ethanol 180 mg/dL (<10)
[2021-11-11 15:59] LABS: Alanine Aminotransferase 40 U/L (6-50); Albumin Level 4.7 g/dL (3.5-5.1); Alkaline Phosphatase 116 U/L (38-126); Anion Gap 22 mmol/L (8-16); Aspartate Amino Transferase 50 U/L (17-59); Bilirubin,Total 0.4 mg/dL (0.2-1.3); Blood Urea Nitrogen 7 mg/dL (9-20); Carbon Dioxide 22 mmol/L (22-30); Chloride 96 mmol/L (98-107); Estimated CRCL calculation 136 ml/min; Estimated Glomerular Filt Rate > 60; Glucose 113 mg/dL (65-110); Potassium 3.6 mmol/L (3.4-5.0); Sodium 140 mmol/L (137-145)
[2021-11-11] MEDS: SODIUM CHLORIDE 0.9% IV 1,000 ML 999 ML IV CONT (16:46)
[2021-11-11] MEDS: THIAMINE HCL 200 MG/2 ML VIAL 100 MG IV PUSH (16:46)
[2021-11-11] MEDS: ONDANSETRON INJ 4 MG/2 ML VIAL IV PUSH ×2 (16:46→23:39)
[2021-11-11] MEDS: LORazepam INJ (*CRX) 2 MG/ML VIAL 1 MG IV PUSH (16:57)
--- NOTE | 2021-11-11 17:00 | ED.GENADULT ---
HPI - General Adult General Chief complaint: Alcohol Stated complaint: etoh withdrawl Time Seen by Provider: 11/11/21 15:10 History of Present Illness HPI narrative: 31-year-old male with history of alcoholism presenting the emergency department seeking detox and having some alcohol withdrawal. Patient has had multiple hospitalizations for alcohol withdrawal and detox. Patient states he drinks 1/5 to a gallon of whiskey a day. Patient states his last alcohol was just a few hours prior to arrival. Related Data Home Medications Medication Instructions Recorded Confirmed pantoprazole 40 mg tablet,delayed 40 mg PO BID 10/23/21 11/11/21 release (Protonix) sucralfate 100 mg/mL oral See Rx Instructions .Route .COMPLEX 10/23/21 11/11/21 suspension topiramate 50 mg tablet 50 mg PO QAM 10/23/21 11/11/21 trazodone 100 mg tablet 100 mg PO HS 10/23/21 11/11/21 Allergies Allergy/AdvReac Type Severity Reaction Status Date / Time No Known Allergies Allergy Verified 10/23/21 06:01 Review of Systems Review of Systems: CONSTITUTIONAL: Generalized weakness EYES: Denies visual changes, redness, or discharge. ENT: Denies rhinorrhea, congestion, sore throat, or otalgia. CARDIOVASCULAR: Denies chest pain, palpitations, or edema. RESPIRATORY: Denies cough or dyspnea. GASTROINTESTINAL: See HPI GENITOURINARY: Denies dysuria or hematuria. SKIN: Denies rash or itching. MUSCULOSKELETAL: Denies back pain, joint pain, or myalgia. NEUROLOGIC: Denies headache, numbness, or weakness. [facility] Past Medical History Medical History Alcohol withdrawal seizure Alcoholism Erosive esophagitis Essential hypertension Generalized anxiety disorder History of alcohol abuse Leukocytosis Surgical History Surgical History No pertinent past surgical history Family History Family History Father Alcohol abuse Family history of coronary artery disease Hypertension Heart disease Mother Alcohol abuse Family history of diabetes mellitus in first degree relative Hypertension Sibling Alcohol abuse Family history of diabetes mellitus in first degree relative Social History Social History Social History: The patient lives in his own home. He has 1 son. 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 He smoked about half a pack of cigarettes a day for few years and quit in 2019. He estimates that he started drinking alcohol at the age of 11 and he drinks at least a half a pt of vodka a day. Occasional marijuana use. He designates his mother Andie as his surrogate decision maker and he wishes to be a full code. Smoking packs per day: 0.3 Smoking cigarettes per day: 6.0 Years smoked: 19 Smoking pack-years: 5.70 Smoking status: Current every day smoker Second hand tobacco smoke exposure: No Additional smoking assessment comments: Pt states that he smokes about 1 pack per week. Alcohol intake: current Drinks per week: 50 Substance use: current Substance use type: marijuana Other substance usage details: 5th of liquor a day Last use: 1/5 Whiskey daily Additional occupation/education comments: works as a fork fork lift mechanic Sexual Orientation (if Verbalized by the Patient): Straight or Heterosexual Spiritual care concerns: No Exam Narrative: APPEARANCE: Well appearing, no pain, no distress, well-nourished. HEAD: normocephalic, atraumatic. EYES: PERRLA/EOMI, conjunctivae clear. NOSE: Normal no drainage THROAT: Pharynx clear, no exudate. NECK: Supple. No adenopathy, no masses. RESPIRATORY: Airway patent, respirations nonlabored. Clear to auscultation bilaterally, no rales, rhonchi, wheezing. CARDIOVASCULAR: Regular rate and rhythm without murmurs rubs or gallops. ABDOMINAL:
--- NOTE | 2021-11-11 18:30 | ADMGEN ---
This patient, Danny Reyna, was admitted to IMU Room 231-01 at 1830 on 11/11/2021. Patient/family oriented to hospital policies and general routines including ID bracelet, bed and alarms, visiting hours, pain management, procedures, bathroom and other care routines, personal items, smoking policy, room service/diet, and visiting hours. Information on how to activate the Rapid Response Team has been discussed. Patient/Family are encouraged to report perceived risks to care and to ask questions if they do not understand what they are told or what they should do.
--- NOTE | 2021-11-11 18:44 | PM.IMHP ---
H&P: HPI History of Present Illness Date/Time: 11/11/21 18:44 Chief Complaint: Alcohol withdrawal Narrative: This is a 31-year-old male patient with a history of alcoholism and hypertension. The patient has been admitted on several occasions due to alcohol withdrawal. The patient came in today and his hands were shaky and he was nauseated. The patient denies any hallucinations at this time. The patient does have a tendency to end up in ICU on a Precedex drip. Patient's alcohol level is 180. The patient stated that he has cut down from a gal of whiskey a day to half a gal of whiskey a day. The patient was given Zofran, thiamin, Ativan and IV fluids in the emergency room. The ED provider did speak with the cutting machine tender who suggested that we place the patient in IMU for now. The patient is being admitted to IMU as an observation on the date of service of 11/11/2021. Review of Systems Review of Systems: See HPI All systems reviewed & are unremarkable except as noted in HPI and below Constitutional: Constitutional: Reports as per HPI and Reports no additional constitutional complaints Eyes: Eyes: Reports as per HPI and Reports no additional eye complaints ENT: Reports system reviewed and no additional complaints, except as documented and Reports Normal hearing present Cardiovascular: Cardiovascular: Reports no additional cardiovascular complaints Respiratory: Respiratory: Reports no additional respiratory complaints and Reports no additional respiratory complaints Gastrointestinal: Gastrointestinal: Reports as per HPI and Reports no additional gastrointestinal complaints Musculoskeletal: Musculoskeletal: Reports no additional musculoskeletal complaints Integumentary/Breasts: Skin/Breast: Reports system reviewed and no additional complaints, except as docu and Reports as per HPI Neurologic: Reports system reviewed and no additional complaints, except as documented, Reports as per HPI and Reports Normal hearing present Psychiatric: Psychiatric: Reports no additional psychiatric complaints and Reports as per HPI Endocrine: Endocrine: Reports no additional endocrine complaints Hematologic/Lymphatic: Hematologic/Lymphatic: Reports no additional hematologic/lymphatic complaints Allergic/Immunologic: Allergic/Immunologic: Reports no additional allergic/immunologic complaints [facility] Past Medical History Medical History (Updated 11/11/21 @ 19:25 by Sherron Knight NP) Acute renal failure Alcohol abuse Alcohol intoxication Alcohol withdrawal seizure Alcoholism Aspiration pneumonia Contusion of face Erosive esophagitis Essential hypertension Generalized anxiety disorder History of alcohol abuse Hyperammonemia Hypertension Hypokalemia Leukocytosis Periapical abscess Tachycardia Transaminitis Surgical History Surgical History No pertinent past surgical history Family History Family History Father Alcohol abuse Family history of coronary artery disease Hypertension Heart disease Mother Alcohol abuse Family history of diabetes mellitus in first degree relative Hypertension Sibling Alcohol abuse Family history of diabetes mellitus in first degree relative Social History Social History Social History: The patient lives in his own home. He has 1 son. 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 He smoked about half a pack of cigarettes a day for few years and quit in 2019. He estimates that he started drinking alcohol at the age of 11 and he drinks at least a half a pt of vodka a day. Occasional marijuana use. He designates his mother Andie as his surrogate decision maker and he wishes to be a full code. Smoking packs per day: 0.3 Smoking cigarettes per day: 6.0 Years smoked: 19 Smoking pack
[2021-11-11] MEDS: LORazepam INJ (*CRX) 2 MG/ML VIAL IV PUSH ×2 (18:57→23:21)
[2021-11-11] MEDS: THIAMINE HCL INJ 100 MG, FOLIC ACID INJ 1 MG, MULTIVITAMINS-12 INJ VIAL 1 5 ML, MULTIVI... 125 MG IV CONT (20:23)
[2021-11-11] MEDS: DEXTROSE 5%/0.9% SOD CHL 1,000 ML 125 ML IV CONT (20:23)
[2021-11-11] MEDS: PANTOPRAZOLE SODIUM IV 40 MG VIAL IV PUSH (20:24)
[2021-11-11] MEDS: SUCRALFATE SUSP 100 MG/ML 10 ML UDC BY MOUTH (21:57)
[2021-11-11] MEDS: METOPROLOL TARTRATE 50 MG TAB PO (21:58)
[2021-11-11] MEDS: chlordiazePOXIDE (*CRX) 25 MG CAPSULE 75 MG PO (23:21)
[2021-11-11] MEDS: traZODone HCL 50 MG TABLET 250 MG PO (23:22)
[2021-11-11 23:45] LABS: Glucose Point of Care 91 mg/dl (65-105)
[2021-11-12] VITALS (15 sets, daily range): BP systolic 125–147; BP diastolic 73–90; PULSE 81–110; RESP 14–22; TEMP 36.2–37.3; O2SAT 95–97
[2021-11-12 04:41] LABS: Basophils Percent Auto 0.4 % (0.2-1.2); Eosinophils Absolute Auto 0.1 K/mm3 (0-0.3); Eosinophils Percent Auto 1.1 % (0-4.4); Hematocrit 37.2 % (42.0-52.0); Hemoglobin 12.4 g/dL (14.0-18.0); Immature Granulocyte Absolute 0.01 K/mm3 (0.00-0.031); Immature Granulocyte Percent A 0.2 % (0-0.5); Lymphocytes Absolute Auto 1.04 K/mm3 (0.9-3.2); Lymphocytes Percent Auto 21.8 % (18.3-44.2); Mean Corpuscular HGB Conc 33.3 g/dl (32-36); Mean Corpuscular Hemoglobin 32.3 pg (26-34); Mean Corpuscular Volume 96.9 fl (80-100); Mean Platelet Volume 9.7 fl (7.4-10.4); Monocytes Absolute Auto 0.5 K/mm3 (0.1-0.6); Monocytes Percent Auto 10.1 % (2.6-8.5); Neutrophils Absolute Auto 3.2 K/mm3 (1.3-6.7); Neutrophils Percent Auto 66.4 % (45.5-73.1); Platelet Count Result 135 k/mm3 (150-375); Red Blood Count 3.84 M/mm3 (4.6-6.20); Red Cell Distribution Width 11.9 % (11.5-14.5); White Blood Count 4.8 K/mm3 (4.5-10.0)
[2021-11-12 04:49] LABS: Glucose Point of Care 91 mg/dl (65-105)
[2021-11-12 04:50] LABS: Lactic Acid Reflex 0.6 mmol/L (0.7-2.0)
[2021-11-12 05:09] LABS: Alanine Aminotransferase 34 U/L (6-50); Albumin Level 3.6 g/dL (3.5-5.1); Alkaline Phosphatase 91 U/L (38-126); Anion Gap 11 mmol/L (8-16); Aspartate Amino Transferase 39 U/L (17-59); Bilirubin,Total 0.8 mg/dL (0.2-1.3); Blood Urea Nitrogen 7 mg/dL (9-20); CRP < 0.5 mg/dL (<1.0); Calcium 7.5 mg/dL (8.4-10.2); Carbon Dioxide 20 mmol/L (22-30); Chloride 100 mmol/L (98-107); Estimated CRCL calculation 146 ml/min; Estimated Glomerular Filt Rate > 60; Glucose 73 mg/dL (65-110); Lactate Dehydrogenase 174 U/L (120-246); Phosphorus 2.6 mg/dL (2.5-4.5); Potassium 3.5 mmol/L (3.4-5.0); Sodium 131 mmol/L (137-145)
[2021-11-12] MEDS: SUCRALFATE SUSP 100 MG/ML 10 ML UDC BY MOUTH ×4 (05:46→20:11)
[2021-11-12] MEDS: chlordiazePOXIDE (*CRX) 25 MG CAPSULE 75 MG PO ×4 (05:47→23:06)
[2021-11-12] MEDS: LORazepam INJ (*CRX) 2 MG/ML VIAL IV PUSH ×3 (06:06→22:33)
[2021-11-12] MEDS: DEXTROSE 5%/0.9% SOD CHL 1,000 ML 125 ML IV CONT ×2 (10:05→20:43)
[2021-11-12] MEDS: MAGNESIUM OXIDE 400 MG TABLET PO (10:06)
[2021-11-12] MEDS: ENOXAPARIN 40 MG/0.4 ML SYRINGE SUB-Q (10:06)
[2021-11-12] MEDS: FOLIC ACID 1 MG TABLET PO (10:06)
[2021-11-12] MEDS: TOPIRAMATE 25 MG TABLET 50 MG PO (10:07)
[2021-11-12] MEDS: METOPROLOL TARTRATE 50 MG TAB PO ×2 (10:07→20:10)
[2021-11-12] MEDS: THIAMINE HCL 100 MG TABLET PO (10:07)
--- NOTE | 2021-11-12 12:03 | PM.IMPN ---
Progress Note: A&P Assessment and Plan (1) Alcohol withdrawal: Code(s): F10.939 - Alcohol use, unspecified with withdrawal, unspecified Status: Acute Assessment and Plan: -the patient is up to Librium 75 mg p.r.n. -Ativan p.r.n. -may consider Haldol -monitor magnesium and electrolytes -banana bag -continue with folic acid -continue with on -managed care coordinator consult (2) Gastritis: Code(s): K29.70 - Gastritis, unspecified, without bleeding Status: Acute Assessment and Plan: -IV protonix (3) Essential hypertension: Code(s): I10 - Essential (primary) hypertension Status: Acute Assessment and Plan: -continue with metoprolol -p.r.n. hydralazine (4) Generalized anxiety disorder: Code(s): F41.1 - Generalized anxiety disorder Status: Acute Assessment and Plan: -p.r.n. Ativan -continue trazodone Subjective Date/time seen: 11/12/21 12:03 no complaints Exam Const: General: cooperative, comfortable, no acute distress, well developed, alert, awake and Physically active Nutritional Appearance: average body habitus and well nourished Orientation/consciousness: oriented to person, oriented to place, oriented to time and patient oriented x3 Limitations: no limitations HENMT: Head: normal to inspection, No palpable skull fracture present, normocephalic and atraumatic Ears: hearing grossly normal bilaterally, external ears normal and TM's normal bilaterally General nose exam: Normal external nose present and Normal nares present Eyes: General: appearance normal, both eyes and all related structures Alignment and Position: alignment normal Periorbital: periorbital findings normal Eyelids: eyelids normal Pupils: Equal, round and reactive pupils present EOM: EOMs intact bilaterally Neck: Neck: normal visual inspection, full ROM, no lymphadenopathy, trachea midline and supple Chest: Chest palpation & inspection: normal inspection of the chest Resp: Effort & Inspection: normal respiratory effort Auscultation: clear to auscultation bilaterally Cardio: Palpation: normal PMI Rate: regular rate Rhythm: regular rhythm Heart sounds: S1 normal heart sound present and S2 normal heart sound present Peripheral pulses: Peripheral pulses 2+ throughout GI: Inspection: normal to inspection Auscultation: normal bowel sounds Rectal Exam: deferred Back/Spine/Pelvis: Cervical Spine: cervical ROM normal Skin: General skin exam: normal color Lesions: no lesions Rashes: no rashes Trauma: no lacerations or abrasions Wounds: no wounds Hair: normal Nails: normal Neuro: General: oriented to person, oriented to place, oriented to time and patient oriented x3 Cranial nerves: Yes Equal, round and reactive pupils present and Yes Normal hearing present Cognition (Neuro): normal cognition Speech: normal speech Gait exam (Neuro): Normal gait present Motor exam (neuro): 5/5 motor strength present throughout Sensory Exam: normal sensation Other: Bilateral hand tremor Extrem: General: normal to inspection Right upper extremity: normal to inspection and shoulder/upper arm Left upper extremity: normal to inspection and shoulder/upper arm Right lower extremity: normal to inspection Left lower extremity: normal to inspection Psych: Appearance: grossly normal Mental Status: mental status grossly normal Speech and movement: Normal speech and movement present Affect: normal affect Attitude: cooperative Thought process: Normal thought process present Insight: Good insight present (Psych) Judgement: Good judgement present (Psych) Objective Data Vital Signs Vital Signs: Vital Signs - 24 hr 11/11/21 15:01 11/11/21 15:16 11/11/21 15:20 Temperature 98.7 F 97.3 F L Pulse Rate 86 85 93 Respiratory Rate 16 16 13 Blood Pressure 146/99 H 143/101 H 143/101 H Pulse Oximetry 98 95 96 Oxygen Delivery Room Air Room Air 11/11/21 15:31 11/11/21 15:46 11/11/21 16:06
[2021-11-12 12:52] LABS: Glucose Point of Care 130 mg/dl (65-105)
[2021-11-12 19:28] LABS: Glucose Point of Care 146 mg/dl (65-105)
[2021-11-12] MEDS: PANTOPRAZOLE SODIUM IV 40 MG VIAL IV PUSH (20:11)
[2021-11-12] MEDS: traZODone HCL 50 MG TABLET 250 MG PO (20:11)
[2021-11-12 23:35] LABS: Glucose Point of Care 138 mg/dl (65-105)
[2021-11-13] VITALS: PULSE 85
[2021-11-13] MEDS: LORazepam INJ (*CRX) 2 MG/ML VIAL IV PUSH (02:49)
[2021-11-13 02:54] VITALS: BP 135/86; PULSE 83
[2021-11-13 03:45] VITALS: PULSE 83
[2021-11-13 04:19] VITALS: PULSE 100
[2021-11-13 05:19] VITALS: PULSE 100
--- NOTE | 2021-11-13 05:29 | PC.NURSE ---
pt requesting the leave ama, informed charge nurse Md Koery [place] and [place] superior informed as well.
--- NOTE | 2021-11-13 05:40 | PC.NURSE ---
pt aggitated A&ox3, requesting to leave AMA, MD new notified, warehouse packaging supervisor notified, charge nurse notified, ama form signed. iv removed.
[2021-11-13 05:42] VITALS: BP 137/93; PULSE 96; RESP 18; TEMP 36.5; O2SAT 97
--- NOTE | 2021-11-30 22:13 | PM.EVENT ---
Event Note Event Note Event Note: I was called after patient wanted to leave the hospital in view that patient has decision making capacity it was ok Patient walked out of the hospital leaving AMA.
== END 2021-11-13 05:40 | disposition home or self-care (01) ==
LOC: ANHED 15:52 → ANHIMU 17:51 → ANH3MEDSUR 11-12 14:11
PROVIDERS: Nurse Practitioner; Admitting Provider Hospitalist; Emergency Provider Emergency Medicine; Visit Provider Hospitalist
DX: F10.239 Alcohol dependence with withdrawal, unspecified (principal); Y90.6 Blood alcohol level of 120-199 mg/100 ml; K29.70 Gastritis, unspecified, without bleeding; I10 Essential (primary) hypertension; F41.1 Generalized anxiety disorder; Z53.29 Procedure and treatment not carried out because of patient's decision for other reasons; F17.210 Nicotine dependence, cigarettes, uncomplicated; F12.90 Cannabis use, unspecified, uncomplicated; Z79.899 Other long term (current) drug therapy; Z81.1 Family history of alcohol abuse and dependence; Z82.49 Family history of ischemic heart disease and other diseases of the circulatory system
CPT/HCPCS: 36415; 80053; 80307; 82728; 82948; 83605; 83615; 83735; 84100; 84443; 85025; 86140; 96361; 96365; 96366; 96372; 96374; 96375; 96376; 99285; A9270; C9113; G0378; J1650; J2060; J2405; J3411; J3475; J7030; J7042

== ENCOUNTER 2021-11-13 21:34 | Inpatient (IN) | payer BC, SELFPAY ==
[2021-11-13] VITALS (8 sets, daily range): BP systolic 140; BP diastolic 93; PULSE 106–125; RESP 15–24; TEMP 36.9; O2SAT 95–98
--- NOTE | 2021-11-13 22:11 | ED.GENADULT ---
HPI - General Adult General Chief complaint: Alcohol Stated complaint: Alcohol Withdrawl Time Seen by Provider: 11/13/21 21:46 History of Present Illness HPI narrative: 31-year-old male with history of alcohol abuse and alcohol withdrawal presents to the emergency department for evaluation for alcohol intoxication. Patient had been admitted to the hospital for alcohol withdrawal and patient left the hospital AMA yesterday. Patient states immediately after leaving he began drinking alcohol. Patient states when he was at home this evening he thought he saw someone running around his yard with a chainsaw. He states that he thought he saw someone on the roof as well. Upon arrival to the emergency department patient is heavily intoxicated. Patient states his last drink was just a few hours ago. Patient is once again seeking admission for alcohol withdrawal/detox. Related Data Home Medications Medication Instructions Recorded Confirmed pantoprazole 40 mg tablet,delayed 40 mg PO BID 10/23/21 11/14/21 release (Protonix) sucralfate 100 mg/mL oral See Rx Instructions .Route .COMPLEX 10/23/21 11/14/21 suspension topiramate 50 mg tablet 50 mg PO QAM 10/23/21 11/14/21 trazodone 100 mg tablet 250 mg PO HS 10/23/21 11/14/21 folic acid 1 mg tablet 1 mg PO DAILY 11/14/21 11/14/21 gabapentin 600 mg tablet 600 mg PO TID 11/14/21 11/14/21 geriatric multivitamin-min 1 tablet PO DAILY 11/14/21 11/14/21 mirtazapine 15 mg tablet 15 mg PO HS 11/14/21 11/14/21 Allergies Allergy/AdvReac Type Severity Reaction Status Date / Time No Known Allergies Allergy Verified 11/13/21 21:38 Review of Systems Review of Systems: CONSTITUTIONAL: Denies fever, chills, or sweats. EYES: Denies visual changes, redness, or discharge. ENT: Denies rhinorrhea, congestion, sore throat, or otalgia. CARDIOVASCULAR: Denies chest pain, palpitations, or edema. RESPIRATORY: Denies cough or dyspnea. GASTROINTESTINAL: Denies abdominal pain, nausea, vomiting, or diarrhea. GENITOURINARY: Denies dysuria or hematuria. SKIN: Denies rash or itching. MUSCULOSKELETAL: Denies back pain, joint pain, or myalgia. NEUROLOGIC: Denies headache, numbness, or weakness. Reported hallucinations [facility] Past Medical History Medical History (Updated 11/13/21 @ 23:28 by Darwin Umana MD) Acute renal failure Alcohol abuse Alcohol intoxication Alcohol withdrawal seizure Alcoholism Aspiration pneumonia Contusion of face Erosive esophagitis Essential hypertension Generalized anxiety disorder History of alcohol abuse Hyperammonemia Hypertension Hypokalemia Leukocytosis Periapical abscess Tachycardia Transaminitis Surgical History Surgical History No pertinent past surgical history Family History Family History Father Alcohol abuse Family history of coronary artery disease Hypertension Heart disease Mother Alcohol abuse Family history of diabetes mellitus in first degree relative Hypertension Sibling Alcohol abuse Family history of diabetes mellitus in first degree relative Social History Social History Social History: The patient lives in his own home. He has 1 son. 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 He smoked about half a pack of cigarettes a day for few years and quit in 2019. He estimates that he started drinking alcohol at the age of 11 and he drinks at least a half a pt of vodka a day. Occasional marijuana use. He designates his mother Andie as his surrogate decision maker and he wishes to be a full code. Smoking packs per day: 1 Smoking cigarettes per day: 20.0 Years smoked: 19 Smoking pack-years: 19.00 Smoking status: Current every day smoker Second hand tobacco smoke exposure: No Additional smoking assessment comments: Pt
[2021-11-13] MEDS: ONDANSETRON INJ 4 MG/2 ML VIAL IV PUSH (22:16)
[2021-11-13] MEDS: SODIUM CHLORIDE 0.9% IV 1,000 ML 999 ML IV CONT ×2 (22:16→23:09)
[2021-11-13 22:28] LABS: Basophils Percent Auto 0.2 % (0.2-1.2); Eosinophils Absolute Auto 0.1 K/mm3 (0-0.3); Eosinophils Percent Auto 1.8 % (0-4.4); Hematocrit 41.2 % (42.0-52.0); Hemoglobin 13.5 g/dL (14.0-18.0); Immature Granulocyte Absolute 0.02 K/mm3 (0.00-0.031); Immature Granulocyte Percent A 0.5 % (0-0.5); Lymphocytes Absolute Auto 0.88 K/mm3 (0.9-3.2); Mean Corpuscular HGB Conc 32.8 g/dl (32-36); Mean Corpuscular Hemoglobin 32.1 pg (26-34); Mean Corpuscular Volume 98.1 fl (80-100); Mean Platelet Volume 10.7 fl (7.4-10.4); Monocytes Absolute Auto 0.4 K/mm3 (0.1-0.6); Neutrophils Percent Auto 67.5 % (45.5-73.1); Platelet Count Result 147 k/mm3 (150-375); White Blood Count 4.4 K/mm3 (4.5-10.0)
[2021-11-13 22:41] LABS: Alanine Aminotransferase 32 U/L (6-50); Albumin Level 4.9 g/dL (3.5-5.1); Alkaline Phosphatase 90 U/L (38-126); Anion Gap 21 mmol/L (8-16); Aspartate Amino Transferase 37 U/L (17-59); Bilirubin,Total 0.2 mg/dL (0.2-1.3); Blood Urea Nitrogen 6 mg/dL (9-20); Carbon Dioxide 17 mmol/L (22-30); Chloride 106 mmol/L (98-107); Estimated CRCL calculation 124 ml/min; Estimated Glomerular Filt Rate > 60; Glucose 106 mg/dL (65-110); Lipase 202 U/L (23-300); Potassium 3.3 mmol/L (3.4-5.0); Sodium 144 mmol/L (137-145)
[2021-11-13 22:43] LABS: Ethanol 108 mg/dL (<10); Lactic Acid Reflex 2.1 mmol/L (0.7-2.0)
[2021-11-13 22:58] LABS: Appearance Urine Clear (Clear); Bilirubin Urine Negative (Negative); Blood Urine Negative (Negative); Color Urine Yellow (Yellow); Glucose Urine UA Negative (Negative); Ketones Urine Negative (Negative); Leukocyte Esterase Ur Negative LEU/UL (Negative); Nitrate Urine Negative (Negative); Protein Urine Negative (Negative); Urobilinogen Urine 0.2 mg/dL (<2.0)
[2021-11-13] MEDS: POTASSIUM CHLORIDE 20 MEQ PACKET (FOR LIQUID) 40 MEQ PO (23:08)
[2021-11-13 23:09] LABS: Mucus Urine Rare /lpf; RBC Urine 0-2 /hpf (0-2); WBC Urine 0-3 /hpf
[2021-11-13 23:26] LABS: Add Urine Microscopic? NO
--- NOTE | 2021-11-13 23:27 | PM.IMHP ---
H&P: HPI History of Present Illness Date/Time: 11/13/21 23:27 Chief Complaint: Alcohol intoxication Narrative: This is a 31-year-old male with past medical history significant for alcohol dependence he just recently in had been in the hospital for alcohol withdrawal left against medical advise walked out of the hospital the night before as soon as he left the hospital he began drinking which cause him to have hallucinations he was seeing and hearing things and having tremors of the hands upon arrival to emergency he was also noted to be heavily intoxicated with alcoholic breath. At the time of my visit this is still noticeable patient with alcoholic breath states that he wants to quit drinking and shows remorse. preliminary workup was significant for alcohol level of 108, potassium 3.3 bicarb 17 anion gap of 21 Review of Systems Review of Systems: alcohol intoxication, hallucinations, tremors. Constitutional: Constitutional: Denies chills, Denies fever(s) and Denies night sweats Eyes: Eyes: Denies change in vision ENT: Denies dysphagia, Denies vertigo, Denies dizziness and Denies odynophagia Cardiovascular: Cardiovascular: Denies chest pain, Denies syncope, Denies pedal edema, Denies irregular heart rhythm, Denies leg edema, Denies lightheadedness, Denies palpitations and Denies dyspnea on exertion Respiratory: Respiratory: Denies chest congestion, Denies cough, Denies excessive phlegm production and Denies pain on inspiration Gastrointestinal: Gastrointestinal: Denies abdominal pain, Denies dyspepsia, Denies heartburn, Denies nausea and Denies vomiting Genitourinary: Genitourinary: Denies dysuria Musculoskeletal: Musculoskeletal: Denies back pain, Denies joint swelling and Denies muscle weakness Integumentary/Breasts: Skin/Breast: Denies rash Neurologic: Denies focal weakness, Denies Sensory deficit (Neuro) and Reports tremor(s) Psychiatric: Psychiatric: Reports no additional psychiatric complaints and Reports as per HPI Endocrine: Endocrine: Denies cold intolerance, Denies flushing, Denies heat intolerance, Denies polyphagia, Denies polydipsia and Denies palpitations Hematologic/Lymphatic: Hematologic/Lymphatic: Reports no additional hematologic/lymphatic complaints and Reports as per HPI Allergic/Immunologic: Allergic/Immunologic: Reports no additional allergic/immunologic complaints and Reports as per HPI [facility] Past Medical History Medical History (Updated 11/14/21 @ 02:40 by Vinicio Nair MD) Acute renal failure Alcohol abuse Alcohol intoxication Alcohol withdrawal seizure Alcoholism Aspiration pneumonia Contusion of face Erosive esophagitis Essential hypertension Generalized anxiety disorder History of alcohol abuse Hyperammonemia Hypertension Hypokalemia Leukocytosis Periapical abscess Tachycardia Transaminitis Surgical History Surgical History No pertinent past surgical history Family History Family History Father Alcohol abuse Family history of coronary artery disease Hypertension Heart disease Mother Alcohol abuse Family history of diabetes mellitus in first degree relative Hypertension Sibling Alcohol abuse Family history of diabetes mellitus in first degree relative Social History Social History Social History: The patient lives in his own home. He has 1 son. 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 He smoked about half a pack of cigarettes a day for few years and quit in 2019. He estimates that he started drinking alcohol at the age of 11 and he drinks at least a half a pt of vodka a day. Occasional marijuana use. He designates his mother Andie as his surrogate decision maker and he wishes to be a full code. Smoking packs per day: 1 Smoking cigarettes per d
[2021-11-13 23:31] LABS: SARS-CoV-2 RNA PCR Negative
[2021-11-14] VITALS (20 sets, daily range): BP systolic 116–147; BP diastolic 68–105; PULSE 72–117; RESP 12–25; TEMP 36.1–36.8; O2SAT 94–100; BMI 36.8; BMI 36.7
--- NOTE | 2021-11-14 00:33 | ADMGEN ---
This patient, Danny Reyna, was admitted to IMU Room 204-01 at 0030 on 11/14/21. Patient/family oriented to hospital policies and general routines including ID bracelet, bed and alarms, visiting hours, pain management, procedures, bathroom and other care routines, personal items, smoking policy, room service/diet, and visiting hours. Information on how to activate the Rapid Response Team has been discussed. Patient/Family are encouraged to report perceived risks to care and to ask questions if they do not understand what they are told or what they should do.
[2021-11-14] MEDS: ONDANSETRON INJ 4 MG/2 ML VIAL IV PUSH (01:23)
[2021-11-14 01:24] LABS: Reflex Lactic Acid Yes or No Add Lactic
[2021-11-14 02:03] LABS: Lactic Acid 1.5 mmol/L (0.7-2.0)
[2021-11-14] MEDS: ACETAMINOPHEN 500 MG TABLET 1000 MG PO ×3 (02:46→23:34)
[2021-11-14] MEDS: MIRTAZAPINE 15 MG TABLET PO ×2 (02:52→20:53)
[2021-11-14] MEDS: METOPROLOL TARTRATE 50 MG TAB PO ×2 (02:52→20:53)
[2021-11-14] MEDS: traZODone HCL 50 MG TABLET 250 MG PO ×2 (02:53→20:54)
[2021-11-14] MEDS: THIAMINE HCL INJ 100 MG, FOLIC ACID INJ 1 MG, MULTIVITAMINS-12 INJ VIAL 1 5 ML, MULTIVI... IV CONT (03:17)
[2021-11-14] MEDS: chlordiazePOXIDE (*CRX) 25 MG CAPSULE 50 MG PO ×4 (05:46→23:35)
[2021-11-14 10:03] LABS: Anion Gap 13 mmol/L (8-16); Blood Urea Nitrogen 7 mg/dL (9-20); Carbon Dioxide 20 mmol/L (22-30); Chloride 108 mmol/L (98-107); Estimated CRCL calculation 141 ml/min; Estimated Glomerular Filt Rate > 60; Glucose 101 mg/dL (65-110); Potassium 3.4 mmol/L (3.4-5.0); Sodium 141 mmol/L (137-145)
[2021-11-14] MEDS: TOPIRAMATE 25 MG TABLET 50 MG PO (11:06)
[2021-11-14] MEDS: THIAMINE HCL 100 MG TABLET PO (11:06)
[2021-11-14] MEDS: LORazepam INJ (*CRX) 2 MG/ML VIAL 1 MG IV PUSH ×3 (11:06→22:19)
[2021-11-14] MEDS: PANTOPRAZOLE 40 MG TABLET PO ×2 (11:06→17:31)
[2021-11-14] MEDS: MULTIVITAMINS /C LUTEIN (CENTRUM SILVER) TABLET *BKC 1 TAB PO (11:07)
[2021-11-14] MEDS: GABAPENTIN 300 MG CAPSULE 600 MG PO ×3 (11:07→17:31)
[2021-11-14] MEDS: MAGNESIUM OXIDE 400 MG TABLET PO (11:07)
[2021-11-14] MEDS: ENOXAPARIN 40 MG/0.4 ML SYRINGE SUB-Q (11:07)
[2021-11-14] MEDS: FOLIC ACID 1 MG TABLET PO (11:07)
--- NOTE | 2021-11-14 12:00 | PM.IMPN ---
Progress Note: A&P Assessment and Plan (1) Acute alcoholic intoxication: Qualifiers: Complication of substance-induced condition: with unspecified complication Qualified Code(s): F10.929 - Alcohol use, unspecified with intoxication, unspecified Code(s): F10.929 - Alcohol use, unspecified with intoxication, unspecified Status: Acute Assessment and Plan: place in observation supportive care (2) EtOH dependence: Code(s): F10.20 - Alcohol dependence, uncomplicated Status: Acute Assessment and Plan: banana bag CIWA as needed (3) NISA (generalized anxiety disorder): Code(s): F41.1 - Generalized anxiety disorder Status: Acute Assessment and Plan: continue home meds Subjective Date/time seen: 11/14/21 12:00 still has tremors and anxiety. Exam Narrative: patient is laying in a stretcher Const: General: comfortable, no acute distress, well developed, alert and awake Nutritional Appearance: average body habitus Orientation/consciousness: patient oriented x3 HENMT: Head: normal to inspection, normocephalic and atraumatic Ears: hearing grossly normal bilaterally Face and sinus: normal facial exam Eyes: General: appearance normal, both eyes and all related structures Pupils: Equal, round and reactive pupils present EOM: EOMs intact bilaterally Neck: Neck: full ROM, no lymphadenopathy and no JVD Thyroid: thyroid normal Lymphatic: no lymphadenopathy noted Resp: Effort & Inspection: normal respiratory effort and able to speak in complete sentences Auscultation: clear to auscultation bilaterally Cardio: Jugular venous distension: no JVD Rate: regular rate Rhythm: regular rhythm Heart sounds: S1 normal heart sound present and S2 normal heart sound present : General: Yes deferred Skin: Rashes: no rashes Wounds: no wounds Neuro: General: patient oriented x3, CN's II-XI intact bilaterally and Unable to assess gait Cranial nerves: Yes CN's II-XII intact bilaterally and Yes Equal, round and reactive pupils present Cognition (Neuro): normal cognition Speech: normal speech Gait exam (Neuro): Unable to assess gait Motor exam (neuro): 5/5 motor strength present throughout Sensory Exam: No Sensory deficit (Neuro) Other: tremulous Extrem: General: normal to inspection, full ROM, no joint enlargement and no pedal edema Objective Data Vital Signs Vital Signs: Vital Signs - 24 hr 11/13/21 21:35 11/13/21 22:19 11/13/21 22:30 Temperature 98.5 F Pulse Rate 125 H 110 H 110 H Respiratory Rate 20 15 22 H Blood Pressure 140/93 H Pulse Oximetry 98 95 95 Oxygen Delivery Room Air 11/13/21 22:45 11/13/21 23:00 11/13/21 23:15 Temperature Pulse Rate 112 H 106 H 107 H Respiratory Rate 16 15 21 H Blood Pressure Pulse Oximetry 95 96 97 Oxygen Delivery 11/13/21 23:30 11/13/21 23:45 11/14/21 00:00 Temperature Pulse Rate 110 H 107 H Respiratory Rate 24 H 24 H 25 H Blood Pressure Pulse Oximetry 97 97 Oxygen Delivery 11/14/21 00:47 11/14/21 02:00 11/14/21 02:52 Temperature 97.9 F Pulse Rate 109 H 78 117 H Respiratory Rate 20 Blood Pressure 147/105 H Pulse Oximetry 100 Oxygen Delivery 11/14/21 04:00 11/14/21 04:00 11/14/21 04:00 Temperature 97.6 F Pulse Rate 95 93 Respiratory Rate 22 H Blood Pressure 131/81 Pulse Oximetry 94 Oxygen Delivery Room Air 11/14/21 06:00 11/14/21 07:34 11/14/21 08:00 Temperature 97.7 F Pulse Rate 75 74 72 Respiratory Rate 12 Blood Pressure 122/87 Pulse Oximetry 96 Oxygen Delivery 11/14/21 08:00 11/14/21 11:24 11/14/21 10:00 Temperature 97.1 F L Pulse Rate 82 98 Respiratory Rate 20 Blood Pressure 122/87 140/77 Pulse Oximetry 98 Oxygen Delivery 11/14/21 08:00 Temperature Pulse Rate 82 Respiratory Rate 20 Blood Pressure Pulse Oximetry 98 Oxygen Delivery Room Air Intake/Output Intake/Output: Intake &
[2021-11-14] MEDS: SUCRALFATE SUSP 100 MG/ML 10 ML UDC 10 MG BY MOUTH ×3 (13:28→20:53)
[2021-11-15] VITALS (18 sets, daily range): BP systolic 117–138; BP diastolic 71–96; PULSE 65–101; RESP 12–24; TEMP 35.6–36.7; O2SAT 96–100
[2021-11-15] MEDS: chlordiazePOXIDE (*CRX) 25 MG CAPSULE 50 MG PO ×3 (04:36→21:00)
[2021-11-15] MEDS: LORazepam INJ (*CRX) 2 MG/ML VIAL 1 MG IV PUSH ×2 (04:36→13:25)
[2021-11-15 05:18] LABS: Basophils Percent Auto 0.4 % (0.2-1.2); Eosinophils Absolute Auto 0.3 K/mm3 (0-0.3); Eosinophils Percent Auto 5.2 % (0-4.4); Hematocrit 41.3 % (42.0-52.0); Hemoglobin 13.5 g/dL (14.0-18.0); Immature Granulocyte Absolute 0.01 K/mm3 (0.00-0.031); Immature Granulocyte Percent A 0.2 % (0-0.5); Immature Platelet Fraction Pct 5.4 % (0.9-11.2); Lymphocytes Absolute Auto 1.22 K/mm3 (0.9-3.2); Lymphocytes Percent Auto 25.2 % (18.3-44.2); Mean Corpuscular HGB Conc 32.7 g/dl (32-36); Mean Corpuscular Hemoglobin 32.6 pg (26-34); Mean Corpuscular Volume 99.8 fl (80-100); Mean Platelet Volume 10.9 fl (7.4-10.4); Monocytes Absolute Auto 0.4 K/mm3 (0.1-0.6); Monocytes Percent Auto 8.9 % (2.6-8.5); Neutrophils Absolute Auto 2.9 K/mm3 (1.3-6.7); Neutrophils Percent Auto 60.1 % (45.5-73.1); Platelet Count Result 138 k/mm3 (150-375); Red Blood Count 4.14 M/mm3 (4.6-6.20); White Blood Count 4.9 K/mm3 (4.5-10.0)
[2021-11-15 05:25] LABS: Anion Gap 9 mmol/L (8-16); Blood Urea Nitrogen 9 mg/dL (9-20); Calcium 9.2 mg/dL (8.4-10.2); Carbon Dioxide 19 mmol/L (22-30); Chloride 108 mmol/L (98-107); Estimated CRCL calculation 141 ml/min; Estimated Glomerular Filt Rate > 60; Glucose 97 mg/dL (65-110); Potassium 3.7 mmol/L (3.4-5.0); Sodium 136 mmol/L (137-145)
[2021-11-15] MEDS: ACETAMINOPHEN 500 MG TABLET 1000 MG PO (09:09)
[2021-11-15] MEDS: FOLIC ACID 1 MG TABLET PO (09:10)
[2021-11-15] MEDS: GABAPENTIN 300 MG CAPSULE 600 MG PO ×3 (09:10→17:50)
[2021-11-15] MEDS: METOPROLOL TARTRATE 50 MG TAB PO ×2 (09:12→21:00)
[2021-11-15] MEDS: MULTIVITAMINS /C LUTEIN (CENTRUM SILVER) TABLET *BKC 1 TAB PO (09:12)
[2021-11-15] MEDS: PANTOPRAZOLE 40 MG TABLET PO ×2 (09:13→17:50)
[2021-11-15] MEDS: ENOXAPARIN 40 MG/0.4 ML SYRINGE SUB-Q (09:13)
[2021-11-15] MEDS: TOPIRAMATE 25 MG TABLET 50 MG PO (09:13)
[2021-11-15] MEDS: THIAMINE HCL 100 MG TABLET PO (09:13)
[2021-11-15] MEDS: MAGNESIUM OXIDE 400 MG TABLET PO (09:16)
[2021-11-15] MEDS: SUCRALFATE SUSP 100 MG/ML 10 ML UDC 1000 MG BY MOUTH ×4 (09:17→21:00)
--- NOTE | 2021-11-15 11:36 | PM.IMPN ---
Progress Note: A&P Assessment and Plan (1) Acute alcoholic intoxication: Qualifiers: Complication of substance-induced condition: with unspecified complication Qualified Code(s): F10.929 - Alcohol use, unspecified with intoxication, unspecified Code(s): F10.929 - Alcohol use, unspecified with intoxication, unspecified Status: Acute Assessment and Plan: place in observation supportive care (2) EtOH dependence: Code(s): F10.20 - Alcohol dependence, uncomplicated Status: Acute Assessment and Plan: banana bag CIWA as needed (3) NISA (generalized anxiety disorder): Code(s): F41.1 - Generalized anxiety disorder Status: Acute Assessment and Plan: continue home meds Subjective Date/time seen: 11/15/21 11:36 still having some anxiety. No seizures overnight Exam Narrative: patient is laying in a stretcher Const: General: comfortable, no acute distress, well developed, alert and awake Nutritional Appearance: average body habitus Orientation/consciousness: patient oriented x3 HENMT: Head: normal to inspection, normocephalic and atraumatic Ears: hearing grossly normal bilaterally Face and sinus: normal facial exam Eyes: General: appearance normal, both eyes and all related structures Pupils: Equal, round and reactive pupils present EOM: EOMs intact bilaterally Neck: Neck: full ROM, no lymphadenopathy and no JVD Thyroid: thyroid normal Lymphatic: no lymphadenopathy noted Resp: Effort & Inspection: normal respiratory effort and able to speak in complete sentences Auscultation: clear to auscultation bilaterally Cardio: Jugular venous distension: no JVD Rate: regular rate Rhythm: regular rhythm Heart sounds: S1 normal heart sound present and S2 normal heart sound present : General: Yes deferred Skin: Rashes: no rashes Wounds: no wounds Neuro: General: patient oriented x3, CN's II-XI intact bilaterally and Unable to assess gait Cranial nerves: Yes CN's II-XII intact bilaterally and Yes Equal, round and reactive pupils present Cognition (Neuro): normal cognition Speech: normal speech Gait exam (Neuro): Unable to assess gait Motor exam (neuro): 5/5 motor strength present throughout Sensory Exam: No Sensory deficit (Neuro) Other: tremulous Extrem: General: normal to inspection, full ROM, no joint enlargement and no pedal edema Objective Data Vital Signs Vital Signs: Vital Signs - 24 hr 11/14/21 12:00 11/14/21 12:00 11/14/21 12:00 Temperature Pulse Rate 78 73 Pulse Rate [Monitor] Respiratory Rate Blood Pressure 140/77 Pulse Oximetry Oxygen Delivery Room Air 11/14/21 14:00 11/14/21 15:39 11/14/21 16:00 Temperature 96.9 F L Pulse Rate 78 77 73 Pulse Rate [Monitor] Respiratory Rate 16 Blood Pressure 116/68 Pulse Oximetry 96 Oxygen Delivery Room Air 11/14/21 16:00 11/14/21 16:00 11/14/21 18:00 Temperature Pulse Rate 80 80 Pulse Rate [Monitor] Respiratory Rate Blood Pressure 116/68 Pulse Oximetry Oxygen Delivery 11/14/21 20:00 11/14/21 20:53 11/14/21 20:53 Temperature 97 F L Pulse Rate 81 82 Pulse Rate [Monitor] 95 Respiratory Rate 20 Blood Pressure 119/73 Pulse Oximetry 99 Oxygen Delivery 11/14/21 20:00 11/14/21 20:00 11/14/21 22:18 Temperature Pulse Rate 77 82 Pulse Rate [Monitor] 85 Respiratory Rate 20 Blood Pressure Pulse Oximetry 99 Oxygen Delivery Room Air 11/14/21 22:00 11/14/21 23:20 11/15/21 00:00 Temperature 98.2 F Pulse Rate 83 74 70 Pulse Rate [Monitor] Respiratory Rate 20 Blood Pressure 125/78 Pulse Oximetry 98 Oxygen Delivery 11/15/21 00:00 11/15/21 02:00 11/15/21 04:35 Temperature Pulse Rate 74 66 Pulse Rate [Monitor] 73 Respiratory Rate 20 Blood Pressure Pulse Oximetry 98 Oxygen Delivery Room Air 11/15/21 04:00 11/15/21 04:00 11/15/21 04:00 [facility]
--- NOTE | 2021-11-15 17:36 | PC.NURSE ---
This patient, Danny Reyna, was transferred to [facility] on 11/15/21 at 1736. Personal belongings sent with patient. Report given to Elmo BATEMAN. Appropriate documentation sent with patient.
[2021-11-15] MEDS: traZODone HCL 50 MG TABLET 250 MG PO (21:00)
[2021-11-15] MEDS: MIRTAZAPINE 15 MG TABLET PO (21:00)
[2021-11-16] VITALS: BP 116/75; BP 128/81; PULSE 58; PULSE 71; RESP 20; TEMP 36.7; O2SAT 98
[2021-11-16 04:00] VITALS: BP 110/73; PULSE 68; PULSE 69; RESP 18; TEMP 35.7; O2SAT 97
[2021-11-16] MEDS: chlordiazePOXIDE (*CRX) 25 MG CAPSULE 50 MG PO (05:02)
[2021-11-16 08:18] VITALS: PULSE 68
[2021-11-16] MEDS: SUCRALFATE SUSP 100 MG/ML 10 ML UDC 1000 MG BY MOUTH (08:18)
[2021-11-16] MEDS: GABAPENTIN 300 MG CAPSULE 600 MG PO (08:18)
[2021-11-16] MEDS: MULTIVITAMINS /C LUTEIN (CENTRUM SILVER) TABLET *BKC 1 TAB PO (08:18)
[2021-11-16 08:19] VITALS: PULSE 91
[2021-11-16] MEDS: FOLIC ACID 1 MG TABLET PO (08:19)
[2021-11-16] MEDS: TOPIRAMATE 25 MG TABLET 50 MG PO (08:19)
[2021-11-16] MEDS: METOPROLOL TARTRATE 50 MG TAB PO (08:19)
[2021-11-16] MEDS: PANTOPRAZOLE 40 MG TABLET PO (08:20)
[2021-11-16] MEDS: THIAMINE HCL 100 MG TABLET PO (08:20)
[2021-11-16] MEDS: MAGNESIUM OXIDE 400 MG TABLET PO (08:24)
--- NOTE | 2021-11-16 10:32 | PM.DS ---
DS: Admitting Diagnosis Discharge Date November 16, 2021 Admitting Diagnosis alcohol withdrawal DS: Discharge Diagnosis Discharge Diagnosis (1) Acute alcoholic intoxication: Qualifiers: Complication of substance-induced condition: with unspecified complication Qualified Code(s): F10.929 - Alcohol use, unspecified with intoxication, unspecified Code(s): F10.929 - Alcohol use, unspecified with intoxication, unspecified Status: Acute Assessment and Plan: place in observation supportive care (2) EtOH dependence: Code(s): F10.20 - Alcohol dependence, uncomplicated Status: Acute Assessment and Plan: banana bag CIWA as needed (3) NISA (generalized anxiety disorder): Code(s): F41.1 - Generalized anxiety disorder Status: Acute Assessment and Plan: continue home meds DS: Summary Hospital Course Hospital Course: patient is 31-year-old male who came with alcohol withdrawal symptoms. This has happened numerous times in the past with him. He was given Librium took about 3 days did exceptionally well. Today has no tremors feels great wants to go home patient did not have any seizures. Cessation was counseled and he is willing to stop drinking. Patient will be sent on some Librium for a few days and also Disulfiram. This can be continued per his care physician it is helpful. Time Spent with Patient Time attestation: Total time spent providing and/or coordinating discharge services: Exam Narrative: patient is laying in a stretcher Const: General: comfortable, no acute distress, well developed, alert and awake Nutritional Appearance: average body habitus Orientation/consciousness: patient oriented x3 HENMT: Head: normal to inspection, normocephalic and atraumatic Ears: hearing grossly normal bilaterally Face and sinus: normal facial exam Eyes: General: appearance normal, both eyes and all related structures Pupils: Equal, round and reactive pupils present EOM: EOMs intact bilaterally Neck: Neck: full ROM, no lymphadenopathy and no JVD Thyroid: thyroid normal Lymphatic: no lymphadenopathy noted Resp: Effort & Inspection: normal respiratory effort and able to speak in complete sentences Auscultation: clear to auscultation bilaterally Cardio: Jugular venous distension: no JVD Rate: regular rate Rhythm: regular rhythm Heart sounds: S1 normal heart sound present and S2 normal heart sound present : General: Yes deferred Skin: Rashes: no rashes Wounds: no wounds Neuro: General: patient oriented x3, CN's II-XI intact bilaterally and Unable to assess gait Cranial nerves: Yes CN's II-XII intact bilaterally and Yes Equal, round and reactive pupils present Cognition (Neuro): normal cognition Speech: normal speech Gait exam (Neuro): Unable to assess gait Motor exam (neuro): 5/5 motor strength present throughout Sensory Exam: No Sensory deficit (Neuro) Other: tremulous Extrem: General: normal to inspection, full ROM, no joint enlargement and no pedal edema Discharge Plan Discharge Attending physician on discharge: Ric Mcclure Discharging Clinician: Ric Mcclure Patient Disposition: Home, Self-Care Activity: no preference Diet: as tolerated Discharge Instructions: Per Care Coordination: Patient to follow up with new PMD appointment with Fabiana Woodard 11/26/21 at 10:30am at [facility]/[place], [place]. [address] [place] [id number] main # [phone] Arrive 10-15 minutes early and bring insurance and ID cards. DO NOT miss appointment PLEASE Also follow up with [facility] appointment 12/02/21 at 12:30p at [address] [place] [address] main#[phone]. PLEASE DO NOT MISS your appointment Patient Instructions: How to Stop Smoking (GEN), Pain Management (DC), Alcohol Intoxication (DC), Abuse of Alcohol (DC), Alcohol Withdrawal (DC), Antibioti
== END 2021-11-16 11:30 | disposition home or self-care (01) | DRG 897 ==
LOC: ANHED 23:28 → ANHIMU 11-14 00:05 → ANH2MED 11-15 17:45
PROVIDERS: Admitting Provider Internal Medicine; Emergency Provider Emergency Medicine; Visit Provider Chiropractor
DX: F10.239 Alcohol dependence with withdrawal, unspecified (principal); F10.229 Alcohol dependence with intoxication, unspecified; Y90.5 Blood alcohol level of 100-119 mg/100 ml; F41.1 Generalized anxiety disorder; F17.210 Nicotine dependence, cigarettes, uncomplicated; I10 Essential (primary) hypertension; Z20.822 Contact with and (suspected) exposure to COVID-19; Z79.899 Other long term (current) drug therapy
CPT/HCPCS: 36415; 80048; 80053; 80307; 81003; 83605; 83690; 85025; 85055; 96361; 96374; 99285; A9270; C9803; J1650; J2060; J2405; J3411; J3475; J7030; J7042; U0003; U0005

== ENCOUNTER 2022-01-08 08:07 | Emergency (ER) | payer BC, SELFPAY ==
--- NOTE | ~2022-01-08 | XR_ITS ---
XR chest 1V portable DATE: 01/08/2022 09:39 INDICATION: Cough TECHNIQUE: Portable upright AP chest on 01/08/2022 at 0936 hours COMPARISON: 10/23/2021 portable AP chest FINDINGS: Normal heart size. No hilar or mediastinal enlargement. No pulmonary infiltrate or consolid ation, pleural effusion or pulmonary vascular congestion or pneumothorax. Included skeletal structure s are unremarkable. IMPRESSION: No active cardiopulmonary disease Reviewed, dictated and finalized at location A.
[2022-01-08 08:17] VITALS: BP 147/91; PULSE 99; RESP 18; TEMP 37.1; O2SAT 97
--- NOTE | 2022-01-08 08:36 | PC.NURSE ---
Patient's mother-Isabella Axel [phone]
[2022-01-08 08:51] LABS: Ethanol 287 mg/dL (<10)
[2022-01-08 08:52] LABS: Alanine Aminotransferase 49 U/L (6-50); Albumin Level 4.6 g/dL (3.5-5.1); Alkaline Phosphatase 105 U/L (38-126); Anion Gap 20 mmol/L (8-16); Aspartate Amino Transferase 45 U/L (17-59); Bilirubin,Total 0.5 mg/dL (0.2-1.3); Blood Urea Nitrogen 9 mg/dL (9-20); Calcium 7.7 mg/dL (8.4-10.2); Carbon Dioxide 25 mmol/L (22-30); Chloride 97 mmol/L (98-107); Estimated CRCL calculation 120 ml/min; Estimated Glomerular Filt Rate > 60; Glucose 122 mg/dL (65-110); Lipase 284 U/L (23-300); Magnesium 1.8 mg/dL (1.6-2.3); Potassium 3.6 mmol/L (3.4-5.0); Sodium 142 mmol/L (137-145)
--- NOTE | 2022-01-08 08:53 | PC.NURSE ---
Patient reports he feels like he is going to have a seizure. Mother'S Helper informed Dr. De Jesus and no new orders given.
[2022-01-08 08:54] LABS: Basophils Percent Auto 0.6 % (0.2-1.2); Eosinophils Absolute Auto 0.1 K/mm3 (0-0.3); Eosinophils Percent Auto 1.5 % (0-4.4); Hematocrit 41.7 % (42.0-52.0); Hemoglobin 14.3 g/dL (14.0-18.0); Immature Granulocyte Absolute 0.05 K/mm3 (0.00-0.031); Immature Granulocyte Percent A 1.1 % (0-0.5); Lymphocytes Absolute Auto 1.38 K/mm3 (0.9-3.2); Lymphocytes Percent Auto 29.6 % (18.3-44.2); Mean Corpuscular HGB Conc 34.3 g/dl (32-36); Mean Corpuscular Hemoglobin 30.8 pg (26-34); Mean Corpuscular Volume 89.9 fl (80-100); Mean Platelet Volume 9.6 fl (7.4-10.4); Monocytes Absolute Auto 0.4 K/mm3 (0.1-0.6); Neutrophils Absolute Auto 2.7 K/mm3 (1.3-6.7); Neutrophils Percent Auto 58.2 % (45.5-73.1); Platelet Count Result 234 k/mm3 (150-375); Red Blood Count 4.64 M/mm3 (4.6-6.20); Red Cell Distribution Width 14.6 % (11.5-14.5); White Blood Count 4.7 K/mm3 (4.5-10.0)
[2022-01-08 08:56] LABS: Partial Thromboplastin Time 25.9 SECONDS (22.3-36.8); Prothrombin Time 12.4 Seconds (11.1-14.7)
[2022-01-08 09:16] VITALS: BP 131/92; PULSE 93; RESP 23
[2022-01-08] MEDS: THIAMINE HCL 200 MG/2 ML VIAL 100 MG IV PUSH (09:17)
[2022-01-08] MEDS: LORazepam INJ (*CRX) 2 MG/ML VIAL 0.5 MG IV PUSH (09:17)
[2022-01-08] MEDS: SODIUM CHLORIDE 0.9% IV 1,000 ML 999 ML IV CONT (09:17)
[2022-01-08] MEDS: ONDANSETRON INJ 4 MG/2 ML VIAL IV PUSH (09:22)
--- NOTE | 2022-01-08 09:50 | ED.ALCOHOL ---
HPI - Alcohol General Chief Complaint: Alcohol Stated Complaint: ETOH WITHDRAWAL HX ETOH SZ Time Seen by Provider: 01/08/22 08:17 Source: RN notes reviewed History of Present Illness HPI narrative: Patient presents emergency department from home for alcohol withdrawal. Patient states that he has a history of alcohol abuse states that he had been sober for the past month but then went on a another binge 5 days ago states he has been drinking approximately fifth of alcohol a day. States that this morning he felt very shaky states he has a history of alcohol withdrawal seizures in the location of his seizure did take a shot of alcohol this morning she is a came to the emergency department for further evaluation he states he has been having epigastric abdominal pain with the symptoms as well as nausea and vomiting. He denies any fevers or chills chest pain or shortness of breath Related Data Home Medications Medication Instructions Recorded Confirmed pantoprazole 40 mg tablet,delayed 40 mg PO BID 10/23/21 11/14/21 release (Protonix) sucralfate 100 mg/mL oral See Rx Instructions .Route .COMPLEX 10/23/21 11/14/21 suspension topiramate 50 mg tablet 50 mg PO QAM 10/23/21 11/14/21 trazodone 100 mg tablet 250 mg PO HS 10/23/21 11/14/21 folic acid 1 mg tablet 1 mg PO DAILY 11/14/21 11/14/21 gabapentin 600 mg tablet 600 mg PO TID 11/14/21 11/14/21 geriatric multivitamin-min 1 tablet PO DAILY 11/14/21 11/14/21 mirtazapine 15 mg tablet 15 mg PO HS 11/14/21 11/14/21 Allergies Allergy/AdvReac Type Severity Reaction Status Date / Time No Known Allergies Allergy Verified 01/08/22 08:20 Review of Systems Review of Systems: Gen.: Denies fevers or chills ENT: Denies congestion Respiratory: Denies shortness of breath or cough CV: Denies chest pain or palpitations GI: Gastric abdominal pain nausea vomiting. Denies diarrhea Musculoskeletal: Denies back pain or muscle pain Neuro: Denies numbness, tingling, weakness or focal weakness Skin: Denies rash Except as documented, all other systems reviewed and negative PMFSH Past Medical History Medical History Acute renal failure Alcohol abuse Alcohol intoxication Alcohol withdrawal seizure Alcoholism Aspiration pneumonia Contusion of face Erosive esophagitis Essential hypertension Generalized anxiety disorder History of alcohol abuse Hyperammonemia Hypertension Hypokalemia Leukocytosis Periapical abscess Tachycardia Transaminitis Surgical History Surgical History No pertinent past surgical history Family History Family History Father Alcohol abuse Family history of coronary artery disease Hypertension Heart disease Mother Alcohol abuse Family history of diabetes mellitus in first degree relative Hypertension Sibling Alcohol abuse Family history of diabetes mellitus in first degree relative Social History Social History Social History: The patient lives in his own home. He has 1 son. 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 He smoked about half a pack of cigarettes a day for few years and quit in 2019. He estimates that he started drinking alcohol at the age of 11 and he drinks at least a half a pt of vodka a day. Occasional marijuana use. He designates his mother Andie as his surrogate decision maker and he wishes to be a full code. Smoking packs per day: 1 Smoking cigarettes per day: 20.0 Years smoked: 19 Smoking pack-years: 19.00 Smoking status: Current every day smoker Second hand tobacco smoke exposure: No Additional smoking assessment comments: Pt states that he smokes about 1 pack per week. Alcohol intake: current Drinks per week: 50 Substance use: current Substance
[2022-01-08] MEDS: PANTOPRAZOLE SODIUM IV 40 MG VIAL IV PUSH (09:57)
[2022-01-08 10:16] VITALS: BP 141/94
[2022-01-08 10:26] LABS: SARS-CoV-2 RNA PCR Negative
[2022-01-08] MEDS: LORazepam INJ (*CRX) 2 MG/ML VIAL 1 MG IV PUSH (12:36)
[2022-01-08] MEDS: SODIUM CHLORIDE 0.9% IV 1,000 ML 125 ML IV CONT (12:37)
[2022-01-08 12:40] VITALS: BP 150/85; PULSE 100; RESP 16; O2SAT 96
[2022-01-08 13:14] LABS: Bacteria Urine Trace /hpf; Mucus Urine Moderate /lpf; RBC Urine 0-2 /hpf (0-2); Squamous Epithelial Cell Urine Rare /hpf (Few); WBC Urine 0-3 /hpf
[2022-01-08 13:16] LABS: Appearance Urine Clear (Clear); Bilirubin Urine Negative (Negative); Blood Urine Trace-intact (Negative); Color Urine Yellow (Yellow); Glucose Urine UA Negative (Negative); Ketones Urine Trace mg/dL (Negative); Leukocyte Esterase Ur Negative LEU/UL (Negative); Nitrate Urine Negative (Negative); Protein Urine 1+ mg/dL (Negative); Urobilinogen Urine 0.2 mg/dL (<2.0)
--- NOTE | 2022-01-08 13:20 | PC.NURSE ---
Patient wanting to leave AMA. Hospitalist paged.
[2022-01-08 13:30] LABS: Add Urine Microscopic? YES
--- NOTE | 2022-01-08 13:30 | P.PNCROSS_ITS ---
Event Note Event Note Event Note: The patient presented to the emergency department with shakes after a 5 day alc ohol binge. He woke this morning with tremors and he was afraid that he was going to have a seizure and so he came in for evaluation. The decision was made to admit the patient to the hospital for withdrawal symptoms and when I came to evaluate the patient I was told that he was hoping to go home and in fact had already signed out against medical advice. I did come speak with the patient for about 5 minutes and offered him admission for symptom control as I was concerned that he would go home and have worsening shakes or even impending delirium tremens. On exam he was mildly tremulous but nontoxic appearance. He was slightly tachycardic. Lungs are clear to auscultation. Mucous membranes were tacky. There was no abdominal pain. No cyanosis, clubbing, or edema. Peripheral pulses were intact. Heart rate was 100 and blood pressure was 124/99 the time that he left. He did not have any significant electrolyte abnormalities on labs however he did have an elevated anion gap which is most likely related to alcoholic ketoacidosis. He declined to stay however and he was fully alert and oriented times for incapable of making his own decisions.
== END 2022-01-08 13:46 | disposition left against medical advice (07) ==
LOC: ANHED 12:14 → ANHIMU 13:40
PROVIDERS: Emergency Provider Emergency Medicine; PCP Family Medicine
DX: F10.139 Alcohol abuse with withdrawal, unspecified (principal); R10.13 Epigastric pain; I10 Essential (primary) hypertension; F17.210 Nicotine dependence, cigarettes, uncomplicated; Z20.822 Contact with and (suspected) exposure to COVID-19
CPT/HCPCS: 36415; 71045; 80053; 80307; 81001; 83690; 83735; 85025; 85610; 85730; 96361; 96374; 96375; 96376; 99284; C9113; J2060; J2405; J3411; J7030; U0003; U0005

== ENCOUNTER 2022-01-10 12:01 | Inpatient (IN) | payer BC, SELFPAY ==
[2022-01-10] VITALS (23 sets, daily range): BP systolic 124–184; BP diastolic 84–106; PULSE 100–163; RESP 9–27; TEMP 37.5; O2SAT 90–99
--- NOTE | 2022-01-10 15:38 | PC.NURSE ---
seizure pads applied to bed for precaution
[2022-01-10] MEDS: ONDANSETRON INJ 4 MG/2 ML VIAL IV PUSH ×2 (15:42→21:31)
[2022-01-10] MEDS: SODIUM CHLORIDE 0.9% IV 1,000 ML 999 ML IV CONT (15:43)
[2022-01-10 15:48] LABS: Basophils Percent Auto 0.5 % (0.2-1.2); Eosinophils Absolute Auto 0.1 K/mm3 (0-0.3); Eosinophils Percent Auto 1.6 % (0-4.4); Hematocrit 44.6 % (42.0-52.0); Hemoglobin 15.2 g/dL (14.0-18.0); Immature Granulocyte Absolute 0.02 K/mm3 (0.00-0.031); Immature Granulocyte Percent A 0.5 % (0-0.5); Lymphocytes Absolute Auto 1.45 K/mm3 (0.9-3.2); Lymphocytes Percent Auto 38.5 % (18.3-44.2); Mean Corpuscular HGB Conc 34.1 g/dl (32-36); Mean Corpuscular Hemoglobin 31.5 pg (26-34); Mean Corpuscular Volume 92.5 fl (80-100); Mean Platelet Volume 9.4 fl (7.4-10.4); Monocytes Absolute Auto 0.3 K/mm3 (0.1-0.6); Neutrophils Absolute Auto 1.9 K/mm3 (1.3-6.7); Neutrophils Percent Auto 50.9 % (45.5-73.1); Platelet Count Result 173 k/mm3 (150-375); Red Blood Count 4.82 M/mm3 (4.6-6.20); Red Cell Distribution Width 14.9 % (11.5-14.5); White Blood Count 3.8 K/mm3 (4.5-10.0)
[2022-01-10] MEDS: LORazepam INJ (*CRX) 2 MG/ML VIAL 1 MG IV PUSH ×2 (15:50→19:39)
[2022-01-10 16:03] LABS: Alanine Aminotransferase 52 U/L (6-50); Albumin Level 4.7 g/dL (3.5-5.1); Alkaline Phosphatase 99 U/L (38-126); Anion Gap 18 mmol/L (8-16); Aspartate Amino Transferase 52 U/L (17-59); Bilirubin,Total 0.4 mg/dL (0.2-1.3); Blood Urea Nitrogen 6 mg/dL (9-20); Carbon Dioxide 29 mmol/L (22-30); Chloride 98 mmol/L (98-107); Estimated CRCL calculation 157 ml/min; Estimated Glomerular Filt Rate > 60; Glucose 111 mg/dL (65-110); Sodium 145 mmol/L (137-145)
[2022-01-10 16:35] LABS: Ethanol 394 mg/dL (<10)
--- NOTE | 2022-01-10 18:26 | PC.NURSE ---
patient requesting ativan x2, dr aware. no further orders at this time
--- NOTE | 2022-01-10 19:56 | ED.GENADULT ---
HPI - General Adult General Chief complaint: Unspecified Stated complaint: etoh withdrawl Time Seen by Provider: 01/10/22 15:09 Source: patient Mode of arrival: ambulatory Limitations: no limitations History of Present Illness HPI narrative: 31-year-old with a history of alcoholism here with complaints of having seizure-like activity since this morning. Patient was seen in the ER few days ago for similar thing. Patient states he relapsed and started drinking again had 3 shots of whiskey earlier this morning. He denies any headache, chest pain, shortness of breath. No history of nausea or vomiting. Onset (ago): day(s) (1) Severity: moderate Exacerbating factors: none Associated symptoms: denies other symptoms Related Data Home Medications Medication Instructions Recorded Confirmed pantoprazole 40 mg tablet,delayed 40 mg PO BID 10/23/21 11/14/21 release (Protonix) sucralfate 100 mg/mL oral See Rx Instructions .Route .COMPLEX 10/23/21 11/14/21 suspension topiramate 50 mg tablet 50 mg PO QAM 10/23/21 11/14/21 trazodone 100 mg tablet 250 mg PO HS 10/23/21 11/14/21 folic acid 1 mg tablet 1 mg PO DAILY 11/14/21 11/14/21 gabapentin 600 mg tablet 600 mg PO TID 11/14/21 11/14/21 geriatric multivitamin-min 1 tablet PO DAILY 11/14/21 11/14/21 mirtazapine 15 mg tablet 15 mg PO HS 11/14/21 11/14/21 Allergies Allergy/AdvReac Type Severity Reaction Status Date / Time No Known Allergies Allergy Verified 01/08/22 08:20 Review of Systems Review of Systems: All systems reviewed & are unremarkable except as noted in HPI and below Constitutional: Constitutional: Reports no additional constitutional complaints Eyes: Eyes: Reports no additional eye complaints ENT: Reports system reviewed and no additional complaints, except as documented Cardiovascular: Cardiovascular: Reports no additional cardiovascular complaints Respiratory: Respiratory: Reports no additional respiratory complaints Gastrointestinal: Gastrointestinal: Reports no additional gastrointestinal complaints Genitourinary: Genitourinary: Reports no additional male genitourinary complaints Musculoskeletal: Musculoskeletal: Reports no additional musculoskeletal complaints Integumentary/Breasts: Skin/Breast: Reports system reviewed and no additional complaints, except as docu PMFSH Past Medical History Medical History Acute renal failure Alcohol abuse Alcohol intoxication Alcohol withdrawal seizure Alcoholism Aspiration pneumonia Contusion of face Erosive esophagitis Essential hypertension Generalized anxiety disorder History of alcohol abuse Hyperammonemia Hypertension Hypokalemia Leukocytosis Periapical abscess Tachycardia Transaminitis Surgical History Surgical History No pertinent past surgical history Family History Family History Father Alcohol abuse Family history of coronary artery disease Hypertension Heart disease Mother Alcohol abuse Family history of diabetes mellitus in first degree relative Hypertension Sibling Alcohol abuse Family history of diabetes mellitus in first degree relative Social History Social History Social History: The patient lives in his own home. He has 1 son. 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 He smoked about half a pack of cigarettes a day for few years and quit in 2019. He estimates that he started drinking alcohol at the age of 11 and he drinks at least a half a pt of vodka a day. Occasional marijuana use. He designates his mother Andie as his surrogate decision maker and he wishes to be a full code. Smoking packs per day: 1 Smoking cigarettes per day: 20.0 Years smoked: 19 Smoking pack-years: 19.00 Smoking status: Cur
--- NOTE | 2022-01-10 20:06 | PM.IMHP ---
H&P: HPI History of Present Illness Date/Time: 01/10/22 20:06 Chief Complaint: tremors Narrative: This is a 31-year-old male with past medical history significant for alcohol dependence, tobacco dependence, hypertension, GERD, generalized anxiety disorder. patient presents to the emergency room due to tremors he has been drinking 1 pt of vodka daily. Denies any nausea, vomiting, diarrhea, abdominal pain, shortness of breath, sputum production cough, fevers, rigors, chills, , no hallucinations, no formication. patient is been admitted for further evaluation management and treatment. Preliminary workup was significant for alcohol level of 394. Review of Systems Review of Systems: tremors Constitutional: Constitutional: Denies chills, Denies fatigue, Denies fever(s), Denies malaise, Denies poor appetite and Denies weakness Eyes: Eyes: Denies change in vision ENT: Denies dysphagia, Denies vertigo, Denies dizziness and Denies odynophagia Cardiovascular: Cardiovascular: Denies chest pain, Denies lightheadedness and Denies dyspnea on exertion Respiratory: Respiratory: Denies cough Gastrointestinal: Gastrointestinal: Denies abdominal pain, Denies constipation, Denies dyspepsia, Denies heartburn, Denies nausea and Denies vomiting Genitourinary: Genitourinary: Denies dysuria Musculoskeletal: Musculoskeletal: Denies joint swelling and Denies muscle weakness Integumentary/Breasts: Skin/Breast: Denies rash Neurologic: Denies vertigo, Denies dizziness, Denies focal weakness, Denies Sensory deficit (Neuro) and Reports tremor(s) Psychiatric: Psychiatric: Reports no additional psychiatric complaints and Reports as per HPI Endocrine: Endocrine: Denies cold intolerance, Denies flushing, Denies heat intolerance, Denies polyphagia, Denies polydipsia and Denies palpitations Hematologic/Lymphatic: Hematologic/Lymphatic: Reports no additional hematologic/lymphatic complaints and Reports as per HPI Allergic/Immunologic: Allergic/Immunologic: Reports no additional allergic/immunologic complaints and Reports as per HPI PMFSH Past Medical History Medical History Acute renal failure Alcohol abuse Alcohol intoxication Alcohol withdrawal seizure Alcoholism Aspiration pneumonia Contusion of face Erosive esophagitis Essential hypertension Generalized anxiety disorder History of alcohol abuse Hyperammonemia Hypertension Hypokalemia Leukocytosis Periapical abscess Tachycardia Transaminitis Surgical History Surgical History No pertinent past surgical history Family History Family History Father Alcohol abuse Family history of coronary artery disease Hypertension Heart disease Mother Alcohol abuse Family history of diabetes mellitus in first degree relative Hypertension Sibling Alcohol abuse Family history of diabetes mellitus in first degree relative Social History Social History Social History: The patient lives in his own home. He has 1 son. 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 He smoked about half a pack of cigarettes a day for few years and quit in 2019. He estimates that he started drinking alcohol at the age of 11 and he drinks at least a half a pt of vodka a day. Occasional marijuana use. He designates his mother Andie as his surrogate decision maker and he wishes to be a full code. Smoking packs per day: 0.5 Smoking cigarettes per day: 10.0 Years smoked: 19 Smoking pack-years: 9.50 Smoking status: Light tobacco smoker Tobacco type: cigarettes Second hand tobacco smoke exposure: No Additional smoking assessment comments: Pt states that he smokes about 1 pack per week. Alcohol intake: current Drinks per week: 50 Substance use:
[2022-01-10] MEDS: chlordiazePOXIDE (*CRX) 25 MG CAPSULE PO (20:11)
--- NOTE | 2022-01-10 22:14 | PC.NURSE ---
patient continues to ask for ativan. Dr. Borjas aware and no additional Ativan to be given at this time
[2022-01-11] VITALS (12 sets, daily range): BP systolic 134–148; BP diastolic 82–97; PULSE 72–119; RESP 14–24; TEMP 36.6–36.8; O2SAT 94–100; BMI 34.3
[2022-01-11] MEDS: LORazepam INJ (*CRX) 2 MG/ML VIAL 1 MG IV PUSH (00:02)
[2022-01-11 00:05] LABS: SARS-CoV-2 RNA PCR Negative
--- NOTE | 2022-01-11 00:33 | ADMGEN ---
This patient, Danny Reyna, was admitted to [facility] Surg Room 332-01. Patient/family oriented to hospital policies and general routines including ID bracelet, bed and alarms, visiting hours, pain management, procedures, bathroom and other care routines, personal items, smoking policy, room service/diet, and visiting hours. Information on how to activate the Rapid Response Team has been discussed. Patient/Family are encouraged to report perceived risks to care and to ask questions if they do not understand what they are told or what they should do.
[2022-01-11] MEDS: ONDANSETRON INJ 4 MG/2 ML VIAL IV PUSH ×3 (00:47→12:17)
[2022-01-11] MEDS: SODIUM CHLORIDE 0.9% IV 1,000 ML 125 ML IV CONT (00:47)
[2022-01-11] MEDS: LORazepam INJ (*CRX) 2 MG/ML VIAL IV PUSH ×5 (04:09→21:43)
[2022-01-11 06:16] LABS: Basophils Percent Auto 0.4 % (0.2-1.2); Eosinophils Absolute Auto 0.1 K/mm3 (0-0.3); Eosinophils Percent Auto 1.1 % (0-4.4); Hematocrit 38.2 % (42.0-52.0); Hemoglobin 12.8 g/dL (14.0-18.0); Immature Granulocyte Absolute 0.02 K/mm3 (0.00-0.031); Immature Granulocyte Percent A 0.4 % (0-0.5); Lymphocytes Absolute Auto 0.99 K/mm3 (0.9-3.2); Lymphocytes Percent Auto 21.5 % (18.3-44.2); Mean Corpuscular HGB Conc 33.5 g/dl (32-36); Mean Corpuscular Hemoglobin 31.1 pg (26-34); Mean Corpuscular Volume 92.9 fl (80-100); Mean Platelet Volume 9.8 fl (7.4-10.4); Monocytes Absolute Auto 0.4 K/mm3 (0.1-0.6); Monocytes Percent Auto 8.7 % (2.6-8.5); Neutrophils Absolute Auto 3.1 K/mm3 (1.3-6.7); Neutrophils Percent Auto 67.9 % (45.5-73.1); Platelet Count Result 132 k/mm3 (150-375); Red Blood Count 4.11 M/mm3 (4.6-6.20); Red Cell Distribution Width 14.6 % (11.5-14.5); White Blood Count 4.6 K/mm3 (4.5-10.0)
[2022-01-11 06:25] LABS: Anion Gap 16 mmol/L (8-16); Blood Urea Nitrogen 7 mg/dL (9-20); Calcium 7.6 mg/dL (8.4-10.2); Carbon Dioxide 23 mmol/L (22-30); Chloride 96 mmol/L (98-107); Estimated CRCL calculation 141 ml/min; Estimated Glomerular Filt Rate > 60; Glucose 88 mg/dL (65-110); Potassium 3.3 mmol/L (3.4-5.0); Sodium 135 mmol/L (137-145)
[2022-01-11] MEDS: THIAMINE HCL 200 MG/2 ML VIAL 100 MG IV PUSH (08:18)
[2022-01-11] MEDS: chlordiazePOXIDE (*CRX) 25 MG CAPSULE 50 MG PO ×3 (08:21→18:25)
[2022-01-11] MEDS: KCL 40 MEQ/D5/0.9% SOD CHL 1,000 ML 100 ML IV CONT ×2 (08:26→21:45)
--- NOTE | 2022-01-11 11:29 | PM.IMPN ---
Progress Note: A&P Assessment and Plan (1) Acute alcoholic intoxication: Qualifiers: Complication of substance-induced condition: with unspecified complication Qualified Code(s): F10.929 - Alcohol use, unspecified with intoxication, unspecified Code(s): F10.929 - Alcohol use, unspecified with intoxication, unspecified Status: Acute Assessment and Plan: supportive care Continue banana bag (2) Alcohol withdrawal syndrome: Qualifiers: Complication of substance-induced condition: uncomplicated Qualified Code(s): F10.930 - Alcohol use, unspecified with withdrawal, uncomplicated Code(s): F10.939 - Alcohol use, unspecified with withdrawal, unspecified Status: Acute Assessment and Plan: continue CIWA protocol. (3) Essential hypertension: Code(s): I10 - Essential (primary) hypertension Status: Acute Assessment and Plan: continue metoprolol at home does Subjective Date/time seen: 01/11/22 11:29 patient does not appear to be anxious. Still has some tremors Review of Systems Review of Systems: tremors Constitutional: Constitutional: Denies chills, Denies fatigue, Denies fever(s), Denies malaise, Denies poor appetite and Denies weakness Eyes: Eyes: Denies change in vision ENT: Denies dysphagia, Denies vertigo, Denies dizziness and Denies odynophagia Cardiovascular: Cardiovascular: Denies chest pain, Denies lightheadedness and Denies dyspnea on exertion Respiratory: Respiratory: Denies cough Gastrointestinal: Gastrointestinal: Denies abdominal pain, Denies constipation, Denies dyspepsia, Denies heartburn, Denies nausea and Denies vomiting Genitourinary: Genitourinary: Denies dysuria Musculoskeletal: Musculoskeletal: Denies joint swelling and Denies muscle weakness Integumentary/Breasts: Skin/Breast: Denies rash Neurologic: Denies vertigo, Denies dizziness, Denies focal weakness, Denies Sensory deficit (Neuro) and Reports tremor(s) Psychiatric: Psychiatric: Reports no additional psychiatric complaints and Reports as per HPI Endocrine: Endocrine: Denies cold intolerance, Denies flushing, Denies heat intolerance, Denies polyphagia, Denies polydipsia and Denies palpitations Hematologic/Lymphatic: Hematologic/Lymphatic: Reports no additional hematologic/lymphatic complaints and Reports as per HPI Allergic/Immunologic: Allergic/Immunologic: Reports no additional allergic/immunologic complaints and Reports as per HPI Exam Const: General: comfortable, no acute distress, well developed, alert, awake and average body habitus Nutritional Appearance: overweight Orientation/consciousness: patient oriented x3 HENMT: Head: normal to inspection, normocephalic and atraumatic Ears: hearing grossly normal bilaterally Face/Nose/Sinus: normal facial exam Face and sinus: normal facial exam Eyes: General: appearance normal, both eyes and all related structures Pupils: Equal, round and reactive pupils present EOM: EOMs intact bilaterally Neck: Neck: full ROM, no lymphadenopathy and no JVD Thyroid: thyroid normal Lymphatic: no lymphadenopathy noted Resp: Effort & Inspection: normal respiratory effort and able to speak in complete sentences Auscultation: clear to auscultation bilaterally Cardio: Jugular venous distension: no JVD Rate: regular rate Rhythm: regular rhythm Heart sounds: S1 normal heart sound present and S2 normal heart sound present GI: GI Palp: Yes Soft to palpation and Yes No hepatosplenomegaly present : General: Yes deferred Skin: Rashes: no rashes Wounds: no wounds Neuro: General: patient oriented x3 and CN's II-XI intact bilaterally Cranial nerves: Yes CN's II-XII intact bilaterally and Yes Equal, round and reactive pupils present Cognition (Neuro): normal cognition Speech: normal speech Gait exam (Neuro): Unable to assess gait Motor exam (neuro): 5/5 motor strength present throughout and Tremors during motor activit
[2022-01-11 11:55] LABS: Glucose Point of Care 100 mg/dl (65-105)
[2022-01-11] MEDS: METOPROLOL TARTRATE 50 MG TAB PO (21:43)
[2022-01-11] MEDS: MIRTAZAPINE 15 MG TABLET PO (21:43)
[2022-01-11 22:02] LABS: Glucose Point of Care 121 mg/dl (65-105)
[2022-01-12] VITALS: PULSE 76
[2022-01-12] MEDS: chlordiazePOXIDE (*CRX) 25 MG CAPSULE 50 MG PO ×3 (00:34→12:27)
[2022-01-12 04:00] VITALS: PULSE 67
[2022-01-12 05:37] VITALS: BP 138/97; PULSE 67; RESP 18; TEMP 35.6; O2SAT 98
[2022-01-12 06:38] LABS: Glucose Point of Care 115 mg/dl (65-105)
[2022-01-12 08:00] VITALS: BP 138/97; PULSE 67; PULSE 83
[2022-01-12 09:33] VITALS: PULSE 95
[2022-01-12] MEDS: METOPROLOL TARTRATE 50 MG TAB PO (09:33)
[2022-01-12] MEDS: THIAMINE HCL 200 MG/2 ML VIAL 100 MG IV PUSH (09:34)
--- NOTE | 2022-01-12 11:53 | PM.DS ---
DS: Admitting Diagnosis Discharge Date 01/12/2022 Admitting Diagnosis Tremors DS: Discharge Diagnosis Discharge Diagnosis (1) Acute alcoholic intoxication: Qualifiers: Complication of substance-induced condition: with unspecified complication Qualified Code(s): F10.929 - Alcohol use, unspecified with intoxication, unspecified Code(s): F10.929 - Alcohol use, unspecified with intoxication, unspecified Status: Acute Assessment and Plan: Pt feels much better today denies any tremors or hallucinations Treated with banana bag (2) Alcohol withdrawal syndrome: Qualifiers: Complication of substance-induced condition: uncomplicated Qualified Code(s): F10.930 - Alcohol use, unspecified with withdrawal, uncomplicated Code(s): F10.939 - Alcohol use, unspecified with withdrawal, unspecified Status: Acute Assessment and Plan: Pt can be discharged can use Librium home dose for anxiety Pt advised to quit alcohol (3) Essential hypertension: Code(s): I10 - Essential (primary) hypertension Status: Acute Assessment and Plan: Continue metoprolol at home dose Plan Pt had KCl for low potassium monitored overnite stable for dischrage DS: Summary Hospital Course Hospital Course: 31-year-old male with past medical history significant for alcohol dependence, tobacco dependence, hypertension, GERD, generalized anxiety disorder. patient presents to the emergency room due to tremors he has been drinking 1 pt of vodka daily.? Denies any nausea, vomiting, diarrhea, abdominal pain, shortness of breath, sputum production cough, fevers, rigors, chills, , no hallucinations, no formication. patient is been admitted for further evaluation management and treatment.? Preliminary workup was significant for alcohol level of 394. Time Spent with Patient Time attestation: Total time spent providing and/or coordinating discharge services: Exam Const: General: comfortable, no acute distress, well developed, alert, awake, average body habitus and overweight Nutritional Appearance: average body habitus and overweight Orientation/consciousness: patient oriented x3 Neck: Neck: full ROM, no lymphadenopathy and no JVD Thyroid: thyroid normal Lymphatic: no lymphadenopathy noted Resp: Effort & Inspection: normal respiratory effort and able to speak in complete sentences Auscultation: clear to auscultation bilaterally Cardio: Jugular venous distension: no JVD Rate: regular rate Rhythm: regular rhythm Heart sounds: S1 normal heart sound present and S2 normal heart sound present Neuro: General: patient oriented x3, CN's II-XI intact bilaterally and Unable to assess gait Cranial nerves: Yes CN's II-XII intact bilaterally and Yes Equal, round and reactive pupils present Cognition (Neuro): normal cognition Speech: normal speech Gait exam (Neuro): Unable to assess gait Motor exam (neuro): 5/5 motor strength present throughout and Tremors during motor activity present Sensory Exam: No Sensory deficit (Neuro) Extrem: General: normal to inspection, full ROM, no joint enlargement and no pedal edema DS: Data Data Completed and Pending Labs on day of discharge: Labs from last 24 hours 01/12/22 01/11/22 01/11/22 06:35 21:50 11:23 POC Capillary Glucose 115 H 121 H 100 Discharge Plan Discharge Attending physician on discharge: Angela Johns Discharging Clinician: Angela Johns Anticipated Discharge Date/Time: 01/12/22 11:48 Patient Disposition: Home, Self-Care Activity: as tolerated and other - see discharge instructions Diet: regular Discharge Instructions: Pt advised to quit drinking alcholol Patient Instructions: Antibiotic Form, How to Stop Smoking (GEN) Stand Alone Forms: General Discharge Information, Work/School Release IP Follow-up/Referrals: Morris Sosa MD [Primary Care Provider] - Discharge Medications: Continued
[2022-01-12 12:00] VITALS: BP 138/97; PULSE 67
[2022-01-12 12:08] LABS: Glucose Point of Care 134 mg/dl (65-105)
== END 2022-01-12 12:45 | disposition home or self-care (01) | DRG 897 ==
LOC: ANHED 20:03 → ANH3MEDSUR 23:36
PROVIDERS: Admitting Provider Internal Medicine; Emergency Provider Family Medicine; PCP Family Medicine; Visit Provider Hospitalist
DX: F10.230 Alcohol dependence with withdrawal, uncomplicated (principal); F10.229 Alcohol dependence with intoxication, unspecified; Y90.8 Blood alcohol level of 240 mg/100 ml or more; E87.6 Hypokalemia; F17.210 Nicotine dependence, cigarettes, uncomplicated; I10 Essential (primary) hypertension; K21.9 Gastro-esophageal reflux disease without esophagitis; F41.1 Generalized anxiety disorder; Z20.822 Contact with and (suspected) exposure to COVID-19; Z79.899 Other long term (current) drug therapy
CPT/HCPCS: 36415; 80048; 80053; 80307; 82948; 85025; 96361; 96374; 96375; 96376; 99285; A9270; J2060; J2405; J3411; J3480; J7030; U0003; U0005

== ENCOUNTER 2022-02-23 05:50 | Emergency (ER) | payer BC, SELFPAY ==
[2022-02-23 05:54] VITALS: BP 146/93; PULSE 98; RESP 16; TEMP 36.9; O2SAT 99
--- NOTE | 2022-02-23 06:04 | PC.NURSE ---
Dr. Diaz at [facility] to assess pt.
--- NOTE | 2022-02-23 06:10 | ED.ALCOHOL ---
HPI - Alcohol General Chief Complaint: Alcohol Stated Complaint: ETOH addiction Time Seen by Provider: 02/23/22 05:58 History of Present Illness HPI narrative: Patient with history of alcohol use disorder, DTs, presents here stating that he wants help for his alcohol problem. He is endorsing some nausea. He is worried he may have a seizure. Last drink was several hours ago where he had a half pint of whiskey. Related Data Home Medications Medication Instructions Recorded Confirmed trazodone 100 mg tablet 250 mg PO HS 10/23/21 01/11/22 folic acid 1 mg tablet 1 mg PO DAILY 11/14/21 01/11/22 gabapentin 600 mg tablet 600 mg PO TID 11/14/21 01/11/22 geriatric multivitamin-min 1 tablet PO DAILY 11/14/21 01/11/22 mirtazapine 15 mg tablet 15 mg PO HS 11/14/21 01/11/22 Allergies Allergy/AdvReac Type Severity Reaction Status Date / Time No Known Allergies Allergy Verified 02/23/22 08:04 Review of Systems Review of Systems: CONST: No fever. HEENT: No sore throat C/V: No chest pain RESP: No cough GI: Reports some nausea and epigastric discomfort : No dysuria. M/S: No joint pain. SKIN: No rash. NEURO: Feeling like I might have a seizure PSYCH: Some anxiety PMFSH Past Medical History Medical History Acute renal failure Alcohol abuse Alcohol intoxication Alcohol withdrawal seizure Alcoholism Aspiration pneumonia Contusion of face Erosive esophagitis Essential hypertension Generalized anxiety disorder History of alcohol abuse Hyperammonemia Hypertension Hypokalemia Leukocytosis Periapical abscess Tachycardia Transaminitis Surgical History Surgical History No pertinent past surgical history Family History Family History Father Alcohol abuse Family history of coronary artery disease Hypertension Heart disease Mother Alcohol abuse Family history of diabetes mellitus in first degree relative Hypertension Sibling Alcohol abuse Family history of diabetes mellitus in first degree relative Social History Social History Social History: The patient lives in his own home. He has 1 son. 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 He smoked about half a pack of cigarettes a day for few years and quit in 2020. He estimates that he started drinking alcohol at the age of 11 and he drinks at least a half a pt of vodka a day. Occasional marijuana use. He designates his mother Andie as his surrogate decision maker and he wishes to be a full code. Smoking packs per day: 0.5 Smoking cigarettes per day: 10.0 Years smoked: 19 Smoking pack-years: 9.50 Smoking status: Light tobacco smoker Tobacco type: cigarettes Second hand tobacco smoke exposure: No Additional smoking assessment comments: Pt states that he smokes about 1 pack per week. 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 EYES: EOMI, conjunctiva normal ENT: Hearing grossly intac
[2022-02-23] MEDS: chlordiazePOXIDE (*CRX) 25 MG CAPSULE PO (06:13)
[2022-02-23] MEDS: FAMOTIDINE 20 MG TABLET PO (06:13)
[2022-02-23] MEDS: ONDANSETRON HCL ODT 4 MG TABLET PO (06:13)
[2022-02-23 06:51] LABS: Glucose Point of Care 126 mg/dl (65-105)
== END 2022-02-23 07:01 | disposition home or self-care (01) ==
PROVIDERS: Emergency Provider Emergency Medicine; PCP Family Medicine
DX: F10.20 Alcohol dependence, uncomplicated (principal); Y90.9 Presence of alcohol in blood, level not specified; K22.10 Ulcer of esophagus without bleeding; I10 Essential (primary) hypertension; F41.1 Generalized anxiety disorder; Z20.822 Contact with and (suspected) exposure to COVID-19
CPT/HCPCS: 82948; 99283; A9270

== ENCOUNTER 2022-02-23 07:01 | Emergency (ER) | payer BC, SELFPAY ==
[2022-02-23 08:01] VITALS: BP 156/84; PULSE 79; RESP 18; TEMP 37.1; O2SAT 100
== END 2022-02-23 08:48 | disposition left against medical advice (07) ==
LOC: ANHED 08:27
PROVIDERS: PCP Family Medicine
DX: F41.9 Anxiety disorder, unspecified (principal)
CPT/HCPCS: 99199

== ENCOUNTER 2022-03-25 08:49 | Outpatient (CLI) | payer BC, SELFPAY ==
[2022-03-25 09:59] LABS: Basophils Percent Auto 0.8 % (0.2-1.2); Eosinophils Absolute Auto 0.1 K/mm3 (0-0.3); Eosinophils Percent Auto 2.3 % (0-4.4); Hematocrit 46.6 % (42.0-52.0); Hemoglobin 15.4 g/dL (14.0-18.0); Immature Granulocyte Absolute 0.05 K/mm3 (0.00-0.031); Immature Platelet Fraction Pct 8.9 % (0.9-11.2); Lymphocytes Absolute Auto 1.11 K/mm3 (0.9-3.2); Lymphocytes Percent Auto 21.6 % (18.3-44.2); Mean Corpuscular Hemoglobin 32.4 pg (26-34); Mean Corpuscular Volume 98.1 fl (80-100); Mean Platelet Volume 10.9 fl (7.4-10.4); Monocytes Absolute Auto 0.7 K/mm3 (0.1-0.6); Monocytes Percent Auto 13.6 % (2.6-8.5); Neutrophils Absolute Auto 3.1 K/mm3 (1.3-6.7); Neutrophils Percent Auto 60.7 % (45.5-73.1); Platelet Count Result 113 k/mm3 (150-375); Red Blood Count 4.75 M/mm3 (4.6-6.20); Red Cell Distribution Width 13.2 % (11.5-14.5); White Blood Count 5.1 K/mm3 (4.5-10.0)
[2022-03-25 12:03] LABS: Hepatitis C Virus Antibody Negative (Negative)
[2022-03-25 12:10] LABS: Hemoglobin A1C 5.6 % (<5.7)
[2022-03-25 18:04] LABS: Alanine Aminotransferase 114 U/L (6-50); Albumin Level 4.6 g/dL (3.5-5.1); Alkaline Phosphatase 86 U/L (38-126); Anion Gap 11 mmol/L (8-16); Aspartate Amino Transferase 84 U/L (17-59); Bilirubin,Total 0.6 mg/dL (0.2-1.3); Blood Urea Nitrogen 7 mg/dL (9-20); Calcium 8.5 mg/dL (8.4-10.2); Carbon Dioxide 27 mmol/L (22-30); Chloride 96 mmol/L (98-107); Cholesterol 229 mg/dL (0-200); Estimated Glomerular Filt Rate > 60; Glucose 121 mg/dL (65-110); HDL Direct 94 mg/dL; Potassium 3.4 mmol/L (3.4-5.0); Sodium 134 mmol/L (137-145); Triglycerides 98 mg/dL (<150)
[2022-03-25 18:15] LABS: LDL Cholesterol Direct 86 mg/dL
== END 2022-03-25 08:50 | disposition home or self-care (01) ==
LOC: ANHLAB 08:53
PROVIDERS: PCP Family Medicine
DX: Z79.899 Other long term (current) drug therapy (principal)
CPT/HCPCS: 36415; 80053; 80061; 82306; 83036; 84443; 85025; 85055; 86803; 87491; 87591; 87661

== ENCOUNTER 2022-06-02 21:41 | Inpatient (IN) | payer BC, SELFPAY ==
--- NOTE | ~2022-06-02 | XR_ITS ---
Clinical Indication: Shortness of breath PA and lateral views of the chest: Comparison: 01/08/2022 Findings: The lungs are clear, without evidence of focal consolidation or pleural effusion. Cardiome diastinal silhouette is within normal limits. Bones and soft tissues are unremarkable. Impression: Normal chest. Reviewed, dictated and finalized at location . Impression: Normal chest.
[2022-06-02 21:44] VITALS: BP 155/95; PULSE 117; RESP 16; TEMP 36.8; O2SAT 99
--- NOTE | 2022-06-02 22:03 | ED.ALCOHOL ---
HPI - Alcohol General Chief Complaint: Alcohol Stated Complaint: EOTH Detox Time Seen by Provider: 06/02/22 21:47 History of Present Illness HPI narrative: Patient is a 32-year-old male with a history of alcohol use disorder here with his mother due to concerns over alcohol withdrawals. Patient states that he drank his normal amount today which is 2 pints of vodka and he has been on an alcohol binge for the past 2 weeks. 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 Patient expresses concerns over possible impending seizure because he states that he feels tremulous, anxious, and is nauseated. He also expresses concern as he has had several episodes of vomiting pink tinged emesis x 4 days; has seen GI in past for this and was diagnosed with esophagitis and gastritis, no varices. no abdominal pain, fevers or chills. He had audial hallucinations earlier today. he does have a history of withdrawal seizures. Patient's mother states that he has not taken any of his home antihypertensives x 2 weeks. Related Data Home Medications Medication Instructions Recorded Confirmed trazodone 100 mg tablet 250 mg PO HS 10/23/21 01/11/22 folic acid 1 mg tablet 1 mg PO DAILY 11/14/21 01/11/22 gabapentin 600 mg tablet 600 mg PO TID 11/14/21 01/11/22 geriatric multivitamin-min 1 tablet PO DAILY 11/14/21 01/11/22 mirtazapine 15 mg tablet 15 mg PO HS 11/14/21 01/11/22 Allergies Allergy/AdvReac Type Severity Reaction Status Date / Time No Known Allergies Allergy Verified 06/02/22 21:42 Review of Systems Review of Systems: Gen.: Reports tremulousness and anxiety Eyes: Denies eye pain or visual change ENT: Denies congestion Respiratory: Denies shortness of breath or cough CV: Denies chest pain or palpitations GI: Denies abdominal pain nausea, emesis or diarrhea denies burning, urgency, frequency or hematuria Musculoskeletal: Denies back pain or muscle pain Neuro: Denies numbness, tingling, weakness or focal weakness Skin: Denies rash Except as documented, all other systems reviewed and negative PMFSH Past Medical History Medical History Acute renal failure Alcohol abuse Alcohol intoxication Alcohol withdrawal seizure Alcoholism Aspiration pneumonia Contusion of face Erosive esophagitis Essential hypertension Generalized anxiety disorder History of alcohol abuse Hyperammonemia Hypertension Hypokalemia Leukocytosis Periapical abscess Tachycardia Transaminitis Surgical History Surgical History No pertinent past surgical history Family History Family History Father Alcohol abuse Family history of coronary artery disease Hypertension Heart disease Mother Alcohol abuse Family history of diabetes mellitus in first degree relative Hypertension Sibling Alcohol abuse Family history of diabetes mellitus in first degree relative Social History Social History Social History: The patient lives in his own home. He has 1 son. 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 He smoked about half a pack of cigarettes a day for few years and quit in 2019. He estimates that he started drinking alcohol at the age of 11 and he drinks at least a half a pt of vodka a day. Occasional marijuana use. He designates his mother Andie as his surrogate decision maker and he wishes to be a full code. Smoking packs per day: 0.5 Smoking cigarettes per day: 10.0 Years smoked: 19 Smoking pack-years: 9.50 Smoking status: Light tobacco smoker Tobacco type: cigarettes Second hand tobacco smoke exposure: No Additional smoking assessment comments: Pt states that he smokes about 1 pack per week. Alcohol intake: current Drinks per week: 50 Substance use
[2022-06-02 22:16] VITALS: RESP 16; O2SAT 99
[2022-06-02 22:20] LABS: Basophils Percent Auto 0.6 % (0.2-1.2); Hematocrit 45.3 % (42.0-52.0); Hemoglobin 15.9 g/dL (14.0-18.0); Immature Granulocyte Absolute 0.03 K/mm3 (0.00-0.031); Immature Platelet Fraction Pct 6.7 % (0.9-11.2); Lymphocytes Absolute Auto 0.77 K/mm3 (0.9-3.2); Lymphocytes Percent Auto 24.4 % (18.3-44.2); Mean Corpuscular HGB Conc 35.1 g/dl (32-36); Mean Corpuscular Hemoglobin 33.6 pg (26-34); Mean Corpuscular Volume 95.8 fl (80-100); Mean Platelet Volume 10.9 fl (7.4-10.4); Monocytes Absolute Auto 0.5 K/mm3 (0.1-0.6); Monocytes Percent Auto 14.6 % (2.6-8.5); Neutrophils Absolute Auto 1.9 K/mm3 (1.3-6.7); Neutrophils Percent Auto 59.4 % (45.5-73.1); Nucleated Red Blood Cells Perc 0.6 % (0.0-0.2); Platelet Count Result 56 k/mm3 (150-375); Red Blood Count 4.73 M/mm3 (4.6-6.20); Red Cell Distribution Width 14.3 % (11.5-14.5); White Blood Count 3.2 K/mm3 (4.5-10.0)
[2022-06-02 22:28] LABS: Platelet Estimate Decreased (Adequate); Schistocytes None Seen (NORMAL)
[2022-06-02] MEDS: THIAMINE HCL 200 MG/2 ML VIAL 100 MG IV PUSH (22:45)
[2022-06-02 22:46] VITALS: BP 137/85; PULSE 108; RESP 14; O2SAT 94
[2022-06-02] MEDS: LACTATED RINGERS 1,000 ML 999 ML IV CONT (22:46)
[2022-06-02 23:27] LABS: Ethanol 478 mg/dL (<10)
[2022-06-02] MEDS: PANTOPRAZOLE SODIUM IV 40 MG VIAL 80 MG IV PUSH (23:40)
[2022-06-02 23:43] VITALS: BP 146/90; PULSE 102; RESP 18; O2SAT 96
[2022-06-03] VITALS (16 sets, daily range): BP systolic 127–162; BP diastolic 74–111; PULSE 89–129; RESP 14–23; TEMP 36.3–36.8; O2SAT 91–99; BMI 31.9
[2022-06-03 00:48] LABS: Magnesium 1.6 mg/dL (1.6-2.3)
[2022-06-03] MEDS: ONDANSETRON INJ 4 MG/2 ML VIAL IV PUSH ×4 (02:07→20:19)
[2022-06-03] MEDS: LACTATED RINGERS 1,000 ML 999 ML IV CONT (02:08)
[2022-06-03 02:20] LABS: Potassium 2.9 mmol/L (3.4-5.0); Sodium 129 mmol/L (137-145)
[2022-06-03 02:21] LABS: Anion Gap 15 mmol/L (8-16); Blood Urea Nitrogen 8 mg/dL (9-20); Carbon Dioxide 30 mmol/L (22-30); Chloride 84 mmol/L (98-107); Estimated CRCL calculation 190 ml/min; Estimated Glomerular Filt Rate > 60
[2022-06-03 02:22] LABS: Bilirubin,Total 0.7 mg/dL (0.2-1.3); Calcium 7.5 mg/dL (8.4-10.2); Glucose 161 mg/dL (65-110)
[2022-06-03 02:23] LABS: Alanine Aminotransferase 65 U/L (6-50); Aspartate Amino Transferase 138 U/L (17-59); Total Protein 7.2 g/dL (6.3-8.2)
[2022-06-03 02:24] LABS: Albumin Level 4.3 g/dL (3.5-5.1); Alkaline Phosphatase 108 U/L (38-126)
--- NOTE | 2022-06-03 02:28 | ECG_ITS ---
Measurements Intervals [place] Rate: 114 P: AL: 0 QRS: 102 QRSD: 106 T: 43 QT: 311 QTc: 429 Interpretive Statements SINUS TACHYCARDIA RIGHT AXIS DEVIATION BASELINE ARTIFACT- I, II, III, AVL, AVF, V1-V3 ABNORMAL ECG COMPARED TO ECG 10/23/2021 02:49:53 SINUS TACHYCARDIA NOW PRESENT Electronically Signed On 06-03-2022 7:16:50 CDT by Elvis Naidu D.O.
[2022-06-03] MEDS: POTASSIUM CHLORIDE INJ 40 MEQ in SODIUM CHLORIDE 0.9% IV 500 ML 130 MEQ IVPB (02:51)
[2022-06-03] MEDS: diphenhydrAMINE HCl INJ 50 MG/ML VIAL 12.5 MG IV PUSH (02:56)
[2022-06-03] MEDS: METOCLOPRAMIDE HCL INJ 10 MG/2 ML VIAL IV PUSH (02:56)
[2022-06-03 03:33] LABS: Prothrombin Time 13.2 Seconds (11.1-14.7)
[2022-06-03 03:34] LABS: Partial Thromboplastin Time 25.4 SECONDS (22.3-36.8)
[2022-06-03] MEDS: MAGNESIUM SULF 4 GM/WATER100ML 4 GM/100 ML BAG IVPB (03:38)
[2022-06-03 04:45] LABS: Lipase 1001 U/L (23-300)
[2022-06-03] MEDS: LORazepam INJ (*CRX) 2 MG/ML VIAL 1 MG IV PUSH ×4 (04:58→22:27)
[2022-06-03 05:06] LABS: Amphetamine Screen Urine Negative (Negative); Barbiturate Screen Urine Negative (Negative); Benzodiazepines Screen Urine Negative (Negative); Cannabinoid Screen Urine Positive (Negative); Cocaine Screen Urine Negative (Negative); Methadone Screen Urine Negative (Negative); Opiate Screen Urine Positive (Negative); Phencyclidine Screen Urine Negative (Negative)
--- NOTE | 2022-06-03 05:37 | PC.NURSE ---
Patient arrived on 3 Med-Surg at 04:35
--- NOTE | 2022-06-03 05:43 | PM.IMHP ---
H&P: HPI History of Present Illness Date/Time: 06/03/22 05:43 Chief Complaint: ?I am here for alcohol detox? Narrative: 32-year-old male well-known to the hospitalist service with history of chronic alcohol abuse, alcoholic hepatitis, esophagitis and gastritis who presented to the ER with ?feels like him going to sees up.? . He drank his usual amount of alcohol today prior to coming to the ER which is equivalent to about 2 pt of vodka. He drinks a last pint about 30 minutes prior to coming to the ER which was around 21:00. He has been drinking heavily for 2 weeks. He was brought by his mother because they thought he could be going through alcohol withdrawal. He was feeling tremulous, anxious and nauseated. He has had several episodes of vomiting over the last 4 days. however his vomiting worsened today. He reports that usually if he can get enough ox lui and that he will not vomited anymore. So he was just trying to drink more alcohol. He has had occasional pink tinged emesis. In the ER he had 1 episode of emesis that looked a little pink tinged. He had reported to the ER staff that he had auditory hallucinations earlier in the day. However he did not mention auditory hallucinations to me and instead as stated that yesterday he was noticing some squiggly circles. The patient has been noncompliant with his home medications, including his antihypertensive, for 2 weeks. Nursing staff reports that the patient's heart rate does climbed to 150s with activity but at rest patient's heart rate is down to the low 100s. The patient was repetitively asking for Ativan in the ER. Despite the fact that the patient was falling asleep multiple times in having brief periods of desaturations. The patient was noted to be snoring during these episodes. Chest x-ray performed in the ER did not demonstrate any evidence of pneumonia. Although the patient and his family were concerned about him being in active alcohol withdrawal the patient's alcohol level was 478 which was 1 of the patient's 3 highest alcohol levels ever recorded at this facility. The patient's urine drug screen was also positive for opiates which he does not have a prescription for and marijuana. In the ER the patient received 2 L of LR bolus, 80 mg of IV Protonix, 100 mg of IV thiamin, Zofran x1 and Reglan 10 mg x 1. The patient was mildly tachycardic with episodes of increased tachycardia in the ER. He was found to have white count that was low, recurrent slightly worsened thrombocytopenia compared to more recent values, stable hemoglobin, mild hyponatremia, mild hypokalemia, and borderline low magnesium. The patient's lipase was mildly elevated but likely due to intractable vomiting is the patient had no evidence of abdominal pain. The patient's urine drug screen was also positive for opiates. He does admit that he has been buying [place] off the street stated that he took 3 [place] yesterday. He has also been using marijuana. His last use was yesterday. He reports that he does not use marijuana very often. He is reporting headache, persistent nausea, anxiety and tremors. Nursing staff documented his CIWA score 18 but at the time of my evaluation shortly after nursing documentation the patient CIWA score was 10. Review of Systems Review of Systems: 12 systems were reviewed with pertinent positives and negatives per HPI. Except as documented in the HPI, all other systems were reviewed and are negative. [facility] Past Medical History Medical History (Updated 06/03/22 @ 07:20 by Geovanna Weaver DO) Alcohol abuse Alcohol withdrawal seizure Alcoholism Aspiration pneumonia Erosive esophagitis Essential hypertension Generalized anxiety disorder Hyperammonemia Leukocytosis Periapical abscess Tachycardia Transaminitis Surgical History Surgical History (Updated 06/03/22 @ 06:11 by Geovanna Weaver DO) History of esophagogastroduodenoscopy (EGD) (09/2021) Family History Family H
[2022-06-03 06:04] LABS: Glucose Point of Care 114 mg/dl (65-105)
[2022-06-03] MEDS: chlordiazePOXIDE (*CRX) 25 MG CAPSULE PO ×4 (06:05→23:16)
[2022-06-03] MEDS: SODIUM CHLORIDE 0.9% IV 1,000 ML 150 ML IV CONT ×2 (07:33→14:21)
[2022-06-03 07:36] LABS: Basophils Percent Auto 0.4 % (0.2-1.2); Eosinophils Percent Auto 0.2 % (0-4.4); Hematocrit 38.7 % (42.0-52.0); Hemoglobin 13.8 g/dL (14.0-18.0); Immature Granulocyte Absolute 0.03 K/mm3 (0.00-0.031); Immature Granulocyte Percent A 0.6 % (0-0.5); Immature Platelet Fraction Pct 7.1 % (0.9-11.2); Lymphocytes Absolute Auto 0.67 K/mm3 (0.9-3.2); Lymphocytes Percent Auto 14.1 % (18.3-44.2); Mean Corpuscular HGB Conc 35.7 g/dl (32-36); Mean Corpuscular Hemoglobin 34.2 pg (26-34); Mean Platelet Volume 10.3 fl (7.4-10.4); Monocytes Absolute Auto 0.6 K/mm3 (0.1-0.6); Monocytes Percent Auto 13.5 % (2.6-8.5); Neutrophils Absolute Auto 3.4 K/mm3 (1.3-6.7); Neutrophils Percent Auto 71.2 % (45.5-73.1); Platelet Count Result 42 k/mm3 (150-375); Red Blood Count 4.03 M/mm3 (4.6-6.20); Red Cell Distribution Width 14.6 % (11.5-14.5); White Blood Count 4.8 K/mm3 (4.5-10.0)
[2022-06-03 07:55] LABS: Anion Gap 12 mmol/L (8-16); Blood Urea Nitrogen 4 mg/dL (9-20); Calcium 6.9 mg/dL (8.4-10.2); Carbon Dioxide 30 mmol/L (22-30); Chloride 87 mmol/L (98-107); Estimated CRCL calculation 155 ml/min; Estimated Glomerular Filt Rate > 60; Glucose 107 mg/dL (65-110); Potassium 3.3 mmol/L (3.4-5.0); Sodium 129 mmol/L (137-145)
[2022-06-03] MEDS: PANTOPRAZOLE SODIUM IV 40 MG VIAL IV PUSH ×2 (08:18→17:01)
[2022-06-03] MEDS: THERAPEUTIC MULTIVITAMINS/MINERALS TAB (*BKC) 1 TABLET PO (08:18)
[2022-06-03] MEDS: METOPROLOL TARTRATE 50 MG TAB PO ×2 (08:18→20:14)
[2022-06-03] MEDS: THIAMINE HCL 200 MG/2 ML VIAL 100 MG IV PUSH (08:19)
[2022-06-03] MEDS: HALOPERIDOL LACTATE 5 MG/ML VIAL 2 MG IV PUSH ×2 (10:23→14:21)
[2022-06-03] MEDS: LORazepam INJ (*CRX) 2 MG/ML VIAL IV PUSH ×2 (11:07→18:04)
[2022-06-03 13:06] LABS: Glucose Point of Care 99 mg/dl (65-105)
--- NOTE | 2022-06-03 15:01 | PM.IMPN ---
Progress Note: A&P Assessment and Plan (1) EtOH dependence: Qualifiers: Substance use status: in withdrawal Code(s): F10.20 - Alcohol dependence, uncomplicated Status: Acute Assessment and Plan: The patient is actively intoxicated but is demonstrating some symptoms of alcohol withdrawal. Trend CIWA scores Librium has been scheduled 25 mg q.6 hours. Will add Ativan will 1 mg as needed for CIWA scores 10-15 and Ativan 2 mg for CIWA scores greater than 15. Thiamin has been ordered IV daily Patient having some nausea vomiting. Zofran hnd Haldol p.r.n. ordered. Patient has reported interest and going to rehab. Care coordination consulted in this case. Evidence of advancement of alcohol abuse includes worsening transaminitis and thrombocytopenia. No signs of cirrhosis. (2) Intractable nausea and vomiting: Code(s): R11.2 - Nausea with vomiting, unspecified Status: Acute Assessment and Plan: Likely multifactorial due to gastritis and esophagitis, chronic alcohol abuse and THC use. The patient does have a mildly elevated lipase but this is likely due to the intractable nausea vomiting and not related to pancreatitis is the patient is not having any significant epigastric pain on palpation. Will continue IV fluid hydration and monitor. The patient had EGD last summer that was negative for varices. He did have history of esophagitis and gastritis. Patient's emesis is blood tinged in the ED. Will monitor patient's H&H. Stable right now. DX including Rosanna-Feliciano tear (3) Sinus tachycardia: Code(s): R00.0 - Tachycardia, unspecified Status: Acute Assessment and Plan: Due to hypovolemia/dehydration, alcohol withdrawal/Opiate withdrawal and nonadherence to beta-blockers. Continue IV fluids and monitor. Will resume patient's home metoprolol. (4) Gastritis: Code(s): K29.70 - Gastritis, unspecified, without bleeding Status: Acute Assessment and Plan: Scheduled Protonix 40 mg IV b.i.d.. Patient is currently NPO Except meds and ice chipswhile still having nausea vomiting. (5) Erosive esophagitis: Code(s): K22.10 - Ulcer of esophagus without bleeding Status: Acute Assessment and Plan: Please see above plan. (6) Hypokalemia: Code(s): E87.6 - Hypokalemia Status: Acute Assessment and Plan: 40 mEq potassium chloride rider ordered in the ER. Repeat level this a.m.. Magnesium supplements ordered. (7) Thrombocytopenia: Code(s): D69.6 - Thrombocytopenia, unspecified Status: Chronic Assessment and Plan: The patient's platelet count has dropped likely due to his worsening alcohol consumption. Will continue to monitor. Will avoid anti-platelet medications or pharmacologic DVT prophylaxis. (8) Tetrahydrocannabinol (THC) dependence: Code(s): F12.20 - Cannabis dependence, uncomplicated Status: Acute Assessment and Plan: A portions of the patient's intractable nausea vomiting could be due to THC use. Patient has been counseled to stop Use. (9) Opiate use: Code(s): F11.90 - Opioid use, unspecified, uncomplicated Status: Acute Assessment and Plan: The patient does not have a prescription for opiates in his buying opiates off the street. This is likely also playing a component into the patient's symptoms of withdrawal. Continue with supportive care. Subjective Date/time seen: 06/03/22 15:01 Interval history: Patient has hx of chronic alcohol abuse. patient is admitted to the hospital for alcohol intoxication multiple times. I discussed with the patient his willingness to go to rehabilitation and he stated that he be willing to go like to quit drinking. Patient states he currently drinks 1 or more pt of whiskey a day. When interviewed the patient he h
[2022-06-03 18:50] LABS: Glucose Point of Care 111 mg/dl (65-105)
[2022-06-03] MEDS: traZODone HCL 50 MG TABLET 250 MG PO (20:14)
[2022-06-04] VITALS (10 sets, daily range): BP systolic 135–176; BP diastolic 78–113; PULSE 103–135; RESP 20–22; TEMP 36.1–37; O2SAT 96–97
[2022-06-04] MEDS: SODIUM CHLORIDE 0.9% IV 1,000 ML 150 ML IV CONT ×2 (01:00→08:42)
[2022-06-04 01:11] LABS: Glucose Point of Care 82 mg/dl (65-105)
[2022-06-04] MEDS: chlordiazePOXIDE (*CRX) 25 MG CAPSULE PO ×4 (05:13→23:15)
[2022-06-04 05:25] LABS: Glucose Point of Care 104 mg/dl (65-105)
[2022-06-04 07:14] LABS: Basophils Percent Auto 0.6 % (0.2-1.2); Eosinophils Absolute Auto 0.1 K/mm3 (0-0.3); Hematocrit 39.9 % (42.0-52.0); Hemoglobin 13.7 g/dL (14.0-18.0); Immature Granulocyte Absolute 0.04 K/mm3 (0.00-0.031); Immature Granulocyte Percent A 1.1 % (0-0.5); Immature Platelet Fraction Pct 11.2 % (0.9-11.2); Lymphocytes Absolute Auto 0.54 K/mm3 (0.9-3.2); Lymphocytes Percent Auto 15.3 % (18.3-44.2); Mean Corpuscular HGB Conc 34.3 g/dl (32-36); Mean Corpuscular Hemoglobin 33.5 pg (26-34); Mean Corpuscular Volume 97.6 fl (80-100); Mean Platelet Volume 10.8 fl (7.4-10.4); Monocytes Absolute Auto 0.5 K/mm3 (0.1-0.6); Monocytes Percent Auto 14.4 % (2.6-8.5); Neutrophils Absolute Auto 2.4 K/mm3 (1.3-6.7); Neutrophils Percent Auto 66.6 % (45.5-73.1); Platelet Count Result 29 k/mm3 (150-375); Red Blood Count 4.09 M/mm3 (4.6-6.20); Red Cell Distribution Width 14.3 % (11.5-14.5); White Blood Count 3.5 K/mm3 (4.5-10.0)
[2022-06-04 07:23] LABS: Alanine Aminotransferase 51 U/L (6-50); Albumin Level 4.2 g/dL (3.5-5.1); Alkaline Phosphatase 88 U/L (38-126); Anion Gap 10 mmol/L (8-16); Aspartate Amino Transferase 95 U/L (17-59); Blood Urea Nitrogen 6 mg/dL (9-20); Calcium 7.9 mg/dL (8.4-10.2); Carbon Dioxide 26 mmol/L (22-30); Chloride 97 mmol/L (98-107); Estimated CRCL calculation 182 ml/min; Estimated Glomerular Filt Rate > 60; Glucose 81 mg/dL (65-110); Potassium 3.3 mmol/L (3.4-5.0); Sodium 133 mmol/L (137-145)
[2022-06-04] MEDS: THERAPEUTIC MULTIVITAMINS/MINERALS TAB (*BKC) 1 TABLET PO (08:34)
[2022-06-04] MEDS: ONDANSETRON INJ 4 MG/2 ML VIAL IV PUSH (08:34)
[2022-06-04] MEDS: METOPROLOL TARTRATE 50 MG TAB PO ×2 (08:34→21:15)
[2022-06-04] MEDS: PANTOPRAZOLE SODIUM IV 40 MG VIAL IV PUSH ×2 (08:34→16:54)
[2022-06-04] MEDS: LORazepam INJ (*CRX) 2 MG/ML VIAL IV PUSH ×2 (08:34→21:16)
[2022-06-04] MEDS: THIAMINE HCL 200 MG/2 ML VIAL 100 MG IV PUSH (08:35)
[2022-06-04] MEDS: POTASSIUM CHLORIDE 20 MEQ TABLET 40 MEQ PO (09:03)
[2022-06-04 09:39] LABS: Reticulocyte Hemoglobin Conten 41.6 pg (28.2-35.7); Reticulocyte Percent 2.95 % (0.7-4.3); Reticulocytes Absolute 0.13 B/L (32.2-175.7)
[2022-06-04 09:52] LABS: Prothrombin Time 13.1 Seconds (11.1-14.7)
[2022-06-04 09:53] LABS: Partial Thromboplastin Time 26.7 SECONDS (22.3-36.8)
[2022-06-04 09:54] LABS: Transferrin 228 mg/dL (206-381)
[2022-06-04 10:09] LABS: Iron 67 ug/dL (49-181)
[2022-06-04 10:19] LABS: Percent Iron Saturation 23 % (20-50)
[2022-06-04 10:54] LABS: Folic Acid 16.6 ng/mL (2.76->20)
[2022-06-04 11:39] LABS: Glucose Point of Care 83 mg/dl (65-105)
[2022-06-04] MEDS: LORazepam INJ (*CRX) 2 MG/ML VIAL 1 MG IV PUSH ×2 (12:30→16:54)
--- NOTE | 2022-06-04 12:58 | PM.IMPN ---
Progress Note: A&P Assessment and Plan (1) EtOH dependence: Qualifiers: Substance use status: in withdrawal Code(s): F10.20 - Alcohol dependence, uncomplicated Status: Acute Assessment and Plan: The patient is actively intoxicated but is demonstrating some symptoms of alcohol withdrawal. Trend CIWA scores Librium has been scheduled 25 mg q.6 hours. Will add Ativan will 1 mg as needed for CIWA scores 10-15 and Ativan 2 mg for CIWA scores greater than 15. Thiamin has been ordered IV daily Patient having some nausea vomiting. Zofran hnd Haldol p.r.n. ordered. Patient has reported interest and going to rehab. Care coordination consulted in this case. Evidence of advancement of alcohol abuse includes worsening transaminitis and thrombocytopenia. No signs of cirrhosis. (2) Intractable nausea and vomiting: Code(s): R11.2 - Nausea with vomiting, unspecified Status: Acute Assessment and Plan: Likely multifactorial due to gastritis and esophagitis, chronic alcohol abuse and THC use. The patient does have a mildly elevated lipase but this is likely due to the intractable nausea vomiting and not related to pancreatitis is the patient is not having any significant epigastric pain on palpation. Will continue IV fluid hydration and monitor. The patient had EGD last summer that was negative for varices. He did have history of esophagitis and gastritis. Patient's emesis is blood tinged in the ED. Will monitor patient's H&H. Stable right now. DX including Rosanna-Feliciano tear 06/04 Nausea and vomiting have resolved. (3) Sinus tachycardia: Code(s): R00.0 - Tachycardia, unspecified Status: Acute Assessment and Plan: Due to hypovolemia/dehydration, alcohol withdrawal/Opiate withdrawal and nonadherence to beta-blockers. Continue IV fluids and monitor. Will resume patient's home metoprolol. (4) Gastritis: Code(s): K29.70 - Gastritis, unspecified, without bleeding Status: Chronic Assessment and Plan: Patient with history of gastritis due to consumption of alcohol. Scheduled Protonix 40 mg IV b.i.d.. Patients diet advanced as tolerated. He is no longer having nausea and vomiting. (5) Erosive esophagitis: Code(s): K22.10 - Ulcer of esophagus without bleeding Status: Chronic Assessment and Plan: Please see above. (6) Hypokalemia: Code(s): E87.6 - Hypokalemia Status: Acute Assessment and Plan: Patient with hypokalemia in the ED. Continue to monitor replenish as needed. (7) Thrombocytopenia: Code(s): D69.6 - Thrombocytopenia, unspecified Status: Chronic Assessment and Plan: The patient's platelet count has dropped likely due to his worsening alcohol consumption. Will continue to monitor. Will avoid anti-platelet medications or pharmacologic DVT prophylaxis. (8) Tetrahydrocannabinol (THC) dependence: Code(s): F12.20 - Cannabis dependence, uncomplicated Status: Acute Assessment and Plan: A portions of the patient's intractable nausea vomiting could be due to THC use. Patient has been counseled to stop Use. (9) Opiate use: Code(s): F11.90 - Opioid use, unspecified, uncomplicated Status: Acute Assessment and Plan: The patient does not have a prescription for opiates in his buying opiates off the street. This is likely also playing a component into the patient's symptoms of withdrawal. Continue with supportive care. Subjective Date/time seen: 06/04/22 12:58 Interval history: Patient more pleasant today and states that he is feeling better than yesterday. Patient no longer having nausea vomiting. Patient denies hallucinations, suicidal / homicidal ideations, headache, dizziness, and sweats. Patient still interested in rehab facility. Patient den
[2022-06-04 17:51] LABS: Glucose Point of Care 149 mg/dl (65-105)
[2022-06-04] MEDS: traZODone HCL 50 MG TABLET 250 MG PO (21:15)
[2022-06-04] MEDS: HALOPERIDOL LACTATE 5 MG/ML VIAL 2 MG IV PUSH (23:15)
[2022-06-05] VITALS (7 sets, daily range): BP systolic 131–142; BP diastolic 83–98; PULSE 80–118; RESP 14–18; TEMP 36.6–37; O2SAT 97–100
[2022-06-05] MEDS: LORazepam INJ (*CRX) 2 MG/ML VIAL IV PUSH ×2 (01:58→02:45)
[2022-06-05] MEDS: chlordiazePOXIDE (*CRX) 25 MG CAPSULE 50 MG PO ×4 (01:59→17:34)
[2022-06-05] MEDS: HALOPERIDOL LACTATE 5 MG/ML VIAL IV PUSH (02:45)
[2022-06-05 03:07] LABS: Glucose Point of Care 113 mg/dl (65-105)
--- NOTE | 2022-06-05 04:18 | P.PNCROSS_ITS ---
Event Note Event Note Event Note: The patient's CIWA scores suddenly jumped around 21:00 up to the 20s. The kristopher ent was agitated and pacing in the room. He was obviously tremulous and talking to his mother that was not there. He stated that he had been on his cellphone with his mother but his cellphone has been for more than a day. He was seeing people that were not in the room. He was asking for bolts to screw the telemetry monitors to his chest so that they would not fall off. He was adamant that his car was at the facility and was not able to be redirected by nursing staff. Patient was adamant that he was going to leave against medical advice but he had does not have the capacity at this moment to make that decision. The patient now has a consumer safety inspector at bedside. The patient had received IV Haldol and 2 mg of IV Ativan. His neck CIWA score was 24 up from 21 but he was not violent. His tremors had actually improved and lessened but his confusion seemed to be worse. Subsequently I gave him 5 mg of IV Haldol and 2 mg of IV Ativan. His Librium had also been increased to 50 mg q.6 hours with an extra p.o. dose. The patient's although agitated and difficult to redirect is not being violent. Due to a CIWA score still being elevated in the mid 20s I did given order for 10 mg of IV Valium. If the patient has a better response to Valium and may change the patient's treatment for his elevated CIWA scores to Valium for his higher CIWA scores in leave Ativan available for lower scores. Patient is already receiving thiamine supplementation. I have given nursing staff permission to leave the patient's telemetry off as long as he is being closely monitored. I have personally re-evaluated the patient multiple times. 1 hour spent in critical care time. Due to a high probability of clinically significant, life threatening deterioration, the patient required my highest level of preparedness to intervene emergently and I personally spent this critical care time directly and personally managing the patient. This critical care time included obtaining a history; examining the patient; pulse oximetry; ordering and review of studies; arranging urgent treatment with development of a management plan; evaluation of patient's response to treatment; frequent reassessment; and discussions with other providers. It was exclusive of separately billable procedures and treating other patients and teaching time. Please see Assessment and Plan section and the rest of the note for further information on patient assessment and treatment.
[2022-06-05] MEDS: diazePAM INJ (*CRX) 10 MG/2 ML SYRINGE IV PUSH (04:22)
[2022-06-05 06:27] LABS: Glucose Point of Care 198 mg/dl (65-105)
[2022-06-05 06:27] LABS: Basophils Percent Auto 0.8 % (0.2-1.2); Eosinophils Absolute Auto 0.2 K/mm3 (0-0.3); Eosinophils Percent Auto 3.5 % (0-4.4); Hematocrit 41.8 % (42.0-52.0); Hemoglobin 14.6 g/dL (14.0-18.0); Immature Granulocyte Absolute 0.06 K/mm3 (0.00-0.031); Immature Granulocyte Percent A 1.2 % (0-0.5); Lymphocytes Absolute Auto 1.06 K/mm3 (0.9-3.2); Lymphocytes Percent Auto 21.8 % (18.3-44.2); Mean Corpuscular HGB Conc 34.9 g/dl (32-36); Mean Corpuscular Hemoglobin 34.3 pg (26-34); Mean Corpuscular Volume 98.1 fl (80-100); Mean Platelet Volume 11.4 fl (7.4-10.4); Monocytes Absolute Auto 0.9 K/mm3 (0.1-0.6); Monocytes Percent Auto 17.7 % (2.6-8.5); Neutrophils Absolute Auto 2.7 K/mm3 (1.3-6.7); Platelet Count Result 42 k/mm3 (150-375); Red Blood Count 4.26 M/mm3 (4.6-6.20); Red Cell Distribution Width 14.5 % (11.5-14.5); White Blood Count 4.9 K/mm3 (4.5-10.0)
[2022-06-05 06:39] LABS: Alanine Aminotransferase 54 U/L (6-50); Albumin Level 4.4 g/dL (3.5-5.1); Alkaline Phosphatase 95 U/L (38-126); Anion Gap 7 mmol/L (8-16); Aspartate Amino Transferase 85 U/L (17-59); Bilirubin,Total 1.1 mg/dL (0.2-1.3); Blood Urea Nitrogen 7 mg/dL (9-20); Calcium 8.8 mg/dL (8.4-10.2); Carbon Dioxide 27 mmol/L (22-30); Chloride 99 mmol/L (98-107); Estimated CRCL calculation 182 ml/min; Estimated Glomerular Filt Rate > 60; Glucose 96 mg/dL (65-110); Magnesium 1.9 mg/dL (1.6-2.3); Potassium 3.5 mmol/L (3.4-5.0); Sodium 133 mmol/L (137-145)
[2022-06-05] MEDS: PANTOPRAZOLE SODIUM IV 40 MG VIAL IV PUSH ×2 (09:35→17:28)
[2022-06-05] MEDS: METOPROLOL TARTRATE 50 MG TAB PO ×2 (10:00→21:15)
[2022-06-05] MEDS: THERAPEUTIC MULTIVITAMINS/MINERALS TAB (*BKC) 1 TABLET PO (10:28)
[2022-06-05] MEDS: THIAMINE HCL 200 MG/2 ML VIAL 100 MG IV PUSH (11:19)
[2022-06-05] MEDS: LORazepam INJ (*CRX) 2 MG/ML VIAL 1 MG IV PUSH ×2 (11:24→17:34)
--- NOTE | 2022-06-05 14:52 | PM.IMPN ---
Progress Note: A&P Assessment and Plan (1) EtOH dependence: Qualifiers: Substance use status: in withdrawal Code(s): F10.20 - Alcohol dependence, uncomplicated Status: Acute Assessment and Plan: The patient is actively intoxicated but is demonstrating some symptoms of alcohol withdrawal. Trend CIWA scores Librium has been scheduled 25 mg q.6 hours. Will add Ativan will 1 mg as needed for CIWA scores 10-15 and Ativan 2 mg for CIWA scores greater than 15. Thiamin has been ordered IV daily Patient having some nausea vomiting. Zofran hnd Haldol p.r.n. ordered. Patient has reported interest and going to rehab. Care coordination consulted in this case. Evidence of advancement of alcohol abuse includes worsening transaminitis and thrombocytopenia. No signs of cirrhosis. 4/2 overnight patient had began to withdraw and Valium was added for CIWA greater than 18. Patient was very agitated and having hallucinations. Librium was increased to 50 q.6. Patient was not violent at this time. CIWA at 11 am was 12 (2) Intractable nausea and vomiting: Code(s): R11.2 - Nausea with vomiting, unspecified Status: Acute Assessment and Plan: Likely multifactorial due to gastritis and esophagitis, chronic alcohol abuse and THC use. The patient does have a mildly elevated lipase but this is likely due to the intractable nausea vomiting and not related to pancreatitis is the patient is not having any significant epigastric pain on palpation. Will continue IV fluid hydration and monitor. The patient had EGD last summer that was negative for varices. He did have history of esophagitis and gastritis. Patient's emesis is blood tinged in the ED. Will monitor patient's H&H. Stable right now. DX including Rosanna-Feliciano tear 06/04 Nausea and vomiting have resolved. (3) Sinus tachycardia: Code(s): R00.0 - Tachycardia, unspecified Status: Acute Assessment and Plan: Due to hypovolemia/dehydration, alcohol withdrawal/Opiate withdrawal and nonadherence to beta-blockers. Continue IV fluids and monitor. Will resume patient's home metoprolol. (4) Gastritis: Code(s): K29.70 - Gastritis, unspecified, without bleeding Status: Chronic Assessment and Plan: Patient with history of gastritis due to consumption of alcohol. Scheduled Protonix 40 mg IV b.i.d.. Patients diet advanced as tolerated. He is no longer having nausea and vomiting. (5) Erosive esophagitis: Code(s): K22.10 - Ulcer of esophagus without bleeding Status: Chronic Assessment and Plan: Please see above. (6) Hypokalemia: Code(s): E87.6 - Hypokalemia Status: Acute Assessment and Plan: Patient with hypokalemia in the ED. Continue to monitor replenish as needed. (7) Thrombocytopenia: Code(s): D69.6 - Thrombocytopenia, unspecified Status: Chronic Assessment and Plan: The patient's platelet count has dropped likely due to his worsening alcohol consumption. Will continue to monitor. Will avoid anti-platelet medications or pharmacologic DVT prophylaxis. (8) Tetrahydrocannabinol (THC) dependence: Code(s): F12.20 - Cannabis dependence, uncomplicated Status: Acute Assessment and Plan: A portions of the patient's intractable nausea vomiting could be due to THC use. Patient has been counseled to stop Use. (9) Opiate use: Code(s): F11.90 - Opioid use, unspecified, uncomplicated Status: Acute Assessment and Plan: The patient does not have a prescription for opiates in his buying opiates off the street. This is likely also playing a component into the patient's symptoms of withdrawal. Continue with supportive care. Subjective Date/time seen: 06/05/22 14:52 Interval history: see crossover note by cherelle.
[2022-06-05 17:04] LABS: Glucose Point of Care 133 mg/dl (65-105)
[2022-06-05] MEDS: ONDANSETRON INJ 4 MG/2 ML VIAL IV PUSH (17:34)
[2022-06-05] MEDS: traZODone HCL 50 MG TABLET 250 MG PO (21:15)
[2022-06-06] VITALS (8 sets, daily range): BP systolic 101–134; BP diastolic 64–94; PULSE 87–110; RESP 14–16; TEMP 36.4–37.4; O2SAT 97–99
[2022-06-06] MEDS: chlordiazePOXIDE (*CRX) 25 MG CAPSULE 50 MG PO ×3 (00:24→11:20)
[2022-06-06] MEDS: LORazepam INJ (*CRX) 2 MG/ML VIAL 1 MG IV PUSH ×2 (00:31→04:22)
[2022-06-06 06:40] LABS: Ammonia 13 umol/L (9-30)
[2022-06-06 07:11] LABS: Basophils Percent Auto 0.9 % (0.2-1.2); Eosinophils Absolute Auto 0.2 K/mm3 (0-0.3); Eosinophils Percent Auto 4.3 % (0-4.4); Hematocrit 43.9 % (42.0-52.0); Immature Granulocyte Absolute 0.06 K/mm3 (0.00-0.031); Immature Granulocyte Percent A 1.4 % (0-0.5); Immature Platelet Fraction Pct 11.1 % (0.9-11.2); Lymphocytes Absolute Auto 0.99 K/mm3 (0.9-3.2); Lymphocytes Percent Auto 22.5 % (18.3-44.2); Mean Corpuscular HGB Conc 34.2 g/dl (32-36); Mean Corpuscular Hemoglobin 33.9 pg (26-34); Mean Corpuscular Volume 99.1 fl (80-100); Mean Platelet Volume 11.7 fl (7.4-10.4); Monocytes Absolute Auto 0.7 K/mm3 (0.1-0.6); Monocytes Percent Auto 16.1 % (2.6-8.5); Neutrophils Absolute Auto 2.4 K/mm3 (1.3-6.7); Neutrophils Percent Auto 54.8 % (45.5-73.1); Platelet Count Result 61 k/mm3 (150-375); Red Blood Count 4.43 M/mm3 (4.6-6.20); Red Cell Distribution Width 14.7 % (11.5-14.5); White Blood Count 4.4 K/mm3 (4.5-10.0)
[2022-06-06 07:24] LABS: Alanine Aminotransferase 60 U/L (6-50); Albumin Level 4.2 g/dL (3.5-5.1); Alkaline Phosphatase 89 U/L (38-126); Anion Gap 10 mmol/L (8-16); Aspartate Amino Transferase 74 U/L (17-59); Blood Urea Nitrogen 8 mg/dL (9-20); Calcium 8.8 mg/dL (8.4-10.2); Carbon Dioxide 26 mmol/L (22-30); Chloride 99 mmol/L (98-107); Estimated CRCL calculation 155 ml/min; Estimated Glomerular Filt Rate > 60; Glucose 106 mg/dL (65-110); Magnesium 1.7 mg/dL (1.6-2.3); Potassium 3.1 mmol/L (3.4-5.0); Sodium 135 mmol/L (137-145)
[2022-06-06 08:44] LABS: Glucose Point of Care 109 mg/dl (65-105)
[2022-06-06] MEDS: THERAPEUTIC MULTIVITAMINS/MINERALS TAB (*BKC) 1 TABLET PO (10:18)
[2022-06-06] MEDS: POTASSIUM CHLORIDE 20 MEQ TABLET 40 MEQ PO (10:18)
[2022-06-06] MEDS: METOPROLOL TARTRATE 50 MG TAB PO ×2 (10:18→20:22)
[2022-06-06] MEDS: PANTOPRAZOLE SODIUM IV 40 MG VIAL IV PUSH ×2 (10:19→17:55)
--- NOTE | 2022-06-06 11:01 | PCNFU ---
Nutrition Follow-Up Complete: Unintended weight loss related to inadequate oral intake with patient not eating and drinking as evidenced by 23 lb (10%) loss x 6 months. NEW: Severe malnutrition related to social/environmental cause of alcohol abuse as evidenced by 10% weight loss/6 months, inadequate oral intake <75% needs >1 month Goal: 1. Patient diet to be advanced in the next 72 hours. -Goal being met 2. Patient weight will remain within 2% of current weight (89.8 kg) through follow-up. -Goal being met Pt current nutrition is Heart healthy diet with Ensure Compact BID for additional 220 kcals and 9 g protein each. 100% intakes x3 meals so far. Nutrition recommendation: Continue with current nutrition care plan. Agree with orders. Last recorded weight is 89.8 kg. Bowel Motility: Labs Reviewed: Na 135, K+ 3.1, BUN 8, Cre 0.6 Meds Noted: Ativan, zofran, protonix, thiamine Skin: WNL Additional Notes: Meets criteria for severe malnutrition related to social/environmental cause of alcohol abuse. Agree with current orders. Intakes are good. Monitor diet advancement, electrolytes, weight status.
[2022-06-06] MEDS: THIAMINE HCL 200 MG/2 ML VIAL 100 MG IV PUSH (11:14)
[2022-06-06] MEDS: NICOTINE (*PBKC) 21 MG PATCH 1 PATCH TRANSDERM (11:14)
--- NOTE | 2022-06-06 13:02 | PM.IMPN ---
Progress Note: A&P Assessment and Plan (1) EtOH dependence: Qualifiers: Substance use status: in withdrawal Code(s): F10.20 - Alcohol dependence, uncomplicated Status: Acute Assessment and Plan: The patient is actively intoxicated but is demonstrating some symptoms of alcohol withdrawal. Trend CIWA scores Librium has been scheduled 25 mg q.6 hours. Will add Ativan will 1 mg as needed for CIWA scores 10-15 and Ativan 2 mg for CIWA scores greater than 15. Thiamin has been ordered IV daily Patient having some nausea vomiting. Zofran and Haldol p.r.n. ordered. Patient has reported interest and going to rehab. Care coordination consulted in this case. Evidence of advancement of alcohol abuse includes worsening transaminitis and thrombocytopenia. No signs of cirrhosis. 4/2 Overnight patient had began to withdraw and Valium was added for CIWA greater than 18. Patient was very agitated and having hallucinations. Librium was increased to 50 q.6. Patient was not violent at this time. 4/3 Patient feeling better today. Patient is very rate to be discharged. CIWA has decreased. Will lower Librium to 25 mg q.6 hrs. (2) Intractable nausea and vomiting: Code(s): R11.2 - Nausea with vomiting, unspecified Status: Acute Assessment and Plan: Likely multifactorial due to gastritis and esophagitis, chronic alcohol abuse and THC use. The patient does have a mildly elevated lipase but this is likely due to the intractable nausea vomiting and not related to pancreatitis is the patient is not having any significant epigastric pain on palpation. Will continue IV fluid hydration and monitor. The patient had EGD last summer that was negative for varices. He did have history of esophagitis and gastritis. Patient's emesis is blood tinged in the ED. Will monitor patient's H&H. Stable right now. DX including Rosanna-Feliciano tear 06/04 Nausea and vomiting have resolved. (3) Sinus tachycardia: Code(s): R00.0 - Tachycardia, unspecified Status: Acute Assessment and Plan: Due to hypovolemia/dehydration, alcohol withdrawal/Opiate withdrawal and nonadherence to beta-blockers. Continue IV fluids and monitor. Will resume patient's home metoprolol. (4) Gastritis: Code(s): K29.70 - Gastritis, unspecified, without bleeding Status: Chronic Assessment and Plan: Patient with history of gastritis due to consumption of alcohol. Scheduled Protonix 40 mg IV b.i.d.. Patients diet advanced as tolerated. He is no longer having nausea and vomiting. (5) Erosive esophagitis: Code(s): K22.10 - Ulcer of esophagus without bleeding Status: Chronic Assessment and Plan: Please see above. (6) Hypokalemia: Code(s): E87.6 - Hypokalemia Status: Acute Assessment and Plan: Patient with hypokalemia in the ED. Continue to monitor replenish as needed. (7) Thrombocytopenia: Code(s): D69.6 - Thrombocytopenia, unspecified Status: Chronic Assessment and Plan: The patient's platelet count has dropped likely due to his worsening alcohol consumption. Will continue to monitor. Will avoid anti-platelet medications or pharmacologic DVT prophylaxis. (8) Tetrahydrocannabinol (THC) dependence: Code(s): F12.20 - Cannabis dependence, uncomplicated Status: Acute Assessment and Plan: A portions of the patient's intractable nausea vomiting could be due to THC use. Patient has been counseled to stop Use. (9) Opiate use: Code(s): F11.90 - Opioid use, unspecified, uncomplicated Status: Acute Assessment and Plan: The patient does not have a prescription for opiates in his buying opiates off the street. This is likely also playing a component into the patient's symptoms of withdrawal. Continue with supportive care.
[2022-06-06 16:19] LABS: Glucose Point of Care 127 mg/dl (65-105)
[2022-06-06] MEDS: chlordiazePOXIDE (*CRX) 25 MG CAPSULE PO (17:55)
[2022-06-06] MEDS: traZODone HCL 50 MG TABLET 250 MG PO (20:23)
[2022-06-07] MEDS: chlordiazePOXIDE (*CRX) 25 MG CAPSULE PO ×4 (00:23→23:15)
[2022-06-07 05:29] VITALS: BP 137/93; PULSE 100; RESP 14; TEMP 36.4; O2SAT 100
[2022-06-07 06:55] LABS: Hematocrit 44.8 % (42.0-52.0); Hemoglobin 15.1 g/dL (14.0-18.0); Immature Platelet Fraction Pct 8.3 % (0.9-11.2); Mean Corpuscular HGB Conc 33.7 g/dl (32-36); Mean Corpuscular Hemoglobin 34.2 pg (26-34); Mean Corpuscular Volume 101.4 fl (80-100); Mean Platelet Volume 10.4 fl (7.4-10.4); Platelet Count Result 97 k/mm3 (150-375); Red Blood Count 4.42 M/mm3 (4.6-6.20); Red Cell Distribution Width 14.9 % (11.5-14.5); White Blood Count 4.7 K/mm3 (4.5-10.0)
[2022-06-07 07:04] LABS: Alanine Aminotransferase 74 U/L (6-50); Albumin Level 4.5 g/dL (3.5-5.1); Alkaline Phosphatase 77 U/L (38-126); Anion Gap 8 mmol/L (8-16); Aspartate Amino Transferase 72 U/L (17-59); Bilirubin,Total 1.1 mg/dL (0.2-1.3); Blood Urea Nitrogen 12 mg/dL (9-20); Calcium 9.2 mg/dL (8.4-10.2); Carbon Dioxide 29 mmol/L (22-30); Chloride 98 mmol/L (98-107); Estimated CRCL calculation 155 ml/min; Estimated Glomerular Filt Rate > 60; Glucose 113 mg/dL (65-110); Potassium 3.9 mmol/L (3.4-5.0); Sodium 135 mmol/L (137-145)
[2022-06-07] MEDS: NICOTINE (*PBKC) 21 MG PATCH 1 PATCH TRANSDERM (08:12)
[2022-06-07] MEDS: LORazepam INJ (*CRX) 2 MG/ML VIAL 1 MG IV PUSH ×2 (08:19→15:06)
[2022-06-07] MEDS: THERAPEUTIC MULTIVITAMINS/MINERALS TAB (*BKC) 1 TABLET PO (08:21)
[2022-06-07] MEDS: METOPROLOL TARTRATE 50 MG TAB PO ×2 (08:21→20:27)
[2022-06-07] MEDS: THIAMINE HCL 200 MG/2 ML VIAL 100 MG IV PUSH (08:21)
[2022-06-07] MEDS: PANTOPRAZOLE SODIUM IV 40 MG VIAL IV PUSH ×2 (08:21→18:42)
[2022-06-07 11:33] LABS: Glucose Point of Care 154 mg/dl (65-105)
--- NOTE | 2022-06-07 13:00 | PM.IMPN ---
Progress Note: A&P Assessment and Plan (1) EtOH dependence: Qualifiers: Substance use status: in withdrawal Code(s): F10.20 - Alcohol dependence, uncomplicated Status: Acute Assessment and Plan: The patient is actively intoxicated but is demonstrating some symptoms of alcohol withdrawal. Trend CIWA scores Librium has been scheduled 25 mg q.6 hours. Will add Ativan will 1 mg as needed for CIWA scores 10-15 and Ativan 2 mg for CIWA scores greater than 15. Thiamin has been ordered IV daily Patient having some nausea vomiting. Zofran and Haldol p.r.n. ordered. Patient has reported interest and going to rehab. Care coordination consulted in this case. Evidence of advancement of alcohol abuse includes worsening transaminitis and thrombocytopenia. No signs of cirrhosis. 4/2 Overnight patient had began to withdraw and Valium was added for CIWA greater than 18. Patient was very agitated and having hallucinations. Librium was increased to 50 q.6. Patient was not violent at this time. / Patient feeling better today. CIWA has decreased. Will lower Librium to 25 mg q.6 hrs. / Librium changed to p.r.n. (2) Intractable nausea and vomiting: Code(s): R11.2 - Nausea with vomiting, unspecified Status: Acute Assessment and Plan: Likely multifactorial due to gastritis and esophagitis, chronic alcohol abuse and THC use. The patient does have a mildly elevated lipase but this is likely due to the intractable nausea vomiting and not related to pancreatitis is the patient is not having any significant epigastric pain on palpation. Will continue IV fluid hydration and monitor. The patient had EGD last summer that was negative for varices. He did have history of esophagitis and gastritis. Patient's emesis is blood tinged in the ED. Will monitor patient's H&H. Stable right now. DX including Rosanna-Feliciano tear 06/04 Nausea and vomiting have resolved. Resolved (3) NISA (generalized anxiety disorder): Code(s): F41.1 - Generalized anxiety disorder Status: Acute Assessment and Plan: patient generalized anxiety and states that he has had most of his life. Patient states that when he drinks the anxiety improves. He also admits to using the Ativan for anxiety rather than withdrawal symptoms. I have discussed the inappropriateness of using Ativan for its on prescribed use. Will start Lexapro daily and Hydroxyzine PRN. (4) Sinus tachycardia: Code(s): R00.0 - Tachycardia, unspecified Status: Acute Assessment and Plan: Due to hypovolemia/dehydration, alcohol withdrawal/Opiate withdrawal and nonadherence to beta-blockers. Continue IV fluids and monitor. Will resume patient's home metoprolol. resolved (5) Gastritis: Code(s): K29.70 - Gastritis, unspecified, without bleeding Status: Chronic Assessment and Plan: Patient with history of gastritis due to consumption of alcohol. Scheduled Protonix 40 mg IV b.i.d.. Patients diet advanced as tolerated. He is no longer having nausea and vomiting. Resolved (6) Erosive esophagitis: Code(s): K22.10 - Ulcer of esophagus without bleeding Status: Chronic Assessment and Plan: Please see above. (7) Hypokalemia: Code(s): E87.6 - Hypokalemia Status: Acute Assessment and Plan: Patient with hypokalemia in the ED. Continue to monitor replenish as needed. resolved (8) Thrombocytopenia: Code(s): D69.6 - Thrombocytopenia, unspecified Status: Chronic Assessment and Plan: The patient's platelet count has dropped likely due to his worsening alcohol consumption. Will continue to monitor. Will avoid anti-platelet medications or pharmacologic DVT prophylaxis. improving (9) Tetrahydrocannabinol (THC) dependence: Code(s): F12.20 - Cannabis dependence, uncom
[2022-06-07 14:00] VITALS: BP 121/83; PULSE 88; RESP 16; TEMP 36.5; O2SAT 98
[2022-06-07 16:00] VITALS: BP 121/83
[2022-06-07 18:03] LABS: Glucose Point of Care 118 mg/dl (65-105)
[2022-06-07 20:27] VITALS: PULSE 80
[2022-06-07] MEDS: traZODone HCL 50 MG TABLET 250 MG PO (20:28)
[2022-06-07 21:47] VITALS: BP 119/86; PULSE 74; RESP 16; TEMP 36.2; O2SAT 99
[2022-06-07] MEDS: hydrOXYzine HCL 10 MG TABLET PO (23:15)
[2022-06-08 00:53] LABS: Glucose Point of Care 92 mg/dl (65-105)
[2022-06-08 05:43] LABS: Glucose Point of Care 120 mg/dl (65-105)
[2022-06-08 05:53] VITALS: BP 136/87; PULSE 93; RESP 16; TEMP 37.1; O2SAT 100
[2022-06-08 07:54] LABS: Hematocrit 43.6 % (42.0-52.0); Hemoglobin 14.5 g/dL (14.0-18.0); Mean Corpuscular HGB Conc 33.3 g/dl (32-36); Mean Corpuscular Hemoglobin 34.4 pg (26-34); Mean Corpuscular Volume 103.6 fl (80-100); Mean Platelet Volume 10.2 fl (7.4-10.4); Platelet Count Result 115 k/mm3 (150-375); Red Blood Count 4.21 M/mm3 (4.6-6.20); Red Cell Distribution Width 15.1 % (11.5-14.5); White Blood Count 4.7 K/mm3 (4.5-10.0)
[2022-06-08 08:26] LABS: Alanine Aminotransferase 101 U/L (6-50); Albumin Level 4.4 g/dL (3.5-5.1); Alkaline Phosphatase 73 U/L (38-126); Anion Gap 8 mmol/L (8-16); Aspartate Amino Transferase 84 U/L (17-59); Blood Urea Nitrogen 12 mg/dL (9-20); Calcium 8.8 mg/dL (8.4-10.2); Carbon Dioxide 29 mmol/L (22-30); Chloride 98 mmol/L (98-107); Estimated CRCL calculation 134 ml/min; Estimated Glomerular Filt Rate > 60; Glucose 95 mg/dL (65-110); Potassium 3.3 mmol/L (3.4-5.0); Sodium 135 mmol/L (137-145)
[2022-06-08] MEDS: NICOTINE (*PBKC) 21 MG PATCH 1 PATCH TRANSDERM (08:35)
[2022-06-08 08:36] VITALS: PULSE 98
[2022-06-08] MEDS: METOPROLOL TARTRATE 50 MG TAB PO (08:36)
[2022-06-08] MEDS: THERAPEUTIC MULTIVITAMINS/MINERALS TAB (*BKC) 1 TABLET PO (08:37)
[2022-06-08] MEDS: ESCITALOPRAM OXALATE 10 MG TABLET 20 MG PO (08:37)
[2022-06-08] MEDS: THIAMINE HCL 200 MG/2 ML VIAL 100 MG IV PUSH (08:38)
[2022-06-08] MEDS: PANTOPRAZOLE SODIUM IV 40 MG VIAL IV PUSH (08:39)
[2022-06-08] MEDS: POTASSIUM CHLORIDE 20 MEQ TABLET 40 MEQ PO (09:11)
[2022-06-08 11:20] LABS: Glucose Point of Care 133 mg/dl (65-105)
--- NOTE | 2022-06-08 12:25 | P.DS_ITS ---
DS: Admitting Diagnosis Discharge Date 06/08/2022 Admitting Diagnosis alcohol withdrawal DS: Discharge Diagnosis Discharge Diagnosis (1) EtOH dependence: Qualifiers: Substance use status: in withdrawal Code(s): F10.20 - Alcohol dependence, uncomplicated Status: Acute Assessment and Plan: The patient is actively intoxicated but is demonstrating some symptoms of alcohol withdrawal. * Trend CIWA scores * Librium has been scheduled 25 mg q.6 hours. * Will add Ativan will 1 mg as needed for CIWA scores 10-15 and Ativan 2 mg for CIWA scores greater than 15. * Thiamin has been ordered IV daily * Patient having some nausea vomiting. Zofran and Haldol p.r.n. ordered. * Patient has reported interest and going to rehab. Care coordination consulted in this case. * Evidence of advancement of alcohol abuse includes worsening transaminitis and thrombocytopenia. No signs of cirrhosis. * 4/2 Overnight patient had began to withdraw and Valium was added for CIWA greater than 18. Patient was very agitated and having hallucinations. Librium was increased to 50 q.6. Patient was not violent at this time. * 4/3 Patient feeling better today. CIWA has decreased. Will lower Librium to 25 mg q.6 hrs. * / Librium changed to p.r.n. * 06/08 patient's last Ativan and Librium was yesterday. CIWA is 2. (2) Intractable nausea and vomiting: Code(s): R11.2 - Nausea with vomiting, unspecified Status: Acute Assessment and Plan: Likely multifactorial due to gastritis and esophagitis, chronic alcohol abuse and THC use. * The patient does have a mildly elevated lipase but this is likely due to the intractable nausea vomiting and not related to pancreatitis is the patient is not having any significant epigastric pain on palpation. * Will continue IV fluid hydration and monitor. * The patient had EGD last summer that was negative for varices. He did have history of esophagitis and gastritis. * Patient's emesis is blood tinged in the ED. Will monitor patient's H&H. Stable right now. DX including Rosanna-Feliciano tear * 4/ Nausea and vomiting have resolved. Resolved (3) NISA (generalized anxiety disorder): Code(s): F41.1 - Generalized anxiety disorder Status: Acute Assessment and Plan: patient generalized anxiety and states that he has had most of his life. Patient states that when he drinks the anxiety improves. He also admits to using the Ativan for anxiety rather than withdrawal symptoms. * I have discussed the inappropriateness of using Ativan for its on prescribed use. * Will start Lexapro daily and Hydroxyzine PRN. * Discharge with Lexapro with advised to follow-up primary care provider. (4) Sinus tachycardia: Code(s): R00.0 - Tachycardia, unspecified Status: Acute Assessment and Plan: Due to hypovolemia/dehydration, alcohol withdrawal/Opiate withdrawal and nonadherence to beta-blockers. * Continue IV fluids and monitor. Will resume patient's home metoprolol. resolved (5) Gastritis: Code(s): K29.70 - Gastritis, unspecified, without bleeding Status: Chronic Assessment and Plan: Patient with history of gastritis due to consumption of alcohol. Scheduled Protonix 40 mg IV b.i.d.. Patients diet advanced as tolerated. He is no longer having nausea and vomiting. Resolved (6) Erosive esophagitis: Code(s): K22.10 - Ulcer of esophagus without bleeding St
--- NOTE | 2022-06-08 12:25 | PM.DS ---
DS: Admitting Diagnosis Discharge Date 06/08/2022 Admitting Diagnosis alcohol withdrawal DS: Discharge Diagnosis Discharge Diagnosis (1) EtOH dependence: Qualifiers: Substance use status: in withdrawal Code(s): F10.20 - Alcohol dependence, uncomplicated Status: Acute Assessment and Plan: The patient is actively intoxicated but is demonstrating some symptoms of alcohol withdrawal. Trend CIWA scores Librium has been scheduled 25 mg q.6 hours. Will add Ativan will 1 mg as needed for CIWA scores 10-15 and Ativan 2 mg for CIWA scores greater than 15. Thiamin has been ordered IV daily Patient having some nausea vomiting. Zofran and Haldol p.r.n. ordered. Patient has reported interest and going to rehab. Care coordination consulted in this case. Evidence of advancement of alcohol abuse includes worsening transaminitis and thrombocytopenia. No signs of cirrhosis. / Overnight patient had began to withdraw and Valium was added for CIWA greater than 18. Patient was very agitated and having hallucinations. Librium was increased to 50 q.6. Patient was not violent at this time. 06/06 Patient feeling better today. CIWA has decreased. Will lower Librium to 25 mg q.6 hrs. 06/07 Librium changed to p.r.n. 06/08 patient's last Ativan and Librium was yesterday. CIWA is 2. (2) Intractable nausea and vomiting: Code(s): R11.2 - Nausea with vomiting, unspecified Status: Acute Assessment and Plan: Likely multifactorial due to gastritis and esophagitis, chronic alcohol abuse and THC use. The patient does have a mildly elevated lipase but this is likely due to the intractable nausea vomiting and not related to pancreatitis is the patient is not having any significant epigastric pain on palpation. Will continue IV fluid hydration and monitor. The patient had EGD last summer that was negative for varices. He did have history of esophagitis and gastritis. Patient's emesis is blood tinged in the ED. Will monitor patient's H&H. Stable right now. DX including Rosanna-Feliciano tear 06/04 Nausea and vomiting have resolved. Resolved (3) NISA (generalized anxiety disorder): Code(s): F41.1 - Generalized anxiety disorder Status: Acute Assessment and Plan: patient generalized anxiety and states that he has had most of his life. Patient states that when he drinks the anxiety improves. He also admits to using the Ativan for anxiety rather than withdrawal symptoms. I have discussed the inappropriateness of using Ativan for its on prescribed use. Will start Lexapro daily and Hydroxyzine PRN. Discharge with Lexapro with advised to follow-up primary care provider. (4) Sinus tachycardia: Code(s): R00.0 - Tachycardia, unspecified Status: Acute Assessment and Plan: Due to hypovolemia/dehydration, alcohol withdrawal/Opiate withdrawal and nonadherence to beta-blockers. Continue IV fluids and monitor. Will resume patient's home metoprolol. resolved (5) Gastritis: Code(s): K29.70 - Gastritis, unspecified, without bleeding Status: Chronic Assessment and Plan: Patient with history of gastritis due to consumption of alcohol. Scheduled Protonix 40 mg IV b.i.d.. Patients diet advanced as tolerated. He is no longer having nausea and vomiting. Resolved (6) Erosive esophagitis: Code(s): K22.10 - Ulcer of esophagus without bleeding Status: Chronic Assessment and Plan: Please see above. (7) Hypokalemia: Code(s): E87.6 - Hypokalemia Status: Acute Assessment and Plan: Patient with hypokalemia in the ED. Continue to monitor replenish as needed. resolved (8) Thrombocytopenia: Code(s): D69.6 - Thrombocytopenia, unspecified Status: Chronic Assessment and Plan: The patient's platelet count has dropped likely due to his worse
[2022-06-08 20:49] LABS: Haptoglobin 214 mg/dL (43-212)
== END 2022-06-08 12:55 | disposition home or self-care (01) | DRG 897 ==
LOC: ANHED 06-03 02:42 → ANH3MEDSUR 06-03 04:09
PROVIDERS: Admitting Provider Internal Medicine; Emergency Provider Physician Assistant; PCP Family Medicine; Visit Provider Internal Medicine Critical Care Medicine
DX: F10.239 Alcohol dependence with withdrawal, unspecified (principal); K22.10 Ulcer of esophagus without bleeding; F10.229 Alcohol dependence with intoxication, unspecified; F17.210 Nicotine dependence, cigarettes, uncomplicated; F41.1 Generalized anxiety disorder; E86.0 Dehydration; K29.70 Gastritis, unspecified, without bleeding; E87.6 Hypokalemia; D69.6 Thrombocytopenia, unspecified; F12.20 Cannabis dependence, uncomplicated; F11.90 Opioid use, unspecified, uncomplicated; Y90.8 Blood alcohol level of 240 mg/100 ml or more
CPT/HCPCS: 36415; 71046; 80048; 80053; 80307; 82140; 82248; 82607; 82728; 82746; 82948; 83010; 83540; 83550; 83690; 83735; 84466; 85025; 85027; 85046; 85055; 85610; 85730; 86850; 86880; 86900; 86901; 93005; 96361; 96374; 96375; 96376; 99285; A9270; C9113; G0378; J1200; J1630; J2060; J2405; J2765; J3360; J3411; J3475; J3480; J7030; J7040; J7120

== ENCOUNTER 2022-07-22 21:59 | Emergency (ER) | payer BC, SELFPAY ==
[2022-07-22 22:01] VITALS: BP 148/103; PULSE 100; RESP 20; TEMP 36.8; O2SAT 98
[2022-07-22 22:25] VITALS: BP 144/94; PULSE 86; RESP 20; O2SAT 97
[2022-07-22 22:25] LABS: Basophils Percent Auto 0.5 % (0.2-1.2); Eosinophils Percent Auto 0.3 % (0-4.4); Hematocrit 46.5 % (42.0-52.0); Hemoglobin 16.4 g/dL (14.0-18.0); Immature Granulocyte Absolute 0.02 K/mm3 (0.00-0.031); Immature Granulocyte Percent A 0.3 % (0-0.5); Lymphocytes Percent Auto 29.5 % (18.3-44.2); Mean Corpuscular HGB Conc 35.3 g/dl (32-36); Mean Corpuscular Hemoglobin 33.5 pg (26-34); Mean Corpuscular Volume 95.1 fl (80-100); Mean Platelet Volume 9.2 fl (7.4-10.4); Monocytes Absolute Auto 0.6 K/mm3 (0.1-0.6); Monocytes Percent Auto 9.5 % (2.6-8.5); Neutrophils Absolute Auto 3.9 K/mm3 (1.3-6.7); Neutrophils Percent Auto 59.9 % (45.5-73.1); Platelet Count Result 306 k/mm3 (150-375); Red Blood Count 4.89 M/mm3 (4.6-6.20); Red Cell Distribution Width 12.9 % (11.5-14.5); White Blood Count 6.5 K/mm3 (4.5-10.0)
[2022-07-22 22:38] LABS: Alanine Aminotransferase 30 U/L (6-50); Albumin Level 4.5 g/dL (3.5-5.1); Alkaline Phosphatase 74 U/L (38-126); Anion Gap 12 mmol/L (8-16); Aspartate Amino Transferase 37 U/L (17-59); Bilirubin,Total 0.6 mg/dL (0.2-1.3); Blood Urea Nitrogen 15 mg/dL (9-20); Calcium 7.6 mg/dL (8.4-10.2); Carbon Dioxide 29 mmol/L (22-30); Chloride 99 mmol/L (98-107); Estimated CRCL calculation 137 ml/min; Estimated Glomerular Filt Rate > 60; Glucose 124 mg/dL (65-110); Lipase 110 U/L (23-300); Potassium 3.9 mmol/L (3.4-5.0); Sodium 140 mmol/L (137-145)
[2022-07-22 22:50] LABS: Appearance Urine Clear (Clear); Bilirubin Urine Negative (Negative); Blood Urine Negative (Negative); Color Urine Yellow (Yellow); Glucose Urine UA Negative (Negative); Ketones Urine Negative (Negative); Leukocyte Esterase Ur Negative LEU/UL (Negative); Nitrate Urine Negative (Negative); Protein Urine Negative (Negative); Specific Grav Ur 1.018 (1.001-1.035); pH Urine 7.5 (5.0-9.0)
[2022-07-22 22:59] LABS: Ethanol 300 mg/dL (<10)
[2022-07-22 23:05] LABS: Amphetamine Screen Urine Negative (Negative); Barbiturate Screen Urine Negative (Negative); Benzodiazepines Screen Urine Negative (Negative); Cannabinoid Screen Urine Negative (Negative); Cocaine Screen Urine Negative (Negative); Methadone Screen Urine Negative (Negative); Opiate Screen Urine Negative (Negative); Phencyclidine Screen Urine Negative (Negative)
[2022-07-22 23:08] LABS: Add Urine Microscopic? NO
[2022-07-22] MEDS: SODIUM CHLORIDE 0.9% IV 1,000 ML 999 ML IV CONT (23:31)
[2022-07-22] MEDS: PANTOPRAZOLE SODIUM IV 40 MG VIAL IV PUSH (23:32)
[2022-07-22 23:37] VITALS: BP 125/84; PULSE 85; RESP 18; O2SAT 99
--- NOTE | 2022-07-23 00:29 | PC.NURSE ---
Pt has not had any vomiting during ER visit. Ice water given to pt.
--- NOTE | 2022-07-23 00:31 | ED.GENADULT ---
HPI - General Adult General Chief complaint: Nausea/Vomiting/Diarrhea Stated complaint: vomiting blood Time Seen by Provider: 07/22/22 22:45 History of Present Illness HPI narrative: Patient is a 32-year-old gentleman who presents the emergency department with chief complaint of nausea and vomiting and diarrhea. The patient states he had some blood in his vomit and reports that he has history of heavy alcohol use. Patient states that he last drink few hours ago and has episodes of gastritis. Patient denies fever Related Data Home Medications Medication Instructions Recorded Confirmed geriatric multivitamin-min 1 tablet PO DAILY 11/14/21 06/09/22 Allergies Allergy/AdvReac Type Severity Reaction Status Date / Time No Known Allergies Allergy Verified 06/09/22 13:15 Review of Systems Review of Systems: A 10 system review of systems was completed on the patient and is negative except for what is stated in the HPI. Nursing and ancillary documentation was reviewed. [facility] Past Medical History Medical History Alcohol abuse Alcohol withdrawal seizure Alcoholism Aspiration pneumonia Erosive esophagitis Essential hypertension Generalized anxiety disorder Hyperammonemia Leukocytosis Periapical abscess Tachycardia Transaminitis Surgical History Surgical History History of esophagogastroduodenoscopy (EGD) (09/2021) Family History Family History Father Alcohol abuse Family history of coronary artery disease Hypertension Heart disease Mother Alcohol abuse Family history of diabetes mellitus in first degree relative Hypertension Sibling Alcohol abuse Family history of diabetes mellitus in first degree relative Social History Social History Social History: The patient lives in his own home. He has 1 son. 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 He smoked about half a pack of cigarettes a day for few years and quit in 2019. He estimates that he started drinking alcohol at the age of 11 and he drinks at least a half a pt of vodka a day. Occasional marijuana use. He designates his mother Andie as his surrogate decision maker and he wishes to be a full code. Smoking packs per day: 1 Smoking cigarettes per day: 20.0 Years smoked: 19 Smoking pack-years: 19.00 Smoking status: Current every day smoker Tobacco type: cigarettes Second hand tobacco smoke exposure: No Additional smoking assessment comments: Pt states that he smokes about 1 pack per week. 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 HEAD: Normocephalic, atraumatic. EYES: PERRLA and EOMI. ENT: Nares clear, no rhinorrhea or epistaxis. Mucous membranes moist. NECK: Supple. CHEST: Clear to auscultation. No respiratory distress. HEART: Regular rate and rhythm. No murmur heard. Normal peripheral pulses. ABDOMEN: Soft, nontender, nondis
[2022-07-23] MEDS: diphenhydrAMINE HCl INJ 50 MG/ML VIAL IV PUSH (01:26)
[2022-07-23] MEDS: PROCHLORPERAZINE EDISYLATE 10 MG/2 ML VIAL IV PUSH (01:27)
[2022-07-23 01:30] VITALS: BP 146/105; PULSE 87; RESP 18; O2SAT 96
--- NOTE | 2022-07-23 01:30 | PC.NURSE ---
Pt states I'm scared I'm going to have a seizure . This RN educated pt that because his alcohol level was nearly four times the legal limit it's highly unlikely he is going into alcohol withdraw while he has this much alcohol in his system. Pt shows no signs of alcohol withdraw such as tachycardia, sweating, or tremors. Skin is warm and dry. Respiratory rate regular and non-labored.
[2022-07-23] MEDS: THIAMINE HCL 200 MG/2 ML VIAL 100 MG IV PUSH (01:39)
--- NOTE | 2022-07-23 01:55 | PC.NURSE ---
Entered pt's room to place him back on monitoring tech. Pt not in any bathrooms in department. Triage nurse Marlen noted pt ambulated out of department with steady gait. Pt found sitting outside on a bench. Instructed pt to come back into the department to remove his IV. Pt states he removed his own IV. On assessment IV is not in place. No bleeding noted. Pt states I'm leaving. I'm waiting for my dad to pick me up . Dr. Johnson notified.
== END 2022-07-23 01:55 | disposition left against medical advice (07) ==
PROVIDERS: Physician Assistant; Emergency Provider Emergency Medicine; PCP Family Medicine
DX: F10.229 Alcohol dependence with intoxication, unspecified (principal); Y90.8 Blood alcohol level of 240 mg/100 ml or more; I10 Essential (primary) hypertension; Z87.891 Personal history of nicotine dependence
CPT/HCPCS: 36415; 80053; 80307; 81003; 83690; 85025; 96361; 96374; 96375; 99284; C9113; J0780; J1200; J3411; J7030

== ENCOUNTER 2022-10-11 09:58 | Emergency (ER) | payer BC, SELFPAY ==
[2022-10-11] VITALS (8 sets, daily range): BP systolic 121–145; BP diastolic 79–84; PULSE 86–109; RESP 17–21; TEMP 36.4; O2SAT 95–98
--- NOTE | 2022-10-11 12:19 | ED.ALCOHOL ---
HPI - Alcohol General Chief Complaint: Alcohol Stated Complaint: etoh withdrawl Time Seen by Provider: 10/11/22 11:57 Source: patient Mode of arrival: ambulatory Limitations: no limitations History of Present Illness HPI narrative: 32 years old white male came to the emergency room by his mom because of anxiety and shaking started prior to arrival. Last alcohol intake 3 hours ago. Patient drinks up to 1 fifth whiskey daily. Patient reports a lot of stress, denies any suicidal or homicidal ideation, would like some anxiety medicine. 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 Related Data Home Medications Medication Instructions Recorded Confirmed geriatric multivitamin-min 1 tablet PO DAILY 11/14/21 06/09/22 Allergies Allergy/AdvReac Type Severity Reaction Status Date / Time No Known Allergies Allergy Verified 10/11/22 10:39 Review of Systems Review of Systems: All systems reviewed & are unremarkable except as noted in HPI and below PMFSH Past Medical History Medical History Alcohol abuse Alcohol withdrawal seizure Alcoholism Aspiration pneumonia Erosive esophagitis Essential hypertension Generalized anxiety disorder Hyperammonemia Leukocytosis Periapical abscess Tachycardia Transaminitis Surgical History Surgical History History of esophagogastroduodenoscopy (EGD) (09/2021) Family History Family History Father Alcohol abuse Family history of coronary artery disease Hypertension Heart disease Mother Alcohol abuse Family history of diabetes mellitus in first degree relative Hypertension Sibling Alcohol abuse Family history of diabetes mellitus in first degree relative Social History Social History Social History: The patient lives in his own home. He has 1 son. 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 He smoked about half a pack of cigarettes a day for few years and quit in 2019. He estimates that he started drinking alcohol at the age of 11 and he drinks at least a half a pt of vodka a day. Occasional marijuana use. He designates his mother Andie as his surrogate decision maker and he wishes to be a full code. Smoking packs per day: 1 Smoking cigarettes per day: 20.0 Years smoked: 19 Smoking pack-years: 19.00 Smoking status: Current every day smoker Tobacco type: cigarettes Second hand tobacco smoke exposure: No Additional smoking assessment comments: Pt states that he smokes about 1 pack per week. 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
[2022-10-11] MEDS: LORazepam INJ (*CRX) 2 MG/ML VIAL 1 MG IV PUSH (12:34)
[2022-10-11] MEDS: THIAMINE HCL 200 MG/2 ML VIAL 100 MG IV PUSH (13:01)
[2022-10-11] MEDS: FOLIC ACID 1 MG/0.2 ML INJ IV PUSH (13:02)
[2022-10-11] MEDS: THERAPEUTIC MULTIVITAMINS/MINERALS TAB (*BKC) 1 TABLET PO (13:02)
[2022-10-11 13:05] LABS: Basophils Percent Auto 0.6 % (0.2-1.2); Eosinophils Percent Auto 1.1 % (0-4.4); Hematocrit 41.2 % (42.0-52.0); Immature Granulocyte Absolute 0.04 K/mm3 (0.00-0.031); Immature Granulocyte Percent A 1.1 % (0-0.5); Lymphocytes Absolute Auto 1.42 K/mm3 (0.9-3.2); Lymphocytes Percent Auto 39.6 % (18.3-44.2); Mean Corpuscular Hemoglobin 32.8 pg (26-34); Mean Corpuscular Volume 96.5 fl (80-100); Mean Platelet Volume 8.8 fl (7.4-10.4); Monocytes Absolute Auto 0.5 K/mm3 (0.1-0.6); Monocytes Percent Auto 12.5 % (2.6-8.5); Neutrophils Absolute Auto 1.6 K/mm3 (1.3-6.7); Neutrophils Percent Auto 45.1 % (45.5-73.1); Platelet Count Result 195 k/mm3 (150-375); Red Blood Count 4.27 M/mm3 (4.6-6.20); Red Cell Distribution Width 13.6 % (11.5-14.5); White Blood Count 3.6 K/mm3 (4.5-10.0)
[2022-10-11 13:17] LABS: Alanine Aminotransferase 102 U/L (6-50); Albumin Level 4.2 g/dL (3.5-5.1); Alkaline Phosphatase 98 U/L (38-126); Anion Gap 10 mmol/L (8-16); Aspartate Amino Transferase 148 U/L (17-59); Bilirubin,Total 0.4 mg/dL (0.2-1.3); Blood Urea Nitrogen 7 mg/dL (9-20); Calcium 7.9 mg/dL (8.4-10.2); Carbon Dioxide 28 mmol/L (22-30); Chloride 98 mmol/L (98-107); Estimated CRCL calculation 142 ml/min; Estimated Glomerular Filt Rate > 60; Glucose 103 mg/dL (65-110); Potassium 3.4 mmol/L (3.4-5.0); Sodium 136 mmol/L (137-145)
[2022-10-11 13:41] LABS: Ethanol 404 mg/dL (<10)
[2022-10-11 13:45] LABS: INR 0.9; Prothrombin Time 12.2 Seconds (11.1-14.7)
[2022-10-11] MEDS: SODIUM CHLORIDE 0.9% IV 1,000 ML 999 ML IV CONT (13:57)
[2022-10-11] MEDS: ONDANSETRON INJ 4 MG/2 ML VIAL 8 MG IV PUSH (14:48)
--- NOTE | 2022-10-11 15:06 | PC.NURSE ---
real estate services coordinator in to speak with pt.
--- NOTE | 2022-10-11 15:52 | PCCCNOTE ---
Addendum entered by Isela Faust RN 10/11/22 16:18: Per Fred, he has initiated referrals but he has not been accepted yet, Patient is wanting to go to [facility] to be screened for a detox bed. Per patient his mom will drive him. Notified Fred that mom Isabella is wanting family resource support. He states that he can provide that information to the team. Will put patient's facesheet and his mom's number for follow up in his referral area. Original Note: Phone call received from [facility] to assist patient with resources for shelters as patient is discharging and he cannot go home. Met with patient in ED room 7, and he states that he does not think that he can go home today. Patient states that he lives with his mom and has been living their his whole life. Asked if she has given him notice of eviction but he states no. Patient states that he was in [place] 6 months ago. Confirms that he has [facility] Medicaid Plan. Patient has never been to a homeless assisted and would like assistance in going to alcohol rehab. Notified Fred from [facility] and he is meeting with the patient currently. Called back to Isabella, pt's mom at [phone], she has not given him notice that he can not stay there but she did have to call the police on him on Monday due to aggression and threats in an intoxicated state. Explained that he is discharging today and that homeless shelters and that it would be hard to get him into a homeless assisted since the only walk in assisted is currently closed and all others require screening. Isabella is very overwhelmed with cycle of having her son with alcohol addiction. Explained family support with [facility] and she is agreeable to have them call her. Explained that is very hard to get into rehab same day and most often on the wait list. Isabella is thinking that it may be agreeable for him to come home if awaiting rehab. She is about 10 minutes from the hospital.
== END 2022-10-11 16:21 | disposition home or self-care (01) ==
PROVIDERS: Emergency Provider Emergency Medicine; PCP Family Medicine
DX: F41.9 Anxiety disorder, unspecified (principal); F10.229 Alcohol dependence with intoxication, unspecified; Z87.01 Personal history of pneumonia (recurrent); Z87.891 Personal history of nicotine dependence; Y90.8 Blood alcohol level of 240 mg/100 ml or more
CPT/HCPCS: 36415; 80053; 80307; 85025; 85610; 96361; 96374; 96375; 99284; A9270; J2060; J2405; J3411; J7030

== ENCOUNTER 2024-01-17 20:00 | Emergency (ER) | payer BC, SELFPAY ==
[2024-01-17 20:07] VITALS: BP 119/85; PULSE 102; RESP 18; TEMP 36.7; O2SAT 92
[2024-01-17 20:31] LABS: Basophils Percent Auto 0.2 % (0.2-1.2); Eosinophils Absolute Auto 0.2 K/mm3 (0-0.3); Eosinophils Percent Auto 4.2 % (0-4.4); Hemoglobin 15.2 g/dL (14.0-18.0); Immature Granulocyte Absolute 0.03 K/mm3 (0.00-0.031); Immature Granulocyte Percent A 0.6 % (0-0.5); Mean Corpuscular HGB Conc 35.3 g/dl (32-36); Mean Corpuscular Hemoglobin 33.8 pg (26-34); Mean Corpuscular Volume 95.6 fl (80-100); Monocytes Absolute Auto 0.5 K/mm3 (0.1-0.6); Monocytes Percent Auto 8.9 % (2.6-8.5); Neutrophils Absolute Auto 3.1 K/mm3 (1.3-6.7); Neutrophils Percent Auto 59.1 % (45.5-73.1); Platelet Count Result 164 k/mm3 (150-375); Red Cell Distribution Width 12.6 % (11.5-14.5); White Blood Count 5.2 K/mm3 (4.5-10.0)
--- NOTE | 2024-01-17 20:32 | ECG_ITS ---
Test Date: 2024-01-17 21:07:22 Measurements Intervals [place] Rate: 91 P: 13 NV: 163 QRS: 71 QRSD: 109 T: 33 QT: 334 QTc: 413 Interpretive Statements SINUS RHYTHM MINIMAL Q WAVES- INFERIOR LEADS ST ELEVATION IN DIFFUSE LEADS, PROBABLY EARLY REPOLARIZATION BORDERLINE ECG No previous ECG available for comparison Electronically Signed On 01-18-2024 05:33:25 DASHBOARD DEVELOPER by Elvis Naidu D.O.
[2024-01-17 20:41] LABS: Alanine Aminotransferase 52 U/L (6-50); Albumin Level 4.8 g/dL (3.5-5.1); Alkaline Phosphatase 81 U/L (38-126); Anion Gap 19 mmol/L (4-12); Aspartate Amino Transferase 86 U/L (17-59); Bilirubin,Total 0.4 mg/dL (0.2-1.3); Blood Urea Nitrogen 10 mg/dL (9-20); Calcium 9.6 mg/dL (8.4-10.2); Carbon Dioxide 22 mmol/L (22-30); Chloride 101 mmol/L (98-107); Estimated CRCL calculation 130 ml/min; Estimated Glomerular Filt Rate > 60; Glucose 144 mg/dL (65-110); Potassium 3.4 mmol/L (3.4-5.0); Sodium 142 mmol/L (137-145)
[2024-01-17 20:45] LABS: Acetaminophen < 10 ug/mL (10-30); Salicylate < 1.0 mg/dL (2-20)
[2024-01-17 20:58] LABS: Ethanol 343 mg/dL (<10)
[2024-01-17 21:00] LABS: Troponin I < 0.012 ng/mL (0.000-0.034)
[2024-01-17 21:07] LABS: Influenza A QL RT-PCR Negative (Negative); Influenza B QL RT-PCR Negative (Negative); RSV RNA, RT-PCR Negative (Negative); SARS-CoV-2 RNA PCR Negative (Negative)
[2024-01-17 21:13] VITALS: BP 105/79; PULSE 91; RESP 18; O2SAT 94
--- NOTE | 2024-01-17 21:23 | ED.ALCOHOL ---
HPI - Alcohol General Chief Complaint: Alcohol Stated Complaint: ETOH+, SI Time Seen by Provider: 01/17/24 20:07 Source: patient, EMS and old records reviewed Mode of arrival: EMS Limitations: no limitations and intoxication History of Present Illness HPI narrative: Patient is a 33-year-old male who presents the ED via EMS with report of alcohol intoxication and reported erratic behavior. Patient has a long history of alcohol use disorder and is well known to our facility for alcohol intoxication and withdrawal. He reports he has been drinking since 8:00 a.m. this morning. Drinks up to a 0.5 gal of liquor per day. Per EMS report, patient's mother called due to patient using a knife to their recliner chair. PD/EMS was notified and patient was brought here for further evaluation. There was no report of SI. Patient denies any SI or HI currently. Does appear intoxicated. Has no other acute concerns. Denies shakiness, abdominal pain, nausea, vomiting. Related Data Home Medications Medication Instructions Recorded Confirmed geriatric multivitamin-min 1 tablet PO DAILY 11/14/21 06/09/22 Allergies Allergy/AdvReac Type Severity Reaction Status Date / Time No Known Allergies Allergy Verified 10/11/22 10:39 Review of Systems Review of Systems: All systems reviewed & are unremarkable except as noted in HPI. All systems reviewed & are unremarkable except as noted in HPI and below PMFSH Past Medical History Medical History Alcohol abuse Alcohol withdrawal seizure Alcoholism Aspiration pneumonia Erosive esophagitis Essential hypertension Generalized anxiety disorder Hyperammonemia Leukocytosis Periapical abscess Tachycardia Transaminitis Surgical History Surgical History History of esophagogastroduodenoscopy (EGD) (09/2021) Family History Family History Father Alcohol abuse Family history of coronary artery disease Hypertension Heart disease Mother Alcohol abuse Family history of diabetes mellitus in first degree relative Hypertension Sibling Alcohol abuse Family history of diabetes mellitus in first degree relative Social History Social History Social History: The patient lives in his own home. He has 1 son. 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 He smoked about half a pack of cigarettes a day for few years and quit in 2019. He estimates that he started drinking alcohol at the age of 11 and he drinks at least a half a pt of vodka a day. Occasional marijuana use. He designates his mother Andie as his surrogate decision maker and he wishes to be a full code. Smoking packs per day: 1 Smoking cigarettes per day: 20.0 Years smoked: 19 Smoking pack-years: 19.00 Smoking status: Current every day smoker Tobacco type: cigarettes Second hand tobacco smoke exposure: No Additional smoking assessment comments: Pt states that he smokes about 1 pack per week. 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 HEAD: Normocephalic, atraumatic. RESPIRATORY: Airway patent, respirations nonlabored. Clear to auscultation bilaterally, no rales, rhonchi, wheezing. CARDIOVASCULAR: Regular rate and rhythm without murmurs, rubs, or gallops. MUSCULOSKELETAL: Moves all extremities. No gross deformities. SKIN: Warm, dry, normal color. NEURO: A&O X3. Speech is somewhat slurred, but able to answer questions and follow commands. Cooperative. Cranial nerves II-XII grossly intact. Steady gait. No ataxic movements. PSYCHIATRIC: Appropriate mood and affect. Normal interaction. Course Vital Signs Vital signs: Vital Signs Temperature 98.0 F 01/17/24 20:07 Pulse Rate 102 H 01/17/24 20:07 Respiratory Rate 18 01/17/24 20:07 Blood Pressure 119/85 01/17/24 20:07 Pulse Oximetry 92 01/17/24 20:07 Oxygen Delivery Room Air 01/17/24 20:07 Temperature 98.0 F 01/17/24 20:07 Pulse Rate 91 01/17/24 21:13 Respiratory Rate 18 01/17/24 21:13 Blood Pressure 105/79 01/17/24 21:13 Pulse Oximetry 94 01/17/24 21:13 Oxygen Delivery Room Air 01/17/24 20:07 MDM - Alcohol MDM Narrative Medical decision making narrative: Initial blood alcohol 343. Remainder of basic labs unremarkable. Patient was monitored in the ED for several hours to clinical sobriety. He continues to deny SI/HI. He is able to voice events of tonight. States the dog was stuck in the recliner chair which is why he used the knife to get the dog out. He denies wanting to harm himself or anyone else. He is not showing any evidence of active ETOH WD. He does express desire to quit drinking. He has tolerated and done well with Librium in the past. Will send prescription to pharmacy to be used as needed for WD sx's. Will give patient alcohol detox resources. Given zofran, ativan, fluids, thiamine here. Patient is clinically sober at this point. He has been calm and cooperative throughout ED stay. He is ambulatory with a steady gait. Has clear speech. A&OX4. Again no evidence of significant ETOH WD. Vitals are stable. No tachycardia, diaphoresis, significant shakiness/tremor. Discussed case with patient's mother via phone, discussed that we are not an official medical detox facility and that patient is not acutely withdrawing at this time to the point to require admission. Mother reports that patient has been seen at [facility] for detox in the past. They will follow-up there and are comfortable doing so. Mother is willing to pick patient up into her custody and take patient home. Do feel patient is safe for d/c home at this time. Discussed signs and sx's of more serious etoh wd and strict return precautions. Emphasized the importance of abstaining from ETOH and avoiding ETOH use while on librium. Patient voiced understanding of this. Feels comfortable going home on librium. D/C in stable condition and w/o issue. Medical Records Attestation: I reviewed the patient's medical records. Lab Data Attestation: I reviewed the patient's lab results. 01/17/24 20:24 01/17/24 20:24 Labs: Lab Results 01/17/24 Range/Units 20:24 WBC 5.2 (4.5-10.0) K/mm3 RBC 4.50 L (4.6-6.20) M/mm3 Hgb 15.2 (14.0-18.0) g/dL Hct 43.0 (42.0-52.0) % MCV 95.6 (80-100) fl MCH 33.8 (26-34) pg MCHC 35.3 (32-36) g/dl RDW 12.6 (11.5-14.5) % Plt Count 164 (150-375) k/mm3 MPV 10.0 (7.4-10.4) fl Immature Gran % (Auto) 0.6 H (0-0.5) % Neut % (Auto) 59.1 (45.5-73.1) % Lymph % (Auto) 27.0 (18.3-44.2) % [place] % (Auto) 8.9 H (2.6-8.5) % Eos % (Auto) 4.2 (0-4.4) % Baso % (Auto) 0.2 (0.2-1.2) % Lymph # (Auto) 1.40 (0.9-3.2) K/mm3 [place] # (Auto) 0.5 (0.1-0.6) K/mm3 Eos # (Auto) 0.2 (0-0.3) K/mm3 Baso # (Auto) 0.0 (0.0-0.1) K/mm3 Abs Immat Gran (auto) 0.03 (0.00-0.031) K/mm3 Absolute Neuts (auto) 3.1 (1.3-6.7) K/mm3 Absolute Nucleated RBC 0.000 (0.0-0.012) K/mm3 Nucleated RBC % 0.0 (0.0-0.2) % Sodium 142 (137-145) mmol/L Potassium 3.4 (3.4-5.0) mmol/L Chloride 101 (98-107) mmol/L Carbon Dioxide 22 (22-30) mmol/L Anion Gap 19 H (4-12) mmol/L BUN 10 (9-20) mg/dL Creatinine 0.80 (0.7-1.3) mg/dL Estim Creat Clear Calc 130 ml/min Estimated GFR > 60 (59 - ) Glucose 144 H (65-110) mg/dL Calcium 9.6 (8.4-10.2) mg/dL Total Bilirubin 0.4 (0.2-1.3) mg/dL AST 86 H (17-59) U/L ALT 52 H (6-50) U/L Alkaline Phosphatase 81 (38-126) U/L Troponin I < 0.012 (0.000-0.034) ng/mL Total Protein 8.0 (6.3-8.2) g/dL Albumin 4.8 (3.5-5.1) g/dL TSH 1.390 (0.465-4.680) uIU/mL Urine Color Yellow (Yellow) Urine Appearance Clear (Clear) Urine pH 6.0 (5.0-9.0) Ur Specific [place] 1.016 (1.001-1.035) Urine Protein 3+ H (Negative) mg/dL Urine Glucose (UA) Negative (Negative) mg/dL Urine Ketones Negative (Negative) mg/dL Ur Blood (Man) 1+ H (Negative) Urine Nitrate Negative (Negative) Urine Bilirubin Negative (Negative) Urine Urobilinogen 0.2 (<2.0) mg/dL Leukocyte Esterase Rfl Negative (Negative) ZUNILDA/UL Urine RBC 0-2 (0-2) /hpf Urine WBC 0-5 (0-3) /hpf Ur Squamous Epith Cells None seen (Few) /hpf Urine Bacteria None seen /hpf Urine Casts 11-20 Hyaline Casts Present (None) /lpf Salicylates < 1.0 L (2-20) mg/dL Urine Opiates Screen Negative (Negative) Urine Methadone Screen Negative (Negative) Acetaminophen < 10 L (10-30) ug/mL Ur Barbiturates Screen Negative (Negative) Ur Phencyclidine Scrn Negative (Negative) Ur Amphetamine Screen Negative (Negative) U Benzodiazepines Scrn Negative (Negative) Urine Cocaine Screen Negative (Negative) U Cannabinoids Screen Positive A (Negative) Ethyl Alcohol 343 H* (<10) mg/dL Influenza A (RT-PCR) Negative (Negative) Influenza B (RT-PCR) Negative (Negative) RSV (RT-PCR) Negative (Negative) SARS-CoV-2 RNA (RT-PCR) Negative (Negative) ECG Data EKG #1: Attestation: I personally reviewed and interpreted this ECG as follows: ECG completion date: 01/17/24 ECG completion time: 21:07 EKG Interpretation: normal rate (91), sinus rhythm and non-specific ST changes (early repol) Discharge Plan Discharge Clinical Impression: Alcohol use disorder Alcoholic intoxication Qualifiers: Complication of substance-induced condition: uncomplicated Qualified Code(s): F10.920 - Alcohol use, unspecified with intoxication, uncomplicated Patient Disposition: Home, Self-Care Condition: Stable Instructions: Antibiotic Form, Alcohol Intoxication (ED), Alcohol Withdrawal (ED), Alcohol Dependence (ED) Additional Instructions: Avoid further alcohol use. Utilize Librium as needed for alcohol withdrawal symptoms. Do not drink alcohol with librium. Follow-up with detox center for further management of alcohol use. Return to the ED if you experience severe withdrawal symptoms, severe pain or shakiness, unable to keep down food or drink, hallucinations, passing out, or any other symptoms of concern. Prescriptions: New chlordiazepoxide HCl 25 mg capsule 25 mg PO TID PRN (Reason: alcohol withdrawal) Qty: 15 0RF ondansetron 4 mg tablet,disintegrating 4 mg PO Q8H PRN (Reason: nausea and vomiting) Qty: 15 0RF No Action chlordiazepoxide HCl 25 mg capsule 25 mg PO TID PRN (Reason: alcohol withdrawal) Qty: 24 0RF geriatric multivitamin-min Tablet 1 tablet PO DAILY vit [id number] [id number] mg combo pack 1 pkg PO DAILY Qty: 60 0RF Rx Instructions: 1 tablet daily. thiamine HCl (vitamin B1) 100 mg tablet 100 mg PO DAILY Qty: 60 0RF propranolol 20 mg tablet 20 mg PO Q12H Qty: 180 0RF Follow-up/Referrals: Morris Sosa MD [Primary Care Provider] - Time of Disposition: 02:54
[2024-01-17] MEDS: THIAMINE HCL 200 MG/2 ML VIAL 100 MG IV PUSH (21:25)
[2024-01-17] MEDS: SODIUM CHLORIDE 0.9% IV 1,000 ML 999 ML IV CONT (21:25)
[2024-01-17 21:49] LABS: Add Urine Microscopic? YES; Appearance Urine Clear (Clear); Bacteria Urine None Seen /hpf; Bilirubin Urine Negative (Negative); Blood Urine 1+ (Negative); Color Urine Yellow (Yellow); Glucose Urine UA Negative (Negative); Hyaline Casts Urine Present /lpf; Ketones Urine Negative (Negative); Leukocyte Esterase Ur Negative LEU/UL (Negative); Nitrate Urine Negative (Negative); Protein Urine 3+ mg/dL (Negative); RBC Urine 0-2 /hpf (0-2); Specific Grav Ur 1.016 (1.001-1.035); Squamous Epithelial Cell Urine None Seen /hpf (Few); Urobilinogen Urine 0.2 mg/dL (<2.0); WBC Urine 0-5 /hpf (0-3)
[2024-01-17 21:54] LABS: Amphetamine Screen Urine Negative (Negative); Barbiturate Screen Urine Negative (Negative); Benzodiazepines Screen Urine Negative (Negative); Cannabinoid Screen Urine Positive (Negative); Cocaine Screen Urine Negative (Negative); Methadone Screen Urine Negative (Negative); Opiate Screen Urine Negative (Negative); Phencyclidine Screen Urine Negative (Negative)
[2024-01-18] MEDS: LORazepam INJ (*CRX) 2 MG/ML VIAL 1 MG IV PUSH (03:11)
[2024-01-18] MEDS: ONDANSETRON INJ 4 MG/2 ML VIAL IV PUSH (03:11)
[2024-01-18 03:41] VITALS: BP 112/68; PULSE 94; RESP 15; O2SAT 100
== END 2024-01-18 03:48 | disposition home or self-care (01) ==
PROVIDERS: Emergency Provider Physician Assistant; PCP Family Medicine
DX: F10.920 Alcohol use, unspecified with intoxication, uncomplicated (principal); Z20.822 Contact with and (suspected) exposure to COVID-19; F17.210 Nicotine dependence, cigarettes, uncomplicated; F41.9 Anxiety disorder, unspecified; I10 Essential (primary) hypertension
CPT/HCPCS: 36415; 80053; 80143; 80179; 80307; 81001; 82077; 84443; 84484; 85025; 87637; 93005; 96361; 96374; 96375; 99284; J2060; J2405; J3411; J7030